=== PATIENT | female | born 1970 | race Caucasian/White ===

== ENCOUNTER 2020-05-31 12:46 | Emergency (ER) | payer MEDICAID, SELFPAY ==
--- NOTE | 2020-05-31 13:26 | ED.GENADULT ---
HPI - General Adult General Chief complaint: Back Pain/Injury Stated complaint: NOT FEELING WELL X'S DAYS Time Seen by Provider: 05/31/20 13:26 Source: patient and EMS Mode of arrival: EMS Limitations: no limitations History of Present Illness HPI narrative: 49 y/o female with history of opiate abuse on Suboxone presents today reports hot flashes for the last 6 months. She has taken her temperature several times and fever has not had a temperature. She was recently seen [facility] on 05/19. She reports she is getting nauseated with it, chronically having to take antiemetics. She is planning on changing to a monthly injection this week. She also reports lumbar back pain for the last 2 months as well. Denies injury. No urinary/fecal incontinence, saddle paresthesias, numbness, tingling. Denies IVDA. complaint: hot flashes x6 months Onset (ago): month(s) Severity: severe Pain Consistency: intermittent Relieving factors: immobilization Exacerbating factors: movement Associated symptoms: denies other symptoms Treatments prior to arrival: none Related Data Home Medications Medication Instructions Recorded Confirmed clonazepam 1 mg tablet 1 mg PO DAILY 05/14/20 dextroamphetamine-amphetamine 30 30 mg PO BID 05/14/20 mg tablet naloxone 4 mg/actuation nasal spray 4 mg INTRANASAL Q2M PRN 05/14/20 sumatriptan 10 mg-naproxen 60 mg 1 tab PO DAILY tab 05/14/20 tablet Previous Rx's Medication Instructions Recorded buprenorphine 8 mg-naloxone 2 mg 1 film SUBLINGUAL BID #14 ea 05/19/20 sublingual film cyclobenzaprine 10 mg PO TID PRN #14 tab 05/31/20 ibuprofen 600 mg PO Q8H PRN #30 tab 05/31/20 lidocaine [Lidoderm] 1 patch TOPICAL DAILY #15 ea 05/31/20 Allergies Allergy/AdvReac Type Severity Reaction Status Date / Time dexamethasone [From DECADRON] AdvReac Severe NAUSEA & Verified 05/31/20 13:37 VOMITING Review of Systems Review of Systems: Constitutional: No Fever, + Chills ENT/Mouth: No sore throat, No Rhinorrhea, No Swallowing Difficulty Eyes: No Eye Pain, No Swelling, No Redness Cardiovascular: No Chest Pain, No SOB, No Orthopnea, No Edema Respiratory: No Cough, No Sputum, No Wheezing, No dyspnea Gastrointestinal: + Nausea, + Vomiting, No Diarrhea, No abdominal Pain, No Hematochezia, No Melena Genitourinary: No Dysuria, No Urinary Frequency, No Hematuria Musculoskeletal: + joint pain, + Myalgias Skin: No Skin Lesions, No rash Neuro: No Weakness, No Numbness, No Dizziness, No Headache Psych: + Anxiety/Panic, No Depression Heme/Lymph: No Bruising, No Lymphadenopathy Endocrine: No Polyuria, No Polydipsia, + hot flashes, No night sweats PMFSH Past Medical History Attestation statement: The following information was validated with the patient. Medical History (Updated 05/31/20 @ 15:34 by TOM Barker) No known health problems No known health problems Substance abuse Social History Social History Alcohol intake: unknown Smoking Status: Unknown if ever smoked Use of substances other than those prescribed or required for medical reasons: No Substance Use Type: Former Substance User Any prior treatment program specific to substance use: Yes (PT TAKES SUBOXONE 8MG BID) Advance Directives: No Advance Directives Information Provided: No Physical Exam Vital Signs: Vital Signs: Vital Signs Temp Pulse Resp BP Pulse Ox 05/31/20 13:33 98.7 F 67 18 150/96 H 97 Body Mass Index 36.2 Appearance: Alert. Oriented X3. No acute distress. HEENT: normal inspection CVS: Normal heart rate and rhythm. Pulses normal. Respiratory: No respiratory distress. Skin: Skin warm and dry. Normal skin color. Normal skin turgor. No rashes. Back: tender soft tissue area of bilateral lumbar back, normal inspection, +muscle spasm, limited ROM Extremities: no LE edema, full ROM, DTR's intact Neuro: Oriented X 3. No motor deficit. No sensory deficit. Course Course Course Narrative: patient requesting routine blood work and monitoring for menopause and for diabetes. Explained to patient the role of basic medical screening in the ER and need for follow up with PCP. She admits she hasn't been to her PCP in a very long time, I don't even know her name. Explained that new lists can be provided and the importance of follow. Will get lumbar XR given pain. Low suspicion for infection given chronicity of hot flashes. Likely hormonally mediated. Reevaluation(s) Reevaluation #1: FS 120. Anum Asher here speaking with the patient. Reevaluation #2: Lumbar XR shows: Grade 1 anterolisthesis of L5, with yanp-nr-elvhafry disc degeneration and suspected bilateral L5 pars defect. No acute fractures seen. Mild bilateral SI joint arthritis. She has no deficits. She is stable for discharge with symptomatic management and plan to f/u with PCP. She may require additional imaging of her spine. Patient agrees with plan. 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 Use ice and/or heat several times a day to your low back. Your X-ray did not show any acute fracture. It showed mild arthritis of your SI joints and a grade 1 (most mild form) slipped disc of one of your lumbar spine. You should follow up with your Primary Care doctor for further management and possible need for additional imaging. You should follow up with your Primary Care doctor for routine blood work and futher workup of the hot flashes you have been having for the last 6 months. Your blood glucose today did not indicate diabetes. If you develop incontinence, numbness/tingling in your inguinal area, loss of function call 911 or come back to the ER for further evaluation. Prescriptions: New cyclobenzaprine 10 mg tablet 10 mg PO TID PRN (Reason: muscle spasm) Qty: 14 RF: 0 ibuprofen 600 mg tablet 600 mg PO Q8H PRN (Reason: pain) Qty: 30 RF: 0 lidocaine [Lidoderm] 5 % adhesive patch,medicated 1 patch topical DAILY Qty: 15 RF: 0 No Action buprenorphine-naloxone [Suboxone] 8-2 mg film 1 film sublingual BID Qty: 14 RF: 1
[2020-05-31 13:33] VITALS: BP 150/96; PULSE 67; RESP 18; TEMP 37.1; O2SAT 97; BMI 36.2
--- NOTE | 2020-05-31 13:59 | XR_ITS ---
EXAMINATION: XR LUMBOSACRAL SPINE CLINICAL INFORMATION: Pain, tenderness. COMPARISON: None TECHNIQUE: Three views of the lumbosacral spine. FINDINGS: Grade 1 anterolisthesis of L5 on S1, with oofp-tm-mvlakidh disc degeneration. Question bilateral L5 pars defect. Vertebral body heights are maintained without evidence of acute fracture. Disc spaces are relatively maintained otherwise. Mild bilateral SI joint arthritis. No suspicious soft tissue calcification. IMPRESSION: 1. Grade 1 anterolisthesis of L5, with [id number]-rc-[id number] disc degeneration and suspected bilateral L5 pars defect. 2. No acute fractures seen. 3. Mild bilateral SI joint arthritis.
[2020-05-31] MEDS: Lidocaine 4 % Patch ADH..PATCH 2 PATCH TRANSDERMA (14:12)
[2020-05-31] MEDS: Cyclobenzaprine HCl 10 MG TABLET PO (14:14)
[2020-05-31 14:38] LABS: Glucose, Whole Blood 120 mg/dL (60-115)
[2020-05-31 15:31] VITALS: BP 116/96; PULSE 64; RESP 16; TEMP 36.8; O2SAT 99
== END 2020-05-31 15:53 | disposition home or self-care (01) ==
PROVIDERS: Emergency Provider Emergency Medicine; PCP Internal Medicine
DX: N95.1 Menopausal and female climacteric states (principal); M46.1 Sacroiliitis, not elsewhere classified; M43.16 Spondylolisthesis, lumbar region; F11.20 Opioid dependence, uncomplicated; Z79.899 Other long term (current) drug therapy
CPT/HCPCS: 72100; 82947; 99283; 99284

== ENCOUNTER → 2020-06-02 13:37 | Outpatient (BNVA) | payer MEDICAID, SELFPAY | PROVIDERS: Visit Provider Nurse Practitioner Psychiatric/Mental Health | DX: F11.99 Opioid use, unspecified with unspecified opioid-induced disorder (principal) | CPT/HCPCS: 80305; 99213 ==

== ENCOUNTER 2020-06-16 14:11 | Outpatient (REF) | payer MEDICAID, SELFPAY ==
[2020-06-16 15:28] LABS: MANUAL DIFF FLAG NO
[2020-06-16 15:33] LABS: Basophils Percent Auto 0.3 % (0-2); Eosinophils Absolute Auto 0.2 X10*3/uL (0.0-0.4); Eosinophils Percent Auto 2.4 % (0-4); Hematocrit 49.3 % (37-47); Hemoglobin 16.2 g/dl (12.0-16.0); Imm Gran Abs Auto 0.02 X10*3/uL (0.00-0.03); Imm Gran Pct Auto 0.3 % (0.0-0.4); Lymphocytes Absolute Auto 3.3 X10*3/uL (1.2-4.9); Mean Corpuscular HGB Conc 32.9 g/dl (31.0-35.0); Mean Corpuscular Hemoglobin 29.1 pg (27.0-33.0); Mean Corpuscular Volume 88.7 fL (80-98); Mean Platelet Volume 9.7 fL (9.4-12.3); Monocytes Absolute Auto 0.5 X10*3/uL (0.1-1.2); Monocytes Percent Auto 5.9 % (2-11); Neutrophils Absolute Auto 3.7 X10*3/uL (2.0-8.3); Neutrophils Percent Auto 48.1 % (45-73); Platelet Count 264 X10*3/uL (160-400); Red Blood Count 5.56 X10*6/uL (4.20-5.50); Red Cell Distribution Width 12.6 % (11.0-16.0); White Blood Count 7.6 X10*3/uL (4.8-10.8)
[2020-06-16 16:17] LABS: Anion Gap 11 (12-20); Blood Urea Nitrogen 10 mg/dL (9-16); Calcium 8.7 mg/dL (8.4-10.2); Carbon Dioxide 32 mmol/L (22-29); Chloride 102 mmol/L (96-108); Estimated Glomerular Filt Rate > 60; Glucose Random 88 mg/dL (60-115); Potassium 4.3 mmol/l (3.3-5.1); Sodium 141 mmol/L (135-145)
== END 2020-06-16 14:12 | disposition home or self-care (01) ==
LOC: HO.LAB 14:11
PROVIDERS: PCP Internal Medicine; Visit Provider Nurse Practitioner Psychiatric/Mental Health
DX: D86.9 Sarcoidosis, unspecified (principal); Z51.81 Encounter for therapeutic drug level monitoring; Z79.899 Other long term (current) drug therapy
CPT/HCPCS: 36415; 80048; 80305; 85025; 99212

== ENCOUNTER → 2020-06-23 15:00 | Outpatient (BNVA) | payer MEDICAID, SELFPAY | PROVIDERS: Visit Provider Nurse Practitioner Psychiatric/Mental Health | DX: Z13.89 Encounter for screening for other disorder (principal) | CPT/HCPCS: 99211 ==

== ENCOUNTER → 2020-06-30 13:37 | Outpatient (BNVA) | payer MEDICAID, SELFPAY | PROVIDERS: Visit Provider Nurse Practitioner Psychiatric/Mental Health | DX: F11.20 Opioid dependence, uncomplicated (principal) | CPT/HCPCS: 99211; Q9992 ==

== ENCOUNTER 2020-06-30 16:27 | Emergency (ER) | payer MEDICAID, SELFPAY ==
[2020-06-30 17:08] VITALS: BP 128/87; PULSE 97; RESP 16; TEMP 36.2; O2SAT 99; BMI 36.2
--- NOTE | 2020-06-30 18:01 | ED.ALLEREA ---
HPI - Allergic Reaction General Chief complaint: Allergic Reaction Stated complaint: allergic reaction Time Seen by Provider: 06/30/20 18:01 History of Present Illness HPI narrative: Patient presents to the ER after getting a Suboxone injection which produced a red rash on her skin which was itchy but has been improving without any further treatment she never had shortness of breath or any swelling inside her mouth or difficulty swallowing or breathing Related Data Home Medications Medication Instructions Recorded Confirmed clonazepam 1 mg tablet 1 mg PO DAILY 05/14/20 dextroamphetamine-amphetamine 30 30 mg PO BID 05/14/20 mg tablet naloxone 4 mg/actuation nasal spray 4 mg INTRANASAL Q2M PRN 05/14/20 sumatriptan 10 mg-naproxen 60 mg 1 tab PO DAILY tab 05/14/20 tablet Previous Rx's Medication Instructions Recorded cyclobenzaprine 10 mg PO TID PRN #14 tab 05/31/20 ibuprofen 600 mg PO Q8H PRN #30 tab 05/31/20 lidocaine [Lidoderm] 1 patch TOPICAL DAILY #15 ea 05/31/20 buprenorphine 300 mg/1.5 mL 300 mg SUBCUT .COMPLEX #1.5 ml 06/20/20 solution,exten.rel.subcutaneous syringe buprenorphine 8 mg-naloxone 2 mg 1 film SUBLINGUAL BID #14 ea 06/23/20 sublingual film loratadine [Claritin] 10 mg PO DAILY PRN #7 tab 06/30/20 Allergies Allergy/AdvReac Type Severity Reaction Status Date / Time dexamethasone [From DECADRON] AdvReac Severe NAUSEA & Verified 05/31/20 13:37 VOMITING Review of Systems Review of Systems: Review of systems is positive for rash No chest pain no shortness of breath no difficulty breathing or swallowing no facial swelling no neck swelling no abdominal pain no nausea no vomiting Yes all other systems are reviewed and are negative PMFSH Past Medical History Source: nursing notes reviewed Medical History (Updated 06/30/20 @ 18:08 by TOM Rosenberg) No known health problems No known health problems Substance abuse Social History Social History Alcohol intake: never Smoking Status: Current every day smoker Use of substances other than those prescribed or required for medical reasons: No Substance Use Type: Marijuana Advance Directives: No Advance Directives Information Provided: No Physical Exam Vital Signs: Vital Signs: Last Vital Signs Temp 97.1 F 06/30/20 17:08 Pulse 97 06/30/20 17:08 Resp 16 06/30/20 17:08 BP 128/87 06/30/20 17:08 Pulse Ox 99 06/30/20 17:08 Body Mass Index 36.2 General appearance no distress comfortable relaxed cooperative The pharynx is clear with no swelling of lips tongue or pharynx, mucous membranes are moist Neck is supple Chest is clear to auscultation bilaterally with full symmetrical equal breath sounds, no wheezing Heart no murmurs Extremities full range of motion x4 Skin there is a red or the cardial rash diffusely Neuro no focal deficits Course Course Course Narrative: Patient states rash is much better than what it was before and is improving, she remains comfortable throughout visit and is treated with antihistamine and advised to not take the Suboxone shot again Discharge Plan Discharge Clinical Impression: Allergic reaction Qualifiers: Encounter type: initial encounter Qualified Code(s): T78.40XA - Allergy, unspecified, initial encounter Patient Disposition: Home, Self-Care Additional Instructions: Because you had this reaction you probably should not take that medication injection again No sign of any dangerous condition now Use Claritin as needed and return to ER any time for any worse condition or any concerns Four chronic problem with your feet follow with elementary reading tutor, you may need a referral from primary doctor Prescriptions: New loratadine [Claritin] 10 mg tablet 10 mg PO DAILY PRN (Reason: allergy symptoms) Qty: 7 RF: 0 No Action Sublocade 300 mg/1.5 mL solution, extended rel syringe 300 mg subcut .COMPLEX Qty: 1.5 RF: 1 cyclobenzaprine 10 mg tablet 10 mg PO TID PRN (Reason: muscle spasm) Qty: 14 RF: 0 ibuprofen 600 mg tablet 600 mg PO Q8H PRN (Reason: pain) Qty: 30 RF: 0 lidocaine [Lidoderm] 5 % adhesive patch,medicated 1 patch topical DAILY Qty: 15 RF: 0 buprenorphine-naloxone [Suboxone] 8-2 mg film 1 film sublingual BID Qty: 14 RF: 0 Referrals: Kevin Hernandez [Physician] - 2 days Cheo Baxter DPM [Physician] - 2 days Interventions: ED Discharge Assessment Last Done: 06/30/20 18:35 Discharge Date/Time: 06/30/20 18:41
[2020-06-30] MEDS: Loratadine 10 MG TABLET PO (18:10)
--- NOTE | 2020-06-30 18:36 | PC.NURSE ---
PT HAD NO RASH OR RED AREA AT [facility] AND ROUTE DRIVER AND ITCH STOPPED.
== END 2020-06-30 18:41 | disposition home or self-care (01) ==
PROVIDERS: Emergency Provider Emergency Medicine Emergency Medical Services
DX: L23.9 Allergic contact dermatitis, unspecified cause (principal); Z79.899 Other long term (current) drug therapy; F17.200 Nicotine dependence, unspecified, uncomplicated; Z71.6 Tobacco abuse counseling
CPT/HCPCS: 99284

== ENCOUNTER → 2020-07-07 13:29 | Outpatient (BNVA) | payer MEDICAID, SELFPAY | PROVIDERS: Visit Provider Nurse Practitioner Psychiatric/Mental Health | DX: Z76.89 Persons encountering health services in other specified circumstances (principal) ==

== ENCOUNTER → 2020-07-13 14:04 | Outpatient (BNVA) | payer MEDICAID, SELFPAY | PROVIDERS: Visit Provider Internal Medicine | DX: Z76.89 Persons encountering health services in other specified circumstances (principal) ==

== ENCOUNTER → 2020-07-28 13:36 | Outpatient (BNVA) | payer MEDICAID, SELFPAY | PROVIDERS: Visit Provider Nurse Practitioner Psychiatric/Mental Health | DX: F11.99 Opioid use, unspecified with unspecified opioid-induced disorder (principal); F17.200 Nicotine dependence, unspecified, uncomplicated; Z79.899 Other long term (current) drug therapy | CPT/HCPCS: 80305; 96372; 99212; Q9992 ==

== ENCOUNTER → 2020-08-25 13:32 | Outpatient (BNVA) | payer MEDICAID, SELFPAY | PROVIDERS: Visit Provider Nurse Practitioner Psychiatric/Mental Health | DX: F11.99 Opioid use, unspecified with unspecified opioid-induced disorder (principal) | CPT/HCPCS: 80305; 96372; 99212; Q9991 ==

== ENCOUNTER 2020-09-08 12:37 | Outpatient (REF) | payer MEDICAID, SELFPAY ==
[2020-09-08 18:33] LABS: Glucose Urine UA NEG (NEG); Leukocyte Esterase Urine NEG (NEG); Nitrite Urine NEG (NEG); Specific Gravity - Urine >= 1.030 (1.005-1.025); Urine Blood NEG (NEG); Urine Ketones NEG (NEG); Urine Protein NEG (NEG-TRACE)
[2020-09-08 18:36] LABS: Appearance Urine CLEAR; Color Urine YELLOW
== END 2020-09-08 12:38 | disposition home or self-care (01) ==
LOC: HO.LAB 12:37
PROVIDERS: PCP Nurse Practitioner Family; Visit Provider Advanced Practice Midwife
DX: Z01.419 Encounter for gynecological examination (general) (routine) without abnormal findings (principal); N39.3 Stress incontinence (female) (male); F17.200 Nicotine dependence, unspecified, uncomplicated; R23.2 Flushing; Z98.890 Other specified postprocedural states; Z79.899 Other long term (current) drug therapy
CPT/HCPCS: 36415; 81003; 87624; 88141; 88142

== ENCOUNTER → 2020-09-22 11:03 | Outpatient (BNVA) | payer MEDICAID, SELFPAY | PROVIDERS: Visit Provider Nurse Practitioner Psychiatric/Mental Health | DX: F11.99 Opioid use, unspecified with unspecified opioid-induced disorder (principal); Z51.81 Encounter for therapeutic drug level monitoring | CPT/HCPCS: 80305; 96372; 99211; Q9991 ==

== ENCOUNTER 2020-10-07 11:53 | Outpatient (REF) | payer MEDICAID, SELFPAY | END 2020-10-07 11:54 | disposition home or self-care (01) | LOC: HO.LAB 11:53 | PROVIDERS: Visit Provider Advanced Practice Midwife | DX: Z13.89 Encounter for screening for other disorder (principal) ==

== ENCOUNTER → 2020-10-24 13:45 | Outpatient (BNVA) | payer MEDICAID, SELFPAY | PROVIDERS: Visit Provider Nurse Practitioner Psychiatric/Mental Health | DX: F11.99 Opioid use, unspecified with unspecified opioid-induced disorder (principal) | CPT/HCPCS: 80305; 96372; 99211; Q9991 ==

== ENCOUNTER 2020-11-28 13:07 | Outpatient (REF) | payer MEDICAID, SELFPAY ==
[2020-12-02 11:37] LABS: Buprenorphine 310 ng/mL; Norbuprenorphine 450 ng/mL
== END 2020-11-28 13:08 | disposition home or self-care (01) ==
LOC: HO.LAB 13:07
PROVIDERS: Visit Provider Nurse Practitioner Psychiatric/Mental Health
DX: F11.99 Opioid use, unspecified with unspecified opioid-induced disorder (principal); Z51.81 Encounter for therapeutic drug level monitoring
CPT/HCPCS: 80305; 80348; 96372; 99211; Q9991

== ENCOUNTER → 2020-12-26 13:45 | Outpatient (BNVA) | payer MEDICAID, SELFPAY | PROVIDERS: Visit Provider Nurse Practitioner Psychiatric/Mental Health | DX: F11.99 Opioid use, unspecified with unspecified opioid-induced disorder (principal) | CPT/HCPCS: 80305; 96372; Q9991 ==

== ENCOUNTER 2021-01-23 13:58 | Outpatient (REF) | payer MEDICAID, SELFPAY ==
[2021-01-27 09:52] LABS: Buprenorphine 240 ng/mL; Norbuprenorphine 250 ng/mL
== END 2021-01-23 13:59 | disposition home or self-care (01) ==
LOC: HO.LAB 13:58
PROVIDERS: Visit Provider Internal Medicine
DX: F11.99 Opioid use, unspecified with unspecified opioid-induced disorder (principal)
CPT/HCPCS: 80305; 80348; 99211; Q9991

== ENCOUNTER → 2021-02-09 14:53 | Outpatient (BNVA) | payer MEDICAID, SELFPAY | PROVIDERS: Visit Provider Nurse Practitioner Psychiatric/Mental Health | DX: F11.99 Opioid use, unspecified with unspecified opioid-induced disorder (principal) ==

== ENCOUNTER → 2021-02-22 14:58 | Outpatient (BNVA) | payer MEDICAID, SELFPAY | PROVIDERS: Visit Provider Nurse Practitioner Psychiatric/Mental Health | DX: Z51.81 Encounter for therapeutic drug level monitoring (principal); F11.99 Opioid use, unspecified with unspecified opioid-induced disorder | CPT/HCPCS: 80305; 96372; 99211; Q9991 ==

== ENCOUNTER → 2021-03-09 14:04 | Outpatient (BNVA) | payer MEDICAID, SELFPAY | PROVIDERS: Visit Provider Nurse Practitioner Psychiatric/Mental Health | DX: F11.99 Opioid use, unspecified with unspecified opioid-induced disorder (principal) | CPT/HCPCS: 80305; 99212 ==

== ENCOUNTER → 2021-03-28 14:40 | Outpatient (BNVA) | payer MEDICAID, SELFPAY | PROVIDERS: Visit Provider Nurse Practitioner Psychiatric/Mental Health | DX: Z51.81 Encounter for therapeutic drug level monitoring (principal); F11.99 Opioid use, unspecified with unspecified opioid-induced disorder | CPT/HCPCS: 80305; 96372; 99211; Q9991 ==

== ENCOUNTER → 2021-05-05 12:54 | Outpatient (BNVA) | payer MEDICAID, SELFPAY | PROVIDERS: Visit Provider Nurse Practitioner Psychiatric/Mental Health | DX: F19.10 Other psychoactive substance abuse, uncomplicated (principal); Z79.899 Other long term (current) drug therapy; Z51.81 Encounter for therapeutic drug level monitoring | CPT/HCPCS: 80305; 96372; 99212; Q9991 ==

== ENCOUNTER → 2021-06-08 10:49 | Outpatient (BNVA) | payer MEDICAID, SELFPAY | PROVIDERS: Visit Provider Nurse Practitioner Psychiatric/Mental Health | DX: F11.21 Opioid dependence, in remission (principal) | CPT/HCPCS: 80305; 96372; 99212; Q9991 ==

== ENCOUNTER → 2021-07-27 14:27 | Outpatient (BNVA) | payer MEDICAID, SELFPAY | PROVIDERS: Visit Provider Nurse Practitioner Psychiatric/Mental Health | DX: F11.21 Opioid dependence, in remission (principal) | CPT/HCPCS: 96372; 99212; Q9991 ==

== ENCOUNTER → 2021-08-24 11:09 | Outpatient (BNVA) | payer MEDICAID, SELFPAY | PROVIDERS: Visit Provider Nurse Practitioner Psychiatric/Mental Health | DX: Z51.81 Encounter for therapeutic drug level monitoring (principal); F11.21 Opioid dependence, in remission | CPT/HCPCS: 80305; 99212 ==

== ENCOUNTER → 2021-09-21 13:18 | Outpatient (BNVA) | payer MEDICAID, SELFPAY | PROVIDERS: Visit Provider Nurse Practitioner Psychiatric/Mental Health | DX: F11.20 Opioid dependence, uncomplicated (principal) | CPT/HCPCS: 80305; 99212 ==

== ENCOUNTER 2021-11-29 11:40 | Emergency (ER) | payer MEDICAID, SELFPAY ==
[2021-11-29 11:51] VITALS: BP 136/86; PULSE 90; O2SAT 99
--- NOTE | 2021-11-29 13:59 | PC.NURSE ---
PT WAS SWEARING LOUDLY IN WR. ASKED BY SECURITY TO PLEASE STOP. STORMED OUT
== END 2021-11-29 13:42 | disposition left against medical advice (07) ==
PROVIDERS: Emergency Provider Emergency Medicine
DX: G43.909 Migraine, unspecified, not intractable, without status migrainosus (principal)

== ENCOUNTER → 2021-12-07 12:49 | Outpatient (BNVA) | payer MEDICAID, SELFPAY | PROVIDERS: Visit Provider Nurse Practitioner Psychiatric/Mental Health | DX: Z13.89 Encounter for screening for other disorder (principal) ==

== ENCOUNTER → 2021-12-28 12:00 | Outpatient (BNVA) | payer MEDICAID, SELFPAY | PROVIDERS: Visit Provider Nurse Practitioner Psychiatric/Mental Health | DX: Z51.81 Encounter for therapeutic drug level monitoring (principal); F11.21 Opioid dependence, in remission | CPT/HCPCS: 80305; 99212 ==

== ENCOUNTER 2022-03-22 09:30 | Emergency (ER) | payer MEDICAID, SELFPAY ==
--- NOTE | ~2022-03-22 | XR_ITS ---
EXAMINATION: XR CHEST CLINICAL INFORMATION: Cough COMPARISON: None TECHNIQUE: Frontal view of the chest was obtained. FINDINGS: Lungs are well expanded. Linear opacity projecting over the right lower lung could represent an old focus of scarring. No airspace disease, interstitial infiltrate or pleural effusion. Cardiac silhouette is normal in size. The hilar contours are normal. The visualized bones, and upper abdomen, are unremarkable. XR/XR chest 1V IMPRESSION: No evidence of pneumonia. No acute cardiopulmonary abnormality.
[2022-03-22 09:36] VITALS: BP 130/85; BP 137/89; PULSE 71; PULSE 90; RESP 20; TEMP 37.2; O2SAT 96; O2SAT 97; BMI 36.8
--- NOTE | 2022-03-22 09:50 | ED_ITS ---
HPI - URI/Sore Throat General Chief Complaint: General Medical Stated Complaint: DIFF BREATHING/HEADACHES +COVID Time Seen by Provider: 03/22/22 09:41 Source: patient Mode of arrival: EMS Limitations: no limitations History of Present Illness MD elicited complaint: fever, cough, sore throat, rhinorrhea and nasal congestion Onset (ago): day(s) (4) Consistency: constant Severity: mild Description of mucous: clear Able to tolerate fluids by mouth: Yes Exacerbating factors: swallowing Relieving factors: nothing Context: other (vaccinated x 2 no booster, COVID + test at home yesterday ) Associated symptoms: fever, chills, myalgias, headache, rhinorrhea, sore throat and cough Treatments prior to arrival: ibuprofen Related Data Home Medications Medication Instructions Recorded Confirmed dextroamphetamine-amphetamine 30 30 mg PO BID 05/14/20 09/21/21 mg tablet (Adderall) naloxone 4 mg/actuation nasal 4 mg intranasal Q2M PRN 05/14/20 09/21/21 spray (Narcan) sumatriptan 10 mg-naproxen 60 mg 1 tab PO DAILY 05/14/20 09/21/21 tablet Previous Rx's Medication Instructions Recorded ibuprofen 600 mg tablet 600 mg PO Q8H PRN pain #30 tabs 05/31/20 lidocaine 5 % topical patch 1 patch topical DAILY #15 ea 05/31/20 (Lidoderm) buprenorphine 8 mg-naloxone 2 mg 1 film sublingual BID #56 ea 12/11/21 sublingual film (Suboxone) ondansetron HCl 4 mg tablet 4 mg PO DAILY PRN nausea and 12/28/21 vomiting #28 tabs benzonatate 100 mg capsule 100 mg PO TID PRN cough #14 caps 03/22/22 aryuugsjik-kqqhsadyifbqt-opvunqxm 1 tab PO Q6H PRN pain #20 tabs 03/22/22 50 mg-325 mg-40 mg tablet Allergies Allergy/AdvReac Type Severity Reaction Status Date / Time dexamethasone [From DECADRON] AdvReac Severe NAUSEA & Verified 08/24/21 11:17 VOMITING Review of Systems Review of Systems: Constitutional : positive Fever, positive Chills, positive fatigue, positive Malaise ENT/Mouth : positive sore throat, positive runny nose Eyes: No Discharge Cardiovascular : No Chest Pain, No SOB Respiratory : pos Cough, No Sputum Gastrointestinal : No Nausea, No Vomiting, No Diarrhea Genitourinary : No Dysuria, No Urinary Frequency Musculoskeletal : positive Myalgia Skin : No rash Neuro : pos Headache PMFSH Past Medical History Attestation statement: The following information was validated with the patient. Medical History Fibroid of cervix No known health problems No known health problems Opioid use disorder Substance abuse Social History Social History (Updated 03/22/22 @ 09:50 by Jennifer De Dios DO) Alcohol intake: never Patient Tobacco Use Status: Current everyday Tobacco user Smoked in Last 30 Days: Yes Use of substances other than those prescribed or required for medical reasons: No Substance Use Type: Marijuana Advance Directives: No Advance Directives Information Provided: Yes Gender identity: Female Physical Exam Vital Signs: Vital Signs: Last Vital Signs Temp 99.0 F 03/22/22 09:36 Pulse 71 03/22/22 09:36 Resp 20 03/22/22 09:36 BP 137/89 03/22/22 09:36 Pulse Ox 97 03/22/22 09:36 O2 Del Method 03/22/22 09:36 BMI result Body Mass Index 36.8 Appearance: Alert. Oriented X3. No acute distress. Eyes: Pupils equal, round and reactive to light. ENT: Pharynx normal. Neck: Normal inspection. Neck supple. CVS: Normal heart rate and rhythm. Pulses normal. Respiratory: No respiratory distress. Breath sounds normal. Abdomen: Soft and non-tender. Skin: Skin warm and dry. Normal skin color. Extremities: No lower extremity edema. Neuro: Oriented X 3. No motor deficit. No sensory deficit. Course Course Course Narrative: stable for DC MDM - URI/Sore Throat MDM Narrative Medical decision making narrative: 51 yo female with hx of substance abuse, smoker, vaccinated x 2 here with c/o COVID positive test at home yesterday and symptoms of URI since Saturday at this time the patient is not toxic, 97% on RA. Will obtain COVID swab and CXR she suffers from migraines and c/o headaches will give tessalon and fioricet. Anticipate DC home. She does not want paxlovid after reviewing [facility] fact sheet and will not go to [facility] for treatment as she doesn't like to go to [facility] Lab Data Labs: Lab Results 03/22/22 Range/Units 09:43 COVID-19 (RAFFI) Positive A (Negative) COVID-19 Clin Com See Note Discharge Plan Discharge Clinical Impression: COVID-19 Patient Disposition: Home, Self-Care Instructions: COVID-19 (Coronavirus Disease 2019) (ED) Additional Instructions: return to ED for any worsening symptoms or concerns wear a mask, quarantine, protect others if you become so short of breath you cannot walk to your own bathroom please seek immediate care no pneumonia on chest xray Prescriptions: New pqxxszigps-qhsmmyhzhaomr-ihbf 50-325-40 mg tablet 1 tab PO Q6H PRN (Reason: pain) Qty: 20 0RF benzonatate 100 mg capsule 100 mg PO TID PRN (Reason: cough) Qty: 14 0RF No Action buprenorphine-naloxone [Suboxone] 8-2 mg film 1 film sublingual BID Qty: 56 0RF ibuprofen 600 mg tablet 600 mg PO Q8H PRN (Reason: pain) Qty: 30 0RF lidocaine [Lidoderm] 5 % adhesive patch,medicated 1 patch topical DAILY Qty: 15 0RF Rx Instructions: leave on most painful area for up to 12 hrs sumatriptan-naproxen 10-60 mg tablet 1 tab PO DAILY Narcan 4 mg/actuation spray,non-aerosol 4 mg intranasal Q2M PRN Rx Instructions: spray 1 dose into ONE nostril; alternate nostrils w each dose until help arrives dextroamphetamine-amphetamine [Adderall] 30 mg tablet 30 mg PO BID Rx Instructions: administer doses at least 4-6 hours apart ondansetron HCl 4 mg tablet 4 mg PO DAILY PRN (Reason: nausea and vomiting) Qty: 28 1RF
[2022-03-22 09:56] LABS: COVID-19 Test Positive (Negative); IDNOW Serial# 16C4AD1C
[2022-03-22] MEDS: Butalb/Acetamin/Caff 50/325/40 TABLET 1 TAB PO (10:02)
[2022-03-22] MEDS: Benzonatate 100 MG CAPSULE PO (10:02)
[2022-03-22 10:55] VITALS: BP 112/71; PULSE 63; RESP 20; TEMP 36.9; O2SAT 98
== END 2022-03-22 11:01 | disposition home or self-care (01) ==
PROVIDERS: Emergency Provider Emergency Medicine
DX: U07.1 COVID-19 (principal); J02.9 Acute pharyngitis, unspecified
CPT/HCPCS: 71045; 87635; 99283; 99284

== ENCOUNTER 2023-02-02 10:51 | Emergency (ER) | payer MEDICAID, SELFPAY ==
[2023-02-02 10:57] VITALS: BP 132/85; BP 150/90; PULSE 81; PULSE 86; RESP 18; TEMP 36.8; O2SAT 96; O2SAT 98; BMI 38.7
[2023-02-02 11:02] VITALS: BP 132/85; PULSE 81; RESP 18; TEMP 36.8; O2SAT 95
--- NOTE | 2023-02-02 11:03 | ED.GENADULT ---
HPI - General Adult General Chief complaint: General Medical Stated complaint: N/V/D Source: patient, EMS and RN notes reviewed Mode of arrival: EMS Limitations: no limitations History of Present Illness HPI narrative: Patient is a 52-year-old female with history of migraines and opioid use disorder in remission presenting to the emergency department with complaint of nausea, vomiting, and diarrhea for the past 17 hours after eating pork. She also complains of a headache, denies worst at onset. Denies any falls or other trauma. Denies any double vision, blurred vision or other visual changes. She reports epigastric pain, denies any other abdominal pain. Denies recent antibiotic use. Denies any bloody or coffee ground emesis. Denies any bloody or black, tarry stools. Denies dysuria, hematuria, or other urinary symptoms. Denies anyone else in the home with similar symptoms. Denies cough, chest pain, dyspnea. Denies fevers. MD complaint: nausea, vomiting, diarrhea Onset (ago): hour(s) Associated symptoms: headaches and nausea/vomiting Treatments prior to arrival: none Related Data Home Medications Medication Instructions Recorded Confirmed dextroamphetamine-amphetamine 30 30 mg PO BID 05/14/20 09/21/21 mg tablet (Adderall) naloxone 4 mg/actuation nasal 4 mg intranasal Q2M PRN 05/14/20 09/21/21 spray (Narcan) sumatriptan 10 mg-naproxen 60 mg 1 tab PO DAILY 05/14/20 09/21/21 tablet Previous Rx's Medication Instructions Recorded ibuprofen 600 mg tablet 600 mg PO Q8H PRN pain #30 tabs 05/31/20 lidocaine 5 % topical patch 1 patch topical DAILY #15 ea 05/31/20 (Lidoderm) buprenorphine 8 mg-naloxone 2 mg 1 film sublingual BID #56 ea 12/11/21 sublingual film (Suboxone) ondansetron HCl 4 mg tablet 4 mg PO DAILY PRN nausea and 12/28/21 vomiting #28 tabs benzonatate 100 mg capsule 100 mg PO TID PRN cough #14 caps 03/22/22 yilehkkpzn-smszskbmfjuve-wezdcayg 1 tab PO Q6H PRN pain #20 tabs 03/22/22 50 mg-325 mg-40 mg tablet ondansetron 4 mg disintegrating 4 mg PO Q8H PRN nausea and 02/02/23 tablet vomiting #12 tabs Allergies Allergy/AdvReac Type Severity Reaction Status Date / Time dexamethasone [From DECADRON] AdvReac Severe NAUSEA & Verified 08/24/21 11:17 VOMITING Review of Systems Review of Systems: As per HPI. Yes all other systems are reviewed and are negative Constitutional: Constitutional: Reports as per HPI [facility] Past Medical History Medical History Fibroid of cervix No known health problems No known health problems Opioid use disorder Substance abuse Social History Social History (Updated 03/22/22 @ 09:50 by Lara De Dios DO) Alcohol intake: never Patient Tobacco Use Status: Current everyday Tobacco user Substance Use Type: Marijuana Advance Directives: No Advance Directives Information Provided: Yes Patient : No Gender identity: Female Physical Exam ED Vital Signs: Vital Signs - 24 hr 02/02/23 10:57 02/02/23 11:02 Temperature 98.2 F 98.2 F Pulse Rate 81 81 Respiratory Rate 18 18 Blood Pressure 132/85 132/85 Pulse Oximetry 96 95 Oxygen Delivery Method Room Air BMI result Body Mass Index 38.7 Vital signs have been reviewed and appear to be correct. Blood pressure normal. Heart rate normal. Respiratory rate normal. Temperature normal. Oxygen saturation normal. Const General: cooperative, healthy appearing and no acute distress Orientation/consciousness: oriented to person, oriented to place, oriented to time and patient oriented x3 Limitations: no limitations HENPR Head: Yes normocephalic and Yes atraumatic Ears: external ears normal General nose exam: Normal external nose present Face and sinus: Yes face symmetric Mouth: oropharynx normal and moist mucous membranes Throat: Yes uvula midline Eyes Pupils: Equal, round and reactive pupils present Neck Neck: Yes normal visual inspection and Yes supple Resp Effort & Inspection: normal respiratory effort and able to speak in complete sentences Auscultation: clear to auscultation bilaterally Cardio Rate: regular rate Rhythm: regular rhythm Heart sounds: S1 normal heart sound present and S2 normal heart sound present GI Palpation (GI): Soft to palpation and nontender Auscultation: normoactive bowel sounds General: Yes no CVA tenderness Back/Spine/Pelvis Back: no CVA tenderness Skin General skin exam: elasticity normal and turgor normal Neuro General: oriented to person, oriented to place, oriented to time, patient oriented x3, moves all extremities, no focal motor deficits and CN's II-XI intact bilaterally Cranial nerves: Yes Equal, round and reactive pupils present Cognition (Neuro): normal cognition Extrem General: Yes full ROM, Yes no pedal edema and Yes no calf tenderness Psych Mental Status: mental status grossly normal Affect: normal affect Thought process: Normal thought process present Course Course Course Narrative: 12:05 Patient reports full resolution of headache and relief of nausea after medications given. Will PO trial. Labs unremarkable, troponin negative. 13:23 Patient unable to provide urine or stool specimen. Has tolerated bennie sun and crackers. Is requesting discharge home. Feel patient is stable for discharge at this time. All results discussed and all questions answered. Patient instructed to follow-up with PCP this week. Return precautions discussed at bedside. Will prescribe Zofran as needed for nausea. Patient verbalized understanding of and agreement with plan. Medications Administered Discontinued Medications Generic Name Dose Route Start Last Admin Trade Name Freq PRN Reason Stop Dose Admin Diphenhydramine HCl 25 mg 02/02/23 11:08 02/02/23 11:32 Diphenhydramine Hcl 50 Mg/Ml Vial IVPUSH 02/02/23 11:09 25 mg ONCE ONE Administration Sodium Chloride 1,000 mls @ 999 mls/hr 02/02/23 11:15 02/02/23 12:58 Ns IV 02/02/23 12:15 Infused .Q1H1M HAZEL Infusion Metoclopramide HCl 10 mg 02/02/23 11:08 02/02/23 11:37 Metoclopramide Hcl 10 Mg/2 Ml Vial IVPUSH 02/02/23 11:09 10 mg ONCE ONE Administration Medical Decision Making Medical Decision Making [facility] Narrative: Patient is a 52-year-old female with history of migraines and opioid use disorder in remission presenting to the emergency department with complaint of nausea, vomiting, and diarrhea for the past 17 hours after eating pork. On exam, patient is awake, A+Ox3, normal neurologial exam without focal deficits, LS CTA, abdomen soft and nontender, no CVA tenderness. Differential includes ACS, viral gastroenteritis, dehydration, GERD. Less likely pancreatitis, PUD. Unlikely cholecystitis, pneumonia, PE (low risk Wells), AAA rupture, peforated viscous. Plan: EKG, labs, UA, IV fluids, reglan, benadryl, reassess Differential Diagnosis Differential Diagnoses: The differential diagnosis associated with the presentation includes As above. Lab Data MDM Lab Attestation statement: I reviewed the patient's lab results. 02/02/23 11:27 02/02/23 11:27 Labs: Lab Results 02/02/23 02/02/23 02/02/23 Range/Units 11:27 11:27 11:27 WBC 8.5 (4.8-10.8) X10*3/uL RBC 6.25 H (4.20-5.50) X10*6/uL Hgb 17.6 H (12.0-16.0) g/dl Hct 52.9 H (37.0-47.0) % MCV 84.6 (80.0-98.0) fL MCH 28.2 (27.0-33.0) pg MCHC 33.3 (31.0-35.0) g/dl RDW 13.3 (11.0-16.0) % Plt Count 239 (160-400) X10*3/uL MPV 9.5 (9.4-12.3) fL Immature Gran % (Auto) 0.5 H (0.0-0.4) % Neut % (Auto) 88.0 H (45-73) % Lymph % (Auto) 7.4 L (20-40) % Dewey % (Auto) 3.8 (2-11) % Eos % (Auto) 0.2 (0-4) % Baso % (Auto) 0.1 (0-2) % Lymph # (Auto) 0.6 L (1.2-4.9) X10*3/uL Dewey # (Auto) 0.3 (0.1-1.2) X10*3/uL Eos # (Auto) 0.0 (0.0-0.4) X10*3/uL Baso # (Auto) 0.0 (0.0-0.2) X10*3/uL Abs Immat Gran (auto) 0.04 H (0.00-0.03) X10*3/uL Absolute Neuts (auto) 7.5 (2.0-8.3) x10*3/uL Absolute Nucleated RBC 0.000 (0.0-0.012) X10*3/uL Nucleated RBC % (auto) 0.0 (0.0-0.2) /100WBC PT (10.0-13.1) SEC INR (0.9-1.1) Sodium 134 L (135-145) mmol/L Potassium 3.9 (3.3-5.1) mmol/L Chloride 102 (96-108) mmol/L Carbon Dioxide 22 (22-29) mmol/L Anion Gap 14 (12-20) BUN 11 (9-16) mg/dL Creatinine 0.80 (0.5-1.4) mg/dL Estim Creat Clear Calc 86.8 Estimated GFR > 60 Random Glucose 107 (60-115) mg/dL Calcium 9.1 (8.4-10.2) mg/dL Magnesium 1.9 (1.6-2.6) mg/dL Total Bilirubin 1.2 H (0.0-1.0) mg/dL AST 24 (5-31) U/L ALT 29 (0-31) U/L Alkaline Phosphatase 84 (39-117) U/L Troponin I High Sens < 2.7 (<3.5-17.0) ng/L Total Protein 7.3 (6.5-8.0) g/dL Albumin 4.1 (3.5-5.0) g/dL Lipase 86 H (8-78) U/L Beta HCG, Quant mIU/mL 02/02/23 02/02/23 Range/Units 11:27 11:27 WBC (4.8-10.8) X10*3/uL RBC (4.20-5.50) X10*6/uL Hgb (12.0-16.0) g/dl Hct (37.0-47.0) % MCV (80.0-98.0) fL MCH (27.0-33.0) pg MCHC (31.0-35.0) g/dl RDW (11.0-16.0) % Plt Count (160-400) X10*3/uL MPV (9.4-12.3) fL Immature Gran % (Auto) (0.0-0.4) % Neut % (Auto) (45-73) % Lymph % (Auto) (20-40) % Dewey % (Auto) (2-11) % Eos % (Auto) (0-4) % Baso % (Auto) (0-2) % Lymph # (Auto) (1.2-4.9) X10*3/uL Dewey # (Auto) (0.1-1.2) X10*3/uL Eos # (Auto) (0.0-0.4) X10*3/uL Baso # (Auto) (0.0-0.2) X10*3/uL Abs Immat Gran (auto) (0.00-0.03) X10*3/uL Absolute Neuts (auto) (2.0-8.3) x10*3/uL Absolute Nucleated RBC (0.0-0.012) X10*3/uL Nucleated RBC % (auto) (0.0-0.2) /100WBC PT 10.8 (10.0-13.1) SEC INR 0.9 (0.9-1.1) Sodium (135-145) mmol/L Potassium (3.3-5.1) mmol/L Chloride (96-108) mmol/L Carbon Dioxide (22-29) mmol/L Anion Gap (12-20) BUN (9-16) mg/dL Creatinine (0.5-1.4) mg/dL Estim Creat Clear Calc Estimated GFR Random Glucose (60-115) mg/dL Calcium (8.4-10.2) mg/dL Magnesium (1.6-2.6) mg/dL Total Bilirubin (0.0-1.0) mg/dL AST (5-31) U/L ALT (0-31) U/L Alkaline Phosphatase (39-117) U/L Troponin I High Sens (<3.5-17.0) ng/L Total Protein (6.5-8.0) g/dL Albumin (3.5-5.0) g/dL Lipase (8-78) U/L Beta HCG, Quant 3 mIU/mL Independent Interpretation I performed an independent interpretation of an: EKG Interpretation: sinus rhythm with PACs, rate 71bpm, normal MO and QT intervals, no evidence of STEMI Discharge Plan Discharge Clinical Impression: Nausea, vomiting, and diarrhea Patient Disposition: Home, Self-Care Instructions: Acute Nausea and Vomiting (ED), Acute Diarrhea (ED) Additional Instructions: You have been evaluated in the emergency department today for nausea, vomiting, and diarrhea. Your evaluation suggests that your symptoms are most likely due to a viral illness which will improve on it's own with rest and fluids. Remember to drink plenty of fluids at home. You are being prescribed ondansetron which you can use as per the prescription instructions for nausea. Please follow up with your primary care provider within two days. Return to the emergency department if you experience worsening or uncontrolled pain, inability to tolerate fluids by mouth, difficulty breathing, fevers 100.4? F or greater, recurrent vomiting, or any other concerning symptoms. Prescriptions: New ondansetron 4 mg tablet,disintegrating 4 mg PO Q8H PRN (Reason: nausea and vomiting) Qty: 12 0RF No Action buprenorphine-naloxone [Suboxone] 8-2 mg film 1 film sublingual BID Qty: 56 0RF ibuprofen 600 mg tablet 600 mg PO Q8H PRN (Reason: pain) Qty: 30 0RF lidocaine [Lidoderm] 5 % adhesive patch,medicated 1 patch topical DAILY Qty: 15 0RF Rx Instructions: leave on most painful area for up to 12 hrs uucxypdqcg-mtckvmubempbh-jeif 50-325-40 mg tablet 1 tab PO Q6H PRN (Reason: pain) Qty: 20 0RF benzonatate 100 mg capsule 100 mg PO TID PRN (Reason: cough) Qty: 14 0RF sumatriptan-naproxen 10-60 mg tablet 1 tab PO DAILY Narcan 4 mg/actuation spray,non-aerosol 4 mg intranasal Q2M PRN Rx Instructions: spray 1 dose into ONE nostril; alternate nostrils w each dose until help arrives dextroamphetamine-amphetamine [Adderall] 30 mg tablet 30 mg PO BID Rx Instructions: administer doses at least 4-6 hours apart ondansetron HCl 4 mg tablet 4 mg PO DAILY PRN (Reason: nausea and vomiting) Qty: 28 1RF
--- NOTE | 2023-02-02 11:05 | PC.NURSE ---
Alert and oriented. States has had n/v/d for 17 hours after eating bad pork. States has been unable to keep anything down. Abdomen tender with palpation. Reports some sharp chest pain for about 2 weeks but has not had it checked. Reports 10/10 across top of head headache. Denies nasal congestion. denies blurry or double vision but states the room appears cloudy or smoky . PERRLA. States drank 16 glasses of water last night but it all came back out. vss.
--- NOTE | 2023-02-02 11:08 | ECG_ITS ---
Test Reason : Abd Pain Blood Pressure : / mmHG Vent. Rate : 071 BPM Atrial Rate : 071 BPM P-R Int : 142 ms QRS Dur : 106 ms QT Int : 390 ms P-R-T Axes : 058 036 053 degrees QTc Int : 423 ms Sinus rhythm with Premature atrial complexes Otherwise normal ECG When compared with ECG of 28-DEC-2018 18:24, Premature atrial complexes are now Present T wave amplitude has decreased in Anterolateral leads Referred By: Kyung Greene Electronically Signed By:MEERA KIRK MD
[2023-02-02] MEDS: diphenhydrAMINE HCL 50 MG/ML VIAL 25 MG IVPUSH (11:32)
[2023-02-02] MEDS: 0.9 % Sodium Chloride 1,000 ML 999 ML IV (11:37)
[2023-02-02] MEDS: Metoclopramide HCl 10 MG/2 ML VIAL IVPUSH (11:37)
[2023-02-02 11:40] LABS: MANUAL DIFF FLAG NO
[2023-02-02 11:42] LABS: Basophils Percent Auto 0.1 % (0-2); Eosinophils Percent Auto 0.2 % (0-4); Hematocrit 52.9 % (37.0-47.0); Hemoglobin 17.6 g/dl (12.0-16.0); Imm Gran Abs Auto 0.04 X10*3/uL (0.00-0.03); Imm Gran Pct Auto 0.5 % (0.0-0.4); Lymphocytes Absolute Auto 0.6 X10*3/uL (1.2-4.9); Lymphocytes Percent Auto 7.4 % (20-40); Mean Corpuscular HGB Conc 33.3 g/dl (31.0-35.0); Mean Corpuscular Hemoglobin 28.2 pg (27.0-33.0); Mean Corpuscular Volume 84.6 fL (80.0-98.0); Mean Platelet Volume 9.5 fL (9.4-12.3); Monocytes Absolute Auto 0.3 X10*3/uL (0.1-1.2); Monocytes Percent Auto 3.8 % (2-11); Neutrophils Absolute Auto 7.5 x10*3/uL (2.0-8.3); Platelet Count 239 X10*3/uL (160-400); Red Blood Count 6.25 X10*6/uL (4.20-5.50); Red Cell Distribution Width 13.3 % (11.0-16.0); White Blood Count 8.5 X10*3/uL (4.8-10.8)
[2023-02-02 11:51] LABS: INTERNATIONAL NORM RATIO 0.9 (0.9-1.1); Prothrombin Time 10.8 SEC (10.0-13.1)
[2023-02-02 11:56] LABS: Alanine Aminotransferase 29 U/L (0-31); Albumin Level 4.1 g/dL (3.5-5.0); Alkaline Phosphatase 84 U/L (39-117); Anion Gap 14 (12-20); Aspartate Amino Transferase 24 U/L (5-31); Bilirubin Total 1.2 mg/dL (0.0-1.0); Blood Urea Nitrogen 11 mg/dL (9-16); Calcium 9.1 mg/dL (8.4-10.2); Carbon Dioxide 22 mmol/L (22-29); Chloride 102 mmol/L (96-108); Creatinine Clr Calc Pharmacy 86.8; Estimated Glomerular Filt Rate > 60; Glucose Random 107 mg/dL (60-115); Lipase 86 U/L (8-78); Magnesium 1.9 mg/dL (1.6-2.6); Potassium 3.9 mmol/L (3.3-5.1); Sodium 134 mmol/L (135-145); Total Protein 7.3 g/dL (6.5-8.0)
[2023-02-02 12:02] LABS: Troponin-I High Sensitivity < 2.7 ng/L (<3.5-17.0)
[2023-02-02 12:03] LABS: HCG Quantitative 3 mIU/mL
--- NOTE | 2023-02-02 12:10 | PC.NURSE ---
Pt feeling better s/p medication interventions. Asking for food, given crackers and bennie sun, tolerating well.
--- NOTE | 2023-02-02 13:04 | PC.NURSE ---
Patient stating that she does not feel like she needs to urinate or have a BM at this time but will ring call lynch if able to. Reports feeling much better and no longer has a headache or nausea.
[2023-02-02 13:31] VITALS: BP 121/76; PULSE 73; RESP 10; TEMP 36.9; O2SAT 95
--- NOTE | 2023-02-02 13:54 | PC.NURSE ---
Alert and oriented. Reports feeling much better and would like to go home. Reviewed discharge instructions with patient who verbalized understanding.
== END 2023-02-02 13:54 | disposition home or self-care (01) ==
PROVIDERS: Registered Nurse Emergency; Emergency Provider Emergency Medicine
DX: R11.2 Nausea with vomiting, unspecified (principal); R19.7 Diarrhea, unspecified; F17.200 Nicotine dependence, unspecified, uncomplicated; F11.20 Opioid dependence, uncomplicated; Z79.899 Other long term (current) drug therapy
CPT/HCPCS: 36415; 80053; 83690; 83735; 84484; 84702; 85025; 85610; 93005; 96361; 96374; 96375; 99284; J1200; J2765

== ENCOUNTER 2023-09-26 11:15 | Emergency (ER) | payer MEDICAID, SELFPAY ==
[2023-09-26 11:27] VITALS: BP 184/98; PULSE 73; O2SAT 100
[2023-09-26 11:38] VITALS: BP 155/7; PULSE 66; RESP 16; TEMP 36.3; O2SAT 96; BMI 37.7
--- NOTE | 2023-09-26 11:48 | ED.BACK ---
HPI - Back Pain/Injury General Chief Complaint: Back Pain/Injury Stated Complaint: BACK PAIN,NO TRAUMA PER EMS Time Seen by Provider: 09/26/23 11:32 Source: patient and EMS Mode of arrival: EMS Limitations: other (poor historian) History of Present Illness HPI Narrative: 53 year old female hx of opiate use disorder, stress incontinence, presents to the ED via ambulance for complaints of atraumatic severe back pain she reports this has been going on for years but today's episode just seems to be worse. It is located to bilateral lower lumbar region and goes into her legs at times. Denies numbness, tingling, saddle paresthesias or weakness associated with this. No urinary or bowel incontinence/retention. Denies fevers, chills, nausea, vomiting, abdominal pain. Related Data Home Medications Medication Instructions Recorded Confirmed dextroamphetamine-amphetamine 30 30 mg PO BID 05/14/20 09/21/21 mg tablet (Adderall) naloxone 4 mg/actuation nasal 4 mg intranasal Q2M PRN 05/14/20 09/21/21 spray (Narcan) sumatriptan 10 mg-naproxen 60 mg 1 tab PO DAILY 05/14/20 09/21/21 tablet Previous Rx's Medication Instructions Recorded ibuprofen 600 mg tablet 600 mg PO Q8H PRN pain #30 tabs 05/31/20 lidocaine 5 % topical patch 1 patch topical DAILY #15 ea 05/31/20 (Lidoderm) buprenorphine 8 mg-naloxone 2 mg 1 film sublingual BID #56 ea 12/11/21 sublingual film (Suboxone) ondansetron HCl 4 mg tablet 4 mg PO DAILY PRN nausea and 12/28/21 vomiting #28 tabs benzonatate 100 mg capsule 100 mg PO TID PRN cough #14 caps 03/22/22 gslkdmnrpl-tsgtnpdjxqnxu-afmkzrgb 1 tab PO Q6H PRN pain #20 tabs 03/22/22 50 mg-325 mg-40 mg tablet ondansetron 4 mg disintegrating 4 mg PO Q8H PRN nausea and 02/02/23 tablet vomiting #12 tabs cyclobenzaprine 10 mg tablet 10 mg PO BEDTIME PRN muscle spasm 09/26/23 #7 tabs ketorolac 10 mg tablet 10 mg PO TID PRN pain 5 days #15 09/26/23 tabs lidocaine 5 % topical patch 1 patch topical DAILY PRN pain #15 09/26/23 ea Allergies Allergy/AdvReac Type Severity Reaction Status Date / Time dexamethasone [From DECADRON] AdvReac Severe NAUSEA & Verified 08/24/21 11:17 VOMITING Review of Systems Review of Systems: Constitutional : No Weight loss, No Fever, No Chills, ENT/Mouth : No Hearing loss, No Ear Pain, No Nasal Congestion, No Sinus Pain, No Hoarseness, No sore throat, No Rhinorrhea, No Swallowing Difficulty Cardiovascular : No Chest Pain, No SOB Respiratory : No Cough, No Dyspnea Gastrointestinal : No Nausea, No Vomiting, No Diarrhea, No abdominal Pain, No Hematochezia, No Melena Genitourinary : No Dysuria, No Urinary Frequency, No Hematuria, No Urinary Incontinence, Musculoskeletal : positive back pain Skin : No Skin Lesions, No rash Neuro : No Weakness, No Numbness, No Paresthesias, no loss of bowel or bladder incontinence, no saddle anesthesia Yes all other systems are reviewed and are negative [facility] Past Medical History Attestation statement: The following information was validated with the patient. Source: old records reviewed and nursing notes reviewed Medical History Fibroid of cervix Opioid use disorder Substance abuse No known health problems No known health problems Social History Social History Alcohol intake: never Patient Tobacco Use Status: Current everyday Tobacco user Substance Use Type: Marijuana Advance Directives: No Advance Directives Information Provided: No Gender identity: Female Physical Exam Vital Signs: Vital Signs: Last Vital Signs Temp 97.3 F 09/26/23 11:38 Pulse 66 09/26/23 11:38 Resp 16 09/26/23 11:38 BP 155/7 H 09/26/23 11:38 Pulse Ox 96 09/26/23 11:38 O2 Del Method Room Air 09/26/23 11:38 BMI result Body Mass Index 37.7 vss Appearance: Alert.? Oriented X3.? No acute distress.? Head: Normocephalic, atraumatic, no step-offs or deformities Eyes: Pupils equal, round and reactive to light.? ENT: Pharynx normal.? Neck: Normal inspection.? Neck supple.? CVS: Normal heart rate and rhythm.? Pulses normal.? Respiratory: No respiratory distress.? Breath sounds normal.? Skin: Skin warm and dry.? Normal skin color.? Normal skin turgor.? Extremities: No lower extremity edema.? No calf ttp. 5/5 strength to bilateral upper and lower extremities Back: No midline tenderness, no C-spine tenderness, full range of motion, no CVA tenderness bilaterally + tenderness to palpation to bilateral lumbar region. No midline tenderness. Neuro: Oriented X 3.? No motor deficit.? No sensory deficit. CN 2-12 intact . No saddle paresthesias. Ambulating with steady gait normal coordination Course Reevaluation(s) Reevaluation #1: Patient adamantly refusing labs. Multiple staff members have tried. Patient to be discharged home. I will not give patient a narcotic she is currently on Suboxone and has history of opiate use disorder. Will treat with Toradol, cyclobenzaprine, Lidoderm patch. Educated patient on diagnosis and treatment plan, answered all question, patient verbalizes understanding. At this time patient will be discharged home, advised to return with new or worsening symptoms. Educated on worrisome signs and symptoms and when to return. At this time I feel comfortable discharge home. Time: 12:13 Medical Decision Making Medical Decision Making MDM Narrative: 53-year-old female presents via ambulance for evaluation of atraumatic back pain. On exam tenderness to palpation to bilateral lumbar region. No midline tenderness. History and physical exam concerning for lumbar radiculopathy versus lumbago versus acute on chronic back pain. Unlikely cauda equina, epidural abscess, cord compression. No focal neuro deficits Will obtain, labs based off patient's history. Differential Diagnosis Differential Diagnoses: The differential diagnosis associated with the presentation includes History and physical exam concerning for lumbar radiculopathy versus lumbago versus acute on chronic back pain. Unlikely cauda equina, epidural abscess, cord compression. No focal neuro deficits Admission/Observation Consideration of admission/observation: Escalation of care including admission/observation considered Unlikely Lab Data Patient refused Labs: Patient refused Independent Interpretation Interpretation: Atraumatic no indication External Record Review External record reviewed: Inpatient record, Office record, Outpatient record, Prior outpatient labs, Prior outpatient radiology, Primary care record and Outside ED record Prescription Management I considered prescription management with: Pain Medication Chronic Conditions Patient?s care impacted by: Other (Substance use disorder, obesity,) Critical Care Time Critical Care Time Critical Care Time: No Discharge Plan Discharge Clinical Impression: Lumbar radiculopathy Patient Disposition: Home, Self-Care Instructions: Lumbar Radiculopathy (ED), Back Pain (ED) Additional Instructions: Take your medications as prescribed. If you were prescribed antibiotics today, it is important that you take your medication to their entirety, do not skip any doses, do not finish them early. Follow-up with your primary care provider this week. Return to the emergency department with new or worsening symptoms. Such as fevers, chills, chest pain, shortness of breath, nausea, vomiting, dizziness, headache, vision changes, lethargy In case of emergency call 911 Toradol has been sent to your pharmacy, you tolerated this well in the department. Please take this as prescribed do not take this with ibuprofen, or other NSAIDs, do not mix this with alcohol. Side effects of this medication including increased risk for bleeding and possible kidney injury. Cyclobenzaprine is a muscle relaxer it is strong and can make you drowsy. Do not take with sedatives or any other muscle relaxers or alcohol. Do not drive or operate machinery while taking this. Do not share this medication with anyone. Prescriptions: New cyclobenzaprine 10 mg tablet 10 mg PO BEDTIME PRN (Reason: muscle spasm) Qty: 7 0RF ketorolac 10 mg tablet 10 mg PO TID PRN (Reason: pain) 5 Days Qty: 15 0RF lidocaine 5 % adhesive patch,medicated 1 patch topical DAILY PRN (Reason: pain) Qty: 15 0RF Rx Instructions: leave on most painful area for up to 12 hrs No Action buprenorphine-naloxone [Suboxone] 8-2 mg film 1 film sublingual BID Qty: 56 0RF ibuprofen 600 mg tablet 600 mg PO Q8H PRN (Reason: pain) Qty: 30 0RF lidocaine [Lidoderm] 5 % adhesive patch,medicated 1 patch topical DAILY Qty: 15 0RF Rx Instructions: leave on most painful area for up to 12 hrs vyqozvqpgo-yldygzbkwxost-oslr 50-325-40 mg tablet 1 tab PO Q6H PRN (Reason: pain) Qty: 20 0RF benzonatate 100 mg capsule 100 mg PO TID PRN (Reason: cough) Qty: 14 0RF ondansetron 4 mg tablet,disintegrating 4 mg PO Q8H PRN (Reason: nausea and vomiting) Qty: 12 0RF sumatriptan-naproxen 10-60 mg tablet 1 tab PO DAILY Narcan 4 mg/actuation spray,non-aerosol 4 mg intranasal Q2M PRN Rx Instructions: spray 1 dose into ONE nostril; alternate nostrils w each dose until help arrives dextroamphetamine-amphetamine [Adderall] 30 mg tablet 30 mg PO BID Rx Instructions: administer doses at least 4-6 hours apart ondansetron HCl 4 mg tablet 4 mg PO DAILY PRN (Reason: nausea and vomiting) Qty: 28 1RF Referrals: Physician,None [Primary Care Provider] - 2 days
--- NOTE | 2023-09-26 12:10 | MHC.EDTECH ---
pt refused lab work at this time stating i don't like needles, you're not poking me . SHAYY Cassidy and Tamia SANTOS aware
[2023-09-26] MEDS: Cyclobenzaprine HCl 10 MG TABLET PO (12:17)
[2023-09-26] MEDS: Acetaminophen 325 MG TABLET 975 MG PO (12:17)
[2023-09-26] MEDS: Lidocaine 4 % Patch ADH..PATCH 1 PATCH TRANSDERMA (12:17)
[2023-09-26] MEDS: Lidocaine 4 % Patch ADH..PATCH 2 PATCH TRANSDERMA (12:18)
[2023-09-26] MEDS: Ketorolac Tromethamine 30 MG/ML VIAL IVPUSH (12:21)
--- NOTE | 2023-09-26 12:31 | PC.NURSE ---
per mery arriola not do bloodwork prior to d/c.
== END 2023-09-26 12:35 | disposition home or self-care (01) ==
PROVIDERS: Emergency Provider Emergency Medicine
DX: M54.16 Radiculopathy, lumbar region (principal)
CPT/HCPCS: 85025; 96374; 99284; J1885

== ENCOUNTER 2024-02-07 13:51 | Emergency (ER) | payer MEDICAID, SELFPAY ==
[2024-02-07 14:00] VITALS: BP 128/82; BP 151/88; PULSE 68; PULSE 74; RESP 16; TEMP 36.9; O2SAT 95; O2SAT 96; BMI 39.4
--- NOTE | 2024-02-07 14:19 | ED_ITS ---
HPI - General Adult General Chief complaint: Back Pain/Injury Stated complaint: lower back pain Time Seen by Provider: 02/07/24 14:11 Source: patient Limitations: no limitations History of Present Illness HPI narrative: This is a 53-year-old woman with a past medical history of opiate use disorder, stress incontinence who presents for evaluation lower back pain. She states she has had lower back pain for years . She states she has previously been told she has a slipped disc in her lower back. She states lower back pain started worsening over night. She states taking 400mg ibuprofen at 3:30am, 1000mg Tylenol at 11:00am and 800mg ibuprofen at around 12:00pm. She states no new trauma or falls. She states pain does not radiate from her lower back. She states no chest pain, upper back pain, neck pain, dyspnea, abdominal pain, naus ea/vomiting, dysuria, urinary frequency/urgency, hematuria, melena, hematochezia, urinary incontinence, urinary retention, incontinence or stool, constipation/obstipation, paresthesias, extremity weakness, fevers, chills, myalgias, prior back surgery. She states previously being on Suboxone for sniffing Heroin . She states she has not taken Suboxone for a few years. She states no previous history of IVDU. She states no history of coagulopathy/bleeding diathesis. Related Data Home Medications ?Medication ?Instructions ?Recorded ?Confirmed dextroamphetamine-amphetamine 30 30 mg PO BID 05/14/20 09/21/21 mg tablet (Adderall) naloxone 4 mg/actuation nasal 4 mg intranasal Q2M PRN 05/14/20 09/21/21 spray (Narcan) sumatriptan 10 mg-naproxen 60 mg 1 tab PO DAILY 05/14/20 09/21/21 tablet Previous Rx's ?Medication ?Instructions ?Recorded ibuprofen 600 mg tablet 600 mg PO Q8H PRN pain #30 tabs 05/31/20 lidocaine 5 % topical patch 1 patch topical DAILY #15 ea 05/31/20 (Lidoderm) buprenorphine 8 mg-naloxone 2 mg 1 film sublingual BID #56 ea 12/11/21 sublingual film (Suboxone) ondansetron HCl 4 mg tablet 4 mg PO DAILY PRN nausea and 12/28/21 vomiting #28 tabs benzonatate 100 mg capsule 100 mg PO TID PRN cough #14 caps 03/22/22 dvutfftexp-mpaadbplyepet-pqcnklvu 1 tab PO Q6H PRN pain #20 tabs 03/22/22 50 mg-325 mg-40 mg tablet ondansetron 4 mg disintegrating 4 mg PO Q8H PRN nausea and 02/02/23 tablet vomiting #12 tabs cyclobenzaprine 10 mg tablet 10 mg PO BEDTIME PRN muscle spasm 09/26/23 #7 tabs ketorolac 10 mg tablet 10 mg PO TID PRN pain 5 days #15 09/26/23 tabs lidocaine 5 % topical patch 1 patch topical DAILY PRN pain #15 09/26/23 ea cyclobenzaprine 5 mg tablet 5 mg PO BEDTIME PRN muscle spasm 02/07/24 #5 tabs lidocaine 5 % topical patch 1 patch topical DAILY #15 ea 02/07/24 Allergies Allergy/AdvReac Type Severity Reaction Status Date / Time dexamethasone [From DECADRON] AdvReac Severe NAUSEA & Verified 02/07/24 14:02 VOMITING Review of Systems Review of Systems: ROS as per [facility] Past Medical History Medical History Fibroid of cervix Opioid use disorder Substance abuse No known health problems No known health problems Social History Social History Alcohol intake: never Patient Tobacco Use Status: Current everyday Tobacco user Smoked in Last 30 Days: Yes Use of substances other than those prescribed or required for medical reasons: No Substance Use Type: Marijuana Advance Directives: No Advance Directives Information Provided: Yes Gender identity: Female Physical Exam ED Vital Signs: Vital Signs - 24 hr 02/07/24 14:00 Temperature 98.4 F Pulse Rate 68 Respiratory Rate 16 Blood Pressure 151/88 H Pulse Oximetry 95 Oxygen Delivery Method Room Air BMI result Body Mass Index 39.4 Gen: NAD, AOx3 HEENT: NCAT, EOMI, normal conjunctiva CV: RRR, 2+ bilateral DP/PT pulses Pulm: CTAB, no increased work of breathing GI: Soft, NTND, no rebound, guarding or rigidity, negative [place] Haider and [place] sign MSK: Bilateral lower extremity compartments are soft, no midline vertebral tenderness to palpation/crepitus/palpable step-offs/overlying skin changes, +bilateral lumbar paraspinal tenderness to palpation without overlying skin changes Neuro: Grossly non focal, ambulates independently, 5/5 strength with bilateral hip/knee/ankle/hallux flexion/extension, sensation intact light touch in the bilateral lower extremity dermatomes L2-S2 Medical Decision Making Medical Decision Making MDM Narrative: Differential diagnosis includes, but is not limited to lumbar strain, lumbar radiculopathy, acute on chronic back pain. I do not suspect any acute also such as cauda equina, epidural abscess, spinal cord compression. Further, I do not suspect any acute intra-abdominal process such as abdominal aortic aneurysm or aortic dissection. Patient is afebrile and hemodynamically stable on room air. Exam is benign and reassuring. Patient has no focal neurological deficits. Patient has no red flag symptoms such as neck pain, loss, fevers, chills, sweats, midline vertebral tenderness, urinary/bowel tension, saddle anesthesia, recent spinal instrumentation associated with her back pain to suggest any further need for emergent evaluation or emergent advanced diagnostic imaging albeit this was considered. On re-examination, patient is well-appearing and in no acute distress. ?Patient is well-appearing, i ndependently ambulatory?and transfers with ease from the hospital stretcher to standing and ambulating. There is no indication for further emergent evaluation in this otherwise well-appearing patient as above. ?Patient is provided written and verbal instructions, educational materials, short prescription for cyclobenzaprine and lidocaine patches, recommendations for outpatient follow-up to discuss ongoing outpatient evaluation and care for her acute on chronic back pain, strict return precautions and teach back is performed. ?Patient states understanding and agreement with plan of care. ?Patient is discharged home in stable and improved condition. Admission/Observation Consideration of admission/observation: Escalation of care including admission /observation considered Discharge Plan Discharge Clinical Impression: Lower back pain Qualifiers: Back pain laterality: bilateral Patient Disposition: Home, Self-Care Instructions: Back Pain (ED) Additional Instructions: You were evaluated in the emergency room. Your physical exam was reassuring and you were not found to have any emergent condition requiring further evaluation in the emergency room and are safe to got home to follow up with your primary care. Please continue taking 600mg ibuprofen every 6 hours with food AND water as needed for pain. You can additionally take 1000mg Tylenol every 8 hours as needed for additional pain relief. You are given prescriptions for lidocaine patch and a muscle relaxant. Please take as directed. Please call your primary care doctor today February 07, 2024 to schedule a follow up appointment in the next 1-2 weeks. Please return to the emergency room with any new or concernings symptoms including, but not limited to severe back pain, numbness/tingling in your legs, inability to urinate, incontinence of stool or urine, inability to have a bowel movement or inability to move your legs. Prescriptions: New cyclobenzaprine 5 mg tablet 5 mg PO BEDTIME PRN (Reason: muscle spasm) Qty: 5 0RF lidocaine 5 % adhesive patch,medicated 1 patch topical DAILY Qty: 15 0RF Rx Instructions: leave on most painful area for up to 12 hrs No Action buprenorphine-naloxone [Suboxone] 8-2 mg film 1 film sublingual BID Qty: 56 0RF ibuprofen 600 mg tablet 600 mg PO Q8H PRN (Reason: pain) Qty: 30 0RF lidocaine [Lidoderm] 5 % adhesive patch,medicated 1 patch topical DAILY Qty: 15 0RF Rx Instructions: leave on most painful area for up to 12 hrs dohygzchpx-fqravytfoxvhs-kgds 50-325-40 mg tablet 1 tab PO Q6H PRN (Reason: pain) Qty: 20 0RF benzonatate 100 mg capsule 100 mg PO TID PRN (Reason: cough) Qty: 14 0RF ondansetron 4 mg tablet,disintegrating 4 mg PO Q8H PRN (Reason: nausea and vomiting) Qty: 12 0RF cyclobenzaprine 10 mg tablet 10 mg PO BEDTIME PRN (Reason: muscle spasm) Qty: 7 0RF ketorolac 10 mg tablet 10 mg PO TID PRN (Reason: pain) 5 Days Qty: 15 0RF lidocaine 5 % adhesive patch,medicated 1 patch topical DAILY PRN (Reason: pain) Qty: 15 0RF Rx Instructions: leave on most painful area for up to 12 hrs sumatriptan-naproxen 10-60 mg tablet 1 tab PO DAILY Narcan 4 mg/actuation spray,non-aerosol 4 mg intranasal Q2M PRN Rx Instructions: spray 1 dose into ONE nostril; alternate nostrils w each dose until help arrives dextroamphetamine-amphetamine [Adderall] 30 mg tablet 30 mg PO BID Rx Instructions: administer doses at least 4-6 hours apart ondansetron HCl 4 mg tablet 4 mg PO DAILY PRN (Reason: nausea and vomiting) Qty: 28 1RF Referrals: [facility] [Primary Care Provider] - Print Language: [place]
[2024-02-07 15:11] VITALS: BP 151/88; PULSE 68; RESP 16; TEMP 36.9; O2SAT 95
== END 2024-02-07 15:11 | disposition home or self-care (01) ==
PROVIDERS: Emergency Provider Emergency Medicine
DX: M54.50 Low back pain, unspecified (principal); R32 Unspecified urinary incontinence
CPT/HCPCS: 99283; 99284

== ENCOUNTER 2024-10-13 10:12 | Outpatient (AMB) | payer MEDICAID, SELFPAY ==
--- NOTE | 2024-10-13 10:26 | A.OFFVISCC_ITS ---
Vital Signs 10/13/24 13:06 BP 150/90 H Blood Pressure Location Rt brachial Position Sitting Respiration 24 H Pulse 72 Pulse Source Pulse Oximeter Pulse Oximetry (%) 98 Oxygen Delivery Method Room Air Intake Visit Reasons: Intake Allergies dexamethasone [From DECADRON] Adverse Reaction (Severe, Verified 02/07/24 14:02) NAUSEA & VOMITING Medication List - Last Reconciled 10/13/24 by Anum Asher CNP buprenorphine-naloxone 8-2 mg (Suboxone) 1 film sublingual BID ibuprofen 600 mg PO Q8H PRN lidocaine 5% 1 patch topical DAILY HPI HPI Intake: Details: Patient presents as walk in for evaluation and treatment of OUD Previously a patient of [facility] with last appt December 2021 Reports she started using again about 2 months ago due to back pain Denies any recent overdoses Last use on Saturday No cocaine, no alcohol Reports a bundle lasts about a week Results AMB 14 Panel Urine Drug Screen Urine Marijuana (THC) Positive Last Edit by Alicia Kilpatrick RN on 10/13/24 13:09 Urine Cocaine Negative Last Edit by Alicia Kilpatrcik RN on 10/13/24 13:09 Urine Morphine Positive Last Edit by Alicia Kilpatrick RN on 10/13/24 13:09 Urine Methamphetamine Negative Last Edit by Alicia Kilpatrick RN on 10/13/24 13:09 Urine Amphetamine Negative Last Edit by Alicia Kilpatrick RN on 10/13/24 13:09 Urine Benzodiazepine Positive Last Edit by Aliica Kilpatrick RN on 10/13/24 13 :09 Urine Barbiturates Negative Last Edit by Alicia Kilpatrick RN on 10/13/24 13:0 9 Urine Methadone Negative Last Edit by Alicia Kilpatrick RN on 10/13/24 13:09 Urine Buprenorphine Negative Last Edit by Alicia Kilpatrick RN on 10/13/24 13: 09 Urine Tricyclic Antidepressant Negative Last Edit by Alicia Kilpatrick RN on 10/13/24 13:09 Urine MDMA Negative Last Edit by Alicia Kilpatrick RN on 10/13/24 13:09 Urine Oxycodone Negative Last Edit by Alicia Kilpatrick RN on 10/13/24 13:09 Urine Phencyclidine Negative Last Edit by Alicia Kilpatrick RN on 10/13/24 13: 09 Urine Propoxyphene Negative Last Edit by Alicia Kilpatrick RN on 10/13/24 13:0 9 [facility] Medical History Fibroid of cervix Opioid use disorder Substance abuse No known health problems No known health problems Social History Alcohol intake: never Patient Tobacco Use Status: Current everyday Tobacco user Substance Use Type: Marijuana Gender identity: Female Assessment & Plan Assessment & Plan Orders: Orders AMB 14 Panel Urine Drug Screen Today Z51.81 - Encounter for therapeutic drug level monitoring Medications: Refilled buprenorphine-naloxone 8-2 mg (Suboxone) 1 film sublingual BID 28 ea 0RF
--- OUTSIDE RECORDS SUMMARY | 2024-10-13 11:59 | XMS_ITS | Clinical Summary ---
Author Organization [facility] Address [address] [place] [address] Phone Care Team Providers Care Rn Integrity Name Role Phone Physician, No Pcp Primary Care Provider Unavaila ble Allergies No known active allergies Medications No known medications Encounters Date Type Department Care Team Description 10/12/2024 1:59 PM EST - 10/12/2024 6:22 PM EST Emergency [facility] Emergency [address] [place] [address] Discharge Disposition: Home or Self Care from Last 3 Months Medical History Medical History Date Comments Adhd Back pain Social History Tobacco Use Types Packs/Day Years Used Date Smoking Tobacco: Every Day Cigarettes Smokeless Tobacco: Former Tobacco Cessation:Ready to Q uit: Not Asked Alcohol Use Standard Drinks/Week Comments Never 0 (1 standard drink = 0.6 oz pur e alcohol) Comments Unknown Sex and Gender Information Value Date Recorded Sex Assigned at Not on file Legal Sex Female 7:22 AM EST Gender Identity Not on file Sexual Orientation Not on file Obstetrics History Last Filed Vital Signs Vital Sign Reading Time Taken Comments Blood Pressure 143/99 10/12/2024 2:25 PM EST Pulse 63 10/12/2024 2:25 PM EST Temperature 36.6 ??C (97.9 ??F) 10/12/2024 2:25 PM ES T Respiratory Rate 16 10/12/2024 2:25 PM EST Oxygen Saturation 98% 10/12/2024 2:25 PM EST Inhaled Oxygen Concentration - - Weight 94.8 kg (209 lb) 10/12/2024 2:25 PM EST Height 157.5 cm (5' 2 ) 10/12/2024 2:25 PM EST Body Mass Index 38.23 10/12/2024 2:25 PM EST Plan of Treatment Health Maintenance Due Date Last Done Comments Breast Cancer Screening 1968 Hepatitis B Vaccines (1 of 3 - 19+ 3-dose series) 1987 Pneumococcal Vaccine: 50+ Years (1 of 2 - PCV) 1987 Pneumococcal Vaccine: Pediatrics (0 to 5 Years) and At-Risk Patients (6 to 64 Years) (1 of 2 - PCV) 1987 Cervical Cancer Screening: P ap Smear 1989 Zoster Vaccines (1 of 2) 2018 DTaP,Tdap,and Td Vaccines (2 - Td or Tdap) 08/19/2019 08/19/2009 Cholesterol Screening (Lipid Panel) 07/22/2022 Colorectal Cancer Screening: Colonoscopy 07/22/2022 Depression Screening 07/22/2022 HIV Screening 07/22/2022 Hepatitis C Screening 07/22/2022 Social Influencers of Health Screening 07/22/2022 COVID-19 Vaccine ( - 2023-2 5 season) 2024 04/13/2021, 03/23/2021 Influenza Vaccine (#1) 2024 HIB Vaccines Aged Out No longer eligi ble based on patient's age to complete this topic HPV Vaccines Aged Out No longer eligi ble based on patient's age to complete this topic Hepatitis A Vaccines Aged Out No long er eligible based on patient's age to complete this topic IPV Vaccines Aged Out No longer eligi ble based on patient's age to complete this topic MMR Vaccines Aged Out No longer eligi ble based on patient's age to complete this topic Meningococcal ACWY Vaccine Aged Out N o longer eligible based on patient's age to complete this topic Meningococcal B Vacine Aged Out No lo nger eligible based on patient's age to complete this topic RSV Immunization Patients Under 20 months Aged Out No longer eligible b ased on patient's age to complete this topic Varicella Vaccines Aged Out No longer eligible based on patient's age to complete this topic Procedures Procedure Name Priority Date/Time Associated Diagnosis Comments CBC WITH AUTO DIFFERENTIAL STAT 10/12/2024 2:39 PM EST CBC AND DIFFERENTIAL STAT 10/12/2024 2:39 PM EST COMPREHENSIVE METABOLIC PANEL STAT 10/12/2024 2:39 PM EST LIPASE STAT 10/12/2024 2:39 PM EST MAGNESIUM STAT 10/12/2024 2:39 PM EST ETHANOL STAT 10/12/2024 2:39 PM EST METHADONE SCREEN, URINE STAT 10/12/2024 2:34 PM EST PHENCYCLIDINE, URINE STAT 10/12/2024 2:34 PM EST BUPRENORPHINE SCREEN, URINE STAT 10/12/2024 2:34 PM EST DRUG ABUSE SCREEN 8A PANEL, URINE STAT 10/12/2024 2:34 PM EST from Last 3 Months Results * (ABNORMAL) CBC auto differential (10/12/2024 2:39 PM EST) WBC 8.5 4.8 - 10.8 K/mcL LAB HEMETOLOGY METHOD 10/12/2024 2:47 PM [facility] RBC 5.80(H) 3.80 - 4.80 M/mcL LAB HEMETOLOGY METHOD 10/12/2024 2:47 PM [facility] Hemoglobin 16.6(H) 11.5 - 16.0 g/dL LAB HEMETOLOGY METHOD 10/12/2024 2:47 PM [facility] Hematocrit 50.7(H) 35.0 - 47.0 % LAB HEMETOLOGY METHOD 10/12/2024 2:47 PM [facility] MCV 86.8 79.0 - 98.0 FL LAB HEMETOLOGY METHOD 10/12/2024 2:47 PM [facility] MCH 28.4 27.0 - 32.0 pcg LAB HEMETOLOGY METHOD 10/12/2024 2:47 PM [facility] MCHC 32.7 32.0 - 37.0 g/dL LAB HEMETOLOGY METHOD 10/12/2024 2:47 PM [facility] RDW 13.2 11.0 - 15.0 % LAB HEMETOLOGY METHOD 10/12/2024 2:47 PM [facility] Platelets 311 130 - 400 K/mcL LAB HEMETOLOGY METHOD 10/12/2024 2:47 PM [facility] MPV 9.9 7.0 - 11.0 FL LAB HEMETOLOGY METHOD 10/12/2024 2:47 PM [facility] NRBC 0.0 <1.0 % LAB HEMETOLOGY METHOD 10/12/2024 2:47 PM [facility] NRBC Absolute 0.00 <0.10 K/mcL LAB HEMETOLOGY METHOD 10/12/2024 2:47 PM [facility] Neutrophils Relative 81.5 % LAB HEMETOLOGY METHOD 10/12/2024 2:47 PM [facility] Lymphocytes Relative 14.8 % LAB HEMETOLOGY METHOD 10/12/2024 2:47 PM [facility] Monocytes Relative 3.0 % LAB HEMETOLOGY METHOD 10/12/2024 2:47 PM [facility] Eosinophils Relative 0.1 % LAB HEMETOLOGY METHOD 10/12/2024 2:47 PM [facility] Basophils Relative 0.2 % LAB HEMETOLOGY METHOD 10/12/2024 2:47 PM [facility] Immature Granulocytes Relative 0.4 % LAB HEMETOLOGY METHOD 10/12/2024 2:47 PM [facility] Neutrophils Absolute 6.95 1.50 - 7.00 K/mcL LAB HEMETOLOGY METHOD 10/12/2024 2:47 PM [facility] Lymphocytes Absolute 1.26 1.00 - 5.00 K/mcL LAB HEMETOLOGY METHOD 10/12/2024 2:47 PM [facility] Monocytes Absolute 0.26 0.20 - 1.00 K/mcL LAB HEMETOLOGY METHOD 10/12/2024 2:47 PM EST [facility] Eosinophils Absolute 0.01 0.00 - 0.50 K/[facility] LAB HEMETOLOGY METHOD 10/12/2024 2:47 PM EST [facility] Basophils Absolute 0.02 0.00 - 0.20 K/[facility] LAB HEMETOLOGY METHOD 10/12/2024 2:47 PM EST [facility] Immature Granulocytes Absolute 0.03 0.00 - 0.03 K/[facility] LAB HEMETOLOGY METHOD 10/12/2024 2:47 PM EST [facility] Blood Venous blood specimen / Unknown Venipuncture / Unknown 10/12/2024 2:39 PM EST 10/12/2024 2:44 PM EST us James Mcmillan MD LAB BLOOD ORDERABLES Final Res ult [facility] [address] [place] [address], [place] [phone] * Magnesium (10/12/2024 2:39 PM EST) Pathologist [facility] Magnesium 1.9 1.9 - 2.6 mg/dL LAB CHEMISTRY METHOD 10/12/2024 3:09 PM EST [facility] Blood Venous blood specimen / Unknown Venipuncture / Unknown 10/12/2024 2:39 PM EST 10/12/2024 2:44 PM EST us James Mcmillan MD LAB BLOOD ORDERABLES Final Res ult [facility] [address] [place] [address], [place] [phone] * Lipase (10/12/2024 2:39 PM EST) Lipase 19 13 - 75 unit/L LAB CHEMISTRY METHOD 10/12/2024 3:09 PM EST [facility] Blood Venous blood specimen / Unknown Venipuncture / Unknown 10/12/2024 2:39 PM EST 10/12/2024 2:44 PM EST us James Mcmillan MD LAB BLOOD ORDERABLES Final Res ult Performing Organization Address City/[facility]/ZIP Co de Phone Number [facility] [address] [place] [address], [place] [phone] * Ethanol (10/12/2024 2:39 PM EST) Pathologist [facility] Ethanol Level <3 0 - 10 mg/dL LAB CHEMISTRY METHOD 10/12/2024 3:09 PM [facility] Blood Venous blood specimen / Unknown Venipuncture / Unknown 10/12/2024 2:39 PM EST 10/12/2024 2:44 PM EST us James Mcmillan MD LAB BLOOD ORDERABLES Final Res ult Performing Organization Address [facility]/ZIP Co de Phone Number [facility] [address] [place] [address], [place] [phone] * (ABNORMAL) Comprehensive metabolic panel (10/12/2024 2:39 PM EST) Pathologist [facility] Sodium 141 133 - 145 mmol/L LAB CHEMISTRY METHOD 10/12/2024 3:09 PM [facility] Potassium 4.1 3.5 - 5.5 mmol/L LAB CHEMISTRY METHOD 10/12/2024 3:09 PM [facility] Chloride 112(H) 96 - 110 mmol/L LAB CHEMISTRY METHOD 10/12/2024 3:09 PM [facility] CO2 22 21 - 32 mmol/L LAB CHEMISTRY METHOD 10/12/2024 3:09 PM [facility] Anion Gap 7 3 - 11 LAB CHEMISTRY METHOD 10/12/2024 3:09 PM [facility] Glucose 123(H) 70 - 100 mg/dL LAB CHEMISTRY METHOD 10/12/2024 3:09 PM [facility] BUN 11 5 - 25 mg/dL LAB CHEMISTRY METHOD 10/12/2024 3:09 PM [facility] Creatinine 0.74 0.50 - 1.10 mg/dL LAB CHEMISTRY METHOD 10/12/2024 3:09 PM [facility] eGFR 95 >=60 mL/min/1. 73m2 LAB CHEMISTRY METHOD 10/12/2024 3:09 PM [facility] Comment:Calculation based on the??Chronic Kidney Disease Epidemiology Collaboration (CKD-EPI) equation refit??without adjustment for race. BUN/Creatinine Ratio 14.9 LAB CHEMISTRY METHOD 10/12/2024 3:09 PM [facility] Calcium 9.0 8.5 - 10.5 mg/dL LAB CHEMISTRY METHOD 10/12/2024 3:09 PM [facility] AST (SGOT) 24 10 - 42 unit/L LAB CHEMISTRY METHOD 10/12/2024 3:09 PM [facility] ALT (SGPT) 27 10 - 60 unit/L LAB CHEMISTRY METHOD 10/12/2024 3:09 PM [facility] Alkaline Phosphatase 74 42 - 121 unit/L LAB CHEMISTRY METHOD 10/12/2024 3:09 PM [facility] Total Protein 7.0 6.0 - 8.0 g/dL LAB CHEMISTRY METHOD 10/12/2024 3:09 PM [facility] Albumin 3.5 3.2 - 5.0 g/dL LAB CHEMISTRY METHOD 10/12/2024 3:09 PM [facility] Total Bilirubin 0.7 0.0 - 1.4 mg/dL LAB CHEMISTRY METHOD 10/12/2024 3:09 PM [facility] Blood Venous blood specimen / Unknown Venipuncture / Unknown 10/12/2024 2:39 PM EST 10/12/2024 2:44 PM EST us James Mcmillan MD LAB BLOOD ORDERABLES Final Res ult [facility] [address] [place] [address], * (ABNORMAL) Drug abuse screen 8a panel, urine (10/12/2024 2:34 PM EST) Amphetamine Screen, Ur Negative Negative LAB CHEMISTRY METHOD 5 3:54 PM [facility] Comment:Certain OTC medicati ons containing ephedrine, phenylephrine, pseudoephedrine and phenylpropanolamine can cause false positive results. Barbiturate Screen, Ur Negative Negative LAB CHEMISTRY METHOD 5 3:54 PM [facility] Benzodiazepine Screen, Ur Negative Negative LAB CHEMISTRY METHOD 5 3:54 PM [facility] Cocaine Screen, Ur Negative Negative LAB CHEMISTRY METHOD 5 3:54 PM [facility] Opiate Screen, Ur Positive(A ) Negative LAB CHEMISTRY METHOD 5 3:54 PM [facility] Cannabinoid (THC) Screen, Ur Positive(A ) Negative LAB CHEMISTRY METHOD 5 3:54 PM [facility] Comment:Specimens from patie nts taking pantoprazole sodium (Protonix) have been shown to produce false positive results. Oxycodone Screen, Ur Negative Negative LAB CHEMISTRY METHOD 5 3:54 PM [facility] Fentanyl, Ur Positive(A ) Negative LAB CHEMISTRY METHOD 5 3:54 PM [facility] Urine Urine specimen obtained by clean catch procedure / Unknown Non-blood Collection / Unknown 10/12/2024 2:34 PM EST 10/12/2024 2:43 PM EST Narrative [facility] - 10/12/2024 3:54 PM EST Assay cutoffs: Amphetamines ? 1000 ng/mL Barbiturates ?200 ng/mL Benzodiazepines ?? 200 ng/mL Cocaine ? 300 ng/mL Fentanyl ?1 ng/mL Opiates ? 300 ng/mL Oxycodone ? 100 ng/mL THC ?50 ng/mL Semi-quantitative assay for screening purposes only. Unconfirmed screening result should not be used for non-medical purposes. *ALTERNATE METHOD CONFIRMATION DONE UPON REQUEST ONLY* James Mcmillan MD LAB URINE ORDERABLES Final Res ult Performing Organization Address [facility] de Phone Number [facility] [address] [place] [address], [place] [phone] * Buprenorphine screen, urine (10/12/2024 2:34 PM EST) [facility] Buprenorphine Screen Urine Negative Negative LAB CHEMISTRY METHOD 10/12/2024 3:34 PM EST [facility] Urine Urine specimen obtained by clean catch procedure / Unknown Non-blood Collection / Unknown 10/12/2024 2:34 PM EST 10/12/2024 2:43 PM EST Narrative [facility] - 10/12/2024 3:34 PM EST Assay cutoff 5 ng/mL Semi-quantitative assay for screening purposes only. Unconfirmed screening result should not be used for non-medical purposes. *ALTERNATE METHOD CONFIRMATION DONE UPON REQUEST ONLY* James Mcmillan MD LAB URINE ORDERABLES Final Res ult Performing Organization Address [facility] de Phone Number [facility] [address] [place] [address], * Methadone, urine (10/12/2024 2:34 PM EST) Methadone Screen, Urine Negative Negative LAB CHEMISTRY METHOD 10/12/2024 3:34 PM EST [facility] Comment: Assay cutoff 300 ng/mL Semi-quantitative assay for screening purposes only. Unconfirmed screening result should not be used for non-medical purposes. *ALTERNATE METHOD CONFIRMATION DONE UPON REQUEST ONLY* Urine Urine specimen obtained by clean catch procedure / Unknown Non-blood Collection / Unknown 10/12/2024 2:34 PM EST 10/12/2024 2:43 PM EST us James Mcmillan MD LAB URINE ORDERABLES Final Res ult Performing Organization Address [facility]/ZIP Co de Phone Number [facility] [address] [place] [address], [place] [phone] * Phencyclidine, urine (10/12/2024 2:34 PM EST) PCP Scrn, Ur Negative Negative LAB CHEMISTRY METHOD 10/12/2024 3:34 PM EST [facility] Comment: Assay cutoff 25 ng/mL Semi-quantitative assay for screening purposes only. Unconfirmed screening result should not be used for non-medical purposes. *ALTERNATE METHOD CONFIRMATION DONE UPON REQUEST ONLY* Urine Urine specimen obtained by clean catch procedure / Unknown Non-blood Collection / Unknown 10/12/2024 2:34 PM EST 10/12/2024 2:43 PM EST us James Mcmillan MD LAB URINE ORDERABLES Final Res ult Performing Organization Address City/[facility]/ZIP Co de Phone Number [facility] [address] [place] [address], [place] [phone] from Last 3 Months Insurance MEDICAID - [place] Care Teams Rn Integrity Relationship Specialty Start Date End Date Physician, No Pcp PCP - General 10/12/24
--- OUTSIDE RECORDS SUMMARY | 2024-10-13 11:59 | XMS_ITS | Encounter Summary ---
Author Organization [facility] Address [address] [place] [address] Care Team Providers Care Bullet Lubricant Mixer Name Role Phone Physician, No Pcp Primary Care Provider Unavaila ble Reason for Visit * Reason Comments Withdrawal Encounter Details Date Type Department Care Team (Late st Contact Info) Description 10/12/2024 1:59 PM EST - 10/12/2024 6:22 PM EST Emergency [facility] Emergency [address] [place] [address] Discharge Disposition: Home or Self Care Social History Tobacco Use Types Packs/Day Years [...] on file Sexual Orientation Not on file documented as of this encounter Last Filed Vital Signs Vital Sign Reading [...] Mass Index 38.23 10/12/2024 2:25 PM EST documented in this encounter Discharge Disposition Disposition Code Departure Means Destination Home or Self Care documented in this encounter Progress Notes * Agustina Coleman RN - 10/12/2024 2:21 PM EST Last night she was having back pain and decided to snort a bag of heroin. She woke up today with twitching and chills. She hasn't used heroin for the past 6 years. * Elaine Shukla RN - 10/12/2024 2:05 PM EST Pt brought in by EMS from home with c/o detox symptoms after relapsing for the last month 08/20. Lastuse at 2100 10/11, pt reports nausea with no vomiting. documented in this encounter Plan of Treatment Scheduled Orders Name Type Priority Associated Diagnoses Orde r Schedule ECG 12 lead ECG STAT Once for 1 Oc currences starting 10/12/2024 until 10/12/2024 documented as of this encounter Procedures Procedure Name Priority Date/Time Associated Diagnosis Comments CBC WITH AUTO DIFFERENTIAL STAT 10/12/2024 2:39 PM EST CBC AND DIFFERENTIAL STAT 10/12/2024 2:39 PM EST MAGNESIUM STAT 10/12/2024 2:39 PM EST LIPASE STAT 10/12/2024 2:39 PM EST ETHANOL STAT 10/12/2024 2:39 PM EST COMPREHENSIVE METABOLIC PANEL STAT 10/12/2024 2:39 PM EST DRUG ABUSE SCREEN 8A PANEL, URINE STAT 10/12/2024 2:34 PM EST BUPRENORPHINE SCREEN, URINE STAT 10/12/2024 2:34 PM EST METHADONE SCREEN, URINE STAT 10/12/2024 2:34 PM EST PHENCYCLIDINE, URINE STAT 10/12/2024 2:34 PM EST documented in this encounter Results * (ABNORMAL) CBC auto differential (10/12/2024 2:39 PM EST) [facility] WBC 8.5 4.8 - 10.8 K/mcL LAB HEMETOLOGY METHOD 10/12/2024 2:47 PM [facility] RBC 5.80(H) 3.80 - 4.80 M/mcL LAB HEMETOLOGY METHOD 10/12/2024 2:47 PM [facility] Hemoglobin 16.6(H) 11.5 - 16.0 g/dL LAB HEMETOLOGY METHOD 10/12/2024 2:47 PM [facility] Hematocrit 50.7(H) 35.0 - 47.0 % LAB HEMETOLOGY METHOD 10/12/2024 2:47 PM [facility] MCV 86.8 79.0 - 98.0 FL LAB HEMETOLOGY METHOD 10/12/2024 2:47 PM [facility] MCH 28.4 27.0 - 32.0 pcg LAB HEMETOLOGY METHOD 10/12/2024 2:47 PM [facility] MCHC 32.7 32.0 - 37.0 g/dL LAB HEMETOLOGY METHOD 10/12/2024 2:47 PM [facility] RDW 13.2 11.0 - 15.0 % LAB HEMETOLOGY METHOD 10/12/2024 2:47 PM [facility] Platelets 311 130 - 400 K/mcL LAB HEMETOLOGY METHOD 10/12/2024 2:47 PM [facility] MPV 9.9 7.0 - 11.0 FL LAB HEMETOLOGY METHOD 10/12/2024 2:47 PM [facility] NRBC 0.0 <1.0 % LAB HEMETOLOGY METHOD 10/12/2024 2:47 PM [facility] NRBC Absolute 0.00 <0.10 K/mcL LAB HEMETOLOGY METHOD 10/12/2024 2:47 PM [facility] Neutrophils Relative 81.5 % LAB HEMETOLOGY METHOD 10/12/2024 2:47 PM [facility] Lymphocytes Relative 14.8 % LAB HEMETOLOGY METHOD 10/12/2024 2:47 PM [facility] Monocytes Relative 3.0 % LAB HEMETOLOGY METHOD 10/12/2024 2:47 PM [facility] Eosinophils Relative 0.1 % LAB HEMETOLOGY METHOD 10/12/2024 2:47 PM [facility] Basophils Relative 0.2 % LAB HEMETOLOGY METHOD 10/12/2024 2:47 PM [facility] Immature Granulocytes Relative 0.4 % LAB HEMETOLOGY METHOD 10/12/2024 2:47 PM [facility] Neutrophils Absolute 6.95 1.50 - 7.00 K/mcL LAB HEMETOLOGY METHOD 10/12/2024 2:47 PM [facility] Lymphocytes Absolute 1.26 1.00 - 5.00 K/mcL LAB HEMETOLOGY METHOD 10/12/2024 2:47 PM [facility] Monocytes Absolute 0.26 0.20 - 1.00 K/mcL LAB HEMETOLOGY METHOD 10/12/2024 2:47 PM [facility] Eosinophils Absolute 0.01 0.00 - 0.50 K/mcL LAB HEMETOLOGY METHOD 10/12/2024 2:47 PM [facility] Basophils Absolute 0.02 0.00 - 0.20 K/mcL LAB HEMETOLOGY METHOD 10/12/2024 2:47 PM [facility] Immature Granulocytes Absolute 0.03 0.00 - 0.03 K/mcL LAB HEMETOLOGY METHOD 10/12/2024 2:47 PM [facility] Blood Venous blood specimen / Unknown Venipuncture / Unknown 10/12/2024 2:39 PM EST 10/12/2024 2:44 PM EST us James Mcmillan MD LAB BLOOD ORDERABLES Final Res ult [facility] [address] [place] [address], [place] [phone] * (ABNORMAL) Comprehensive metabolic panel (10/12/2024 2:39 PM EST) Pathologist [facility] Sodium 141 133 - 145 mmol/L LAB CHEMISTRY METHOD 10/12/2024 3:09 PM [facility] Potassium 4.1 3.5 - 5.5 mmol/L LAB CHEMISTRY METHOD 10/12/2024 3:09 PM [facility] Chloride 112(H) 96 - 110 mmol/L LAB CHEMISTRY METHOD 10/12/2024 3:09 PM [facility] CO2 22 21 - 32 mmol/L LAB CHEMISTRY METHOD 10/12/2024 3:09 PM [facility] Anion Gap 7 3 - 11 LAB CHEMISTRY METHOD 10/12/2024 3:09 PM [facility] Glucose 123(H) 70 - 100 mg/dL LAB CHEMISTRY METHOD 10/12/2024 3:09 PM [facility] BUN 11 5 - 25 mg/dL LAB CHEMISTRY METHOD 10/12/2024 3:09 PM [facility] Creatinine 0.74 0.50 - 1.10 mg/dL LAB CHEMISTRY METHOD 10/12/2024 3:09 PM [facility] eGFR 95 >=60 mL/min/1. 73m2 LAB CHEMISTRY METHOD 10/12/2024 3:09 PM [facility] Comment:Calculation based on the??Chronic Kidney Disease Epidemiology Collaboration (CKD-EPI) equation refit??without adjustment for race. BUN/Creatinine Ratio 14.9 LAB CHEMISTRY METHOD 10/12/2024 3:09 PM [facility] Calcium 9.0 8.5 - 10.5 mg/dL LAB CHEMISTRY METHOD 10/12/2024 3:09 PM [facility] AST (SGOT) 24 10 - 42 unit/L LAB CHEMISTRY METHOD 10/12/2024 3:09 PM [facility] ALT (SGPT) 27 10 - 60 unit/L LAB CHEMISTRY METHOD 10/12/2024 3:09 PM [facility] Alkaline Phosphatase 74 42 - 121 unit/L LAB CHEMISTRY METHOD 10/12/2024 3:09 PM [facility] Total Protein 7.0 6.0 - 8.0 g/dL LAB CHEMISTRY METHOD 10/12/2024 3:09 PM [facility] Albumin 3.5 3.2 - 5.0 g/dL LAB CHEMISTRY METHOD 10/12/2024 3:09 PM [facility] Total Bilirubin 0.7 0.0 - 1.4 mg/dL LAB CHEMISTRY METHOD 10/12/2024 3:09 PM [facility] Blood Venous blood specimen / Unknown Venipuncture / Unknown 10/12/2024 2:39 PM EST 10/12/2024 2:44 PM EST us James Mcmillan MD LAB BLOOD ORDERABLES Final Res ult [facility] [address] [place] [address], * Lipase (10/12/2024 2:39 PM EST) Lipase 19 13 - 75 unit/L LAB CHEMISTRY METHOD 10/12/2024 3:09 PM [facility] Blood Venous blood specimen / Unknown Venipuncture / Unknown 10/12/2024 2:39 PM EST 10/12/2024 2:44 PM EST us James Mcmillan MD LAB BLOOD ORDERABLES Final Res ult Performing Organization Address [facility]/ZIP Co de Phone Number [facility] [address] [place] [address], [place] [phone] * Magnesium (10/12/2024 2:39 PM EST) Magnesium 1.9 1.9 - 2.6 mg/dL LAB CHEMISTRY METHOD 10/12/2024 3:09 PM EST [facility] Blood Venous blood specimen / Unknown Venipuncture / Unknown 10/12/2024 2:39 PM EST 10/12/2024 2:44 PM EST us James Mcmillan MD LAB BLOOD ORDERABLES Final Res ult Performing Organization Address [facility] de Phone Number [facility] [address] [place] [address], [place] [phone] * Ethanol (10/12/2024 2:39 PM EST) [facility] Ethanol Level <3 0 - 10 mg/dL LAB CHEMISTRY METHOD 10/12/2024 3:09 PM EST [facility] Blood Venous blood specimen / Unknown Venipuncture / Unknown 10/12/2024 2:39 PM EST 10/12/2024 2:44 PM EST us James Mcmillan MD LAB BLOOD ORDERABLES Final Res ult Performing Organization Address [facility]/ZIP Co de Phone Number [facility] [address] [place] [address], [place] [phone] * Methadone, urine (10/12/2024 2:34 PM EST) Methadone Screen, Urine Negative Negative LAB CHEMISTRY METHOD 10/12/2024 3:34 PM EST [facility] Comment: Assay cutoff 300 ng/mL Semi-quantitative assay for screening purposes only. Unconfirmed screening result should not be used for non-medical purposes. *ALTERNATE METHOD CONFIRMATION DONE UPON REQUEST ONLY* Urine Urine specimen obtained by clean catch procedure / Unknown Non-blood Collection / Unknown 10/12/2024 2:34 PM EST 10/12/2024 2:43 PM EST James Mcmillan MD LAB URINE ORDERABLES Final Res ult Performing Organization Address [facility] de Phone Number [facility] [address] [place] [address], [place] [phone] * Phencyclidine, urine (10/12/2024 2:34 PM EST) PCP Scrn, Ur Negative Negative LAB CHEMISTRY METHOD 10/12/2024 3:34 PM EST [facility] Comment: Assay cutoff 25 ng/mL Semi-quantitative assay for screening purposes only. Unconfirmed screening result should not be used for non-medical purposes. *ALTERNATE METHOD CONFIRMATION DONE UPON REQUEST ONLY* Urine Urine specimen obtained by clean catch procedure / Unknown Non-blood Collection / Unknown 10/12/2024 2:34 PM EST 10/12/2024 2:43 PM EST James Mcmillan MD LAB URINE ORDERABLES Final Res ult Performing Organization Address [facility] de Phone Number [facility] [address] [place] [address], [place] [phone] * Buprenorphine screen, urine (10/12/2024 2:34 PM EST) Buprenorphine Screen Urine Negative Negative LAB CHEMISTRY METHOD 10/12/2024 3:34 PM EST [facility] Urine Urine specimen obtained by clean catch procedure / Unknown Non-blood Collection / Unknown 10/12/2024 2:34 PM EST 10/12/2024 2:43 PM EST Narrative [facility] - 10/12/2024 3:34 PM EST Assay cutoff 5 ng/mL Semi-quantitative assay for screening purposes only. Unconfirmed screening result should not be used for non-medical purposes. *ALTERNATE METHOD CONFIRMATION DONE UPON REQUEST ONLY* us James Mcmillan MD LAB URINE ORDERABLES Final Res ult [facility] [address] [place] [address], * (ABNORMAL) Drug abuse screen 8a panel, urine (10/12/2024 2:34 PM EST) [facility] Amphetamine Screen, Ur Negative Negative LAB CHEMISTRY METHOD 5 3:54 PM EST [facility] Comment:Certain OTC medicati ons containing ephedrine, phenylephrine, pseudoephedrine and phenylpropanolamine can cause false positive results. Barbiturate Screen, Ur Negative Negative LAB CHEMISTRY METHOD 5 3:54 PM EST [facility] Benzodiazepine Screen, Ur Negative Negative LAB CHEMISTRY METHOD 5 3:54 PM EST [facility] Cocaine Screen, Ur Negative Negative LAB CHEMISTRY METHOD 5 3:54 PM EST [facility] Opiate Screen, Ur Positive(A ) Negative LAB CHEMISTRY METHOD 5 3:54 PM [facility] Cannabinoid (THC) Screen, Ur Positive(A ) Negative LAB CHEMISTRY METHOD 5 3:54 PM EST [facility] Comment:Specimens from patie nts taking pantoprazole sodium (Protonix) have been shown to produce false positive results. Oxycodone Screen, Ur Negative Negative LAB CHEMISTRY METHOD 5 3:54 PM EST [facility] Fentanyl, Ur Positive(A ) Negative LAB CHEMISTRY METHOD 5 3:54 PM [facility] Urine Urine specimen obtained by clean catch procedure / Unknown Non-blood Collection / Unknown 10/12/2024 2:34 PM EST 10/12/2024 2:43 PM EST Narrative [facility] ([facility]) [facility] - 10/12/2024 3:54 PM EST Assay cutoffs: Amphetamines ? 1000 ng/mL Barbiturates ?200 ng/mL Benzodiazepines ?? 200 ng/mL Cocaine ? 300 ng/mL Fentanyl ?1 ng/mL Opiates ? 300 ng/mL Oxycodone ? 100 ng/mL THC ?50 ng/mL Semi-quantitative assay for screening purposes only. Unconfirmed screening result should not be used for non-medical purposes. *ALTERNATE METHOD CONFIRMATION DONE UPON REQUEST ONLY* us James Mcmillan MD LAB URINE ORDERABLES Final Res ult [facility] ([facility]) [facility] [address] [place] [address], [place] [phone] documented in this encounter Visit Diagnoses Not on filedocumented in this encounter Care Teams Bullet Lubricant Mixer Relationship Specialty Start Date End Date Physician, No Pcp PCP - General 10/12/24 documented as of this encounter
--- OUTSIDE RECORDS SUMMARY | 2024-10-13 11:59 | XMS_ITS | Clinical Summary ---
Author Organization [employer] Address [address] [place] [address] [address] [place] [address] Care Team Providers Care Market Survey Representative Name Role Phone Unavailable Primary Care Provider Unavailabl e Social History Tobacco Use Types Packs/Day Years Used Date Smoking Tobacco: Never Assessed Comments Unknown Sex and Gender Information Value Date Recorded Sex Assigned at Female 06/18/2022 10:35 AM EDT Legal Sex Female 10:35 AM EDT Gender Identity Female 06/18/2022 10:35 AM EDT Sexual Orientation Straight 06/18/2022 10 :35 AM EDT Plan of Treatment Health Maintenance Due Date Last Done Comments CT Colonography 1968 Colonoscopy 1968 Colorectal Cancer Screening 1968 Depression Screening 1968 FIT DNA/Cologuard 1968 FIT 1968 FOBT 1968 HIV Screening 1968 Sigmoidoscopy 1968 Alcohol/Substance Use Screening 1980 Tobacco Screening 1980 Hepatitis C Screening 1986 DTaP/Tdap/Td Vaccines (1 - Tdap) 1987 Hepatitis B Vaccines (1 of 3 - 19+ 3-dose series) 1987 Pap Smear 1989 Cervical Cancer Screening 1998 HPV/Cotest 1998 Mammogram 2008 Pneumococcal Vaccine: 50+ Ye ars (1 of 1 - PCV) 2018 Zoster Vaccines (1 of 2) 2018 COVID-19 Vaccine ( - 2023-2 5 season) 2024 Influenza Vaccine (#1) 2024 RSV Patients and Pa tients Aged 60 years or older (1 - 1-dose 75+ series) 2043 HIB Vaccines Aged Out No longer eligi [...] patient's age to complete this topic Meningococcal Vaccine Aged Out No judi brandi eligible based on patient's age to complete this topic Pneumococcal Vaccine: Pediat rics (0 to 5 Years) and At-Risk Patients (6 to 49) Years) Aged Out No longer eligible b ased on patient's age to complete this topic RSV under 20 months Aged Out No longe r eligible based on patient's age to complete this topic Rotavirus Vaccines Aged Out No longer eligible based on patient's age to complete this topic
--- OUTSIDE RECORDS SUMMARY | 2024-10-13 12:00 | XMS_ITS | Data Portability ---
Author Organization 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 Lab TSH, serum or plasma 2015 016 [facility], [address] [place] [address], [id number], 6 04:02:36 CBC 2015 016 [facility], [address] [place] [address], [id number], 6 04:02:36 CMP, serum or plasma 2015 016 [facility], [address] [place] [address], [id number], 6 04:02:23 Referral general surgeon referral - 44 y.o. with ? lipoma right lateral thigh - states has had an assymetry there for 15 yrs but it only became painful over the past year and seems to be getting larger. Previous PCP did w/u including ultrasound, MRI and xray of hip. Please evaluate and guide treatment. States can't sleep due to pain. Saw Dr. Sofiya Bettencourt in past for this and he did not feel surgery would be beneficial to her. 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 Surgeries None recorded. Imaging MAMMO, diagnostic, digital, bilateral - right breast pain at 9:00 position - pt has never had a mammo. Note: patient had seen pcp because she thought she felt a lump. Please palpate area with patient direction * 2015 016 [facility] (Imaging), [address], [place], [address], 6 09:58:50 ultrasound, breast - pain right breast at 9:00 position - ? cyst 2015 016 [facility] (Im[facility]), [address] [place], [address], 6 09:59:18 Medication Orders nortriptyli ne 25 mg capsule 2016 017 [facility] ([facility]), [address], [place], [id number], 7 16:14:54 Chantix Starting Month Box 0.5 mg (11)-1 mg (42) tablets in dose pack 2016 017 [facility] ([facility]), [address], [place], [id number], 7 16:14:54 ondansetron HCl 4 mg tablet 2015 016 [id number], [address], [place], [id number], 6 04:03:27 ondansetron HCl 4 mg tablet 2015 016 [facility] #41442, [address], [place], [id number], 6 17:40:37 hydrocodone 5 mg-acetamin ophen 325 mg tablet 2014 015 [facility] #36884, [address], [place], [id number], 6 16:49:28 ondansetron HCl 4 mg tablet 2014 015 [facility] #28990, [address], [place], [id number], 5 17:52:00 Patient TargetsNo targets recorded. Patient Instructions Encounter Date Encounter Id Patient Instructions Last Modified By Organization Details Last Modified Time 01/13/2015 [id number] Reviewed previou s x-ray findings.? ? ? Dispensed prescription for custom orthotics.? ? ? Patient to return if symptoms persist. [email or web address] Not available 01/13/2015 15:31:19 10/03/2015 [id number] After a discussi on of treatment options, which included consideration of best practices, patient preferences, and the patient? s individual lifestyle and treatment goals, as well as consideration and attempted mitigation of any barriers to meeting the patient? s goals, the? ? ?above treatment plan and objectives were adopted: [email or web address] Not available 10/03/2015 17:40:37 02/13/2016 [id number] After a discussi on of treatment options, which included consideration of best practices, patient preferences, and the patient? s individual lifestyle and treatment goals, as well as consideration and attempted mitigation of any barriers to meeting the patient? s goals, the? ? ?above treatment plan and objectives were adopted: [email or web address] Not available 02/13/2016 16:36:04 02/18/2017 [id number] deciding about using medicines to quit smoking [facility] Not available 02/18/2017 16:14:54 Quitting Tobacco : Care Instructions [email or web address] Not available 02/18/2017 16:14:54 Counseling done {{Patient not ready to quit Contemplating quitting Tapering Cigarettes* signed up for support prescripti on for stop smoking medication given}} {{Patient not ready to quit Contemplating quitting Tapering Cigarettes signed up for support prescripti on for stop smoking medication given*}} Goal for follow up visit {{adding exercise regular meals stress management improvi ng sleep therapist identifying sponsor}} {{adding exercise regular meals stress management improvi ng sleep therapist identifying sponsor}} {{adding exercise regular meals stress management improvi ng sleep therapist identifying sponsor}} After a discussion of treatment options, which included consideration of best practices, patient preferences, and the patient? s individual lifestyle and treatment goals, as well as consideration and attempted mitigation of any barriers to meeting the patient? 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 with ? lipoma right lateral thigh - states has had an assymetry there for 15 yrs but it only became painful over the past year and seems to be getting larger. Previous PCP did w/u including ultrasound, MRI and xray of hip. Please evaluate and guide treatment. can't sleep due to pain. Saw Dr. Sofiya Bettencourt in past for this and he did not feel surgery would be beneficial to her. Referring Physician: Bautista Martini, Family Medicine, Encounter Date: 11/22/2014 Results Created Date Observation Date Name Description Value Unit Range Abnormal Flag Note LastModifiedBy Organization Detail LastModifiedTime 05/29/2005/29/2015 CBC w/ auto diff WBC 9.8 K/uL 3.4-11 .2 Not Available [facility] (Outpatient) [address] [place] [address], [id number], 05/29/2015 12:24:11 05/29/20 15 05/29/2015 CBC w/ auto diff RBC 5.70 M/uL 3.80-4 .80 high Not Available [facility] (Outpatient) [address] [place] [address], [address], 05/29/2015 12:24:11 05/29/20 15 05/29/2015 CBC w/ auto diff hemoglobin 17.3 g/dL 12.0-1 5.0 high Not Available [facility] (Outpatient) [address] [place] [address], [id number], 05/29/2015 12:24:11 05/29/20 15 05/29/2015 CBC w/ auto diff hematocrit 48.8 % 36.0-4 6.0 high Not Available [facility] (Outpatient) [address] [place] [address], [address], 05/29/2015 12:24:11 05/29/20 15 05/29/2015 CBC w/ auto diff MCV 85.6 fL 79.0-9 8.0 Not Available [facility] (Outpatient) [address] [place] [address], [id number], 05/29/2015 12:24:11 05/29/20 15 05/29/2015 CBC w/ auto diff MCH 30.4 pg 27.0-3 4.8 Not Available [facility] (Outpatient) [address] [place] [address], [address], 05/29/2015 12:24:11 05/29/20 15 05/29/2015 CBC w/ auto diff MCHC 35.5 g/dL 31.5-3 6.0 Not Available [facility] (Outpatient) [address] [place], [address], 05/29/2015 12:24:11 05/29/20 15 05/29/2015 CBC w/ auto diff RDW 13.4 % 10.8-1 4.6 Not Available [facility] (Outpatient) [address] [place] [address], 92006, 05/29/2015 12:24:11 05/29/20 15 05/29/2015 CBC w/ auto diff MPV 10.8 fL 9.4-12 .4 Not Available [facility] (Outpatient) [address] [place] [address], [address], 05/29/2015 12:24:11 05/29/20 15 05/29/2015 CBC w/ auto diff platelet count 253 K/uL 130-40 0 Not Available [facility] (Outpatient) [address] [place] [address], [address], 05/29/2015 12:24:11 05/29/20 15 05/29/2015 CBC w/ auto diff neutrophils 72.4 % 45.3-7 7.7 Not Available [facility] ([facility]) [address] [place] [address], [id number], 05/29/2015 12:24:11 05/29/20 15 05/29/2015 CBC w/ auto diff lymphocytes 21.5 % 12.3-3 9.7 Not Available [facility] ([facility]) [address] [place] [address], [id number], 05/29/2015 12:24:11 05/29/20 15 05/29/2015 CBC w/ auto diff monocytes 5.2 % 4.1-12 .8 Not Available [facility] ([facility]) [address] [place], [address], 05/29/2015 12:24:11 05/29/20 15 05/29/2015 CBC w/ auto diff eosinophils 0.70 % 0.00-7 .20 Not Available [facility] ([facility]) [address] [place], [address], 05/29/2015 12:24:11 05/29/20 15 05/29/2015 CBC w/ auto diff basophils 0.10 % 0.00-2 .80 Not Available [facility] ([facility]) [address] [place], [address], 05/29/2015 12:24:11 05/29/20 15 05/29/2015 CBC w/ auto diff absolute neutrophil 7.1 K/uL 1.4-7. 7 Not Available [facility] ([facility]) [address] [place], [address], 05/29/2015 12:24:11 05/29/20 15 05/29/2015 CBC w/ auto diff absolute lymphocyte 2.1 K/uL 0.6-3. 2 Not Available [facility] (Outpatient) [address] [place] [address], [address], 05/29/2015 12:24:11 05/29/20 15 05/29/2015 CBC w/ auto diff absolute monocytes 0.5 K/uL 0.1-0. 6 Not Available [facility] ([facility]) [address] [place] [address], [id number], 05/29/2015 12:24:11 05/29/20 15 05/29/2015 CBC w/ auto diff absolute eosinophil 0.07 K/uL 0.01-0 .50 Not Available [facility] ([facility]patient) [address] [place], [address], 05/29/2015 12:24:11 05/29/20 15 05/29/2015 CBC w/ auto diff absolute basophils 0.01 K/uL Not Available [facility] ([facility]) [address] [place], [address], 05/29/2015 12:24:11 05/29/20 15 05/29/2015 CBC w/ auto diff immature granulocyte 0.10 % 0.00-0 .50 Not Available [facility] ([facility]) [address] [place] [address], [address], 05/29/2015 12:24:11 05/29/20 15 05/29/2015 CBC w/ auto diff absolute immature granulocyte 0.01 K/uL 0.00-0 .03 Not Available [facility] ([facility]) [address] [place] [address], [address], 05/29/2015 12:24:11 05/29/20 15 05/29/2015 tropo ruthann T, serum troponin T <0.010 NG/mL 0.000- 0.030 Not Available [facility] ([facility]) [address] [place] [address], 27[address], 05/29/2015 12:47:11 05/29/20 15 05/29/2015 CMP, serum or plasm a glucose 92 mg/dL 70-99 Not Available [facility] ([facility]) [address] [place] [address], [address], 05/29/2015 12:48:11 05/29/20 15 05/29/2015 CMP, serum or plasm a BUN 12 mg/dL 6-19 Not Available [facility] ([facility]) [address] [place] [address], [address], 05/29/2015 12:48:11 05/29/20 15 05/29/2015 CMP, serum or plasm a creatinine 0.6 mg/dL 0.5-1. 5 Not Available [facility] ([facility]) [address] [place], [address], 05/29/2015 12:48:11 05/29/20 15 05/29/2015 CMP, serum or plasm a GFR >60 mL/mi n >60 NKDEP (Gina onal Kidne y Disea se Educa tion Progr am) does not endor se the use of the MDRD (Meg ficat ion of Diet in Renal Disea se) equat ion for estim ating GFR in patie nts that are not betwe en the ages of 18 and 70. Not Available [facility] (Outpatient) [address] [place] [address], [address], 05/29/2015 12:48:11 05/29/20 15 05/29/2015 CMP, serum or plasm a sodium 138 mEq/L 133-14 5 Not Available [facility] ([facility]) [address] [place] [address], [address], 05/29/2015 12:48:11 05/29/20 15 05/29/2015 CMP, serum or plasm a potassium 4.0 mEq/L 3.3-5. 1 Not Available [facility] ([facility]) [address] [place] [address], [address], 05/29/2015 12:48:11 05/29/20 15 05/29/2015 CMP, serum or plasm a chloride 106 mEq/L 96-108 Not Available [facility] ([facility]) [address] [place] [address], 6[address], 05/29/2015 12:48:11 05/29/20 15 05/29/2015 CMP, serum or plasm a CO2 21 mEq/L 21-35 Not Available [facility] ([facility]) [address] [place] [address], [address], 05/29/2015 12:48:11 05/29/20 15 05/29/2015 CMP, serum or plasm a calcium 9.4 mg/dL 8.4-10 .3 Not Available [facility] ([facility]) [address] [place] [address], 18[address], 05/29/2015 12:48:11 05/29/20 15 05/29/2015 CMP, serum or plasm a total bilirubin 0.8 mg/dL 0.0-1. 2 Not Available [facility] ([facility]) [address] [place], [address], 05/29/2015 12:48:11 05/29/20 15 05/29/2015 CMP, serum or plasm a alkaline phosphatase 57 U/L 39-117 Not Available [facility] ([facility]) [address] [place] [address], 97006, 05/29/2015 12:48:11 05/29/20 15 05/29/2015 CMP, serum or plasm a AST (SGOT) 12 U/L 0-37 Not Available [facility] ([facility]) [address] [place] [address], 9[address]18, 05/29/2015 12:48:11 05/29/20 15 05/29/2015 CMP, serum or plasm a ALT (SGPT) 12 U/L 0-40 Not Available [facility] ([facility]) [address] [place] [address], 68[address], 05/29/2015 12:48:11 05/29/20 15 05/29/2015 CMP, serum or plasm a total protein 7.2 g/dL 6.5-8. 0 Not Available [facility] ([facility]) [address] [place] [address], 64358, 05/29/2015 12:48:11 05/29/20 15 05/29/2015 CMP, serum or plasm a albumin 3.8 g/dL 3.9-4. 8 low Not Available [facility] ([facility]) [address] [place] [address], 35017, 05/29/2015 12:48:11 05/29/20 15 05/29/2015 CMP, serum or plasm a globulin 3.4 gm/dL 1.0-4. 8 Not Available [facility] ([facility]) [address] [place] [address], 17873, 05/29/2015 12:48:11 05/29/20 15 05/29/2015 CMP, serum or plasm a A/G ratio 1.1 gm/dL 1.0-4. 8 Not Available [facility] ([facility]) [address] [place] [address], 77896, 05/29/2015 12:48:11 05/29/20 15 05/29/2015 CMP, serum or plasm a anion gap 15 mEq/L 10- Not Available [facility] ([facility]) [address] [place] [address], 745[address], 05/29/2015 12:48:11 06/25/20 15 06/25/2015 pregn stephen test, urine test, urine Negati ve negati ve Not Available [facility]) [address] [place] [address], 18822, 06/25/2015 23:30:14 06/26/20 15 06/26/2015 CBC w/ auto diff WBC 8.0 K/uL 3.4-11 .2 Not Available [facility] ([facility]) [address] [place] [address], 788[address], 06/26/2015 00:36:16 06/26/20 15 06/26/2015 CBC w/ auto diff RBC 5.06 M/uL 3.80-4 .80 high Not Available [facility] ([facility]) [address] [place] [address], 44293, 06/26/2015 00:36:16 06/26/20 15 06/26/2015 CBC w/ auto diff hemoglobin 15.3 g/dL 12.0-1 5.0 high Not Available [facility] ([facility]) [address] [place] [address], 78059, 06/26/2015 00:36:16 06/26/20 15 06/26/2015 CBC w/ auto diff hematocrit 43.8 % 36.0-4 6.0 Not Available [facility] ([facility]) [address] [place], [address], 06/26/2015 00:36:16 06/26/20 15 06/26/2015 CBC w/ auto diff MCV 86.6 fL 79.0-9 8.0 Not Available [facility] ([facility]) [address] [place], [address], 06/26/2015 00:36:16 06/26/20 15 06/26/2015 CBC w/ auto diff MCH 30.2 pg 27.0-3 4.8 Not Available [facility] ([facility]) [address] [place] [address], 96653, 06/26/2015 00:36:16 06/26/20 15 06/26/2015 CBC w/ auto diff MCHC 34.9 g/dL 31.5-3 6.0 Not Available [facility] ([facility]) [address] [place], [address], 06/26/2015 00:36:16 06/26/20 15 06/26/2015 CBC w/ auto diff RDW 13.6 % 10.8-1 4.6 Not Available [facility] ([facility]) [address] [place], [address], 06/26/2015 00:36:16 06/26/20 15 06/26/2015 CBC w/ auto diff MPV 10.2 fL 9.4-12 .4 Not Available [facility] ([facility]) [address] [place] [address], 07128, 06/26/2015 00:36:16 06/26/20 15 06/26/2015 CBC w/ auto diff platelet count 268 K/uL 130-40 0 Not Available [facility] ([facility]) [address] [place] [address], 58462, 06/26/2015 00:36:16 06/26/20 15 06/26/2015 CBC w/ auto diff neutrophils 54.0 % 45.3-7 7.7 Not Available [facility] ([facility]) [address] [place], [address], 06/26/2015 00:36:16 06/26/20 15 06/26/2015 CBC w/ auto diff lymphocytes 36.5 % 12.3-3 9.7 Not Available [facility] ([facility]) [address] [place], [address], 06/26/2015 00:36:16 06/26/20 15 06/26/2015 CBC w/ auto diff monocytes 5.6 % 4.1-12 .8 Not Available [facility] ([facility]) [address] [place] [address], 96753, 06/26/2015 00:36:16 06/26/20 15 06/26/2015 CBC w/ auto diff eosinophils 3.60 % 0.00-7 .20 Not Available [facility] ([facility]) [address] [place], [address], 06/26/2015 00:36:16 06/26/20 15 06/26/2015 CBC w/ auto diff basophils 0.20 % 0.00-2 .80 Not Available [facility] ([facility]) [address] [place] [address], 12300, 06/26/2015 00:36:16 06/26/20 15 06/26/2015 CBC w/ auto diff absolute neutrophil 4.3 K/uL 1.4-7. 7 Not Available [facility] ([facility]) [address] [place] [address], 12420, 06/26/2015 00:36:16 06/26/20 15 06/26/2015 CBC w/ auto diff absolute lymphocyte 2.9 K/uL 0.6-3. 2 Not Available [facility] ([facility]) [address] [place] [address], 94753, 06/26/2015 00:36:16 06/26/20 15 06/26/2015 CBC w/ auto diff absolute monocytes 0.4 K/uL 0.1-0. 6 Not Available [facility] ([facility]) [address] [place], [address], 06/26/2015 00:36:16 06/26/20 15 06/26/2015 CBC w/ auto diff absolute eosinophil 0.29 K/uL 0.01-0 .50 Not Available [facility] ([facility]) [address] [place], [address], 06/26/2015 00:36:16 06/26/20 15 06/26/2015 CBC w/ auto diff absolute basophils 0.02 K/uL Not Available [facility]) [address] [place] [address], 47550, 06/26/2015 00:36:16 06/26/20 15 06/26/2015 CBC w/ auto diff immature granulocyte 0.10 % 0.00-0 .50 Not Available [facility] ([facility]) [address] [place] [address], 6[address], 06/26/2015 00:36:16 06/26/20 15 06/26/2015 CBC w/ auto diff absolute immature granulocyte 0.01 K/uL 0.00-0 .03 Not Available [facility] ([facility]) [address] [place] [address], 76179, 06/26/2015 00:36:16 06/26/20 15 06/26/2015 CMP, serum or plasm a glucose 98 mg/dL 70-99 Not Available [facility]) [address] [place] [address], 46[address], 06/26/2015 04:06:16 06/26/20 15 06/26/2015 CMP, serum or plasm a BUN 8 mg/dL 6-19 Not Available [facility] ([facility]) [address] [place], [address], 06/26/2015 04:06:16 06/26/20 15 06/26/2015 CMP, serum or plasm a creatinine 0.6 mg/dL 0.5-1. 5 Not Available [facility] ([facility]) [address] [place], [address], 06/26/2015 04:06:16 06/26/20 15 06/26/2015 CMP, serum or plasm a GFR >60 mL/mi n >60 NKDEP (Gina onal Kidne y Disea se Educa tion Progr am) does not endor se the use of the MDRD (Meg ficat ion of Diet in Renal Disea se) equat ion for estim ating GFR in patie nts that are not betwe en the ages of 18 and 70. Not Available [facility] ([facility]patient) [address] [place] [address], 20234, 06/26/2015 04:06:16 06/26/20 15 06/26/2015 CMP, serum or plasm a sodium 143 mEq/L 133-14 5 Not Available [facility] ([facility]) [address] [place] [address], 68411, 06/26/2015 04:06:16 06/26/20 15 06/26/2015 CMP, serum or plasm a potassium 3.3 mEq/L 3.3-5. 1 Not Available [facility] ([facility]) [address] [place], [address], 06/26/2015 04:06:16 06/26/20 15 06/26/2015 CMP, serum or plasm a chloride 103 mEq/L 96-108 Not Available [facility] ([facility]) [address] [place], [address], 06/26/2015 04:06:16 06/26/20 15 06/26/2015 CMP, serum or plasm a CO2 24 mEq/L 21-35 Not Available [facility] ([facility]) [address] [place], [address], 06/26/2015 04:06:16 06/26/20 15 06/26/2015 CMP, serum or plasm a calcium 8.6 mg/dL 8.4-10 .3 Not Available [facility] ([facility]) [address] [place], [address], 06/26/2015 04:06:16 06/26/20 15 06/26/2015 CMP, serum or plasm a total bilirubin 0.3 mg/dL 0.0-1. 2 Not Available [facility] ([facility]) [address] [place], [address], 06/26/2015 04:06:16 06/26/20 15 06/26/2015 CMP, serum or plasm a alkaline phosphatase 52 U/L 39-117 Not Available [facility] ([facility]) [address] [place] [address], 35739, 06/26/2015 04:06:16 06/26/20 15 06/26/2015 CMP, serum or plasm a AST (SGOT) 27 U/L 0-37 Not Available [facility] ([facility]) [address] [place] [address], 16986, 06/26/2015 04:06:16 06/26/20 15 06/26/2015 CMP, serum or plasm a ALT (SGPT) 22 U/L 0-40 Not Available [facility] ([facility]) [address] [place] [address], 05824, 06/26/2015 04:06:16 06/26/20 15 06/26/2015 CMP, serum or plasm a total protein 6.7 g/dL 6.5-8. 0 Not Available [facility] ([facility]) [address] [place] [address], 58314, 06/26/2015 04:06:16 06/26/20 15 06/26/2015 CMP, serum or plasm a albumin 4.0 g/dL 3.9-4. 8 Not Available [facility] ([facility]) [address] [place] [address], 10897, 06/26/2015 04:06:16 06/26/20 15 06/26/2015 CMP, serum or plasm a globulin 2.7 gm/dL 1.0-4. 8 Not Available [facility] ([facility]) [address] [place] [address], 08412, 06/26/2015 04:06:16 06/26/20 15 06/26/2015 CMP, serum or plasm a A/G ratio 1.5 gm/dL 1.0-4. 8 Not Available [facility] ([facility]) [address] [place] [address], 37377, 06/26/2015 04:06:16 06/26/20 15 06/26/2015 CMP, serum or plasm a anion gap 19 mEq/L 10-20 Not Available [facility] ([facility]) [address] [place] [address], 94408, 06/26/2015 04:06:16 06/26/20 15 06/26/2015 jeannine ol, quant itati ve, serum or plasm a alcohol,ser/ plas. 111 mg/dL <10 Not Available [facility] ([facility]) [address] [place] [address], 08883, 06/26/2015 04:06:19 06/26/20 15 06/26/2015 salic ylate , quant itati ve, serum salicylate <0.3 mg/dL 2.8-20 .0 low Note: Resul ts less than 2.8 mg/dL are consi dered negat ish. Toxic : Great er than 30.0 mg/dL . Not Available [facility] ([facility]) [address] [place] [address], 20132, 06/26/2015 04:06:19 06/26/20 15 06/26/2015 aceta minop hen, serum acetaminophe n <15.0 ug/mL 15.0-3 0.0 Not Available [facility] ([facility]) [address] [place], [address], 06/26/2015 04:06:20 02/13/20 16 02/13/2016 POC UA glu UA NEGATI VE Not Available [address], [address], 02/13/2016 15:58:37 02/13/20 16 02/13/2016 POC UA clarity UA CLEAR Not Available [address], [address], 02/13/2016 15:58:37 02/13/20 16 02/13/2016 POC UA uro UA 0.2000 Not Available [address], [address], 02/13/2016 15:58:37 02/13/20 16 02/13/2016 POC UA ket UA NEGATI VE Not Available [address], [address], 02/13/2016 15:58:37 02/13/20 16 02/13/2016 POC UA pro UA NEGATI VE Not Available [address], [address], 02/13/2016 15:58:37 02/13/20 16 02/13/2016 POC UA nit UA NEGATI VE Not Available [address], [address], 02/13/2016 15:58:37 02/13/20 16 02/13/2016 POC UA gustavo UA NEGATI VE Not Available [address], [address], 02/13/2016 15:58:37 02/13/20 16 02/13/2016 POC UA pH UA 7.0000 Not Available [address], [address], 02/13/2016 15:58:37 02/13/20 16 02/13/2016 POC UA SG UA 1.0250 Not Available [address], [address], 02/13/2016 15:58:37 02/13/20 16 02/13/2016 POC UA color UA YELLOW Not Available [address], [address], 02/13/2016 15:58:37 02/13/20 16 02/13/2016 POC UA blo UA NEGATI VE Not Available [address], [address], 02/13/2016 15:58:37 02/13/20 16 02/13/2016 POC UA roseline UA NEGATI VE Not Available [address], [address], 02/13/2016 15:58:37 02/13/20 16 02/14/2016 CBC WBC 10.6 K/? ? ?L 4.0-10 .0 high Not Available [address], [address], 02/14/2016 11:09:23 02/13/20 16 02/14/2016 CBC RBC 5.60 M/? ? ?L 3.93-5 .22 high Not Available [address], [address], 02/14/2016 11:09:23 02/13/20 16 02/14/2016 CBC HGB 16.4 g/dL 11.2-1 5.7 high Not Available [address], [address], 02/14/2016 11:09:23 02/13/20 16 02/14/2016 CBC HCT 51.8 % 34.1-4 4.9 high Not Available [address], [address], 02/14/2016 11:09:23 02/13/20 16 02/14/2016 CBC MCV 92.5 ? ? ?L 79.4-9 4.8 Not Available [address], [address], 02/14/2016 11:09:23 02/13/20 16 02/14/2016 CBC MCH 29.3 pg 25.6-3 2.2 Not Available [address], [address], 02/14/2016 11:09:23 02/13/20 16 02/14/2016 CBC MCHC 31.7 g/dL 32.2-3 5.5 low Not Available [address], [address], 02/14/2016 11:09:23 02/13/20 16 02/14/2016 CBC plt 278.0 K/? ? ?L 182.0- 369.0 Not Available [address], [address], 02/14/2016 11:09:23 02/13/20 16 02/14/2016 CBC MPV 12.3 9.4-12 .3 Not Available [address], [address], 02/14/2016 11:09:23 02/13/20 16 02/14/2016 CBC neut% 68.1 % 34.0-7 1.1 Not Available [address], [address], 02/14/2016 11:09:23 02/13/20 16 02/14/2016 CBC neut# 7.2 1.6-6. 1 high Not Available [address], [address], 02/14/2016 11:09:23 02/13/20 16 02/14/2016 CBC lymph % 26.3 % 19.3-5 1.7 Not Available [address], [address], 02/14/2016 11:09:23 02/13/20 16 02/14/2016 CBC lymph # 2.8 K/? ? ?L 1.2-3. 7 Not Available [address], [address], 02/14/2016 11:09:23 02/13/20 16 02/14/2016 CBC mono% 3.9 % 4.7-12 .5 low Not Available [address], [address], 02/14/2016 11:09:23 02/13/20 16 02/14/2016 CBC mono# 0.4 0.2-0. 6 Not Available [address], [address], 02/14/2016 11:09:23 02/13/20 16 02/14/2016 CBC eo% 1.5 % 0.7-5. 8 Not Available [address], [address], 02/14/2016 11:09:23 02/13/20 16 02/14/2016 CBC eo# 0.2 0.0-0. 4 Not Available [address], [address], 02/14/2016 11:09:23 02/13/20 16 02/14/2016 CBC baso% 0.2 % 0.1-1. 2 Not Available [address], [address], 02/14/2016 11:09:23 02/13/20 16 02/14/2016 CBC baso# 0.0 0.0-0. 1 Not Available [address], [address], 02/14/2016 11:09:23 02/13/20 16 02/14/2016 CBC RDW-CV 14.2 % 11.7-1 4.4 Not Available [address], [address], 02/14/2016 11:09:23 02/13/20 16 02/14/2016 TSH, serum or plasm a TSH 0.90 uIU/m L 0.50-6 .00 The Ameri can [employer] ge [facility] Endoc rinol ogy and Ameri can Thyro id Assoc iatio n recom mend goal TSH value s betwe en 0.4-4 .0 mIU/m L. Not Available [address], [address], 02/14/2016 12:04:35 02/13/20 16 02/14/2016 CMP, serum or plasm a glucose 89 mg/dL 70-100 Not Available [address], [address], 02/14/2016 12:16:36 02/13/20 16 02/14/2016 CMP, serum or plasm a BUN 12 mg/dL 7-18 Not Available [address], [address], 02/14/2016 12:16:36 02/13/20 16 02/14/2016 CMP, serum or plasm a creatinine 0.7 mg/dL 0.8-1. 3 low Not Available [address], [address], 02/14/2016 12:16:36 02/13/20 16 02/14/2016 CMP, serum or plasm a B/C 17.1 ratio Not Available [address], [address], 02/14/2016 12:16:36 02/13/20 16 02/14/2016 CMP, serum or plasm a GFR -non 100.5 mL/mi n Recom eusebio d GFR by the Natio nal Kidne y Found ation >60 mL/mi n/1.7 3m2 - Milagros l <60 mL/mi n/1.7 3m2 - Chron ic Kidne y Disea se <15 mL/mi n/1.7 3m2 - Kidne y Failu re Not Available [address], [address], 02/14/2016 12:16:36 02/13/20 16 02/14/2016 CMP, serum or plasm a GFR - if 115.5 mL/mi n For Afric an Ameri can patie nts: Resul ts Multi plied by 1.21 Not Available [address], [address], 02/14/2016 12:16:36 02/13/20 16 02/14/2016 CMP, serum or plasm a sodium 142 mmol/ L 136-14 5 Not Available [address], [address], 02/14/2016 12:16:36 02/13/20 16 02/14/2016 CMP, serum or plasm a potassium 4.6 mmol/ L 3.5-5. 1 Not Available [address], [address], 02/14/2016 12:16:36 02/13/20 16 02/14/2016 CMP, serum or plasm a chloride 106 mmol/ L 96-107 Not Available [address], [address], 02/14/2016 12:16:36 02/13/20 16 02/14/2016 CMP, serum or plasm a anion gap 12.5 5.0-15 .0 Not Available [address], [address], 02/14/2016 12:16:36 02/13/20 16 02/14/2016 CMP, serum or plasm a CO2 24 mmol/ L 21-32 Not Available [address], [address], 02/14/2016 12:16:36 02/13/20 16 02/14/2016 CMP, serum or plasm a calcium 8.7 mg/dL 8.5-10 .3 Not Available [address], [address], 02/14/2016 12:16:36 02/13/20 16 02/14/2016 CMP, serum or plasm a total protein 6.6 g/dL 6.4-8. 2 Not Available [address], [address], 02/14/2016 12:16:36 02/13/20 16 02/14/2016 CMP, serum or plasm a albumin 3.6 g/dL 3.4-5. 0 Not Available [address], [address], 02/14/2016 12:16:36 02/13/20 16 02/14/2016 CMP, serum or plasm a globulin 3.0 g/dL Not Available [address], [address], 02/14/2016 12:16:36 02/13/20 16 02/14/2016 CMP, serum or plasm a A/G 1.2 ratio 0.8-2. 0 Not Available [address], [address], 02/14/2016 12:16:36 02/13/20 16 02/14/2016 CMP, serum or plasm a total bilirubin 0.40 mg/dL 0.00-1 .00 Not Available [address], [address], 02/14/2016 12:16:36 02/13/20 16 02/14/2016 CMP, serum or plasm a AST 22 U/L 15-37 Not Available [address], [address], 02/14/2016 12:16:36 02/13/20 16 02/14/2016 CMP, serum or plasm a ALT 34 U/L 30-65 Not Available [address], [address], 02/14/2016 12:16:36 02/13/20 16 02/14/2016 CMP, serum or plasm a alk. phos. 59 U/L 50-136 Not Available [address], [address], 02/14/2016 12:16:36 10/21/19 17 10/20/2016 CBC w/ auto diff WBC 8.8 K/uL 3.4-11 .2 Not Available [address], [address], 10/20/2016 14:25:51 10/21/19 17 10/20/2016 CBC w/ auto diff RBC 5.49 M/uL 3.80-4 .80 high Not Available [address], [address], 10/20/2016 14:25:51 10/21/19 17 10/20/2016 CBC w/ auto diff hemoglobin 16.6 g/dL 12.0-1 5.0 high Not Available [address], [address], 10/20/2016 14:25:51 10/21/19 17 10/20/2016 CBC w/ auto diff hematocrit 47.8 % 36.0-4 6.0 high Not Available [address], [address], 10/20/2016 14:25:51 10/21/19 17 10/20/2016 CBC w/ auto diff MCV 87.1 fL 79.0-9 8.0 Not Available [address], [address], 10/20/2016 14:25:51 10/21/19 17 10/20/2016 CBC w/ auto diff MCH 30.2 pg 27.0-3 4.8 Not Available [address], [address], 10/20/2016 14:25:51 10/21/19 17 10/20/2016 CBC w/ auto diff MCHC 34.7 g/dL 31.5-3 6.0 Not Available [address], [address], 10/20/2016 14:25:51 10/21/19 17 10/20/2016 CBC w/ auto diff RDW 13.0 % 10.8-1 4.6 Not Available [address], [address], 10/20/2016 14:25:51 10/21/19 17 10/20/2016 CBC w/ auto diff MPV 10.3 fL 9.4-12 .4 Not Available [address], [address], 10/20/2016 14:25:51 10/21/19 17 10/20/2016 CBC w/ auto diff platelet count 244 K/uL 130-40 0 Not Available [address], [address], 10/20/2016 14:25:51 10/21/19 17 10/20/2016 CBC w/ auto diff neutrophils 73.8 % 45.3-7 7.7 Not Available [address], [address], 10/20/2016 14:25:51 10/21/19 17 10/20/2016 CBC w/ auto diff lymphocytes 17.9 % 12.3-3 9.7 Not Available [address], [address], 10/20/2016 14:25:51 10/21/19 17 10/20/2016 CBC w/ auto diff monocytes 6.1 % 4.1-12 .8 Not Available [address], [address], 10/20/2016 14:25:51 10/21/19 17 10/20/2016 CBC w/ auto diff eosinophils 1.90 % 0.00-7 .20 Not Available [address], [address], 10/20/2016 14:25:51 10/21/19 17 10/20/2016 CBC w/ auto diff basophils 0.10 % 0.00-2 .80 Not Available [address], [address], 10/20/2016 14:25:51 10/21/19 17 10/20/2016 CBC w/ auto diff absolute neutrophil 6.5 K/uL 1.4-7. 7 Not Available [address], [address], 10/20/2016 14:25:51 10/21/19 17 10/20/2016 CBC w/ auto diff absolute lymphocyte 1.6 K/uL 0.6-3. 2 Not Available [address], [address], 10/20/2016 14:25:51 10/21/19 17 10/20/2016 CBC w/ auto diff absolute monocytes 0.5 K/uL 0.1-0. 6 Not Available [address], [address], 10/20/2016 14:25:51 10/21/19 17 10/20/2016 CBC w/ auto diff absolute eosinophil 0.17 K/uL 0.01-0 .50 Not Available [address], [address], 10/20/2016 14:25:51 10/21/19 17 10/20/2016 CBC w/ auto diff absolute basophils 0.01 K/uL Not Available [address], [address], 10/20/2016 14:25:51 10/21/19 17 10/20/2016 CBC w/ auto diff immature granulocyte 0.20 % 0.00-0 .50 Not Available [address], [address], 10/20/2016 14:25:51 10/21/19 17 10/20/2016 CBC w/ auto diff absolute immature granulocyte 0.02 K/uL 0.00-0 .03 Not Available [address], [address], 10/20/2016 14:25:51 10/21/19 17 10/20/2016 tropo ruthann T, serum troponin T <0.010 NG/mL 0.000- 0.030 Not Available [address], [address], 10/20/2016 15:00:11 10/21/19 17 10/20/2016 CMP, serum or plasm a glucose 105 mg/dL 70-99 high Not Available [address], [address], 10/20/2016 15:01:11 10/21/19 17 10/20/2016 CMP, serum or plasm a BUN 11 mg/dL 6-19 Not Available [address], [address], 10/20/2016 15:01:10/21/19 17 10/20/2016 CMP, serum or plasm a creatinine 0.7 mg/dL 0.5-1. 5 Not Available [address], [address], 10/20/2016 15:01:11 10/21/19 17 10/20/2016 CMP, serum or plasm a GFR >60 mL/mi n >60 NKDEP (Gina onal Kidne y Disea se Educa tion Progr am) does not endor se the use of the MDRD (Meg ficat ion of Diet in Renal Disea se) equat ion for estim ating GFR in patie nts that are not betwe en the ages of 18 and 70. Not Available [address], [address], 10/20/2016 15:01:11 10/21/19 17 10/20/2016 CMP, serum or plasm a sodium 138 mEq/L 133-14 6 Not Available [address], [address], 10/20/2016 15:01:10/21/19 17 10/20/2016 CMP, serum or plasm a potassium 4.1 mEq/L 3.3-5. 2 Not Available [address], [address], 10/20/2016 15:01:11 10/21/19 17 10/20/2016 CMP, serum or plasm a chloride 102 mEq/L 96-108 Not Available [address], [address], 10/20/2016 15:01:11 10/21/19 17 10/20/2016 CMP, serum or plasm a CO2 23 mEq/L 21-35 Not Available [address], [address], 10/20/2016 15:01:11 10/21/19 17 10/20/2016 CMP, serum or plasm a calcium 8.8 mg/dL 8.4-10 .3 Not Available [address], [address], 10/20/2016 15:01:11 10/21/19 17 10/20/2016 CMP, serum or plasm a total bilirubin 0.5 mg/dL 0.0-1. 2 Not Available [address], [address], 10/20/2016 15:01:11 10/21/19 17 10/20/2016 CMP, serum or plasm a alkaline phosphatase 56 U/L 39-117 Not Available [address], [address], 10/20/2016 15:01:11 10/21/19 17 10/20/2016 CMP, serum or plasm a AST (SGOT) 20 U/L 0-37 Not Available [address], [address], 10/20/2016 15:01:11 10/21/19 17 10/20/2016 CMP, serum or plasm a ALT (SGPT) 18 U/L 0-40 Not Available [address], [address], 10/20/2016 15:01:11 10/21/19 17 10/20/2016 CMP, serum or plasm a total protein 6.3 g/dL 6.5-8. 0 low Not Available [address], [address], 10/20/2016 15:01:11 10/21/19 17 10/20/2016 CMP, serum or plasm a albumin 3.6 g/dL 3.9-4. 8 low Not Available [address], [address], 10/20/2016 15:01:11 10/21/19 17 10/20/2016 CMP, serum or plasm a globulin 2.7 gm/dL 1.0-4. 8 Not Available [address], [address], 10/20/2016 15:01:11 10/21/19 17 10/20/2016 CMP, serum or plasm a A/G ratio 1.3 gm/dL 1.0-4. 8 Not Available [address], [address], 10/20/2016 15:01:11 10/21/19 17 10/20/2016 CMP, serum or plasm a anion gap 17 mEq/L 10-20 Not Available [address], [address], 10/20/2016 15:01:11 10/21/19 17 10/20/2016 C react ish prote in, QN, serum or plasm a C-reactive protein 1.25 mg/dL 0.00-0 .50 high Not Available [address], [address], 10/20/2016 15:01:12 10/21/19 17 10/20/2016 BNP (B-ty pe natri ureti c pepti de), serum or plasm a pro-BNP 80 pg/mL 0-125 Not Available [address], [address], 10/20/2016 15:01:13 10/21/19 17 10/20/2016 wet mount yeast cells None Seen none seen Not Available [address], [address], 10/20/2016 17:47:20 10/21/19 17 10/20/2016 wet mount trichomonas None Seen none seen Not Available [address], [address], 10/20/2016 17:47:20 10/21/19 17 10/20/2016 wet mount clue cells None Seen none seen Not Available [address], [address], 10/20/2016 17:47:20 10/21/19 17 10/20/2016 chlam ydia + gonor blaise DNA panel , unspe cifie d speci men chlamydial/g onorrhoeal detection by PCR Not Available [address], [address], 10/22/2016 14:33:43 10/21/19 17 10/20/2016 chlam ydia + gonor blaise DNA panel , unspe cifie d speci men chlamydia trachomatis detection by PCR Not Detect ed Not Available [address], [address], 10/22/2016 14:33:43 10/21/19 17 10/20/2016 chlam ydia + gonor blaise DNA panel , unspe cifie d speci men neisseria gonorrhoeae detection by PCR Not Detect ed Not Available [address], [address], 10/22/2016 14:33:43 11/21/19 17 11/20/2016 pregn stephen test, urine test, urine Negati ve negati ve Not Available [address], [address], 11/20/2016 19:43:38 11/21/19 17 11/20/2016 urina lysis , dipst ick, refle x micro color Yellow Not Available [address], [address], 11/20/2016 19:43:39 11/21/19 17 11/20/2016 urina lysis , dipst ick, refle x micro appearance Clear Not Available [address], [address], 11/20/2016 19:43:39 11/21/19 17 11/20/2016 urina lysis , dipst ick, refle x micro specific gravity >=1.03 0 1.005- 1.030 Not Available [address], [address], 11/20/2016 19:43:39 11/21/19 17 11/20/2016 urina lysis , dipst ick, refle x micro pH 5.0 5.0-7. 0 Not Available [address], [address], 11/20/2016 19:43:39 11/21/19 17 11/20/2016 urina lysis , dipst ick, refle x micro protein Negati ve negati ve Not Available [address], [address], 11/20/2016 19:43:39 11/21/19 17 11/20/2016 urina lysis , dipst ick, refle x micro glucose Negati ve negati ve Not Available [address], [address], 11/20/2016 19:43:39 11/21/19 17 11/20/2016 urina lysis , dipst ick, refle x micro ketones Negati ve negati ve Not Available [address], [address], 11/20/2016 19:43:39 11/21/19 17 11/20/2016 urina lysis , dipst ick, refle x micro bilirubin Negati ve negati ve Not Available [address], [address], 11/20/2016 19:43:39 11/21/19 17 11/20/2016 urina lysis , dipst ick, refle x micro blood Negati ve negati ve Not Available [address], [address], 11/20/2016 19:43:39 11/21/19 17 11/20/2016 urina lysis , dipst ick, refle x micro nitrite Negati ve negati ve Not Available [address], [address], 11/20/2016 19:43:39 11/21/19 17 11/20/2016 urina lysis , dipst ick, refle x micro leukocyte esterase Negati ve negati ve Not Available [address], [address], 11/20/2016 19:43:39 11/21/19 17 11/20/2016 drug scree n, urine canna., urine scr Positi ve abnormal Resul ts check ed by repea t jadon sis. Cutof f: 50 ng/mL Not Available [address], [address], 11/20/2016 20:16:56 11/21/19 17 11/20/2016 drug scree n, urine cocaine,urin escreen None Detect ed Cutof f: 300 ng/mL Not Available [address], [address], 11/20/2016 20:16:56 11/21/19 17 11/20/2016 drug scree n, urine grupo,urine Positi ve abnormal Resul ts check ed by repea t jadon sis. Cutof f: 200 ng/mL Not Available [address], [address], 11/20/2016 20:16:56 11/21/19 17 11/20/2016 drug scree n, urine M-amphetamin es, urine screen None Detect ed Cutof f: 1000 ng/mL Not Available [address], [address], 11/20/2016 20:16:56 11/21/19 17 11/20/2016 drug scree n, urine methadone, urine screen None Detect ed Cutof f: 300 ng/mL Not Available [address], [place], [address], 11/20/2016 20:16:56 11/21/19 17 11/20/2016 drug scree n, urine opiates, urine screen None Detect ed Cutof f: 300 ng/mL Not Available [address], [place], [address], 11/20/2016 20:16:56 11/21/19 17 11/20/2016 drug scree n, urine phencyclidin e, urine SC None Detect ed Cutof f: 25 ng/mL Not Available [address], [address], 11/20/2016 20:16:56 11/21/19 17 11/20/2016 drug scree n, urine barbiturates , urine None Detect ed Cutof f: 200 ng/mL INTER PRETA TION FOR TOXIC OLOGY PANEL : Thes e resul ts are uncon firme d and shoul d be used for Medic al Treat ment purpo ses only. Not Available [address], [place], [address], 11/20/2016 20:16:56 11/21/19 17 11/20/2016 drug scree n, urine oxycodone, urine qualitative None Detect ed Cutof f: 300 ng/ml Not Available [address], [address], 11/20/2016 20:16:56 10/23/19 15 10/21/2014 x-ray , foot No observ ation record ed. [facility] [address], [address], 10/22/2014 16:05:33 05/29/20 15 05/29/2015 x-ray , chest No observ ation record ed. [facility] [address] [place], [address], 05/30/2015 09:00:12 10/21/19 17 10/20/2016 XR, chest , 2 view PA and latera l views of the chest obtain ed. Multip le prior, most recent Octobe r 112014. Heart, lung, and medias tinal contou rs appear within normal limits . No infilt rates or effusi ons identi fied. No free air or pneumo thorax . Patien t rotate d mildly to the left. IMPRES YAHIR: No acute cardio pulmon enoch abnorm ality is detect ed. POS - CDHRAD BOARD0 5 Edited by: Rose Marie leon on 10/21/19 17 2:56 PM Techno logist : JAMES SOLER Transc ribed by: [employer] angie, PS360 Result s 2016 02:53 PM Interp reted By: MIGUEL RAMIREZ MD Electr onical ly Signed By: Electr onical ly Signed by: MIGUEL BANDA on 10/21/19 17 3:01 PM Techno logist : JAMES SOLER Transc ribed by: [employer] angie, PS360 Result s 2016 02:53 PM Electr onical ly Signed By: MIGUEL RAMIREZ MD 2016 03:01 PM [facility] [address] [place], [address], 10/21/2016 11:57:51 Result Notes None recorded. Problems Name Problem SNOMED Code Status Onset Date Resolution Date Notes Provider Name and Address Organization Details Recorded Time Tinkvng pedis 3007598 Active Not Available [facility] 3 03:15:01 Obesity 165460289 Active Not Available [facility] 3 03:15:01 Dental caries 29666380 Active Tamar Reese MD [address] [place] [address], [phone] , [facility] 4 16:31:21 Tobacco user 809242056 Active Tamar Reese MD [address] [place] [address], [phone] , [facility] 4 16:31:21 Adjustment disorder 69178494 Active Not Available [facility] 3 03:15:01 Disorder of teeth AND/OR supporting structures 709862105 Completed 12/23/2013 Tamar Reese MD [address] [place] [address], [phone] , [facility] 4 15:53:16 Glucose level outside reference range 443538787 Active Not Available [facility] 3 03:15:01 Migraine 02145761 Completed 12/23/2013 gone Tamar Reese MD [address] [place] [address], [phone] , [facility] 4 15:53:39 Lipoma 37965502 Active Bautista Martini NP [address] [place] [address], [address] , [facility] 5 17:52:00 Mass of body structure 824395616 Active Bautista Martini NP [address] [place] [address], [phone] , [facility] 4 17:47:20 Pain in lower limb 96724597 Active Kevin Hayes DPM [address] [place] [address], [phone] , [facility] 5 15:31:19 Opioid dependence in remission 432917420 Active 2016 Bautista Martini NP [address] [place] [address], [phone] , [facility] 7 17:43:47 Problem Notes None recorded. Procedures Surgical History Date Name Laterality Status Provider Name and Address Organization Details Recorded Time 7 Smoking cessation counseling completed Paulette Gillis MA [facility] 02/18/2017 15:52:36 7 Carbon Monoxide Testing completed Paulette Gillis MA [facility] 02/18/2017 15:52:37 6 POC Urinalysis Testing completed JAKI Marcano [facility] 02/13/2016 15:57:25 4 Smoking cessation counseling completed Izabel Weeks [facility] 12/23/2013 15:34:15 4 Smoking cessation counseling completed Izabel Weeks [facility] 10/21/2013 15:32:52 3 Smoking cessation counseling completed Andreina Issa MA [facility] 08/20/2012 15:37:12 1 Wound Care completed Yu Zarate RN [facility] 09/15/2010 16:31:01 Imaging Results Imaging Date Name Status LastModified by Organiz atgeorgina Details LastModified Time 10/21/2014 x-ray, foot completed [address], [address], 10/22/2014 16:05:33 05/29/2015 x-ray, chest completed [facility] [address] [place] [address], [address], 05/30/2015 09:00:12 10/20/2016 XR, chest, 2 view completed [facility] [address] [place] [address], [address], 10/21/2016 11:57:51 Procedure Notes None recorded. Medical Equipment None Reported. Allergies No known drug allergies Medications Name Sig Start Date Stop Date Status Note LastModified by Organization Details LastModified Time Prescript ion - Prior Authoriza tion Request active Not Available Not Available Not Available amoxicill in 500 mg capsule TK ONE C PO TID active Not Available Not Available No t Available nystatin 100,000 unit/mL oral suspensio n active Not Available Not Available Not Available clonidine HCl 0.1 mg tablet active PRN Not Available Not Available No t Available Detrol 2 mg tablet Take 1 tablet twice a day by oral route for 30 days. 2012 active Not Available Not Available Not Avai lable ibuprofen 800 mg tablet Take 1 tablet 3 times a day by oral route with meals. 02/18 completed Not Available Not Available Not Available Lidocaine Viscous 2 % mucosal solution 1-2 tsp po qid prn for mouth pain active Not Available Not Available No t Available citalopra m 10 mg tablet 02/18 completed 02/18/17 pt states she is not taking/j d Not Available Not Available Not Available sumatript an 100 mg tablet TAKE 1 TABLET BY MOUTH EVERY DAY NEEDED active Not Available Not Available No t Available hydrocodo ne 5 mg-acetam inophen 325 mg tablet TK 1 T PO BID PRN active Not Available Not Available No t Available phenazopy ridine 200 mg tablet active Not Available Not Available Not Available ondansetr on HCl 4 mg tablet TAKE 1 TAB DAILY NEEDED FOR NAUSEA/V OMITING active Not Available Not Available No t Available clonazepa m 0.5 mg tablet TAKE 1-2 TS PO QHS PRF SLEEP active Not Available Not Available No t Available clonazepa m 1 mg tablet TAKE 1 TABLET BY MOUTH DAILY AT NIGHT NEEDED FOR SLEEP AND MAY TAKE ANOTHER TAB DAILY NEEDED active Not Available Not Available No t Available penicilli n V potassium 500 mg tablet active Not Available Not Available Not Available ciproflox acin 500 mg tablet active Not Available Not Available No t Available dextroamp hetamine sulfate 10 mg tablet TK 3 TS PO BID active Not Available Not Available No t Available butalbita l-acetami nophen-ca ffeine 50 mg-325 mg-40 mg tablet active Not Available Not Available Not Available amoxicill in 500 mg tablet Take 1 tablet 3 times a day by oral route for 7 days. 2014 active 10/04/15- ac Not Available Not Available Not Available nortripty line 25 mg capsule TK 1 C PO HS FOR MIGRAINE PREVENTI ON active Not Available Not Available No t Available oxycodone -acetamin ophen 5 mg-325 mg tablet 1-2 po q hs prn active 10/04/15- ac Not Available Not Available Not Available amoxicill in 875 mg tablet Take 1 tablet every 12 hours by oral route for 10 days. 09/04 completed Not Available Not Available Not Available methocarb augusta 750 mg tablet 02/18 completed 02/18/17 pt states she is not taking/j d Not Available Not Available Not Available benzonata te 100 mg capsule 02/18 completed Not Available Not Available Not Available cephalexi n 500 mg capsule active Not Available Not Available Not Available lidocaine 5 % topical patch active Not Available Not Available Not Available clonazepa m 2 mg tablet active Not Available Not Available Not Available Dexedrine Spansule 10 mg capsule,e xtended release Take 4 capsules twice a day by oral route. active states takes 4 in am and pm; rx'd by haim Guido risyoung Not Available Not Available Not Available pramipexo le 0.125 mg tablet active Not Available Not Available No t Available diclofena c potassium 50 mg tablet active Not Available Not Available Not Available hydroxyzi ne HCl 25 mg tablet active Not Available Not Available No t Available hydrocodo ne 5 mg-acetam inophen 500 mg tablet Take 1 tablet every 4 hours by oral route as needed. active Not Available Not Available No t Available mirtazapi ne 15 mg tablet 02/12 completed Not Available Not Available Not Available ibuprofen 600 mg tablet TAKE 1 TABLET BY MOUTH 3 TIMES A DAY NEEDED WITH FOOD active Not Available Not Available No t Available zolpidem 10 mg tablet TAKE 1 TABLET BY MOUTH EVERY DAY AT BEDTIME active Not Available Not Available No t Available ondansetr on 4 mg disintegr ating tablet 02/18 completed Not Available Not Available Not Available Imitrex 25 mg tablet take 1 tablet by oral route at onset of migraine , may repeat dose in 30 minutes if headache persists 2013 active Not Available Not Available Not Avai lable clotrimaz ole 1 % topical cream Apply to the affected and surround ing areas of skin by topical route 2 times per day in the morning and evening 2010 active Not Available Not Available Not Avai lable sertralin e 50 mg tablet active Not Available Not Available Not Available dicyclomi ne 10 mg capsule active Not Available Not Available Not Available naproxen 500 mg tablet Take 1 tablet twice a day by oral route for 30 days. active Not Available Not Available No t Available diazepam 5 mg tablet active Not Available Not Available Not Available amoxicill in 875 mg-potass ium clavulana te 125 mg tablet active Not Available Not Available Not Available oxycodone 5 mg tablet Take 1 TABLET twice per day as needed for pain; do not combine with alcohol, do not drive after taking; may make you drowsy active Not Available Not Available No t Available azithromy ez 500 mg tablet active 10/04/15- ac Not Available Not Available Not Available clonazepa m 0.5 mg disintegr ating tablet active Not Available Not Available Not Available Chantix 0.5 mg tablet TAKE ONE TABLET BY MOUTH EVERY DAY FOR 3 DAYS, THEN ONE TWICE DAILY FOR 4 DAYS, THEN TWO TWICE DAILY active Not Available Not Available No t Available ProAir HFA 90 mcg/actua tion aerosol inhaler USE US INHALE 1-2 PUFFS EVERY 4-6 HOURS NEEDED active Not Available Not Available No t Available oxycodone 10 mg tablet Take 0.5 tablets every 6 hours by oral route as needed for 3 days. active last pha 08/20/12 Not Available Not Available Not Available venlafaxi ne ER 75 mg tablet,ex tended release 24 hr 02/18 completed 02/18/17 pt states she is not taking/j d Not Available Not Available Not Available Suboxone 8 mg-2 mg sublingua l film active Not Available Not Available Not Available Suboxone 2 mg-0.5 mg sublingua l film DIS TWO AND ONE-HALF FILMS UNT QD active Not Available Not Available No t Available Chantix Continuin g Month Box 1 mg tablet TAKE DIRECTED active Not Available Not Available No t Available Chantix Starting Month Box 0.5 mg (11)-1 mg (42) tablets in dose pack USE DIRECTED 2016 active Not Available Not Available Not Avai lable Suboxone 4 mg-1 mg sublingua l film TAKE 3 EA SUBLINGU ALLY ONCE A DAY active Not Available Not Available No t Available Narcan 4 mg/actuat ion nasal spray active Not Available Not Available Not Available Trintelli x 10 mg tablet 02/18 completed 02/18/17 pt states she is not taking/j d Not Available Not Available Not Available Vitals Date Recorded Body weight Body mass index (BMI) Body height Body temperature Systolic blood pressure Diastolic blood pressure Provider Name and Address Organization Details Last Updated DateTime 7 84210.0 7 g 36.5 kg/m2 158.12 cm 98.4 [degF] 112 mm[Hg] 68 mm[Hg] Paulette Gillis MA [facility] 7 15:54:04 Date Recorded Body height Body mass index (BMI) Body weight Systolic blood pressure Diastolic blood pressure Provider Name and Address Organization Details Last Updated DateTime 11/22/2014 159.385 cm 35.8 kg/m2 16557.27 0185 g 120 mm[Hg] 70 mm[Hg] Ernestina aldrich MA [facility] 5 16:49:57 Date Recorded Body height Body weight Body mass index (BMI) Heart rate Systolic blood pressure Diastolic blood pressure Provider Name and Address Organization Details Last Updated DateTime 5 158.115 cm 84688.4 74 g 36.3 kg/m2 80 /min 120 mm[Hg] 80 mm[Hg] Elisabeth Jerez [facility] 5 14:22:22 Date Recorded Body height Heart rate Systolic blood pressure Diastolic blood pressure Provider Name and Address Organization Details Last Updated DateTime 10/03/2015 158.115 cm 60 /min 120 mm[Hg] 84 mm[Hg] Ernestina mitchell [facility] 10/03/2015 16:45:49 Date Recorded Body height Heart rate Body temperature Systolic blood pressure Diastolic blood pressure Provider Name and Address Organization Details Last Updated DateTime 02/13/2016 158.115 cm 60 /min 98.2 [degF] 110 mm[Hg] 82 mm[Hg] Corinnaabhishek House [facility] 6 15:30:44 Social History Question Answer Notes LastModified by Organizat ion Details LastModified Time Tobacco Smoking Status Current Every Day Smoker 1/2pack per day KO Boucher, [facility] 11/29/2011 14:40:04 Do You Have An Advance Directive? No Declines Form [email or web address] Information not available 08/25/2010 What Is Your Level Of Alcohol Consumption? Occasional BF Is Alcoholic, She Avoids Drinking [email or web address] Information not available 12/23/2013 Do You Wear A Helmet When Biking? No Information not available 12/23/2013 What Is Your Level Of Caffeine Consumption? Occasional Information not available 12/23/2013 How Much Tobacco Do You Chew? None Information not available 12/23/2013 What Type Of Diet Are You Following? REGULAR Information not available 12/23/2013 Which Illicit Or Recreational Drugs Have You Used? 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 0 Information not available 12/23/2013 Are There Any Guns Present In Your Home? No Information not available 08/20/2012 Live Alone Or With Others? With Others Information not available 12/23/2013 Patient Has Health Care Proxy Signed And In Chart No Declines Information not available 08/20/2012 Marital Status Has BF Living With Her [email or web address] Information not available 08/25/2010 Mosquito Repellent Used Routinely No Information not available 08/20/2012 How Many Children Do You Have? 2 [email or web address]_[email or web address] Information not available 07/05/2011 What Is Your Current Pack Years? 30ormorepacky ears [email or web address] Information not available 02/13/2016 Seat Belts Used Routinely Yes Information not available 08/20/2012 Are You Sexually Active? Yes Information not available 12/23/2013 Smoke Alarm In Home Yes Information not available 08/20/2012 At What Age Did You Start Smoking Tobacco? 14 [email or web address] Information not available 01/08/2014 General Stress Level High [email or web address]_[email or web address] Information not available 07/05/2011 Do You Use Sunscreen Routinely? No Information not available 08/20/2012 Sex: Unknown Functional Status None recorded. Mental Status None recorded. Family History Relationship Description Onset Age of this Age Resolved Age Notes LastModified by Organization Details LastModified Time Mother Malignant neoplasm of female breast unknow n age, did not of BRCA [email or web address] Not available 01/13/2015 15:26:03 Father Essential hypertension [email or web address] Not available 15:26:03 Father Hyperlipidem ia jerskine Not available 2014 15:26:03 Notes:no FH breast, colon or ovarian CA; no early CAD or SCD Medical History No medical history recorded. Gynecological History Statement/Question Response History of Abnormal Pap N Obstetrics History GPAL:G 0 P 0 0 0 0 Immunizations Vaccine Type Date Status Note Provider Nam e and Address Organization Details Recorded Time Td(adult) unspecified formulation 0 completed Not Available [facility] 07/04/2011 05:22:52 Past Encounters Encounter ID Performer Location Encounter Start Date Encounter Closed Date Diagnosis/Indication Diagnosis SNOMED-CT Code Diagnosis ICD10 Code Diagnosis Note [id number] , [facility], [address] [place] [address] 08/25/2010 11:09:53 08/29/2010 11:09:[id number] [facility], [address] [place] [id number] 09/15/2010 15:30:06 09/18/2010 14:25:[id number] [facility], [address] [place] [address] 11/29/2011 14:30:15 12/03/2011 10:36:02 [id number] Radiology , [facility] [address] [id number] 11/29/2011 15:08:55 11/29/2011 15:51:18 [id number] Radiology , [facility] [address] [id number] 11/29/2011 15:09:25 11/29/2011 15:51:[id number] [facility], [address] [place] [address] 12/17/2011 13:32:40 12/19/2011 08:29:[id number] [facility], [address] [place] [address] 08/20/2012 15:27:44 08/20/2012 16:20:[id number] [facility], [address] [place] [address] 12/31/2012 14:28:53 12/31/2012 15:24:[id number] [facility], [address] [place] [address] 01/30/2013 14:40:09 02/02/2013 13:31:[id number] [facility], [address] [place] [address] 02/18/2013 16:35:29 02/20/2013 14:55:[id number] [facility], [address] [place] [address] 03/26/2013 14:54:46 03/26/2013 16:23:36 Dental caries 40264925 Severe dental pain for about 20 years, steadily worsening over the last several months, has had 18 teeth removed in the past, states the dentist told her this was from calcium loss during her . No sign of infection on exam. Unable to get ride to last appt; has new appointmen t for these to be pulled on 04/06. Oxycodone has been helpful for the tooth pain; continue until surgery Asked her not to fill controlled substance medication s from other prescriber s without letting us know. Muscular headache 418827168 Sig tension noted in neck and paraspinal muscles; gentle massage in clinic helped relieve pain slightly. Recommend massage - low cost options provided. [id number] Tamar Reese MD , [facility], [address] [place] [address] 10/21/2013 14:54:11 10/22/2013 15:08:23 Tobacco user [id number] Interested in quitting, but inadequate time to devise a plan at this encounter - return for this. Migraine 45344919 discus sed trial of imitrex, full PARQ held and patient wishes to try this. Return to see me in 3 weeks to follow up on this. Patient requested opiates for this but discussed that there are better medication s for migraines and I would prefer a trial of triptans. Lipoma 14912632 Discusse d likely lipoma on R lateral thigh; no sign of infection or abscess. Start with u/s for eval (she will call [facility] to set up) and referred to consult with general surgery re: risks and benefits of biopsy and/or full removal. Dental caries 84657972 S tates only friend who could take her to have teeth extracted lost his license, so she did not go through with extraction . States tooth pain has resolved. [id number] Elisabeth STRICKLAND, [facility], [address] [place] [address] 12/23/2013 15:01:25 12/24/2013 09:28:17 Adult health examination [id number] see Risk Assessment and Lifestyle Change Counseling section above UTD TDAP, Pap Mammogram, fbs ordred Add vitamin D, consider the med diet Counseling 315859253 Screening mammography 53987544 Mass of [place] dy structure 354388764 present x 14 years but getting larger over the last few weeks, painful. Did not go to see general surgery . Discussed MRI next step in workup to ensure no sarcoma. F/u with me next week. Dental caries 83282947 p lans to have extraction at [facility] Muscular headache 913938165 resolved Tobacco user [id number] n ot interested in quitting at the present [id number] KO Deleon, [facility], [address] [place] [address] 01/08/2014 11:44:23 01/08/2014 12:27:08 Pain in lower limb 49869809 Reviewed previous notes and results from u/s. Pt is concerned that this is cancer. Reassurran ce given. She has had this for over 15 yrs. She feels it is enlarging. Could be a lipoma although u/s did not show that. Has appt later today for MRI ordered by Dr. Reese. I will give her a few more oxycodone but I stressed that this is not a medication to be used jail. If MRI is unrevealin g, could consider surgical consult (looks like was referred in past but no appt every made) but would stop the narcotics if not real cause can be found for her sx. Lipoma 80281109 Periapical abscess without sinus tract 196313156 very poor dentition with broken stubs of teeth noted - states found dentist who will pull these for her and enc. to f/u with that in the near future Fatigue 10863432 Pt c/o fatigue, wt gain. Will return for some labs prior to f/u visit in 1 week. [id number] KO Deleon, [facility], [address] [place] [address] 01/26/2014 15:49:01 01/26/2014 16:11:47 Hip pain 20197068 Will get hip X-ray - ? if this pain could be referred from trochanter ic bursitis. If hip X-ray completely wnl, consider surgical referral to see if surgeon feels lipoma could be causing her sx. I told her I'd refill the roxicet 1 more time but her sx seem chronic (over 2-3 years) and fairly mild and I emphasized that this is not a medicine to be taken chronicall y and I do not want to refill this again. [id number] MARCO A, [facility], [address] [place] [address] 07/28/2014 16:43:12 07/28/2014 17:17:11 Pain in thumb 341454630 pain at base of left thumb. pt requesting pain medication for this. distributi on of pain consistent with radial nerve. will image as focal tenderness is noted. advised brace at night, and follow up to consider physical therapy or gabapentin or amitryptil ine for pain. Migraine 04527071 pt not es severe migraines every three - 4 months. pt has tried percocet. but last time percocet did not help. percocet did not help. pt states she has pounding pain. pt does note aura. will trial sumatripta n. [id number] , [facility], [address] [place] [address] 11/22/2014 16:39:11 11/22/2014 17:10:30 Migraine 56202468 states sumatripta n works very well - uses the Zofran prn for nausea as well - refilled as below Foot pain 30687009 Pt wi th pain top of foot - ? cause. Xray in ER was neg. Referred to podiatry. Pt to schedule. Small amt vicodin given as below to use sparingly. Continue the naproxen, comf. footwear. F/U if not gradually improving or sx worsen. Lipoma 87506007 Pt concerned about fat deposition right lat. hip - had seen surgeon for this in the past but feels this has gotten larger, more painful. Dr. Bettencourt felt surgery would not be beneficial for her sx. Wants another opinion. Referred to Dr. Zavaleta . Pt to schedule. [id number] Latrice Flynn Podiatry, [facility] [address] [place] [address] 01/13/2015 14:10:28 01/26/2015 14:19:09 Acquired hallux valgus 19594338 Disorder of nail 61205900 Pain in lower limb 86970770 [id number] Bautista Martini NP , [facility], [address] [place] [address] 10/03/2015 16:28:44 10/03/2015 17:06:09 Migraine 22991181 G43.909 states sumatripta n works very well - uses the Zofran prn for nausea as well - refilled as below Foot pain 54657476 M79.6 71 referred back to podiatry - enc. wide comf. footwear - reassured - no need for narcotics which should be used only for more severe pain sx (i.e. fractures, surgery). Continue the ibuprofen - can take it with tylenol prn if not effective. Breast lump 39815874 N63 I don't feel any discrete mass but she is tender on the right at 9:00 position - will get mammo with u/s as below and f/u with results when available. Enc. to schedule PHA on her way out today [id number] KEARA De Anda, [facility], [address] [place] [address] 02/13/2016 15:21:20 02/13/2016 16:19:11 Migraine 73788733 G43.909 Uses zofran sparingly for her migraines - refilled as below Fatigue 65680927 R53.83 Will check some labs today and f/u with results when available Increased frequency of urination 429216786 R35.0 Feels having increased frequency, no burning/ur gency but some change in stream. Urine dip obtained and wnl. Discussed no s/s infection. F/U prn worsening sx. Substance abuse 16907311 F19.10 was buying oxycodone on the streets and had been seen here numerous times with drug seeking behaviors. + cocaine as well noted during ER visit in past. 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 Enc. cont. f/u with suboxone clinic. F/u for pHA in the near future Major depr ession, melancholic type 658641163 F32.9 cont. f/u with therapist and med prescriber as planned - denies any suicidal ideation. States feeling much better now that is on suboxone Tobacco de pendence syndrome 57498651 F17.290 Doesn't want nicotine replacemen t products - scare her. Interested in chantix. Discussed potential adverse effects including vivid dreams/sle ep disturbanc e. She will discuss this with her psych. prescriber and f/u if desires a rx. [id number] KEARA De Anda, [facility], [address] [place] [address] 02/18/2017 15:41:42 02/18/2017 16:23:40 Cigarette smoker 01693541 F17.210 Discussed and enc smoking cessation. Willing to try chantix again but might just stick with lower dose (1 mg/day, not BID). F/u when needing refills or if needing additional help with smoking cessation. Tobacco user [id number] Z 72.0 Migraine 68284520 G43.90 9 Has imitrex to use but having alot more h/a's recently - daily. Will try nortriptyl ine for migraine prevention . Give this a few weeks. If not helping, f/u here. Enc to schedule PHA for the near future Common cold 06304195 J00 Reassured. QS neg. Sx c/w viral URI. Enc. adequate fluids/res t and otc analgesics prn. F/u for worsening sx (i.e. fever, chest pain, dyspnea). Opioid dep endence in remission 309987478 F11.21 Enc cont. f/u with suboxone clinic. Health Concerns Section Related Observation LastModified by Organization Detai ls LastModified Time None Recorded Concern Status LastModified by Organization Details LastModified Time None Recorded Advance Directives Directive N: declines form Payers Encounter Date Sequence Insurance Name Policy Number Policy Blevins Covered Member ID Blevins Member ID Guarantor Name 11/22/2014 1 [facility] [employer] FORMER[facility] PL[facility] (MEDICAID HMO) [id number] Marielos Peralta [id number] Marielos Baezaowanselmo 01/13/2015 1 [facility] [employer] [facility] PLAN (MEDICAID HMO) [id number] Marielos A Osmanifanowich [id number] Marielos Baezaowich 10/03/2015 1 [facility] [employer] [facility] PLAN (MEDICAID HMO) [id number] Marielos A Stefanowich [id number] Marielos Rodriguez Stefanowich 02/13/2016 1 [facility] [employer] [facility] PLAN (MEDICAID HMO) [id number] Marileos A Stefanowich [id number] Marielos Keenfanowich 02/18/2017 1 [facility] PLAN (MEDICAID O) [id number] Marielos A Osmanifanowich [id number] Marielos Peralta Notes Date Note Type Note Provider Name and Address Organization Details Recorded Time 11/22/2014 text/html Seen in ER 1 mon th ago for left foot pain/swelling. Xray was neg. Given naproxen which she is still taking, vicodin which is gone now. Asking for more vicodin. Has tried ice/heat. Nothing helps. Only able to wear slippers. Bautista Martini NP [address] [place], [address], [facility] 11/22/2014 17:52:12 01/13/2015 text/html HPI Patient presents to the office with multiple complaints. Patient complains of pain associated with bunions on both of her feet. Patient states she has been experiencing pain when walking for several weeks and has had previous x-ray evaluation. Patient has been taking Vicodin, but states symptoms persist. Patient also complains of thick and discolored toenails that cause her pain especially when walking in closed shoes which she cannot care for herself. Patient with no complaints of swelling or drainage.? Kevin Hayes DPM [address] [place], [address], [facility] 01/13/2015 15:31:30 10/03/2015 text/html Has bruise right breast - has been there for a year - feels a lump - has never had a mammogram - is sore - can't wear a bra - wants breast reduction - not sure what size bra she wears - sports bras - also with bump on left foot - is getting larger - saw podiatry - given insoles for her shoes - didn't help - has to wear open shoes - has called here in past looking for more pain meds for this and told needed apt - last seen by myself almost 1 yr ago - states takes ibuprofen 800 mg for the pain without effect Bautista Martini NP [address] [place], [address], [facility] 10/03/2015 17:40:38 02/13/2016 text/html Here for f/u. No w on suboxone - gets at [facility]. Was buying drugs on the street - oxycodone. Feels so much better. Has transportation now to get to appts. Seeing therapist for talk therapy. Right ankle still gives out. Every once and awhile. Comes and goes. Needs refill on zofran for her migraines. Smoking - 1/2 ppd. Wants to try chantix. Sees Arely Richter for her meds. He prescribes clonzepam, ambien, stimulants. Has noted increased urination. No burning but lots of urinating. Also lethargic - doesn't want to do anything. Even after waking up in a.m. - goes right back to her bedroom. Admits to depression. ? menopause. Sweating profusely. Menses stopped years ago. Bautista Martini NP [address] [place], [address], [facility] 02/13/2016 16:37:27 02/18/2017 text/html a/vmg-smoking [id number] bypatient.Notes:smok ing more since dad got sick - chain smoking. Trying to cut down. States now about 1/2 ppd for the last month - prior to that 2 ppd. Chantix made her sick (nauseous) but helped with the cravings. Would consider trying again. cough x 3 days - ST also. Migraines have skyrocketed . Using all her imitrex in a week and then has none for the rest of the month. It does help but has to take 2 lately. ? something else to try. Sometimes gets nausea with the headaches. Avoids caffeine - sometimes iced coffee (2/week). Lots stress. Dad in [place] with multiple strokes - not eating/drinking. H/a's so severe had to take an ambulance to the ER recently. ST started this a.m. Sees Dr. Richter for her psych meds. Drinking well. Throat hurts when coughing. [place] feverish 2 nights ago - 99..9 Bautista Martini NP [address] [place], [address], [facility] 02/18/2017 17:44:33 OBGyn Episode No OBEpisode recorded.
[2024-10-13 13:06] VITALS: BP 150/90; PULSE 72; RESP 24; O2SAT 98
== END 2024-10-13 10:41 | disposition home or self-care (01) ==
PROVIDERS: Visit Provider Nurse Practitioner Psychiatric/Mental Health
DX: Z51.81 Encounter for therapeutic drug level monitoring (principal)

== ENCOUNTER → 2024-10-13 10:12 | Outpatient (BNVA) | payer MEDICAID, SELFPAY | PROVIDERS: Visit Provider Nurse Practitioner Psychiatric/Mental Health | DX: F11.20 Opioid dependence, uncomplicated (principal); Z51.81 Encounter for therapeutic drug level monitoring | CPT/HCPCS: 80307 ==

== ENCOUNTER 2024-10-19 16:26 | Outpatient (AMB) | payer MEDICAID, SELFPAY ==
--- NOTE | 2024-10-19 16:38 | A.OFFVISCC_ITS ---
Intake Visit Reasons: Follow up Allergies dexamethasone [From [facility]] Adverse Reaction (Severe, Verified 02/07/24 14:02) NAUSEA & VOMITING HPI HPI Follow up: Details: Patient presents for follow up Started suboxone without any issue after intake last week Has been taking 8mg BID since then Still feeling cold and hot throughout the day --however increases at night would like to add 4mg dose to address ongoing withdrawal sx Reporting poor sleep --requesting medication to help with this Review of Systems Const Reports as per HPI and Reports no additional complaints Physical Exam Const General: cooperative, healthy appearing, alert, awake and well groomed Orientation/consciousness: patient oriented x3 Limitations: no limitations Neuro General: patient oriented x3 Psych Appearance: well kempt Speech and movement: Normal speech and movement present Affect: normal affect Attitude: cooperative Thought content: Normal thought content present Insight: Good insight present (Psych) Judgement: Good judgement present (Psych) [facility] Medical History Fibroid of cervix Opioid use disorder Substance abuse No known health problems No known health problems Social History Alcohol intake: never Patient Tobacco Use Status: Current everyday Tobacco user Substance Use Type: Marijuana Gender identity: Female Assessment & Plan Assessment & Plan (1) Opioid use disorder, severe, dependence: Code(s): F11.20 - Opioid dependence, uncomplicated Category: Medical Plan: * add 4mg rx * trazodone 50mg QHS trial for sleep * follow up one week--labs to be ordered at next visit Medications: New trazodone 50 mg PO BEDTIME PRN 14 tabs 0RF sleep buprenorphine-naloxone 4-1 mg (Suboxone) in addition to 8mg BID Total daily dose 20mg 1 film buccal Q24H 7 ea 0RF
--- OUTSIDE RECORDS SUMMARY | 2024-10-19 18:55 | XMS_ITS | Data Portability ---
Author Organization [facility], , [facility] Address [address] [place] [address] Care Team Providers Care [employer] Name Role Phone ROXANA SPENCER Primary Care Provider BAUTISTA Sanchez Primary Care Provider [phone] HUMZA ZAVALETA OTHER [phone] BENJAMIN BETTENCOURT OTHER [phone] Assessment Encounter Date Assessment Date Assessment [...] Lab TSH, serum or plasma 2015 016 [facility], [address] [place] [address], [address], 6 04:02:36 CBC 2015 016 [facility], [address] [place] [address], [address], 6 04:02:36 CMP, serum or plasma 2015 016 [facility], [address] [place] [address], [address], 6 04:02:23 Referral general surgeon referral - [...] 2014 015 carrii Humza Zavaleta MD, [address] , [place], [address], 6 15:24:45 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 Surgeries None recorded. Imaging MAMMO, diagnostic, digital, bilateral - right breast pain at 9:00 position - pt has never had a mammo. Note: patient had seen pcp because she thought she felt a lump. Please palpate area with patient direction * [address] [facility] (Imaging), [address], [place], [address], 6 09:58:50 ultrasound, breast - pain right breast at 9:00 position - ? cyst [address] [facility] (Imaging), [address] [place], [address], 6 09:59:18 Medication Orders nortriptyli ne 25 mg capsule 2016 017 [facility] (Freebeep[facility] 827), [address], [place], [id number], 7 16:14:54 Chantix Starting Month Box 0.5 mg (11)-1 mg (42) tablets in dose pack 2016 017 [facility] (Freebeepay 827), [address], [place], [id number], 7 16:14:54 ondansetron HCl 4 mg tablet 2015 016 [facility]99, [address], [place], [id number], 6 04:03:27 ondansetron HCl 4 mg tablet 2015 016 [facility] #54820, [address] [place], [place], [id number], 6 17:40:37 hydrocodone 5 mg-acetamin ophen 325 mg tablet 2014 015 [facility] #25568, [address] [place], [place], [id number], 6 16:49:28 ondansetron HCl 4 mg tablet 2014 015 [facility]23743, [address] [place], [place], [id number], 5 17:52:00 Patient TargetsNo targets recorded. Patient Instructions Encounter Date Encounter Id Patient Instructions Last Modified By Organization Details Last Modified Time 01/13/2015 [id number] Reviewed previou s x-ray findings.? ? ? Dispensed prescription for custom orthotics.? ? ? Patient to return if symptoms persist. [email or web address] Not available 01/13/2015 15:31:19 10/03/2015 [id number] After a discussi on of treatment options, which included consideration of best practices, patient preferences, and the patient? s individual lifestyle and treatment goals, as well as consideration and attempted mitigation of any barriers to meeting the patient? s goals, the? ? ?above treatment plan and objectives were adopted: [email or web address] Not available 10/03/2015 17:40:37 02/13/2016 [id number] After a discussi on of treatment options, which included consideration of best practices, patient preferences, and the patient? s individual lifestyle and treatment goals, as well as consideration and attempted mitigation of any barriers to meeting the patient? s goals, the? ? 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8 % 36.0-4 6.0 high Not Available [facility] (Outpatient) [address] [place] [address], [address], 05/29/2015 12:24:11 05/29/20 15 05/29/2015 CBC w/ auto diff MCV 85.6 fL 79.0-9 8.0 Not Available [facility] (Outpatient) [address] [place] [address], 13925, 05/29/2015 12:24:11 05/29/20 15 05/29/2015 CBC w/ auto diff MCH 30.4 pg 27.0-3 4.8 Not Available [facility] (Outpatient) [address] [place] [address], 40319, 05/29/2015 12:24:11 05/29/20 15 05/29/2015 CBC w/ auto diff MCHC 35.5 g/dL 31.5-3 6.0 Not Available [facility] (Outpatient) [address] [place], [address], 05/29/2015 12:24:11 05/29/20 15 05/29/2015 CBC w/ auto diff RDW 13.4 % 10.8-1 4.6 Not Available [facility] (Outpatient) [address] [place] [address], 16[address], 05/29/2015 12:24:11 05/29/20 15 05/29/2015 CBC w/ auto diff MPV 10.8 fL 9.4-12 .4 Not Available [facility] (Outpatient) [address] [place] [address], 314[address], 05/29/2015 12:24:11 05/29/20 15 05/29/2015 CBC w/ auto diff platelet count 253 K/uL 130-40 0 Not Available [facility] (Outpatient) [address] [place] [address], 024[address], 05/29/2015 12:24:11 05/29/20 15 05/29/2015 CBC w/ auto diff neutrophils 72.4 % 45.3-7 7.7 Not Available [facility] (Outpatient) [address] [place] [address], 61007, 05/29/2015 12:24:11 05/29/20 15 05/29/2015 CBC w/ auto diff lymphocytes 21.5 % 12.3-3 9.7 Not Available [facility] (Outpatient) [address] [place] [address], [id number], 05/29/2015 12:24:11 05/29/20 15 05/29/2015 CBC w/ auto diff monocytes 5.2 % 4.1-12 .8 Not Available [facility] (Outpatient) [address] [place], [address], 05/29/2015 12:24:11 05/29/20 15 05/29/2015 CBC w/ auto diff eosinophils 0.70 % 0.00-7 .20 Not Available [facility] (Outpatient) [address] [place], [address], 05/29/2015 12:24:11 05/29/20 15 05/29/2015 CBC w/ auto diff basophils 0.10 % 0.00-2 .80 Not Available [facility] (Outpatient) [address] [place], [address], 05/29/2015 12:24:11 05/29/20 15 05/29/2015 CBC w/ auto diff absolute neutrophil 7.1 K/uL 1.4-7. 7 Not Available [facility] (Outpatient) [address] [place], [address], 05/29/2015 12:24:11 05/29/20 15 05/29/2015 CBC w/ auto diff absolute lymphocyte 2.1 K/uL 0.6-3. 2 Not Available [facility] (Outpatient) [address] [place] [address], 24[address], 05/29/2015 12:24:11 05/29/20 15 05/29/2015 CBC w/ auto diff absolute monocytes 0.5 K/uL 0.1-0. 6 Not Available [facility] (Outpatient) [address] [place] [address], 47[address], 05/29/2015 12:24:11 05/29/20 15 05/29/2015 CBC w/ auto diff absolute eosinophil 0.07 K/uL 0.01-0 .50 Not Available [facility] (Outpatient) [address] [place], [address], 05/29/2015 12:24:11 05/29/20 15 05/29/2015 CBC w/ auto diff absolute basophils 0.01 K/uL Not Available [facility] (Outpatient) [address] [place], [address], 05/29/2015 12:24:11 05/29/20 15 05/29/2015 CBC w/ auto diff immature granulocyte 0.10 % 0.00-0 .50 Not Available [facility] (Outpatient) [address] [place] [address], 95[address], 05/29/2015 12:24:11 05/29/20 15 05/29/2015 CBC w/ auto diff absolute immature granulocyte 0.01 K/uL 0.00-0 .03 Not Available [facility] (Outpatient) [address] [place] [address], [id number], 05/29/2015 12:24:11 05/29/20 15 05/29/2015 tropo ruthann T, serum troponin T <0.010 NG/mL 0.000- 0.030 Not Available [facility] (Outpatient) [address] [place] [address], 17454, 05/29/2015 12:47:11 05/29/20 15 05/29/2015 CMP, serum or plasm a glucose 92 mg/dL 70-99 Not Available [facility] (Outpatient) [address] [place] [address], 48943, 05/29/2015 12:48:11 05/29/20 15 05/29/2015 CMP, serum or plasm a BUN 12 mg/dL 6-19 Not Available [facility] (Outpatient) [address] [place] [address], 743[address], 05/29/2015 12:48:11 05/29/20 15 05/29/2015 CMP, serum or plasm a creatinine 0.6 mg/dL 0.5-1. 5 Not Available [facility] (Outpatient) [address] [place], [address], 05/29/2015 12:48:11 05/29/20 15 05/29/2015 CMP, serum [...] ages of 16 and 68. Not Available [facility] (Outpatient) [address] [place] [address], 264[address], 05/29/2015 12:48:11 05/29/20 15 05/29/2015 CMP, serum or plasm a sodium 138 mEq/L 133-14 5 Not Available [facility] (Outpatient) [address] [place] [address], 32582, 05/29/2015 12:48:11 05/29/20 15 05/29/2015 CMP, serum or plasm a potassium 4.0 mEq/L 3.3-5. 1 Not Available [facility] (Outpatient) [address] [place] [address], 34351, 05/29/2015 12:48:11 05/29/20 15 05/29/2015 CMP, serum or plasm a chloride 106 mEq/L 96-108 Not Available [facility] (Outpatient) [address] [place] [address], 76251, 05/29/2015 12:48:11 05/29/20 15 05/29/2015 CMP, serum or plasm a CO2 21 mEq/L 21-35 Not Available [facility] (Outpatient) [address] [place] [address], 46402, 05/29/2015 12:48:11 05/29/20 15 05/29/2015 CMP, serum or plasm a calcium 9.4 mg/dL 8.4-10 .3 Not Available [facility] (Outpatient) [address] [place] [address], 19961, 05/29/2015 12:48:11 05/29/20 15 05/29/2015 CMP, serum or plasm a total bilirubin 0.8 mg/dL 0.0-1. 2 Not Available [facility] (Outpatient) [address] [place], [address], 05/29/2015 12:48:11 05/29/20 15 05/29/2015 CMP, serum or plasm a alkaline phosphatase 57 U/L 39-117 Not Available [facility] (Out[facility]) [address] [place] [address], 20699, 05/29/2015 12:48:11 05/29/20 15 05/29/2015 CMP, serum or plasm a AST (SGOT) 12 U/L 0-37 Not Available [facility] (Outpatient) [address] [place] [address], 41336, 05/29/2015 12:48:11 05/29/20 15 05/29/2015 CMP, serum or plasm a ALT (SGPT) 12 U/L 0-40 Not Available [facility] (Outpatient) [address] [place] [address], 12510, 05/29/2015 12:48:11 05/29/20 15 05/29/2015 CMP, serum or plasm a total protein 7.2 g/dL 6.5-8. 0 Not Available [facility] (Outpatient) [address] [place] [address], 92773, 05/29/2015 12:48:11 05/29/20 15 05/29/2015 CMP, serum or plasm a albumin 3.8 g/dL 3.9-4. 8 low Not Available [facility] (Outpatient) [address] [place] [address], 83676, 05/29/2015 12:48:11 05/29/20 15 05/29/2015 CMP, serum or plasm a globulin 3.4 gm/dL 1.0-4. 8 Not Available [facility] (Outpatient) [address] [place] [address], 75288, 05/29/2015 12:48:11 05/29/20 15 05/29/2015 CMP, serum or plasm a A/G ratio 1.1 gm/dL 1.0-4. 8 Not Available [facility] (Outpatient) [address] [place] [address], 52670, 05/29/2015 12:48:11 05/29/20 15 05/29/2015 CMP, serum or plasm a anion gap 15 mEq/L 10- Not Available [facility] (Outpatient) [address] [place] [address], [id number], 05/29/2015 12:48:11 06/25/20 15 06/25/2015 pregn stephen test, urine test, urine Negati ve negati ve Not Available [facility] (Outpatient) [address] [place] [address], 21020, 06/25/2015 23:30:14 06/26/20 15 06/26/2015 CBC w/ auto diff WBC 8.0 K/uL 3.4-11 .2 Not Available [facility] (Outpatient) [address] [place] [address], 77509, 06/26/2015 00:36:16 06/26/20 15 06/26/2015 CBC w/ auto diff RBC 5.06 M/uL 3.80-4 .80 high Not Available [facility] (Outpatient) [address] [place] [address], 88922, 06/26/2015 00:36:16 06/26/20 15 06/26/2015 CBC w/ auto diff hemoglobin 15.3 g/dL 12.0-1 5.0 high Not Available [facility] (Outpatient) [address] [place] [address], 13330, 06/26/2015 00:36:16 06/26/20 15 06/26/2015 CBC w/ auto diff hematocrit 43.8 % 36.0-4 6.0 Not Available [facility] (Outpatient) [address] [place], [address], 06/26/2015 00:36:16 06/26/20 15 06/26/2015 CBC w/ auto diff MCV 86.6 fL 79.0-9 8.0 Not Available [facility] (Outpatient) [address] [place], [address], 06/26/2015 00:36:16 06/26/20 15 06/26/2015 CBC w/ auto diff MCH 30.2 pg 27.0-3 4.8 Not Available [facility] (Outpatient) [address] [place] [address], 39001, 06/26/2015 00:36:16 06/26/20 15 06/26/2015 CBC w/ auto diff MCHC 34.9 g/dL 31.5-3 6.0 Not Available [facility] (Outpatient) [address] [place], [address], 06/26/2015 00:36:16 06/26/20 15 06/26/2015 CBC w/ auto diff RDW 13.6 % 10.8-1 4.6 Not Available [facility] (Outpatient) [address] [place], [address], 06/26/2015 00:36:16 06/26/20 15 06/26/2015 CBC w/ auto diff MPV 10.2 fL 9.4-12 .4 Not Available [facility] (Outpatient) [address] [place] [address], 57754, 06/26/2015 00:36:16 06/26/20 15 06/26/2015 CBC w/ auto diff platelet count 268 K/uL 130-40 0 Not Available [facility] (Outpatient) [address] [place] [address], 96033, 06/26/2015 00:36:16 06/26/20 15 06/26/2015 CBC w/ auto diff neutrophils 54.0 % 45.3-7 7.7 Not Available [facility] (Outpatient) [address] [place], [address], 06/26/2015 00:36:16 06/26/20 15 06/26/2015 CBC w/ auto diff lymphocytes 36.5 % 12.3-3 9.7 Not Available [facility] (Outpatient) [address] [place], [address], 06/26/2015 00:36:16 06/26/20 15 06/26/2015 CBC w/ auto diff monocytes 5.6 % 4.1-12 .8 Not Available [facility] (Outpatient) [address] [place] [address], 57441, 06/26/2015 00:36:16 06/26/20 15 06/26/2015 CBC w/ auto diff eosinophils 3.60 % 0.00-7 .20 Not Available [facility] (Outpatient) [address] [place], [address], 06/26/2015 00:36:16 06/26/20 15 06/26/2015 CBC w/ auto diff basophils 0.20 % 0.00-2 .80 Not Available [facility] (Outpatient) [address] [place] [address], 39197, 06/26/2015 00:36:16 06/26/20 15 06/26/2015 CBC w/ auto diff absolute neutrophil 4.3 K/uL 1.4-7. 7 Not Available [facility] (Outpatient) [address] [place] [address], 47642, 06/26/2015 00:36:16 06/26/20 15 06/26/2015 CBC w/ auto diff absolute lymphocyte 2.9 K/uL 0.6-3. 2 Not Available [facility] (Outpatient) [address] [place] [address], 61627, 06/26/2015 00:36:16 06/26/20 15 06/26/2015 CBC w/ auto diff absolute monocytes 0.4 K/uL 0.1-0. 6 Not Available [facility] (Outpatient) [address] [place], [address], 06/26/2015 00:36:16 06/26/20 15 06/26/2015 CBC w/ auto diff absolute eosinophil 0.29 K/uL 0.01-0 .50 Not Available [facility] (Outpatient) [address] [place], [address], 06/26/2015 00:36:16 06/26/20 15 06/26/2015 CBC w/ auto diff absolute basophils 0.02 K/uL Not Available [facility] (Outpatient) [address] [place] [address], 99042, 06/26/2015 00:36:16 06/26/20 15 06/26/2015 CBC w/ auto diff immature granulocyte 0.10 % 0.00-0 .50 Not Available [facility] (Outpatient) [address] [place] [address], 24262, 06/26/2015 00:36:16 06/26/20 15 06/26/2015 CBC w/ auto diff absolute immature granulocyte 0.01 K/uL 0.00-0 .03 Not Available [facility] (Outpatient) [address] [place] [address], 99579, 06/26/2015 00:36:16 06/26/20 15 06/26/2015 CMP, serum or plasm a glucose 98 mg/dL 70-99 Not Available [facility] (Outpatient) [address] [place] [address], 09656, 06/26/2015 04:06:16 06/26/20 15 06/26/2015 CMP, serum or plasm a BUN 8 mg/dL 6-19 Not Available [facility] (Outpatient) [address] [place], [address], 06/26/2015 04:06:16 06/26/20 15 06/26/2015 CMP, serum or plasm a creatinine 0.6 mg/dL 0.5-1. 5 Not Available [facility] (Outpatient) [address] [place], [address], 06/26/2015 04:06:16 06/26/20 15 06/26/2015 CMP, serum [...] ages of 16 and 68. Not Available [facility] (Outpatient) [address] [place] [address], 46926, 06/26/2015 04:06:16 06/26/20 15 06/26/2015 CMP, serum or plasm a sodium 143 mEq/L 133-14 5 Not Available [facility] (Outpatient) [address] [place] [address], 44512, 06/26/2015 04:06:16 06/26/20 15 06/26/2015 CMP, serum or plasm a potassium 3.3 mEq/L 3.3-5. 1 Not Available [facility] (Outpatient) [address] [place], [address], 06/26/2015 04:06:16 06/26/20 15 06/26/2015 CMP, serum or plasm a chloride 103 mEq/L 96-108 Not Available [facility] (Outpatient) [address] [place], [address], 06/26/2015 04:06:16 06/26/20 15 06/26/2015 CMP, serum or plasm a CO2 24 mEq/L 21-35 Not Available [facility] (Outpatient) [address] [place], [address], 06/26/2015 04:06:16 06/26/20 15 06/26/2015 CMP, serum or plasm a calcium 8.6 mg/dL 8.4-10 .3 Not Available [facility] (Outpatient) [address] [place], [address], 06/26/2015 04:06:16 06/26/20 15 06/26/2015 CMP, serum or plasm a total bilirubin 0.3 mg/dL 0.0-1. 2 Not Available [facility] (Outpatient) [address] [place], [address], 06/26/2015 04:06:16 06/26/20 15 06/26/2015 CMP, serum or plasm a alkaline phosphatase 52 U/L 39-117 Not Available [facility] (Out[facility]) [address] [place] [address], 61554, 06/26/2015 04:06:16 06/26/20 15 06/26/2015 CMP, serum or plasm a AST (SGOT) 27 U/L 0-37 Not Available [facility] (Outpatient) [address] [place] [address], 64680, 06/26/2015 04:06:16 06/26/20 15 06/26/2015 CMP, serum or plasm a ALT (SGPT) 22 U/L 0-40 Not Available [facility] (Outpatient) [address] [place] [address], 98972, 06/26/2015 04:06:16 06/26/20 15 06/26/2015 CMP, serum or plasm a total protein 6.7 g/dL 6.5-8. 0 Not Available [facility] (Outpatient) [address] [place] [address], 02460, 06/26/2015 04:06:16 06/26/20 15 06/26/2015 CMP, serum or plasm a albumin 4.0 g/dL 3.9-4. 8 Not Available [facility] (Outpatient) [address] [place] [address], 90511, 06/26/2015 04:06:16 06/26/20 15 06/26/2015 CMP, serum or plasm a globulin 2.7 gm/dL 1.0-4. 8 Not Available [facility] (Outpatient) [address] [place] [address], 35607, 06/26/2015 04:06:16 06/26/20 15 06/26/2015 CMP, serum or plasm a A/G ratio 1.5 gm/dL 1.0-4. 8 Not Available [facility] (Outpatient) [address] [place] [address], 06474, 06/26/2015 04:06:16 06/26/20 15 06/26/2015 CMP, serum or plasm a anion gap 19 mEq/L 10-20 Not Available [facility] (Outpatient) [address] [place] [address], 56187, 06/26/2015 04:06:16 06/26/20 15 06/26/2015 jeannine ol, quant itati ve, serum or plasm a alcohol,ser/ plas. 111 mg/dL <10 Not Available [facility] (Outpatient) [address] [place] [address], 27927, 06/26/2015 04:06:19 06/26/20 15 06/26/2015 salic ylate , quant itati ve, serum salicylate <0.3 mg/dL 2.8-20 .0 low Note: Resul ts less than 2.8 mg/dL are consi dered negat ish. Toxic : Great er than 30.0 mg/dL . Not Available [facility] (Outpatient) [address] [place] [address], 93802, 06/26/2015 04:06:19 06/26/20 15 06/26/2015 aceta minop hen, serum acetaminophe n <15.0 ug/mL 15.0-3 0.0 Not Available [facility] (Outpatient) [address] [place], [address], 06/26/2015 04:06:20 02/13/20 16 02/13/2016 POC UA glu UA NEGATI VE Not Available [address], [address], 02/13/2016 15:58:37 02/13/20 16 02/13/2016 POC UA clarity UA CLEAR Not Available [address], [address], 02/13/2016 15:58:37 02/13/20 16 02/13/2016 POC UA uro UA 0.2000 Not Available [address], 56642, 02/13/2016 15:58:37 02/13/20 16 02/13/2016 POC UA ket UA NEGATI VE Not Available [address], 37775, 02/13/2016 15:58:37 02/13/20 16 02/13/2016 POC UA pro UA NEGATI VE Not Available [address], 637[address], 02/13/2016 15:58:37 02/13/20 16 02/13/2016 POC UA nit UA NEGATI VE Not Available [address], 75375, 02/13/2016 15:58:37 02/13/20 16 02/13/2016 POC UA gustavo UA NEGATI VE Not Available [address], 23027, 02/13/2016 15:58:37 02/13/20 16 02/13/2016 POC UA pH UA 7.0000 Not Available [address], 48256, 02/13/2016 15:58:37 02/13/20 16 02/13/2016 POC UA SG UA 1.0250 Not Available [address], 74255, 02/13/2016 15:58:37 02/13/20 16 02/13/2016 POC UA color UA YELLOW Not Available [address], 30224, 02/13/2016 15:58:37 02/13/20 16 02/13/2016 POC UA blo UA NEGATI VE Not Available [address], 12283, 02/13/2016 15:58:37 02/13/20 16 02/13/2016 POC UA roseline UA NEGATI VE Not Available [address], 63883, 02/13/2016 15:58:37 02/13/20 16 02/14/2016 CBC WBC 10.6 K/? ? ?L 4.0-10 .0 high Not Available [address], 77457, 02/14/2016 11:09:23 02/13/20 16 02/14/2016 CBC RBC 5.60 M/? ? ?L 3.93-5 .22 high Not Available [address], 55097, 02/14/2016 11:09:23 02/13/20 16 02/14/2016 CBC HGB 16.4 g/dL 11.2-1 5.7 high Not Available [address], 61776, 02/14/2016 11:09:23 02/13/20 16 02/14/2016 CBC HCT 51.8 % 34.1-4 4.9 high Not Available [address], 75686, 02/14/2016 11:09:23 02/13/20 16 02/14/2016 CBC MCV 92.5 ? ? ?L 79.4-9 4.8 Not Available [address], 69618, 02/14/2016 11:09:23 02/13/20 16 02/14/2016 CBC MCH 29.3 pg 25.6-3 2.2 Not Available [address], 92500, 02/14/2016 11:09:23 02/13/20 16 02/14/2016 CBC MCHC 31.7 g/dL 32.2-3 5.5 low Not Available [address], 75890, 02/14/2016 11:09:23 02/13/20 16 02/14/2016 CBC plt 278.0 K/? ? ?L 182.0- 369.0 Not Available [address], 86886, 02/14/2016 11:09:23 02/13/20 16 02/14/2016 CBC MPV 12.3 9.4-12 .3 Not Available [address], 13876, 02/14/2016 11:09:23 02/13/20 16 02/14/2016 CBC neut% 68.1 % 34.0-7 1.1 Not Available [address], 16851, 02/14/2016 11:09:23 02/13/20 16 02/14/2016 CBC neut# 7.2 1.6-6. 1 high Not Available [address], 78867, 02/14/2016 11:09:23 02/13/20 16 02/14/2016 CBC lymph % 26.3 % 19.3-5 1.7 Not Available [address], 11505, 02/14/2016 11:09:23 02/13/20 16 02/14/2016 CBC lymph # 2.8 K/? ? ?L 1.2-3. 7 Not Available [address], 71024, 02/14/2016 11:09:23 02/13/20 16 02/14/2016 CBC mono% 3.9 % 4.7-12 .5 low Not Available [address], 28288, 02/14/2016 11:09:23 02/13/20 16 02/14/2016 CBC mono# 0.4 0.2-0. 6 Not Available [address], 22745, 02/14/2016 11:09:23 02/13/20 16 02/14/2016 CBC eo% 1.5 % 0.7-5. 8 Not Available [address], 84528, 02/14/2016 11:09:23 02/13/20 16 02/14/2016 CBC eo# 0.2 0.0-0. 4 Not Available [address], 87452, 02/14/2016 11:09:23 02/13/20 16 02/14/2016 CBC baso% 0.2 % 0.1-1. 2 Not Available [address], 75363, 02/14/2016 11:09:23 02/13/20 16 02/14/2016 CBC baso# 0.0 0.0-0. 1 Not Available [address], 24401, 02/14/2016 11:09:23 02/13/20 16 02/14/2016 CBC RDW-CV 14.2 % 11.7-1 4.4 Not Available [address], 60815, 02/14/2016 11:09:23 02/13/20 16 02/14/2016 TSH, serum or plasm a TSH 0.90 uIU/m L 0.50-6 .00 [facility] [employer] and [employer] can Thyro id Assoc iatio n recom mend goal TSH value s betwe en 0.4-4 .0 mIU/m L. Not Available [address], [address], 02/14/2016 12:04:35 02/13/20 16 02/14/2016 CMP, serum or plasm a glucose 89 mg/dL 70-100 Not Available [address], [address], 02/14/2016 12:16:36 02/13/20 16 02/14/2016 CMP, serum or plasm a BUN 12 mg/dL 7-18 Not Available [address], [address], 02/14/2016 12:16:36 02/13/20 16 02/14/2016 CMP, serum or plasm a creatinine 0.7 mg/dL 0.8-1. 3 low Not Available [address], [address], 02/14/2016 12:16:36 02/13/20 16 02/14/2016 CMP, serum or plasm a B/C 17.1 ratio Not Available [address], [address], 02/14/2016 12:16:36 02/13/20 16 02/14/2016 CMP, serum or plasm a GFR -non 100.5 mL/mi n Recom eusebio d GFR by the Natio nal Kidne y Found ation >60 mL/mi n/1.7 3m2 - Milagros l <60 mL/mi n/1.7 3m2 - Chron ic Kidne y Disea se <15 mL/mi n/1.7 3m2 - Kidne y Failu re Not Available [address], [address], 02/14/2016 12:16:36 02/13/20 16 02/14/2016 CMP, serum or plasm a GFR - if 115.5 mL/mi n For Afric an Ameri can patie nts: Resul ts Multi plied by 1.21 Not Available [address], [address], 02/14/2016 12:16:36 02/13/20 16 02/14/2016 CMP, serum or plasm a sodium 142 mmol/ L 136-14 5 Not Available [address], [address], 02/14/2016 12:16:36 02/13/20 16 02/14/2016 CMP, serum or plasm a potassium 4.6 mmol/ L 3.5-5. 1 Not Available [address], [address], 02/14/2016 12:16:36 02/13/20 16 02/14/2016 CMP, serum or plasm a chloride 106 mmol/ L 96-107 Not Available [address], [address], 02/14/2016 12:16:36 02/13/20 16 02/14/2016 CMP, serum or plasm a anion gap 12.5 5.0-15 .0 Not Available [address], [address], 02/14/2016 12:16:36 02/13/20 16 02/14/2016 CMP, serum or plasm a CO2 24 mmol/ L 21-32 Not Available [address], [address], 02/14/2016 12:16:36 02/13/20 16 02/14/2016 CMP, serum or plasm a calcium 8.7 mg/dL 8.5-10 .3 Not Available [address], [address], 02/14/2016 12:16:36 02/13/20 16 02/14/2016 CMP, serum or plasm a total protein 6.6 g/dL 6.4-8. 2 Not Available [address], [address], 02/14/2016 12:16:36 02/13/20 16 02/14/2016 CMP, serum or plasm a albumin 3.6 g/dL 3.4-5. 0 Not Available [address], [address], 02/14/2016 12:16:36 02/13/20 16 02/14/2016 CMP, serum or plasm a globulin 3.0 g/dL Not Available [address], [address], 02/14/2016 12:16:36 02/13/20 16 02/14/2016 CMP, serum or plasm a A/G 1.2 ratio 0.8-2. 0 Not Available [address], [address], 02/14/2016 12:16:36 02/13/20 16 02/14/2016 CMP, serum or plasm a total bilirubin 0.40 mg/dL 0.00-1 .00 Not Available [address], [address], 02/14/2016 12:16:36 02/13/20 16 02/14/2016 CMP, serum or plasm a AST 22 U/L 15-37 Not Available [address], [address], 02/14/2016 12:16:36 02/13/20 16 02/14/2016 CMP, serum or plasm a ALT 34 U/L 30-65 Not Available [address], [address], 02/14/2016 12:16:36 02/13/20 16 02/14/2016 CMP, serum or plasm a alk. phos. 59 U/L 50-136 Not Available [address], [address], 02/14/2016 12:16:36 10/21/19 17 10/20/2016 CBC w/ auto diff WBC 8.8 K/uL 3.4-11 .2 Not Available [address], [address], 10/20/2016 14:25:51 10/21/19 17 10/20/2016 CBC w/ auto diff RBC 5.49 M/uL 3.80-4 .80 high Not Available [address], [address], 10/20/2016 14:25:51 10/21/19 17 10/20/2016 CBC w/ auto diff hemoglobin 16.6 g/dL 12.0-1 5.0 high Not Available [address], [address], 10/20/2016 14:25:51 10/21/19 17 10/20/2016 CBC w/ auto diff hematocrit 47.8 % 36.0-4 6.0 high Not Available [address], [address], 10/20/2016 14:25:51 10/21/19 17 10/20/2016 CBC w/ auto diff MCV 87.1 fL 79.0-9 8.0 Not Available [address], [address], 10/20/2016 14:25:51 10/21/19 17 10/20/2016 CBC w/ auto diff MCH 30.2 pg 27.0-3 4.8 Not Available [address], [address], 10/20/2016 14:25:51 10/21/19 17 10/20/2016 CBC w/ auto diff MCHC 34.7 g/dL 31.5-3 6.0 Not Available [address], [address], 10/20/2016 14:25:51 10/21/19 17 10/20/2016 CBC w/ auto diff RDW 13.0 % 10.8-1 4.6 Not Available [address], [address], 10/20/2016 14:25:51 10/21/19 17 10/20/2016 CBC w/ auto diff MPV 10.3 fL 9.4-12 .4 Not Available [address], [address], 10/20/2016 14:25:51 10/21/19 17 10/20/2016 CBC w/ auto diff platelet count 244 K/uL 130-40 0 Not Available [address], [address], 10/20/2016 14:25:51 10/21/19 17 10/20/2016 CBC w/ auto diff neutrophils 73.8 % 45.3-7 7.7 Not Available [address], [address], 10/20/2016 14:25:51 10/21/19 17 10/20/2016 CBC w/ auto diff lymphocytes 17.9 % 12.3-3 9.7 Not Available [address], [address], 10/20/2016 14:25:51 10/21/19 17 10/20/2016 CBC w/ auto diff monocytes 6.1 % 4.1-12 .8 Not Available [address], [address], 10/20/2016 14:25:51 10/21/19 17 10/20/2016 CBC w/ auto diff eosinophils 1.90 % 0.00-7 .20 Not Available [address], [address], 10/20/2016 14:25:51 10/21/19 17 10/20/2016 CBC w/ auto diff basophils 0.10 % 0.00-2 .80 Not Available [address], [address], 10/20/2016 14:25:51 10/21/19 17 10/20/2016 CBC w/ auto diff absolute neutrophil 6.5 K/uL 1.4-7. 7 Not Available [address], [address], 10/20/2016 14:25:51 10/21/19 17 10/20/2016 CBC w/ auto diff absolute lymphocyte 1.6 K/uL 0.6-3. 2 Not Available [address], [address], 10/20/2016 14:25:51 10/21/19 17 10/20/2016 CBC w/ auto diff absolute monocytes 0.5 K/uL 0.1-0. 6 Not Available [address], [address], 10/20/2016 14:25:51 10/21/19 17 10/20/2016 CBC w/ auto diff absolute eosinophil 0.17 K/uL 0.01-0 .50 Not Available [address], [address], 10/20/2016 14:25:51 10/21/19 17 10/20/2016 CBC w/ auto diff absolute basophils 0.01 K/uL Not Available [address], [address], 10/20/2016 14:25:51 10/21/19 17 10/20/2016 CBC w/ auto diff immature granulocyte 0.20 % 0.00-0 .50 Not Available [address], [address], 10/20/2016 14:25:51 10/21/19 17 10/20/2016 CBC w/ auto diff absolute immature granulocyte 0.02 K/uL 0.00-0 .03 Not Available [address], [address], 10/20/2016 14:25:51 10/21/19 17 10/20/2016 tropo ruthann T, serum troponin T <0.010 NG/mL 0.000- 0.030 Not Available [address], [address], 10/20/2016 15:00:11 10/21/19 17 10/20/2016 CMP, serum or plasm a glucose 105 mg/dL 70-99 high Not Available [address], [address], 10/20/2016 15:01:11 10/21/19 17 10/20/2016 CMP, serum or plasm a BUN 11 mg/dL 6-19 Not Available [address], [address], 10/20/2016 15:01:10/21/19 17 10/20/2016 CMP, serum or plasm a creatinine 0.7 mg/dL 0.5-1. 5 Not Available [address], [address], 10/20/2016 15:01:11 10/21/19 17 10/20/2016 CMP, serum [...] ages of 16 and 68. Not Available [address], [address], 10/20/2016 15:01:11 10/21/19 17 10/20/2016 CMP, serum or plasm a sodium 138 mEq/L 133-14 6 Not Available [address], [address], 10/20/2016 15:01:10/21/19 17 10/20/2016 CMP, serum or plasm a potassium 4.1 mEq/L 3.3-5. 2 Not Available [address], [address], 10/20/2016 15:01:11 10/21/19 17 10/20/2016 CMP, serum or plasm a chloride 102 mEq/L 96-108 Not Available [address], [address], 10/20/2016 15:01:11 10/21/19 17 10/20/2016 CMP, serum or plasm a CO2 23 mEq/L 21-35 Not Available [address], [address], 10/20/2016 15:01:11 10/21/19 17 10/20/2016 CMP, serum or plasm a calcium 8.8 mg/dL 8.4-10 .3 Not Available [address], [address], 10/20/2016 15:01:11 10/21/19 17 10/20/2016 CMP, serum or plasm a total bilirubin 0.5 mg/dL 0.0-1. 2 Not Available [address], [address], 10/20/2016 15:01:11 10/21/19 17 10/20/2016 CMP, serum or plasm a alkaline phosphatase 56 U/L 39-117 Not Available [address], [address], 10/20/2016 15:01:11 10/21/19 17 10/20/2016 CMP, serum or plasm a AST (SGOT) 20 U/L 0-37 Not Available [address], [address], 10/20/2016 15:01:11 10/21/19 17 10/20/2016 CMP, serum or plasm a ALT (SGPT) 18 U/L 0-40 Not Available [address], [address], 10/20/2016 15:01:11 10/21/19 17 10/20/2016 CMP, serum or plasm a total protein 6.3 g/dL 6.5-8. 0 low Not Available [address], [address], 10/20/2016 15:01:11 10/21/19 17 10/20/2016 CMP, serum or plasm a albumin 3.6 g/dL 3.9-4. 8 low Not Available [address], [address], 10/20/2016 15:01:11 10/21/19 17 10/20/2016 CMP, serum or plasm a globulin 2.7 gm/dL 1.0-4. 8 Not Available [address], [address], 10/20/2016 15:01:11 10/21/19 17 10/20/2016 CMP, serum or plasm a A/G ratio 1.3 gm/dL 1.0-4. 8 Not Available [address], [address], 10/20/2016 15:01:11 10/21/19 17 10/20/2016 CMP, serum or plasm a anion gap 17 mEq/L 10-20 Not Available [address], [address], 10/20/2016 15:01:11 10/21/19 17 10/20/2016 C react ish prote in, QN, serum or plasm a C-reactive protein 1.25 mg/dL 0.00-0 .50 high Not Available [address], [address], 10/20/2016 15:01:12 10/21/19 17 10/20/2016 BNP (B-ty pe natri ureti c pepti de), serum or plasm a pro-BNP 80 pg/mL 0-125 Not Available [address], [address], 10/20/2016 15:01:13 10/21/19 17 10/20/2016 wet mount yeast cells None Seen none seen Not Available [address], [address], 10/20/2016 17:47:20 10/21/19 17 10/20/2016 wet mount trichomonas None Seen none seen Not Available [address], [address], 10/20/2016 17:47:20 10/21/19 17 10/20/2016 wet mount clue cells None Seen none seen Not Available [address], [address], 10/20/2016 17:47:20 10/21/19 17 10/20/2016 chlam ydia + gonor blaise DNA panel , unspe cifie d speci men chlamydial/g onorrhoeal detection by PCR Not Available [address], [address], 10/22/2016 14:33:43 10/21/19 17 10/20/2016 chlam ydia + gonor blaise DNA panel , unspe cifie d speci men chlamydia trachomatis detection by PCR Not Detect ed Not Available [address], [address], 10/22/2016 14:33:43 10/21/19 17 10/20/2016 chlam ydia + gonor blaise DNA panel , unspe cifie d speci men neisseria gonorrhoeae detection by PCR Not Detect ed Not Available [address], [address], 10/22/2016 14:33:43 11/21/19 17 11/20/2016 pregn stephen test, urine test, urine Negati ve negati ve Not Available [address], [address], 11/20/2016 19:43:38 11/21/19 17 11/20/2016 urina lysis , dipst ick, refle x micro color Yellow Not Available [address], [address], 11/20/2016 19:43:39 11/21/19 17 11/20/2016 urina lysis , dipst ick, refle x micro appearance Clear Not Available [address], [address], 11/20/2016 19:43:39 11/21/19 17 11/20/2016 urina lysis , dipst ick, refle x micro specific gravity >=1.03 0 1.005- 1.030 Not Available [address], [address], 11/20/2016 19:43:39 11/21/19 17 11/20/2016 urina lysis , dipst ick, refle x micro pH 5.0 5.0-7. 0 Not Available [address], [address], 11/20/2016 19:43:39 11/21/19 17 11/20/2016 urina lysis , dipst ick, refle x micro protein Negati ve negati ve Not Available [address], [address], 11/20/2016 19:43:39 11/21/19 17 11/20/2016 urina lysis , dipst ick, refle x micro glucose Negati ve negati ve Not Available [address], [address], 11/20/2016 19:43:39 11/21/19 17 11/20/2016 urina lysis , dipst ick, refle x micro ketones Negati ve negati ve Not Available [address], [address], 11/20/2016 19:43:39 11/21/19 17 11/20/2016 urina lysis , dipst ick, refle x micro bilirubin Negati ve negati ve Not Available [address], [address], 11/20/2016 19:43:39 11/21/19 17 11/20/2016 urina lysis , dipst ick, refle x micro blood Negati ve negati ve Not Available [address], [address], 11/20/2016 19:43:39 11/21/19 17 11/20/2016 urina lysis , dipst ick, refle x micro nitrite Negati ve negati ve Not Available [address], [address], 11/20/2016 19:43:39 11/21/19 17 11/20/2016 urina lysis , dipst ick, refle x micro leukocyte esterase Negati ve negati ve Not Available [address], [address], 11/20/2016 19:43:39 11/21/19 17 11/20/2016 drug scree n, urine canna., urine scr Positi ve abnormal Resul ts check ed by repea t jadon sis. Cutof f: 50 ng/mL Not Available [address], [address], 11/20/2016 20:16:56 11/21/19 17 11/20/2016 drug scree n, urine cocaine,urin escreen None Detect ed Cutof f: 300 ng/mL Not Available [address], [address], 11/20/2016 20:16:56 11/21/19 17 11/20/2016 drug scree n, urine grupo,urine Positi ve abnormal Resul ts check ed by repea t jadon sis. Cutof f: 200 ng/mL Not Available [address], [address], 11/20/2016 20:16:56 11/21/19 17 11/20/2016 drug scree n, urine M-amphetamin es, urine screen None Detect ed Cutof f: 1000 ng/mL Not Available [address], [address], 11/20/2016 20:16:56 11/21/19 17 11/20/2016 drug scree n, urine methadone, urine screen None Detect ed Cutof f: 300 ng/mL Not Available [address], [place], [address], 11/20/2016 20:16:56 11/21/19 17 11/20/2016 drug scree n, urine opiates, urine screen None Detect ed Cutof f: 300 ng/mL Not Available [address], [place], [address], 11/20/2016 20:16:56 11/21/19 17 11/20/2016 drug scree n, urine phencyclidin e, urine SC None Detect ed Cutof f: 25 ng/mL Not Available [address], [address], 11/20/2016 20:16:56 11/21/19 17 11/20/2016 drug scree n, urine barbiturates , urine None Detect ed Cutof f: 200 ng/mL INTER PRETA TION FOR TOXIC OLOGY PANEL : Thes e resul ts are uncon firme d and shoul d be used for Medic al Treat ment purpo ses only. Not Available [address], [place], [address], 11/20/2016 20:16:56 11/21/19 17 11/20/2016 drug scree n, urine oxycodone, urine qualitative None Detect ed Cutof f: 300 ng/ml Not Available [address], [address], 11/20/2016 20:16:56 10/23/19 15 10/21/2014 x-ray , foot No observ ation record ed. [facility] [address], [address], 10/22/2014 16:05:33 05/29/20 15 05/29/2015 x-ray , chest No observ ation record ed. [facility] [address] [place], [address], 05/30/2015 09:00:12 10/21/19 17 10/20/2016 XR, chest [...] logist : JAMES SOLER Transc ribed by: Ingo Money angie, PS360 Result s 2016 02:53 PM Interp reted By: MIGUEL RAMIREZ MD Electr onical ly Signed By: Electr onical ly Signed by: MIGUEL BANDA on 10/21/19 17 3:01 PM Techno logist : JAMES SOLER Transc ribed by: Ingo Money angie, PS360 Result s 2016 02:53 PM Electr onical ly Signed By: MIGUEL RAMIREZ MD 2016 03:01 PM [facility] [address] [place], [address], 10/21/2016 11:57:51 Result Notes None recorded. Problems Name Problem SNOMED Code Status Onset Date Resolution Date Notes Provider Name and Address Organization Details Recorded Time Tinkvng pedis 8397310 Active Not Available [facility] 3 03:15:01 Obesity 180188640 Active Not Available [facility] 3 03:15:01 Dental caries 81548509 Active Tamar Reese MD [address] [place] [address], [phone] , [facility] 4 16:31:21 Tobacco user 227080875 Active Tamar Reese MD [address] [place] [address], [phone] , [facility] 4 16:31:21 Adjustment disorder 91596543 Active Not Available [facility] 3 03:15:01 Disorder of teeth AND/OR supporting structures 051464868 Completed 12/23/2013 Tamar Reese MD [address] [place] [address], [phone] , [facility] 4 15:53:16 Glucose level outside reference range 775092271 Active Not Available [facility] 3 03:15:01 Migraine 43243611 Completed 12/23/2013 gone Tamar Reese MD [address] [place] [address], [phone] , [facility] 4 15:53:39 Lipoma 74659788 Active Bautista Martini NP [address] [place] [address], [phone] , [facility] 5 17:52:00 Mass of body structure 127122578 Active Bautista Martini NP [address] [place] [address], [phone] , [facility] 4 17:47:20 Pain in lower limb 37382280 Active Kevin Hayes DPM [address] [place] [address], [address] , [facility] 5 15:31:19 Opioid dependence in remission 318499038 Active 2016 Bautista Martini NP [address] [place] [address], [phone] , [facility] 7 17:43:47 Problem Notes None recorded. Procedures Surgical History Date Name Laterality Status Provider Name and Address Organization Details Recorded Time 7 Smoking cessation counseling completed Paulette Gillis MA [facility] 02/18/2017 15:52:36 7 Carbon Monoxide Testing completed Paulette Gillis MA [facility] 02/18/2017 15:52:37 6 POC Urinalysis Testing completed JAKI Marcano [facility] 02/13/2016 15:57:25 4 Smoking cessation counseling completed Izabel Weeks [facility] 12/23/2013 15:34:15 4 Smoking cessation counseling completed Izabel Weeks [facility] 10/21/2013 15:32:52 3 Smoking cessation counseling completed Andreina Issa MA [facility] 08/20/2012 15:37:12 1 Wound Care completed Yu Zarate RN [facility] 09/15/2010 16:31:01 Imaging Results Imaging Date Name Status LastModified by Organiz [email or web address] Details LastModified Time 10/21/2014 x-ray, foot completed [address], [address], 10/22/2014 16:05:33 05/29/2015 x-ray, chest completed [facility] [address] [place] [address], [address], 05/30/2015 09:00:12 10/20/2016 XR, chest, 2 view completed [facility] [address] [place] [address], [address], 10/21/2016 11:57:51 Procedure Notes None recorded. Medical [...] Address Organization Details Last Updated DateTime 7 36439.0 7 g 36.5 kg/m2 158.12 cm 98.4 [degF] 112 mm[Hg] 68 mm[Hg] Paulette Gillis MA [facility] 7 15:54:04 Date Recorded Body height Body mass index (BMI) Body weight Systolic blood pressure Diastolic blood pressure Provider Name and Address Organization Details Last Updated DateTime 11/22/2014 159.385 cm 35.8 kg/m2 27449.27 0185 g 120 mm[Hg] 70 mm[Hg] Ernestina aldrich MA [facility] 5 16:49:57 Date Recorded Body height Body weight Body mass index (BMI) Heart rate Systolic blood pressure Diastolic blood pressure Provider Name and Address Organization Details Last Updated DateTime 5 158.115 cm 39774.4 74 g 36.3 kg/m2 80 /min 120 mm[Hg] 80 mm[Hg] Elisabeth Jerez [facility] 5 14:22:22 Date Recorded Body height Heart rate Systolic blood pressure Diastolic blood pressure Provider Name and Address Organization Details Last Updated DateTime 10/03/2015 158.115 cm 60 /min 120 mm[Hg] 84 mm[Hg] Ernestina mitchell [facility] 10/03/2015 16:45:49 Date Recorded Body height Heart rate Body temperature Systolic blood pressure Diastolic blood pressure Provider Name and Address Organization Details Last Updated DateTime 02/13/2016 158.115 cm 60 /min 98.2 [degF] 110 mm[Hg] 82 mm[Hg] [facility] [place] 6 15:30:44 Social History Question Answer Notes LastModified by Organizat ion Details LastModified Time Tobacco Smoking Status Current Every Day Smoker 1/2pack per day KO Boucher, [facility] 11/29/2011 14:40:04 Do You Have An Advance Directive? No Declines Form [email or web address] Information not available 08/25/2010 What Is Your Level Of Alcohol Consumption? Occasional BF Is Alcoholic, She Avoids Drinking [email or web address] Information not available 12/23/2013 Do You Wear [...] Td(adult) unspecified formulation 0 completed Not Available [facility] 07/04/2011 05:22:52 Past Encounters Encounter ID Performer Location Encounter Start Date Encounter Closed Date Diagnosis/Indication Diagnosis SNOMED-CT Code Diagnosis ICD10 Code Diagnosis Note [id number] , [facility], [address]ICE [address] [place] [address] 08/25/2010 11:09:53 08/29/2010 11:09:48 [id number] [facility], OFF[address] [place] [id number] 09/15/2010 15:30:06 09/18/2010 14:25:45 [id number] [facility], [address]ICE [address] [place] [address] 11/29/2011 14:30:15 12/03/2011 10:36:02 [id number] Radiology , [facility] [address] [id number] 11/29/2011 15:08:55 11/29/2011 15:51:18 [id number] Radiology , [facility] [address] [id number] 11/29/2011 15:09:25 11/29/2011 15:51:24 [id number] [facility], [address]ICE [address] [place] [address] 12/17/2011 13:32:40 12/19/2011 08:29:09 [id number] Marisabel Carson [facility], [address] [place] [address] 08/20/2012 15:27:44 08/20/2012 16:20:17 [id number] Tamar Reese MD [facility], [address] [place] [address] 12/31/2012 14:28:53 12/31/2012 15:24:05 [id number] [facility], [address]ICE [address] [place] [address] 01/30/2013 14:40:09 02/02/2013 13:31:13 [id number] Izabel Weeks [facility], [address]ICE [address] [place] [address] 02/18/2013 16:35:29 02/20/2013 14:55:07 [id number] Izabel Weeks [facility], [address] [place] [address] 03/26/2013 14:54:46 03/26/2013 16:23:36 Dental caries 46263523 Severe dental pain for about 20 years, [...] s without letting us know. Muscular headache 805326496 Sig tension noted in neck and paraspinal muscles; gentle massage in clinic helped relieve pain slightly. Recommend massage - low cost options provided. [id number] Tamar Reese MD , [facility], OFF[address] [place] [address] 10/21/2013 14:54:11 10/22/2013 15:08:23 Tobacco user 598319040 Interested in quitting, but inadequate time to devise a plan at this encounter - return for this. Migraine 92805916 discus sed trial of imitrex, full PARQ held and patient wishes to try this. Return to see me in 3 weeks to follow up on this. Patient requested opiates for this but discussed that there are better medication s for migraines and I would prefer a trial of triptans. Lipoma 57323797 Discusse d likely lipoma on R lateral thigh; no sign of infection or abscess. Start with u/s for eval (she will call [facility] to set up) and referred to consult with general surgery re: risks and benefits of biopsy and/or full removal. Dental caries 83016382 S tates only friend who could take her to have teeth extracted lost his license, so she did not go through with extraction . States tooth pain has resolved. [id number] Elisabeth STRICKLAND, [facility], [address] [place] [address] 12/23/2013 15:01:25 12/24/2013 09:28:17 Adult health examination 489981980 see Risk Assessment and Lifestyle Change Counseling section above UTD TDAP, Pap Mammogram, fbs ordred Add vitamin D, consider the med diet Counseling 517419854 Screening mammography 95745156 Mass of keaton dy structure 272812025 present x 14 years but getting larger over the last few weeks, painful. Did not go to see general surgery . Discussed MRI next step in workup to ensure no sarcoma. F/u with me next week. Dental caries 20671833 p lans to have extraction at [facility] Muscular headache 375107157 resolved Tobacco user [id number] n ot interested in quitting at the present [id number] KO Deleon, [facility], [address] [place] [address] 01/08/2014 11:44:23 01/08/2014 12:27:08 Pain in lower limb 05659852 Reviewed previous notes and results from u/s. [...] is not a medication to be used shelter. If MRI is unrevealin g, could consider surgical consult (looks like was referred in past but no appt every made) but would stop the narcotics if not real cause can be found for her sx. Lipoma 22761870 Periapical abscess without sinus tract 816508232 very poor dentition with broken stubs of teeth noted - states found dentist who will pull these for her and enc. to f/u with that in the near future Fatigue 16540251 Pt c/o fatigue, wt gain. Will return for some labs prior to f/u visit in 1 week. [id number] KO Deleon, [facility], [address] [place] [address] 01/26/2014 15:49:01 01/26/2014 16:11:47 Hip pain 80183577 Will get hip X-ray - ? if [...] do not want to refill this again. [id number] MARCO A, [facility], [address] [place] [address] 07/28/2014 16:43:12 07/28/2014 17:17:11 Pain in thumb 106810508 pain at base of left thumb. pt requesting pain medication for this. distributi on of pain consistent with radial nerve. will image as focal tenderness is noted. advised brace at night, and follow up to consider physical therapy or gabapentin or amitryptil ine for pain. Migraine 49677742 pt not es severe migraines every three - 4 months. pt has tried percocet. but last time percocet did not help. percocet did not help. pt states she has pounding pain. pt does note aura. will trial sumatripta n. [id number] , [facility], [address] [place] [address] 11/22/2014 16:39:11 11/22/2014 17:10:30 Migraine 47271018 states sumatripta n works very well - uses the Zofran prn for nausea as well - refilled as below Foot pain [id number] Pt wi th pain top of foot - ? cause. Xray in ER was neg. Referred to podiatry. Pt to schedule. Small amt vicodin given as below to use sparingly. Continue the naproxen, comf. footwear. F/U if not gradually improving or sx worsen. Lipoma [id number] Pt concerned about fat deposition right lat. hip - had seen surgeon for this in the past but feels this has gotten larger, more painful. Dr. Bettencourt felt surgery would not be beneficial for her sx. Wants another opinion. Referred to Dr. Zavaleta . Pt to schedule. [id number] Latrice Flynn [facility]iat[facility], [facility] [address] [place] [address] 01/13/2015 14:10:28 01/26/2015 14:19:09 Acquired hallux valgus [id number] Disorder of nail [id number] Pain in lower limb [id number] Bautista Martini NP , [facility], [address] [place] [address] 10/03/2015 16:28:44 10/03/2015 17:06:09 Migraine 34118471 G43.909 states sumatripta n works very well - uses the Zofran prn for nausea as well - refilled as below Foot pain 05597477 M79.6 71 referred back to podiatry - enc. wide comf. footwear - reassured - no need for narcotics which should be used only for more severe pain sx (i.e. fractures, surgery). Continue the ibuprofen - can take it with tylenol prn if not effective. Breast lump [id number] N63 I don't feel any discrete mass but she is tender on the right at 9:00 position - will get mammo with u/s as below and f/u with results when available. Enc. to schedule PHA on her way out today [id number] KEARA De Anda, [facility], [address] [place] [address] 02/13/2016 15:21:20 02/13/2016 16:19:11 Migraine 02363911 G43.909 Uses zofran sparingly for her migraines - refilled as below Fatigue 82177544 R53.83 Will check some labs today and f/u with results when available Increased frequency of urination 105855229 R35.0 Feels having increased frequency, no burning/ur gency but some change in stream. Urine dip obtained and wnl. Discussed no s/s infection. F/U prn worsening sx. Substance abuse 86286128 F19.10 was buying oxycodone on the streets and had been seen here numerous times with drug seeking behaviors. + cocaine as well noted during ER visit in past. 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 Enc. cont. f/u with suboxone clinic. 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 f/u with therapist and med prescriber as planned - denies any suicidal ideation. States feeling much better now that is on suboxone Tobacco de pendence syndrome 88784967 F17.290 Doesn't want nicotine replacemen t products - scare her. Interested in chantix. Discussed potential adverse effects including vivid dreams/sle ep disturbanc e. She will discuss this with her psych. prescriber and f/u if desires a rx. [id number] KEARA De Anda, [facility], [address] [place] [address] 02/18/2017 15:41:42 02/18/2017 16:23:40 Cigarette smoker 87111834 F17.210 Discussed and enc smoking cessation. Willing to try chantix again but might just stick with lower dose (1 mg/day, not BID). F/u when needing refills or if needing additional help with smoking cessation. Tobacco user 403547989 Z 72.0 Migraine 79120462 G43.90 9 Has imitrex to use but having alot more h/a's recently - daily. Will try nortriptyl ine for migraine prevention . Give this a few weeks. If not helping, f/u here. Enc to schedule PHA for the near future Common cold 59614419 J00 Reassured. QS neg. Sx c/w viral URI. Enc. adequate fluids/res t and otc analgesics prn. F/u for worsening sx (i.e. fever, chest pain, dyspnea). Opioid dep endence in remission [id number] F11.21 Enc cont. f/u with suboxone clinic. Health Concerns Section Related Observation LastModified by Organization Detai ls LastModified Time None Recorded Concern Status LastModified by Organization Details LastModified Time None Recorded Advance Directives Directive N: declines form Payers Encounter Date Sequence Insurance Name Policy Number Policy Blevins Covered Member ID Blevins Member ID Guarantor Name 11/22/2014 1 [facility] [employer] [facility] PLAN (MEDICAID HMO) [id number] Marielos Peralta [id number] Marielos Baezaowanselmo 01/13/2015 1 [facility] [employer] [facility] PLAN (MEDICAID HMO) [id number] Marielos A Osmanifanowich [id number] Marielos Baezaowich 10/03/2015 1 [facility] [employer] [facility] PLAN (MEDICAID HMO) [id number] Marielos A Stefanowich [id number] Marielos Rodriguez Stefanowich 02/13/2016 1 [facility] [employer] [facility] PLAN (MEDICAID HMO) [id number] Marielos A Stefanowich [id number] Marielos Keenfanowich 02/18/2017 1 [facility] PLAN (MEDICAID O) [id number] Marielos A Osmanifanowich [id number] Marielos Peralta Notes Date Note Type Note Provider Name and Address Organization Details Recorded Time 11/22/2014 text/html Seen in ER 1 mon th ago for left foot pain/swelling. Xray was neg. Given naproxen which she is still taking, vicodin which is gone now. Asking for more vicodin. Has tried ice/heat. Nothing helps. Only able to wear slippers. Bautista Martini NP [address] [place], [address], [facility] 11/22/2014 17:52:12 01/13/2015 text/html HPI Patient presents [...] swelling or drainage.? Kevin Hayes DPM [address] [place], [address], [facility] 01/13/2015 15:31:30 10/03/2015 text/html Has bruise right [...] pain without effect Bautista Martini NP [address] [place], [address], [facility] 10/03/2015 17:40:38 02/13/2016 text/html Here for f/u. No w on suboxone - gets at [facility]. Was buying drugs on the street - [...] stopped years ago. Bautista Martini NP [address] [place], [address], [facility] 02/13/2016 16:37:27 02/18/2017 text/html a/vmg-smoking [id number] bypatient.Notes:smok ing more since dad got sick [...] iced coffee (2/week). Lots stress. Dad in OR with multiple strokes - not eating/drinking. H/a's so severe had to take an ambulance to the ER recently. ST started this a.m. Sees Dr. Richter for her psych meds. Drinking well. Throat hurts when coughing. [place] feverish 2 nights ago - 99..9 Bautista Martini NP [address] [place], [address], [facility] 02/18/2017 17:44:33 OBGyn Episode No OBEpisode recorded.
--- OUTSIDE RECORDS SUMMARY | 2024-10-19 18:55 | XMS_ITS | Clinical Summary ---
Author Organization [employer] Address [address] [place] [address] [address] [place] [address] Care Team Providers Care Range Mounter Name Role Phone Unavailable Primary Care Provider [...]
--- OUTSIDE RECORDS SUMMARY | 2024-10-19 18:55 | XMS_ITS | Encounter Summary ---
Author Organization [facility] Address [address] [place] [address] Care Team Providers Care Client Advocate Name Role Phone Physician, No Pcp Primary Care Provider Unavaila ble Reason for Visit * Reason Comments Withdrawal Encounter Details Date Type Department Care Team (Late st Contact Info) Description 10/12/2024 1:59 PM EST - 10/12/2024 6:22 PM EST Emergency [facility] Emergency [address] [place] [address] Discharge Disposition: Left Against Medical Advice Social History Tobacco Use Types Packs/Day Years [...] Discharge Disposition Disposition Code Departure Means Destination Left Against Medical Advice documented in this encounter Progress Notes * [...] CBC auto differential (10/12/2024 2:39 PM EST) [facility] WBC 8.5 4.8 - 10.8 K/mcL LAB HEMETOLOGY METHOD 10/12/2024 2:47 PM [facility] RBC 5.80(H) 3.80 - 4.80 M/mcL LAB HEMETOLOGY METHOD 10/12/2024 2:47 PM [facility] Hemoglobin 16.6(H) 11.5 - 16.0 g/dL LAB HEMETOLOGY METHOD 10/12/2024 2:47 PM [facility] Hematocrit 50.7(H) 35.0 - 47.0 % LAB HEMETOLOGY METHOD 10/12/2024 2:47 PM [facility] MCV 86.8 79.0 - 98.0 FL LAB HEMETOLOGY METHOD 10/12/2024 2:47 PM [facility] MCH 28.4 27.0 - 32.0 pcg LAB HEMETOLOGY METHOD 10/12/2024 2:47 PM [facility] MCHC 32.7 32.0 - 37.0 g/dL LAB HEMETOLOGY METHOD 10/12/2024 2:47 PM [facility] RDW 13.2 11.0 - 15.0 % LAB HEMETOLOGY METHOD 10/12/2024 2:47 PM [facility] Platelets 311 130 - 400 K/mcL LAB HEMETOLOGY METHOD 10/12/2024 2:47 PM [facility] MPV 9.9 7.0 - 11.0 FL LAB HEMETOLOGY METHOD 10/12/2024 2:47 PM [facility] NRBC 0.0 <1.0 % LAB HEMETOLOGY METHOD 10/12/2024 2:47 PM [facility] NRBC Absolute 0.00 <0.10 K/mcL LAB HEMETOLOGY METHOD 10/12/2024 2:47 PM [facility] Neutrophils Relative 81.5 % LAB HEMETOLOGY METHOD 10/12/2024 2:47 PM [facility] Lymphocytes Relative 14.8 % LAB HEMETOLOGY METHOD 10/12/2024 2:47 PM [facility] Monocytes Relative 3.0 % LAB HEMETOLOGY METHOD 10/12/2024 2:47 PM [facility] Eosinophils Relative 0.1 % LAB HEMETOLOGY METHOD 10/12/2024 2:47 PM [facility] Basophils Relative 0.2 % LAB HEMETOLOGY METHOD 10/12/2024 2:47 PM [facility] Immature Granulocytes Relative 0.4 % LAB HEMETOLOGY METHOD 10/12/2024 2:47 PM [facility] Neutrophils Absolute 6.95 1.50 - 7.00 K/mcL LAB HEMETOLOGY METHOD 10/12/2024 2:47 PM [facility] Lymphocytes Absolute 1.26 1.00 - 5.00 K/mcL LAB HEMETOLOGY METHOD 10/12/2024 2:47 PM [facility] Monocytes Absolute 0.26 0.20 - 1.00 K/mcL LAB HEMETOLOGY METHOD 10/12/2024 2:47 PM [facility] Eosinophils Absolute 0.01 0.00 - 0.50 K/mcL LAB HEMETOLOGY METHOD 10/12/2024 2:47 PM [facility] Basophils Absolute 0.02 0.00 - 0.20 K/mcL LAB HEMETOLOGY METHOD 10/12/2024 2:47 PM [facility] Immature Granulocytes Absolute 0.03 0.00 - 0.03 K/mcL LAB HEMETOLOGY METHOD 10/12/2024 2:47 PM [facility] Blood Venous blood specimen / Unknown Venipuncture / Unknown 10/12/2024 2:39 PM EST 10/12/2024 2:44 PM EST us James Mcmillan MD LAB BLOOD ORDERABLES Final Res ult [facility] [address] [place] [address], [place] [phone] * (ABNORMAL) Comprehensive metabolic panel (10/12/2024 2:39 PM EST) Pathologist [facility] Sodium 141 133 - 145 mmol/L LAB CHEMISTRY METHOD 10/12/2024 3:09 PM [facility] Potassium 4.1 3.5 - 5.5 mmol/L LAB CHEMISTRY METHOD 10/12/2024 3:09 PM [facility] Chloride 112(H) 96 - 110 mmol/L LAB CHEMISTRY METHOD 10/12/2024 3:09 PM [facility] CO2 22 21 - 32 mmol/L LAB CHEMISTRY METHOD 10/12/2024 3:09 PM [facility] Anion Gap 7 3 - 11 LAB CHEMISTRY METHOD 10/12/2024 3:09 PM [facility] Glucose 123(H) 70 - 100 mg/dL LAB CHEMISTRY METHOD 10/12/2024 3:09 PM [facility] BUN 11 5 - 25 mg/dL LAB CHEMISTRY METHOD 10/12/2024 3:09 PM [facility] Creatinine 0.74 0.50 - 1.10 mg/dL LAB CHEMISTRY METHOD 10/12/2024 3:09 PM [facility] eGFR 95 >=60 mL/min/1. 73m2 LAB CHEMISTRY METHOD 10/12/2024 3:09 PM [facility] Comment:Calculation based on the??Chronic Kidney Disease Epidemiology Collaboration (CKD-EPI) equation refit??without adjustment for race. BUN/Creatinine Ratio 14.9 LAB CHEMISTRY METHOD 10/12/2024 3:09 PM [facility] Calcium 9.0 8.5 - 10.5 mg/dL LAB CHEMISTRY METHOD 10/12/2024 3:09 PM [facility] AST (SGOT) 24 10 - 42 unit/L LAB CHEMISTRY METHOD 10/12/2024 3:09 PM [facility] ALT (SGPT) 27 10 - 60 unit/L LAB CHEMISTRY METHOD 10/12/2024 3:09 PM [facility] Alkaline Phosphatase 74 42 - 121 unit/L LAB CHEMISTRY METHOD 10/12/2024 3:09 PM [facility] Total Protein 7.0 6.0 - 8.0 g/dL LAB CHEMISTRY METHOD 10/12/2024 3:09 PM [facility] Albumin 3.5 3.2 - 5.0 g/dL LAB CHEMISTRY METHOD 10/12/2024 3:09 PM [facility] Total Bilirubin 0.7 0.0 - 1.4 mg/dL LAB CHEMISTRY METHOD 10/12/2024 3:09 PM [facility] Blood Venous blood specimen / Unknown Venipuncture / Unknown 10/12/2024 2:39 PM EST 10/12/2024 2:44 PM EST us James Mcmillan MD LAB BLOOD ORDERABLES Final Res ult [facility] [address] [place] [address], * Lipase (10/12/2024 2:39 PM EST) Lipase 19 13 - 75 unit/L LAB CHEMISTRY METHOD 10/12/2024 3:09 PM [facility] Blood Venous blood specimen / Unknown Venipuncture / Unknown 10/12/2024 2:39 PM EST 10/12/2024 2:44 PM EST us James Mcmillan MD LAB BLOOD ORDERABLES Final Res ult Performing Organization Address [facility]/ZIP Co de Phone Number [facility] [address] [place] [address], [place] [phone] * Magnesium (10/12/2024 2:39 PM EST) Magnesium 1.9 1.9 - 2.6 mg/dL LAB CHEMISTRY METHOD 10/12/2024 3:09 PM EST [facility] Blood Venous blood specimen / Unknown Venipuncture / Unknown 10/12/2024 2:39 PM EST 10/12/2024 2:44 PM EST us James Mcmillan MD LAB BLOOD ORDERABLES Final Res ult Performing Organization Address [facility] de Phone Number [facility] [address] [place] [address], [place] [phone] * Ethanol (10/12/2024 2:39 PM EST) [facility] Ethanol Level <3 0 - 10 mg/dL LAB CHEMISTRY METHOD 10/12/2024 3:09 PM EST [facility] Blood Venous blood specimen / Unknown Venipuncture / Unknown 10/12/2024 2:39 PM EST 10/12/2024 2:44 PM EST us James Mcmillan MD LAB BLOOD ORDERABLES Final Res ult Performing Organization Address [facility]/ZIP Co de Phone Number [facility] [address] [place] [address], [place] [phone] * Methadone, urine (10/12/2024 2:34 PM EST) Methadone Screen, Urine Negative Negative LAB CHEMISTRY METHOD 10/12/2024 3:34 PM EST [facility] Comment: Assay cutoff 300 [...] ORDERABLES Final Res ult Performing Organization Address [facility] de Phone Number [facility] [address] [place] [address], [place] [phone] * Phencyclidine, urine (10/12/2024 2:34 PM EST) PCP Scrn, Ur Negative Negative LAB CHEMISTRY METHOD 10/12/2024 3:34 PM EST [facility] Comment: Assay cutoff 25 [...] ORDERABLES Final Res ult Performing Organization Address [facility] de Phone Number [facility] [address] [place] [address], [place] [phone] * Buprenorphine screen, urine (10/12/2024 2:34 PM EST) Buprenorphine Screen Urine Negative Negative LAB CHEMISTRY METHOD 10/12/2024 3:34 PM EST [facility] Urine Urine specimen obtained by clean catch procedure / Unknown Non-blood Collection / Unknown 10/12/2024 2:34 PM EST 10/12/2024 2:43 PM EST Narrative [facility] - 10/12/2024 3:34 PM EST Assay cutoff 5 ng/mL Semi-quantitative assay for screening purposes only. Unconfirmed screening result should not be used for non-medical purposes. *ALTERNATE METHOD CONFIRMATION DONE UPON REQUEST ONLY* us James Mcmillan MD LAB URINE ORDERABLES Final Res ult [facility] [address] [place] [address], * (ABNORMAL) Drug abuse screen 8a panel, urine (10/12/2024 2:34 PM EST) [facility] Amphetamine Screen, Ur Negative Negative LAB CHEMISTRY METHOD 5 3:54 PM EST [facility] Comment:Certain OTC medicati ons containing ephedrine, phenylephrine, pseudoephedrine and phenylpropanolamine can cause false positive results. Barbiturate Screen, Ur Negative Negative LAB CHEMISTRY METHOD 5 3:54 PM EST [facility] Benzodiazepine Screen, Ur Negative Negative LAB CHEMISTRY METHOD 5 3:54 PM EST [facility] Cocaine Screen, Ur Negative Negative LAB CHEMISTRY METHOD 5 3:54 PM EST [facility] Opiate Screen, Ur Positive(A ) Negative LAB CHEMISTRY METHOD 5 3:54 PM [facility] Cannabinoid (THC) Screen, Ur Positive(A ) Negative LAB CHEMISTRY METHOD 5 3:54 PM EST [facility] Comment:Specimens from patie nts taking pantoprazole sodium (Protonix) have been shown to produce false positive results. Oxycodone Screen, Ur Negative Negative LAB CHEMISTRY METHOD 5 3:54 PM EST [facility] Fentanyl, Ur Positive(A ) Negative LAB CHEMISTRY METHOD 5 3:54 PM [facility] Urine Urine specimen obtained by clean catch procedure / Unknown Non-blood Collection / Unknown 10/12/2024 2:34 PM EST 10/12/2024 2:43 PM EST Narrative [facility] [place] ([facility]) [facility] - 10/12/2024 3:54 PM EST [...] URINE ORDERABLES Final Res ult [facility] [place] ([facility]) [facility] [address] [place] [address], [place] [phone] documented in this encounter Visit Diagnoses Not on filedocumented in this encounter Care Teams Client Advocate Relationship Specialty Start Date End Date Physician, No Pcp PCP - General 10/12/24 documented as of this encounter
--- OUTSIDE RECORDS SUMMARY | 2024-10-19 18:55 | XMS_ITS | Clinical Summary ---
Author Organization [facility] Address [address] [place] [address] Phone Care Team Providers Care Logging Supervisor Name Role Phone Physician, No Pcp Primary Care Provider Unavaila ble Allergies No known active allergies Medications No known medications Encounters Date Type Department Care Team Description 10/12/2024 1:59 PM EST - 10/12/2024 6:22 PM EST Emergency [facility] [address] [place] [address] Discharge Disposition: Left Against Medical Advice from Last 3 Months Medical History Medical [...] K/mcL LAB HEMETOLOGY METHOD 10/12/2024 2:[address] [facility] RBC 5.80(H) 3.80 - 4.80 M/mcL LAB HEMETOLOGY METHOD 10/12/2024 2:[address] [facility] Hemoglobin 16.6(H) 11.5 - 16.0 g/dL LAB HEMETOLOGY METHOD 10/12/2024 2:[address] [facility] Hematocrit 50.7(H) 35.0 - 47.0 % LAB HEMETOLOGY METHOD 10/12/2024 2:[address] [facility] MCV 86.8 79.0 - 98.0 FL LAB HEMETOLOGY METHOD 10/12/2024 2:[address] [facility] MCH 28.4 27.0 - 32.0 pcg LAB HEMETOLOGY METHOD 10/12/2024 2:[address] [facility] MCHC 32.7 32.0 - 37.0 g/dL LAB HEMETOLOGY METHOD 10/12/2024 2:[address] [facility] RDW 13.2 11.0 - 15.0 % LAB HEMETOLOGY METHOD 10/12/2024 2:[address] [facility] Platelets 311 130 - 400 K/mcL LAB HEMETOLOGY METHOD 10/12/2024 2:[address] [facility] MPV 9.9 7.0 - 11.0 FL LAB HEMETOLOGY METHOD 10/12/2024 2:[address] [facility] NRBC 0.0 <1.0 % LAB HEMETOLOGY METHOD 10/12/2024 2:[address] [facility] NRBC Absolute 0.00 <0.10 K/mcL LAB HEMETOLOGY METHOD 10/12/2024 2:[address] [facility] Neutrophils Relative 81.5 % LAB HEMETOLOGY METHOD 10/12/2024 2:[address] [facility] Lymphocytes Relative 14.8 % LAB HEMETOLOGY METHOD 10/12/2024 2:[address] [facility] Monocytes Relative 3.0 % LAB HEMETOLOGY METHOD 10/12/2024 2:[address] [facility] Eosinophils Relative 0.1 % LAB HEMETOLOGY METHOD 10/12/2024 2:[address] [facility] Basophils Relative 0.2 % LAB HEMETOLOGY METHOD 10/12/2024 2:[address] [facility] Immature Granulocytes Relative 0.4 % LAB HEMETOLOGY METHOD 10/12/2024 2:[address] [facility] Neutrophils Absolute 6.95 1.50 - 7.00 K/mcL LAB HEMETOLOGY METHOD 10/12/2024 2:[address] [facility] Lymphocytes Absolute 1.26 1.00 - 5.00 K/mcL LAB HEMETOLOGY METHOD 10/12/2024 2:[address] [facility] Monocytes Absolute 0.26 0.20 - 1.00 K/mcL LAB HEMETOLOGY METHOD 10/12/2024 2:47 PM EST [facility] Eosinophils Absolute 0.01 0.00 - 0.50 K/[facility] LAB HEMETOLOGY METHOD 10/12/2024 2:47 PM EST [facility] Basophils Absolute 0.02 0.00 - 0.20 K/[facility] LAB HEMETOLOGY METHOD 10/12/2024 2:47 PM EST [facility] Immature Granulocytes Absolute 0.03 0.00 - 0.03 K/[facility] LAB HEMETOLOGY METHOD 10/12/2024 2:47 PM EST [facility] Blood Venous blood specimen / Unknown Venipuncture / Unknown 10/12/2024 2:39 PM EST 10/12/2024 2:44 PM EST us James Mcmillan MD LAB BLOOD ORDERABLES Final Res ult [facility] [address] [place] [address], [place] [phone] * Magnesium (10/12/2024 2:39 PM EST) Pathologist [facility] Magnesium 1.9 1.9 - 2.6 mg/dL LAB CHEMISTRY METHOD 10/12/2024 3:09 PM EST [facility] Blood Venous blood specimen / Unknown Venipuncture / Unknown 10/12/2024 2:39 PM EST 10/12/2024 2:44 PM EST us James Mcmillan MD LAB BLOOD ORDERABLES Final Res ult [facility] [address] [place] [address], [place] [phone] * Lipase (10/12/2024 2:39 PM EST) Lipase 19 13 - 75 unit/L LAB CHEMISTRY METHOD 10/12/2024 3:09 PM EST [facility] Blood Venous blood specimen / Unknown Venipuncture / Unknown 10/12/2024 2:39 PM EST 10/12/2024 2:44 PM EST us James Mcmillan MD LAB BLOOD ORDERABLES Final Res ult Performing Organization Address City/[facility]/ZIP Co de Phone Number [facility] [address] [place] [address], [place] [phone] * Ethanol (10/12/2024 2:39 PM EST) Pathologist [facility] Ethanol Level <3 0 - 10 mg/dL LAB CHEMISTRY METHOD 10/12/2024 3:[address] [facility] Blood Venous blood specimen / Unknown Venipuncture / Unknown 10/12/2024 2:39 PM EST 10/12/2024 2:44 PM EST us James Mcmillan MD LAB BLOOD ORDERABLES Final Res ult Performing Organization Address [facility]/ZIP Co de Phone Number [facility] [address] [place] [address], [place] [phone] * (ABNORMAL) Comprehensive metabolic panel (10/12/2024 2:39 PM EST) Pathologist [facility] Sodium 141 133 - 145 mmol/L LAB CHEMISTRY METHOD 10/12/2024 3:[address] [facility] Potassium 4.1 3.5 - 5.5 mmol/L LAB CHEMISTRY METHOD 10/12/2024 3:[address] [facility] Chloride 112(H) 96 - 110 mmol/L LAB CHEMISTRY METHOD 10/12/2024 3:[address] [facility] CO2 22 21 - 32 mmol/L LAB CHEMISTRY METHOD 10/12/2024 3:[address] [facility] Anion Gap 7 3 - 11 LAB CHEMISTRY METHOD 10/12/2024 3:[address] [facility] Glucose 123(H) 70 - 100 mg/dL LAB CHEMISTRY METHOD 10/12/2024 3:[address] [facility] BUN 11 5 - 25 mg/dL LAB CHEMISTRY METHOD 10/12/2024 3:[address] [facility] Creatinine 0.74 0.50 - 1.10 mg/dL LAB CHEMISTRY METHOD 10/12/2024 3:[address] [facility] eGFR 95 >=60 mL/min/1. 73m2 LAB CHEMISTRY METHOD 10/12/2024 3:[address] [facility] Comment:Calculation based on the??Chronic Kidney Disease Epidemiology Collaboration (CKD-EPI) equation refit??without adjustment for race. BUN/Creatinine Ratio 14.9 LAB CHEMISTRY METHOD 10/12/2024 3:[address] [facility] Calcium 9.0 8.5 - 10.5 mg/dL LAB CHEMISTRY METHOD 10/12/2024 3:[address] [facility] AST (SGOT) 24 10 - 42 unit/L LAB CHEMISTRY METHOD 10/12/2024 3:[address] [facility] ALT (SGPT) 27 10 - 60 unit/L LAB CHEMISTRY METHOD 10/12/2024 3:[address] [facility] Alkaline Phosphatase 74 42 - 121 unit/L LAB CHEMISTRY METHOD 10/12/2024 3:[address] [facility] Total Protein 7.0 6.0 - 8.0 g/dL LAB CHEMISTRY METHOD 10/12/2024 3:[address] [facility] Albumin 3.5 3.2 - 5.0 g/dL LAB CHEMISTRY METHOD 10/12/2024 3:[address] [facility] Total Bilirubin 0.7 0.0 - 1.4 mg/dL LAB CHEMISTRY METHOD 10/12/2024 3:[address] [facility] Blood Venous blood specimen / Unknown Venipuncture / Unknown 10/12/2024 2:39 PM EST 10/12/2024 2:44 PM EST us James Mcmillna MD LAB BLOOD ORDERABLES Final Res ult [facility] [address] [place] [address], * (ABNORMAL) Drug abuse screen 8a panel, urine (10/12/2024 2:34 PM EST) Amphetamine Screen, Ur Negative Negative LAB CHEMISTRY METHOD 5 3:[address] [facility] Comment:Certain OTC medicati ons containing ephedrine, phenylephrine, pseudoephedrine and phenylpropanolamine can cause false positive results. Barbiturate Screen, Ur Negative Negative LAB CHEMISTRY METHOD 5 3:[address] [facility] Benzodiazepine Screen, Ur Negative Negative LAB CHEMISTRY METHOD 5 3:[address] [facility] Cocaine Screen, Ur Negative Negative LAB CHEMISTRY METHOD 5 3:[address] [facility] Opiate Screen, Ur Positive(A ) Negative LAB CHEMISTRY METHOD 5 3:[address] [facility] Cannabinoid (THC) Screen, Ur Positive(A ) Negative LAB CHEMISTRY METHOD 5 3:[address] [facility] Comment:Specimens from patie nts taking pantoprazole sodium (Protonix) have been shown to produce false positive results. Oxycodone Screen, Ur Negative Negative LAB CHEMISTRY METHOD 5 3:[address] [facility] Fentanyl, Ur Positive(A ) Negative LAB CHEMISTRY METHOD 5 3:[address] [facility] Urine Urine specimen obtained by clean catch procedure / Unknown Non-blood Collection / Unknown 10/12/2024 2:34 PM EST 10/12/2024 2:43 PM EST Narrative [facility] - 10/12/2024 3:54 PM EST [...] ORDERABLES Final Res ult Performing Organization Address [facility] de Phone Number [facility] [address] [place] [address], [place] [phone] * Buprenorphine screen, urine (10/12/2024 2:34 PM EST) [facility] Buprenorphine Screen Urine Negative Negative LAB CHEMISTRY METHOD 10/12/2024 3:34 PM EST [facility] Urine Urine specimen obtained by clean catch procedure / Unknown Non-blood Collection / Unknown 10/12/2024 2:34 PM EST 10/12/2024 2:43 PM EST Narrative [facility] - 10/12/2024 3:34 PM EST Assay cutoff 5 ng/mL Semi-quantitative assay for screening purposes only. Unconfirmed screening result should not be used for non-medical purposes. *ALTERNATE METHOD CONFIRMATION DONE UPON REQUEST ONLY* James Mcmillan MD LAB URINE ORDERABLES Final Res ult Performing Organization Address [facility] de Phone Number [facility] [address] [place] [address], * Methadone, urine (10/12/2024 2:34 PM EST) Methadone Screen, Urine Negative Negative LAB CHEMISTRY METHOD 10/12/2024 3:34 PM EST [facility] Comment: Assay cutoff 300 ng/mL [...] ORDERABLES Final Res ult Performing Organization Address [facility]/ZIP Co de Phone Number [facility] [address] [place] [address], [place] [phone] * Phencyclidine, urine (10/12/2024 2:34 PM EST) PCP Scrn, Ur Negative Negative LAB CHEMISTRY METHOD 10/12/2024 3:34 PM EST [facility] Comment: Assay cutoff 25 ng/mL [...] ORDERABLES Final Res ult Performing Organization Address City/[facility]/ZIP Co de Phone Number [facility] [address] [place] [address], [place] [phone] from Last 3 Months Insurance MEDICAID - [place] Care Teams Logging Supervisor Relationship Specialty Start Date End Date Physician, No Pcp PCP - General 10/12/24
== END 2024-10-19 16:54 | disposition home or self-care (01) ==
PROVIDERS: Visit Provider Nurse Practitioner Psychiatric/Mental Health
DX: F11.20 Opioid dependence, uncomplicated (principal)
CPT/HCPCS: 99214

== ENCOUNTER → 2024-10-19 16:26 | Outpatient (BNVA) | payer MEDICAID, SELFPAY | PROVIDERS: Visit Provider Nurse Practitioner Psychiatric/Mental Health | DX: F11.20 Opioid dependence, uncomplicated (principal); Z79.899 Other long term (current) drug therapy | CPT/HCPCS: 99212 ==

== ENCOUNTER 2024-10-28 14:07 | Outpatient (AMB) | payer MEDICAID, SELFPAY ==
--- NOTE | 2024-10-28 14:14 | MHC.AM.SUB ---
Intake Visit Reasons: Follow up Allergies dexamethasone [From [facility]] Adverse Reaction (Severe, Verified 02/07/24 14:02) NAUSEA & VOMITING HPI HPI Follow up: Details: Patient presents for OUD treatment follow up Currently prescribed Suboxone 8mg BID and one 4mg film (total of 20mg) Feels sx have improved, but still feels she needs a bit more Discussed that higher doses of buprenorphine following fentanyl use is not uncommon Sleep is not optimal yet --did not like trazodone made me feel high Melatonin not helpful (has tried this in the past) Will be seeing new Psych provider on November 05 --telehealth Appetite improving Mood much improved Review of Systems Const Reports as per HPI Physical Exam Const General: cooperative, healthy appearing, alert, awake and well groomed Orientation/consciousness: patient oriented x3 Limitations: no limitations Neuro General: patient oriented x3 Psych Appearance: well kempt Speech and movement: Normal speech and movement present Affect: normal affect Attitude: cooperative Thought content: Normal thought content present Insight: Good insight present (Psych) Judgement: Good judgement present (Psych) [facility] Medical History Fibroid of cervix Opioid use disorder Substance abuse No known health problems No known health problems Social History Alcohol intake: never Patient Tobacco Use Status: Current everyday Tobacco user Substance Use Type: Marijuana Gender identity: Female Assessment & Plan Assessment & Plan (1) Opioid use disorder, severe, dependence: Code(s): F11.20 - Opioid dependence, uncomplicated Category: Medical Plan: increased dose to 12mg BID --insurance does not cover 12mg films, so 8 and 4mg films ordered follow up one month labs to be completed before next visit Orders: Orders Comprehensive Met. 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
--- OUTSIDE RECORDS SUMMARY | 2024-10-28 16:42 | XMS_ITS | Encounter Summary ---
Author Organization [facility] Address [address] [place] [address] Care Team Providers Care Medical Assistant Float Name Role Phone Physician, No Pcp Primary Care Provider Unavaila ble Reason for Visit * Reason Comments Withdrawal Encounter Details Date Type Department Care Team (Late st Contact Info) Description 10/12/2024 1:59 PM EST - 10/12/2024 6:22 PM EST Emergency [facility] Emergency [address] [place] [address] Discharge Disposition: Left Against Medical [...] CBC auto differential (10/12/2024 2:39 PM EST) [facility] WBC 8.5 4.8 - 10.8 K/mcL LAB HEMETOLOGY METHOD 10/12/2024 2:47 PM [facility] RBC 5.80(H) 3.80 - 4.80 M/mcL LAB HEMETOLOGY METHOD 10/12/2024 2:47 PM [facility] Hemoglobin 16.6(H) 11.5 - 16.0 g/dL LAB HEMETOLOGY METHOD 10/12/2024 2:47 PM [facility] Hematocrit 50.7(H) 35.0 - 47.0 % LAB HEMETOLOGY METHOD 10/12/2024 2:47 PM [facility] MCV 86.8 79.0 - 98.0 FL LAB HEMETOLOGY METHOD 10/12/2024 2:47 PM [facility] MCH 28.4 27.0 - 32.0 pcg LAB HEMETOLOGY METHOD 10/12/2024 2:47 PM [facility] MCHC 32.7 32.0 - 37.0 g/dL LAB HEMETOLOGY METHOD 10/12/2024 2:47 PM [facility] RDW 13.2 11.0 - 15.0 % LAB HEMETOLOGY METHOD 10/12/2024 2:47 PM [facility] Platelets 311 130 - 400 K/mcL LAB HEMETOLOGY METHOD 10/12/2024 2:47 PM [facility] MPV 9.9 7.0 - 11.0 FL LAB HEMETOLOGY METHOD 10/12/2024 2:47 PM [facility] NRBC 0.0 <1.0 % LAB HEMETOLOGY METHOD 10/12/2024 2:47 PM [facility] NRBC Absolute 0.00 <0.10 K/mcL LAB HEMETOLOGY METHOD 10/12/2024 2:47 PM [facility] Neutrophils Relative 81.5 % LAB HEMETOLOGY METHOD 10/12/2024 2:47 PM [facility] Lymphocytes Relative 14.8 % LAB HEMETOLOGY METHOD 10/12/2024 2:47 PM [facility] Monocytes Relative 3.0 % LAB HEMETOLOGY METHOD 10/12/2024 2:47 PM [facility] Eosinophils Relative 0.1 % LAB HEMETOLOGY METHOD 10/12/2024 2:47 PM [facility] Basophils Relative 0.2 % LAB HEMETOLOGY METHOD 10/12/2024 2:47 PM [facility] Immature Granulocytes Relative 0.4 % LAB HEMETOLOGY METHOD 10/12/2024 2:47 PM [facility] Neutrophils Absolute 6.95 1.50 - 7.00 K/mcL LAB HEMETOLOGY METHOD 10/12/2024 2:47 PM [facility] Lymphocytes Absolute 1.26 1.00 - 5.00 K/mcL LAB HEMETOLOGY METHOD 10/12/2024 2:47 PM [facility] Monocytes Absolute 0.26 0.20 - 1.00 K/mcL LAB HEMETOLOGY METHOD 10/12/2024 2:47 PM [facility] Eosinophils Absolute 0.01 0.00 - 0.50 K/mcL LAB HEMETOLOGY METHOD 10/12/2024 2:47 PM [facility] Basophils Absolute 0.02 0.00 - 0.20 K/mcL LAB HEMETOLOGY METHOD 10/12/2024 2:47 PM [facility] Immature Granulocytes Absolute 0.03 0.00 - 0.03 K/mcL LAB HEMETOLOGY METHOD 10/12/2024 2:47 PM [facility] Blood Venous blood specimen / Unknown Venipuncture / Unknown 10/12/2024 2:39 PM EST 10/12/2024 2:44 PM EST us James Mcmillan MD LAB BLOOD ORDERABLES Final Res ult [facility] [address] [place] [address], [place] [phone] * (ABNORMAL) Comprehensive metabolic panel (10/12/2024 2:39 PM EST) Pathologist [facility] [place] Sodium 141 133 - 145 mmol/L LAB CHEMISTRY METHOD 10/12/2024 3:09 PM [facility] Potassium 4.1 3.5 - 5.5 mmol/L LAB CHEMISTRY METHOD 10/12/2024 3:09 PM [facility] Chloride 112(H) 96 - 110 mmol/L LAB CHEMISTRY METHOD 10/12/2024 3:09 PM [facility] CO2 22 21 - 32 mmol/L LAB CHEMISTRY METHOD 10/12/2024 3:09 PM [facility] Anion Gap 7 3 - 11 LAB CHEMISTRY METHOD 10/12/2024 3:09 PM [facility] Glucose 123(H) 70 - 100 mg/dL LAB CHEMISTRY METHOD 10/12/2024 3:09 PM [facility] BUN 11 5 - 25 mg/dL LAB CHEMISTRY METHOD 10/12/2024 3:09 PM [facility] Creatinine 0.74 0.50 - 1.10 mg/dL LAB CHEMISTRY METHOD 10/12/2024 3:09 PM [facility] eGFR 95 >=60 mL/min/1. 73m2 LAB CHEMISTRY METHOD 10/12/2024 3:09 PM [facility] Comment:Calculation based on the??Chronic Kidney Disease Epidemiology Collaboration (CKD-EPI) equation refit??without adjustment for race. BUN/Creatinine Ratio 14.9 LAB CHEMISTRY METHOD 10/12/2024 3:09 PM [facility] Calcium 9.0 8.5 - 10.5 mg/dL LAB CHEMISTRY METHOD 10/12/2024 3:09 PM [facility] AST (SGOT) 24 10 - 42 unit/L LAB CHEMISTRY METHOD 10/12/2024 3:09 PM [facility] ALT (SGPT) 27 10 - 60 unit/L LAB CHEMISTRY METHOD 10/12/2024 3:09 PM [facility] Alkaline Phosphatase 74 42 - 121 unit/L LAB CHEMISTRY METHOD 10/12/2024 3:09 PM [facility] Total Protein 7.0 6.0 - 8.0 g/dL LAB CHEMISTRY METHOD 10/12/2024 3:09 PM [facility] Albumin 3.5 3.2 - 5.0 g/dL LAB CHEMISTRY METHOD 10/12/2024 3:09 PM [facility] Total Bilirubin 0.7 0.0 - 1.4 mg/dL LAB CHEMISTRY METHOD 10/12/2024 3:09 PM [facility] Blood Venous blood specimen / Unknown Venipuncture / Unknown 10/12/2024 2:39 PM EST 10/12/2024 2:44 PM EST us James Mmcillan MD LAB BLOOD ORDERABLES Final Res ult [facility] [address] [place] [address], * Lipase (10/12/2024 2:39 PM EST) Lipase 19 13 - 75 unit/L LAB CHEMISTRY METHOD 10/12/2024 3:09 PM [facility] Blood Venous blood specimen / Unknown Venipuncture / Unknown 10/12/2024 2:39 PM EST 10/12/2024 2:44 PM EST us James Mcmillan MD LAB BLOOD ORDERABLES Final Res ult Performing Organization Address [facility]/ZIP Co de Phone Number [facility] [address] [place] [address], [place] [phone] * Magnesium (10/12/2024 2:39 PM EST) Magnesium 1.9 1.9 - 2.6 mg/dL LAB CHEMISTRY METHOD 10/12/2024 3:09 PM EST [facility] Blood Venous blood specimen / Unknown Venipuncture / Unknown 10/12/2024 2:39 PM EST 10/12/2024 2:44 PM EST us James Mcmillan MD LAB BLOOD ORDERABLES Final Res ult Performing Organization Address [facility] de Phone Number [facility] [address] [place] [address], [place] [phone] * Ethanol (10/12/2024 2:39 PM EST) [facility] Ethanol Level <3 0 - 10 mg/dL LAB CHEMISTRY METHOD 10/12/2024 3:09 PM EST [facility] Blood Venous blood specimen / Unknown Venipuncture / Unknown 10/12/2024 2:39 PM EST 10/12/2024 2:44 PM EST us James Mcmillan MD LAB BLOOD ORDERABLES Final Res ult Performing Organization Address [facility]/ZIP Co de Phone Number [facility] [address] [place] [address], [place] [phone] * Methadone, urine (10/12/2024 2:34 PM EST) Methadone Screen, Urine Negative Negative LAB CHEMISTRY METHOD 10/12/2024 3:34 PM EST [facility] Comment: Assay cutoff 300 ng/mL [...] Res ult Performing Organization Address [facility] de Phone Number [facility] [address] [place] [address], [place] [phone] * Phencyclidine, urine (10/12/2024 2:34 PM EST) PCP Scrn, Ur Negative Negative LAB CHEMISTRY METHOD 10/12/2024 3:34 PM EST [facility] Comment: Assay cutoff 25 ng/mL Semi-quantitative assay for screening purposes only. Unconfirmed screening result should not be used for non-medical purposes. *ALTERNATE METHOD CONFIRMATION DONE UPON REQUEST ONLY* Urine Urine specimen obtained by clean catch procedure / Unknown Non-blood Collection / Unknown 10/12/2024 2:34 PM EST 10/12/2024 2:43 PM EST Jamse Mcmillan MD LAB URINE ORDERABLES Final Res ult Performing Organization Address [facility] de Phone Number [facility] [address] [place] [address], [place] [phone] * Buprenorphine screen, urine (10/12/2024 2:34 PM EST) Buprenorphine Screen Urine Negative Negative LAB CHEMISTRY METHOD 10/12/2024 3:34 PM EST [facility] Urine Urine specimen obtained by clean catch procedure / Unknown Non-blood Collection / Unknown 10/12/2024 2:34 PM EST 10/12/2024 2:43 PM EST Narrative [facility] - 10/12/2024 3:34 PM EST Assay cutoff 5 ng/mL Semi-quantitative assay for screening purposes only. Unconfirmed screening result should not be used for non-medical purposes. *ALTERNATE METHOD CONFIRMATION DONE UPON REQUEST ONLY* us James Mcmillan MD LAB URINE ORDERABLES Final Res ult [facility] [address] [place] [address], * (ABNORMAL) Drug abuse screen 8a panel, urine (10/12/2024 2:34 PM EST) [facility] Amphetamine Screen, Ur Negative Negative LAB CHEMISTRY METHOD 5 3:54 PM EST [facility] Comment:Certain OTC medicati ons containing ephedrine, phenylephrine, pseudoephedrine and phenylpropanolamine can cause false positive results. Barbiturate Screen, Ur Negative Negative LAB CHEMISTRY METHOD 5 3:54 PM EST [facility] Benzodiazepine Screen, Ur Negative Negative LAB CHEMISTRY METHOD 5 3:54 PM EST [facility] Cocaine Screen, Ur Negative Negative LAB CHEMISTRY METHOD 5 3:54 PM EST [facility] Opiate Screen, Ur Positive(A ) Negative LAB CHEMISTRY METHOD 5 3:54 PM [facility] Cannabinoid (THC) Screen, Ur Positive(A ) Negative LAB CHEMISTRY METHOD 5 3:54 PM EST [facility] Comment:Specimens from patie nts taking pantoprazole sodium (Protonix) have been shown to produce false positive results. Oxycodone Screen, Ur Negative Negative LAB CHEMISTRY METHOD 5 3:54 PM EST [facility] Fentanyl, Ur Positive(A ) Negative LAB CHEMISTRY METHOD 5 3:54 PM [facility] Urine Urine specimen obtained by clean catch procedure / Unknown Non-blood Collection / Unknown 10/12/2024 2:34 PM EST 10/12/2024 2:43 PM EST Narrative [facility] [place] ([facility]) [facility] - 10/12/2024 3:54 PM EST [...] URINE ORDERABLES Final Res ult [facility] [place] ([facility]) [facility] [address] [place] [address], [place] [phone] documented in this encounter Visit Diagnoses Not on filedocumented in this encounter Care Teams Medical Assistant Float Relationship Specialty Start Date End Date Physician, No Pcp PCP - General 10/12/24 documented as of this encounter
--- OUTSIDE RECORDS SUMMARY | 2024-10-28 16:42 | XMS_ITS | Clinical Summary ---
Author Organization [employer] Address [address] [place] [address] [address] [place] [address] Care Team Providers Care Pencil Inspector Name Role Phone Unavailable Primary Care Provider [...]
--- OUTSIDE RECORDS SUMMARY | 2024-10-28 16:42 | XMS_ITS | Data Portability ---
Author Organization [facility], , [facility] Address [address] [place] [address] Care Team Providers Care Physical Therapy Coordinator Name Role Phone ROXANA SPENCER Primary Care Provider BAUTISTA Sanchez Primary Care Provider [phone] HUMZA ZAVALETA OTHER BENJAMIN BETTENCOURT OTHER [phone] Assessment Encounter Date Assessment Date Assessment LastModified by Organization Details LastModified Time 01/13/2015 01/13/2015 bilateral hallux abductovalgus deformity, onychauxis 1-5 toes left foot and 1-5 toes right foot causing pain [email or web address] Not available 01/13/2015 15:31:19 Plan of Treatment Reminders Order Date Submit Date Provider Last Modified By Organization Details Last Modified Time Details Appointments None recorded. 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 Surgeries None recorded. Imaging MAMMO, diagnostic, digital, bilateral - right breast pain at 9:00 position - pt has never had a mammo. Note: patient had seen pcp because she thought she felt a lump. Please palpate area with patient direction * 2015 016 [facility] (Imaging), [address], [place], [address], 6 09:58:50 ultrasound, breast - pain right breast at 9:00 position - ? cyst 2015 016 [facility] (Imaging), [address] [place], [address], 6 09:59:18 Medication Orders nortriptyli ne 25 mg capsule 2016 017 [facility]23 (YR Free 827), [address], [place], [id number], 7 16:14:54 Chantix Starting Month Box 0.5 mg (11)-1 mg (42) tablets in dose pack 2016 017 [facility] 95884 (YR Free 827), [address], [place], [id number], 7 16:14:54 ondansetron HCl 4 mg tablet 2015 016 [facility] #[id number], [address], [place], [id number], 6 04:03:27 ondansetron HCl 4 mg tablet 2015 016 [facility] #91587, [address], [place], [id number], 6 17:40:37 hydrocodone 5 mg-acetamin ophen 325 mg tablet 2014 015 [facility] #50351, [address], [place], [id number], 6 16:49:28 ondansetron HCl 4 mg tablet 2014 015 [facility] #61197, [address], [place], [id number], 5 17:52:00 Patient TargetsNo targets recorded. Patient Instructions Encounter Date Encounter Id Patient Instructions Last Modified By Organization Details Last Modified Time 01/13/2015 [id number] Reviewed previou s x-ray findings.? ? ? Dispensed prescription for custom orthotics.? ? ? Patient to return if symptoms persist. [email or web address] Not available 01/13/2015 15:31:19 10/03/2015 [id number] After a discussi on of treatment options, which included consideration of best practices, patient preferences, and the patient? s individual lifestyle and treatment goals, as well as consideration and attempted mitigation of any barriers to meeting the patient? s goals, the? ? ?above treatment plan and objectives were adopted: [email or web address] Not available 10/03/2015 17:40:37 02/13/2016 [id number] After a discussi on of treatment options, which included consideration of best practices, patient preferences, and the patient? s individual lifestyle and treatment goals, as well as consideration and attempted mitigation of any barriers to meeting the patient? s goals, the? ? 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 [...] WBC 9.8 K/uL 3.4-11 .2 Not Available [facility] (Outpatient) [address] [place] [address], [address], 05/29/2015 12:24:11 05/29/20 15 05/29/2015 CBC w/ auto diff RBC 5.70 M/uL 3.80-4 .80 high Not Available [facility] (Outpatient) [address] [place] [address], 18[address], 05/29/2015 12:24:11 05/29/20 15 05/29/2015 CBC w/ auto diff hemoglobin 17.3 g/dL 12.0-1 5.0 high Not Available [facility] (Outpatient) [address] [place] [address], [address], 05/29/2015 12:24:11 05/29/20 15 05/29/2015 CBC w/ auto diff hematocrit 48.8 % 36.0-4 6.0 high Not Available [facility] (Outpatient) [address] [place] [address], [address], 05/29/2015 12:24:11 05/29/20 15 05/29/2015 CBC w/ auto diff MCV 85.6 fL 79.0-9 8.0 Not Available [facility] (Outpatient) [address] [place] [address], [address], 05/29/2015 12:24:11 05/29/20 15 05/29/2015 CBC w/ auto diff MCH 30.4 pg 27.0-3 4.8 Not Available [facility] (Outpatient) [address] [place] [address], 47[address], 05/29/2015 12:24:11 05/29/20 15 05/29/2015 CBC w/ auto diff MCHC 35.5 g/dL 31.5-3 6.0 Not Available [facility] (Outpatient) [address] [place], [address], 05/29/2015 12:24:11 05/29/20 15 05/29/2015 CBC w/ auto diff RDW 13.4 % 10.8-1 4.6 Not Available [facility] (Outpatient) [address] [place] [address], [address]37[address], 05/29/2015 12:24:11 05/29/20 15 05/29/2015 CBC w/ auto diff MPV 10.8 fL 9.4-12 .4 Not Available [facility] (Outpatient) [address] [place] [address], 0[address], 05/29/2015 12:24:11 05/29/20 15 05/29/2015 CBC w/ auto diff platelet count 253 K/uL 130-40 0 Not Available [facility] ([facility]patient) [address] [place] [address], 798[address], 05/29/2015 12:24:11 05/29/20 15 05/29/2015 CBC w/ auto diff neutrophils 72.4 % 45.3-7 7.7 Not Available [facility] (Outpatient) [address] [place] [address], 48[address], 05/29/2015 12:24:11 05/29/20 15 05/29/2015 CBC w/ auto diff lymphocytes 21.5 % 12.3-3 9.7 Not Available [facility] ([facility]) [address] [place] [address], 775[address], 05/29/2015 12:24:11 05/29/20 15 05/29/2015 CBC w/ auto diff monocytes 5.2 % 4.1-12 .8 Not Available [facility] (Out[facility]) [address] [place], [address], 05/29/2015 12:24:11 05/29/20 15 05/29/2015 CBC w/ auto diff eosinophils 0.70 % 0.00-7 .20 Not Available [facility] (Outpatient) [address] [place], [address], 05/29/2015 12:24:11 05/29/20 15 05/29/2015 CBC w/ auto diff basophils 0.10 % 0.00-2 .80 Not Available [facility] (Outpatient) [address] [place], [address], 05/29/2015 12:24:11 05/29/20 15 05/29/2015 CBC w/ auto diff absolute neutrophil 7.1 K/uL 1.4-7. 7 Not Available [facility] (Outpatient) [address] [place], [address], 05/29/2015 12:24:11 05/29/20 15 05/29/2015 CBC w/ auto diff absolute lymphocyte 2.1 K/uL 0.6-3. 2 Not Available [facility] (Outpatient) [address] [place] [address], [address], 05/29/2015 12:24:11 05/29/20 15 05/29/2015 CBC w/ auto diff absolute monocytes 0.5 K/uL 0.1-0. 6 Not Available [facility] (Outpatient) [address] [place] [address], 16055, 05/29/2015 12:24:11 05/29/20 15 05/29/2015 CBC w/ auto diff absolute eosinophil 0.07 K/uL 0.01-0 .50 Not Available [facility] (Outpatient) [address] [place], [address], 05/29/2015 12:24:11 05/29/20 15 05/29/2015 CBC w/ auto diff absolute basophils 0.01 K/uL Not Available [facility] ([facility]patient) [address] [place], [address], 05/29/2015 12:24:11 05/29/20 15 05/29/2015 CBC w/ auto diff immature granulocyte 0.10 % 0.00-0 .50 Not Available [facility] ([facility]) [address] [place] [address], 89[address], 05/29/2015 12:24:11 05/29/20 15 05/29/2015 CBC w/ auto diff absolute immature granulocyte 0.01 K/uL 0.00-0 .03 Not Available [facility] ([facility]) [address] [place] [address], 967[address], 05/29/2015 12:24:11 05/29/20 15 05/29/2015 tropo ruthann T, serum troponin T <0.010 NG/mL 0.000- 0.030 Not Available [facility] ([facility]) [address] [place] [address], 45[address], 05/29/2015 12:47:11 05/29/20 15 05/29/2015 CMP, serum or plasm a glucose 92 mg/dL 70-99 Not Available [facility] ([facility]) [address] [place] [address], 25[address], 05/29/2015 12:48:11 05/29/20 15 05/29/2015 CMP, serum or plasm a BUN 12 mg/dL 6-19 Not Available [facility] ([facility]) [address] [place] [address], 6[address], 05/29/2015 12:48:11 05/29/20 15 05/29/2015 CMP, serum or plasm a creatinine 0.6 mg/dL 0.5-1. 5 Not Available [facility] ([facility]patient) [address] [place], [address], 05/29/2015 12:48:11 05/29/20 15 05/29/2015 CMP, serum [...] ages of 16 and 68. Not Available [facility] ([facility]) [address] [place] [address], [address], 05/29/2015 12:48:11 05/29/20 15 05/29/2015 CMP, serum or plasm a sodium 138 mEq/L 133-14 5 Not Available [facility] ([facility]) [address] [place] [address], 40[address], 05/29/2015 12:48:11 05/29/20 15 05/29/2015 CMP, serum or plasm a potassium 4.0 mEq/L 3.3-5. 1 Not Available [facility] ([facility]) [address] [place] [address], 36671, 05/29/2015 12:48:11 05/29/20 15 05/29/2015 CMP, serum or plasm a chloride 106 mEq/L 96-108 Not Available [facility] ([facility]) [address] [place] [address], 06179, 05/29/2015 12:48:11 05/29/20 15 05/29/2015 CMP, serum or plasm a CO2 21 mEq/L 21-35 Not Available [facility] ([facility]) [address] [place] [address], 33360, 05/29/2015 12:48:11 05/29/20 15 05/29/2015 CMP, serum or plasm a calcium 9.4 mg/dL 8.4-10 .3 Not Available [facility] ([facility]) [address] [place] [address], 18010, 05/29/2015 12:48:11 05/29/20 15 05/29/2015 CMP, serum or plasm a total bilirubin 0.8 mg/dL 0.0-1. 2 Not Available [facility] ([facility]patient) [address] [place], [address], 05/29/2015 12:48:11 05/29/20 15 05/29/2015 CMP, serum or plasm a alkaline phosphatase 57 U/L 39-117 Not Available [facility] ([facility]) [address] [place] [address], 788[address], 05/29/2015 12:48:11 05/29/20 15 05/29/2015 CMP, serum or plasm a AST (SGOT) 12 U/L 0-37 Not Available [facility] ([facility]) [address] [place] [address], 785[address], 05/29/2015 12:48:11 05/29/20 15 05/29/2015 CMP, serum or plasm a ALT (SGPT) 12 U/L 0-40 Not Available [facility] ([facility]) [address] [place] [address], 12967, 05/29/2015 12:48:11 05/29/20 15 05/29/2015 CMP, serum or plasm a total protein 7.2 g/dL 6.5-8. 0 Not Available [facility] ([facility]) [address] [place] [address], 56527, 05/29/2015 12:48:11 05/29/20 15 05/29/2015 CMP, serum or plasm a albumin 3.8 g/dL 3.9-4. 8 low Not Available [facility] ([facility]) [address] [place] [address], 11861, 05/29/2015 12:48:11 05/29/20 15 05/29/2015 CMP, serum or plasm a globulin 3.4 gm/dL 1.0-4. 8 Not Available [facility] ([facility]) [address] [place] [address], 75590, 05/29/2015 12:48:11 05/29/20 15 05/29/2015 CMP, serum or plasm a A/G ratio 1.1 gm/dL 1.0-4. 8 Not Available [facility] ([facility]) [address] [place] [address], 26186, 05/29/2015 12:48:11 05/29/20 15 05/29/2015 CMP, serum or plasm a anion gap 15 mEq/L 10- Not Available [facility] ([facility]) [address] [place] [address], 85157, 05/29/2015 12:48:11 06/25/20 15 06/25/2015 pregn stephen test, urine test, urine Negati ve negati ve Not Available [facility] ([facility]patient) [address] [place] [address], 88294, 06/25/2015 23:30:14 06/26/20 15 06/26/2015 CBC w/ auto diff WBC 8.0 K/uL 3.4-11 .2 Not Available [facility] ([facility]) [address] [place] [address], 59178, 06/26/2015 00:36:16 06/26/20 15 06/26/2015 CBC w/ auto diff RBC 5.06 M/uL 3.80-4 .80 high Not Available [facility] ([facility]) [address] [place] [address], 25962, 06/26/2015 00:36:16 06/26/20 15 06/26/2015 CBC w/ auto diff hemoglobin 15.3 g/dL 12.0-1 5.0 high Not Available [facility] ([facility]) [address] [place] [address], 91167, 06/26/2015 00:36:16 06/26/20 15 06/26/2015 CBC w/ auto diff hematocrit 43.8 % 36.0-4 6.0 Not Available [facility] ([facility]) [address] [place], [address], 06/26/2015 00:36:16 06/26/20 15 06/26/2015 CBC w/ auto diff MCV 86.6 fL 79.0-9 8.0 Not Available [facility] ([facility]patient) [address] [place], [address], 06/26/2015 00:36:16 06/26/20 15 06/26/2015 CBC w/ auto diff MCH 30.2 pg 27.0-3 4.8 Not Available [facility] ([facility]) [address] [place] [address], 44378, 06/26/2015 00:36:16 06/26/20 15 06/26/2015 CBC w/ auto diff MCHC 34.9 g/dL 31.5-3 6.0 Not Available [facility] ([facility]patient) [address] [place], [address], 06/26/2015 00:36:16 06/26/20 15 06/26/2015 CBC w/ auto diff RDW 13.6 % 10.8-1 4.6 Not Available [facility] ([facility]patient) [address] [place], [address], 06/26/2015 00:36:16 06/26/20 15 06/26/2015 CBC w/ auto diff MPV 10.2 fL 9.4-12 .4 Not Available [facility] ([facility]) [address] [place] [address], 41001, 06/26/2015 00:36:16 06/26/20 15 06/26/2015 CBC w/ auto diff platelet count 268 K/uL 130-40 0 Not Available [facility] ([facility]) [address] [place] [address], 67852, 06/26/2015 00:36:16 06/26/20 15 06/26/2015 CBC w/ auto diff neutrophils 54.0 % 45.3-7 7.7 Not Available [facility] ([facility]patient) [address] [place], [address], 06/26/2015 00:36:16 06/26/20 15 06/26/2015 CBC w/ auto diff lymphocytes 36.5 % 12.3-3 9.7 Not Available [facility] ([facility]patient) [address] [place], [address], 06/26/2015 00:36:16 06/26/20 15 06/26/2015 CBC w/ auto diff monocytes 5.6 % 4.1-12 .8 Not Available [facility] ([facility]) [address] [place] [address], 48363, 06/26/2015 00:36:16 06/26/20 15 06/26/2015 CBC w/ auto diff eosinophils 3.60 % 0.00-7 .20 Not Available [facility] ([facility]patient) [address] [place], [address], 06/26/2015 00:36:16 06/26/20 15 06/26/2015 CBC w/ auto diff basophils 0.20 % 0.00-2 .80 Not Available [facility] ([facility]) [address] [place] [address], 15874, 06/26/2015 00:36:16 06/26/20 15 06/26/2015 CBC w/ auto diff absolute neutrophil 4.3 K/uL 1.4-7. 7 Not Available [facility] ([facility]patient) [address] [place] [address], 72258, 06/26/2015 00:36:16 06/26/20 15 06/26/2015 CBC w/ auto diff absolute lymphocyte 2.9 K/uL 0.6-3. 2 Not Available [facility] ([facility]) [address] [place] [address], 83739, 06/26/2015 00:36:16 06/26/20 15 06/26/2015 CBC w/ auto diff absolute monocytes 0.4 K/uL 0.1-0. 6 Not Available [facility] ([facility]patient) [address] [place], [address], 06/26/2015 00:36:16 06/26/20 15 06/26/2015 CBC w/ auto diff absolute eosinophil 0.29 K/uL 0.01-0 .50 Not Available [facility] ([facility]patient) [address] [place], [address], 06/26/2015 00:36:16 06/26/20 15 06/26/2015 CBC w/ auto diff absolute basophils 0.02 K/uL Not Available [facility] ([facility]) [address] [place] [address], 45975, 06/26/2015 00:36:16 06/26/20 15 06/26/2015 CBC w/ auto diff immature granulocyte 0.10 % 0.00-0 .50 Not Available [facility] ([facility]) [address] [place] [address], 02898, 06/26/2015 00:36:16 06/26/20 15 06/26/2015 CBC w/ auto diff absolute immature granulocyte 0.01 K/uL 0.00-0 .03 Not Available [facility] ([facility]) [address] [place] [address], 98520, 06/26/2015 00:36:16 06/26/20 15 06/26/2015 CMP, serum or plasm a glucose 98 mg/dL 70-99 Not Available [facility] ([facility]) [address] [place] [address], 75692, 06/26/2015 04:06:16 06/26/20 15 06/26/2015 CMP, serum or plasm a BUN 8 mg/dL 6-19 Not Available [facility] ([facility]) [address] [place], [address], 06/26/2015 04:06:16 06/26/20 15 06/26/2015 CMP, serum or plasm a creatinine 0.6 mg/dL 0.5-1. 5 Not Available [facility] ([facility]) [address] [place], [address], 06/26/2015 04:06:16 06/26/20 15 06/26/2015 CMP, serum [...] ages of 16 and 68. Not Available [facility] ([facility]patient) [address] [place] [address], 93870, 06/26/2015 04:06:16 06/26/20 15 06/26/2015 CMP, serum or plasm a sodium 143 mEq/L 133-14 5 Not Available [facility] ([facility]) [address] [place] [address], 54592, 06/26/2015 04:06:16 06/26/20 15 06/26/2015 CMP, serum or plasm a potassium 3.3 mEq/L 3.3-5. 1 Not Available [facility] ([facility]patient) [address] [place], [address], 06/26/2015 04:06:16 06/26/20 15 06/26/2015 CMP, serum or plasm a chloride 103 mEq/L 96-108 Not Available [facility] ([facility]patient) [address] [place], [address], 06/26/2015 04:06:16 06/26/20 15 06/26/2015 CMP, serum or plasm a CO2 24 mEq/L 21-35 Not Available [facility] ([facility]patient) [address] [place], [address], 06/26/2015 04:06:16 06/26/20 15 06/26/2015 CMP, serum or plasm a calcium 8.6 mg/dL 8.4-10 .3 Not Available [facility] ([facility]) [address] [place], [address], 06/26/2015 04:06:16 06/26/20 15 06/26/2015 CMP, serum or plasm a total bilirubin 0.3 mg/dL 0.0-1. 2 Not Available [facility] ([facility]patient) [address] [place], [address], 06/26/2015 04:06:16 06/26/20 15 06/26/2015 CMP, serum or plasm a alkaline phosphatase 52 U/L 39-117 Not Available [facility] ([facility]) [address] [place] [address], 40879, 06/26/2015 04:06:16 06/26/20 15 06/26/2015 CMP, serum or plasm a AST (SGOT) 27 U/L 0-37 Not Available [facility] ([facility]) [address] [place] [address], 95292, 06/26/2015 04:06:16 06/26/20 15 06/26/2015 CMP, serum or plasm a ALT (SGPT) 22 U/L 0-40 Not Available [facility] ([facility]patient) [address] [place] [address], 24079, 06/26/2015 04:06:16 06/26/20 15 06/26/2015 CMP, serum or plasm a total protein 6.7 g/dL 6.5-8. 0 Not Available [facility] ([facility]patient) [address] [place] [address], 50297, 06/26/2015 04:06:16 06/26/20 15 06/26/2015 CMP, serum or plasm a albumin 4.0 g/dL 3.9-4. 8 Not Available [facility] ([facility]) [address] [place] [address], 33944, 06/26/2015 04:06:16 06/26/20 15 06/26/2015 CMP, serum or plasm a globulin 2.7 gm/dL 1.0-4. 8 Not Available [facility] (Outpatient) [address] [place] [address], 81106, 06/26/2015 04:06:16 06/26/20 15 06/26/2015 CMP, serum or plasm a A/G ratio 1.5 gm/dL 1.0-4. 8 Not Available [facility] ([facility]patient) [address] [place] [address], 85278, 06/26/2015 04:06:16 06/26/20 15 06/26/2015 CMP, serum or plasm a anion gap 19 mEq/L 10-20 Not Available [facility] ([facility]) [address] [place] [address], 92722, 06/26/2015 04:06:16 06/26/20 15 06/26/2015 jeannine ol, quant itati ve, serum or plasm a alcohol,ser/ plas. 111 mg/dL <10 Not Available [facility] ([facility]) [address] [place] [address], 32689, 06/26/2015 04:06:19 06/26/20 15 06/26/2015 salic ylate , quant itati ve, serum salicylate <0.3 mg/dL 2.8-20 .0 low Note: Resul ts less than 2.8 mg/dL are consi dered negat ish. Toxic : Great er than 30.0 mg/dL . Not Available [facility] ([facility]) [address] [place] [address], 92726, 06/26/2015 04:06:19 06/26/20 15 06/26/2015 aceta minop hen, serum acetaminophe n <15.0 ug/mL 15.0-3 0.0 Not Available [facility] ([facility]patient) [address] [place], [address], 06/26/2015 04:06:20 02/13/20 16 02/13/2016 POC UA glu UA NEGATI VE Not Available [address], [address], 02/13/2016 15:58:37 02/13/20 16 02/13/2016 POC UA clarity UA CLEAR Not Available [address], 78027, 02/13/2016 15:58:37 02/13/20 16 02/13/2016 POC UA uro UA 0.2000 Not Available [address], 00948, 02/13/2016 15:58:37 02/13/20 16 02/13/2016 POC UA ket UA NEGATI VE Not Available [address], 80648, 02/13/2016 15:58:37 02/13/20 16 02/13/2016 POC UA pro UA NEGATI VE Not Available [address], 82121, 02/13/2016 15:58:37 02/13/20 16 02/13/2016 POC UA nit UA NEGATI VE Not Available [address], 36108, 02/13/2016 15:58:37 02/13/20 16 02/13/2016 POC UA gustavo UA NEGATI VE Not Available [address], 98834, 02/13/2016 15:58:37 02/13/20 16 02/13/2016 POC UA pH UA 7.0000 Not Available [address], 40688, 02/13/2016 15:58:37 02/13/20 16 02/13/2016 POC UA SG UA 1.0250 Not Available [address], 75860, 02/13/2016 15:58:37 02/13/20 16 02/13/2016 POC UA color UA YELLOW Not Available [address], 58650, 02/13/2016 15:58:37 02/13/20 16 02/13/2016 POC UA blo UA NEGATI VE Not Available [address], 18699, 02/13/2016 15:58:37 02/13/20 16 02/13/2016 POC UA roseline UA NEGATI VE Not Available [address], 80035, 02/13/2016 15:58:37 02/13/20 16 02/14/2016 CBC WBC 10.6 K/? ? ?L 4.0-10 .0 high Not Available [address], 30025, 02/14/2016 11:09:23 02/13/20 16 02/14/2016 CBC RBC 5.60 M/? ? ?L 3.93-5 .22 high Not Available [address], 16170, 02/14/2016 11:09:23 02/13/20 16 02/14/2016 CBC HGB 16.4 g/dL 11.2-1 5.7 high Not Available [address], 39979, 02/14/2016 11:09:23 02/13/20 16 02/14/2016 CBC HCT 51.8 % 34.1-4 4.9 high Not Available [address], 02904, 02/14/2016 11:09:23 02/13/20 16 02/14/2016 CBC MCV 92.5 ? ? ?L 79.4-9 4.8 Not Available [address], 32554, 02/14/2016 11:09:23 02/13/20 16 02/14/2016 CBC MCH 29.3 pg 25.6-3 2.2 Not Available [address], 05559, 02/14/2016 11:09:23 02/13/20 16 02/14/2016 CBC MCHC 31.7 g/dL 32.2-3 5.5 low Not Available [address], 68701, 02/14/2016 11:09:23 02/13/20 16 02/14/2016 CBC plt 278.0 K/? ? ?L 182.0- 369.0 Not Available [address], 71401, 02/14/2016 11:09:23 02/13/20 16 02/14/2016 CBC MPV 12.3 9.4-12 .3 Not Available [address], 90088, 02/14/2016 11:09:23 02/13/20 16 02/14/2016 CBC neut% 68.1 % 34.0-7 1.1 Not Available [address], 71028, 02/14/2016 11:09:23 02/13/20 16 02/14/2016 CBC neut# 7.2 1.6-6. 1 high Not Available [address], 09510, 02/14/2016 11:09:23 02/13/20 16 02/14/2016 CBC lymph % 26.3 % 19.3-5 1.7 Not Available [address], 14255, 02/14/2016 11:09:23 02/13/20 16 02/14/2016 CBC lymph # 2.8 K/? ? ?L 1.2-3. 7 Not Available [address], 23366, 02/14/2016 11:09:23 02/13/20 16 02/14/2016 CBC mono% 3.9 % 4.7-12 .5 low Not Available [address], 96697, 02/14/2016 11:09:23 02/13/20 16 02/14/2016 CBC mono# 0.4 0.2-0. 6 Not Available [address], 56957, 02/14/2016 11:09:23 02/13/20 16 02/14/2016 CBC eo% 1.5 % 0.7-5. 8 Not Available [address], 28552, 02/14/2016 11:09:23 02/13/20 16 02/14/2016 CBC eo# 0.2 0.0-0. 4 Not Available [address], 17799, 02/14/2016 11:09:23 02/13/20 16 02/14/2016 CBC baso% 0.2 % 0.1-1. 2 Not Available [address], 69905, 02/14/2016 11:09:23 02/13/20 16 02/14/2016 CBC baso# 0.0 0.0-0. 1 Not Available [address], 35990, 02/14/2016 11:09:23 02/13/20 16 02/14/2016 CBC RDW-CV 14.2 % 11.7-1 4.4 Not Available [address], 10852, 02/14/2016 11:09:23 02/13/20 16 02/14/2016 TSH, serum or plasm a TSH 0.90 uIU/m L 0.50-6 .00 The [employer] Endoc rinol ogy and Ameri can Thyro id Assoc iatio n recom mend goal TSH value s betwe en 0.4-4 .0 mIU/m L. Not Available [address], [address], 02/14/2016 12:04:35 02/13/20 16 02/14/2016 CMP, serum or plasm a glucose 89 mg/dL 70-100 Not Available [address], [address], 02/14/2016 12:16:36 02/13/20 16 02/14/2016 CMP, serum or plasm a BUN 12 mg/dL 7-18 Not Available [address], [address], 02/14/2016 12:16:36 02/13/20 16 02/14/2016 CMP, serum or plasm a creatinine 0.7 mg/dL 0.8-1. 3 low Not Available [address], [address], 02/14/2016 12:16:36 02/13/20 16 02/14/2016 CMP, serum or plasm a B/C 17.1 ratio Not Available [address], [address], 02/14/2016 12:16:36 02/13/20 16 02/14/2016 CMP, serum or plasm a GFR -non 100.5 mL/mi n Recom eusebio d GFR by the Natio nal Kidne y Found ation >60 mL/mi n/1.7 3m2 - Milagros l <60 mL/mi n/1.7 3m2 - Chron ic Kidne y Disea se <15 mL/mi n/1.7 3m2 - Kidne y Failu re Not Available [address], [address], 02/14/2016 12:16:36 02/13/20 16 02/14/2016 CMP, serum or plasm a GFR - if 115.5 mL/mi n For Afric an Ameri can patie nts: Resul ts Multi plied by 1.21 Not Available [address], [address], 02/14/2016 12:16:36 02/13/20 16 02/14/2016 CMP, serum or plasm a sodium 142 mmol/ L 136-14 5 Not Available [address], [address], 02/14/2016 12:16:36 02/13/20 16 02/14/2016 CMP, serum or plasm a potassium 4.6 mmol/ L 3.5-5. 1 Not Available [address], [address], 02/14/2016 12:16:36 02/13/20 16 02/14/2016 CMP, serum or plasm a chloride 106 mmol/ L 96-107 Not Available [address], [address], 02/14/2016 12:16:36 02/13/20 16 02/14/2016 CMP, serum or plasm a anion gap 12.5 5.0-15 .0 Not Available [address], [address], 02/14/2016 12:16:36 02/13/20 16 02/14/2016 CMP, serum or plasm a CO2 24 mmol/ L 21-32 Not Available [address], [address], 02/14/2016 12:16:36 02/13/20 16 02/14/2016 CMP, serum or plasm a calcium 8.7 mg/dL 8.5-10 .3 Not Available [address], [address], 02/14/2016 12:16:36 02/13/20 16 02/14/2016 CMP, serum or plasm a total protein 6.6 g/dL 6.4-8. 2 Not Available [address], [address], 02/14/2016 12:16:36 02/13/20 16 02/14/2016 CMP, serum or plasm a albumin 3.6 g/dL 3.4-5. 0 Not Available [address], [address], 02/14/2016 12:16:36 02/13/20 16 02/14/2016 CMP, serum or plasm a globulin 3.0 g/dL Not Available [address], [address], 02/14/2016 12:16:36 02/13/20 16 02/14/2016 CMP, serum or plasm a A/G 1.2 ratio 0.8-2. 0 Not Available [address], [address], 02/14/2016 12:16:36 02/13/20 16 02/14/2016 CMP, serum or plasm a total bilirubin 0.40 mg/dL 0.00-1 .00 Not Available [address], [address], 02/14/2016 12:16:36 02/13/20 16 02/14/2016 CMP, serum or plasm a AST 22 U/L 15-37 Not Available [address], [address], 02/14/2016 12:16:36 02/13/20 16 02/14/2016 CMP, serum or plasm a ALT 34 U/L 30-65 Not Available [address], [address], 02/14/2016 12:16:36 02/13/20 16 02/14/2016 CMP, serum or plasm a alk. phos. 59 U/L 50-136 Not Available [address], [address], 02/14/2016 12:16:36 10/21/19 17 10/20/2016 CBC w/ auto diff WBC 8.8 K/uL 3.4-11 .2 Not Available [address], [address], 10/20/2016 14:25:51 10/21/19 17 10/20/2016 CBC w/ auto diff RBC 5.49 M/uL 3.80-4 .80 high Not Available [address], [address], 10/20/2016 14:25:51 10/21/19 17 10/20/2016 CBC w/ auto diff hemoglobin 16.6 g/dL 12.0-1 5.0 high Not Available [address], [address], 10/20/2016 14:25:51 10/21/19 17 10/20/2016 CBC w/ auto diff hematocrit 47.8 % 36.0-4 6.0 high Not Available [address], [address], 10/20/2016 14:25:51 10/21/19 17 10/20/2016 CBC w/ auto diff MCV 87.1 fL 79.0-9 8.0 Not Available [address], [address], 10/20/2016 14:25:51 10/21/19 17 10/20/2016 CBC w/ auto diff MCH 30.2 pg 27.0-3 4.8 Not Available [address], [address], 10/20/2016 14:25:51 10/21/19 17 10/20/2016 CBC w/ auto diff MCHC 34.7 g/dL 31.5-3 6.0 Not Available [address], [address], 10/20/2016 14:25:51 10/21/19 17 10/20/2016 CBC w/ auto diff RDW 13.0 % 10.8-1 4.6 Not Available [address], [address], 10/20/2016 14:25:51 10/21/19 17 10/20/2016 CBC w/ auto diff MPV 10.3 fL 9.4-12 .4 Not Available [address], [address], 10/20/2016 14:25:51 10/21/19 17 10/20/2016 CBC w/ auto diff platelet count 244 K/uL 130-40 0 Not Available [address], [address], 10/20/2016 14:25:51 10/21/19 17 10/20/2016 CBC w/ auto diff neutrophils 73.8 % 45.3-7 7.7 Not Available [address], [address], 10/20/2016 14:25:51 10/21/19 17 10/20/2016 CBC w/ auto diff lymphocytes 17.9 % 12.3-3 9.7 Not Available [address], [address], 10/20/2016 14:25:51 10/21/19 17 10/20/2016 CBC w/ auto diff monocytes 6.1 % 4.1-12 .8 Not Available [address], [address], 10/20/2016 14:25:51 10/21/19 17 10/20/2016 CBC w/ auto diff eosinophils 1.90 % 0.00-7 .20 Not Available [address], [address], 10/20/2016 14:25:51 10/21/19 17 10/20/2016 CBC w/ auto diff basophils 0.10 % 0.00-2 .80 Not Available [address], [address], 10/20/2016 14:25:51 10/21/19 17 10/20/2016 CBC w/ auto diff absolute neutrophil 6.5 K/uL 1.4-7. 7 Not Available [address], [address], 10/20/2016 14:25:51 10/21/19 17 10/20/2016 CBC w/ auto diff absolute lymphocyte 1.6 K/uL 0.6-3. 2 Not Available [address], [address], 10/20/2016 14:25:51 10/21/19 17 10/20/2016 CBC w/ auto diff absolute monocytes 0.5 K/uL 0.1-0. 6 Not Available [address], [address], 10/20/2016 14:25:51 10/21/19 17 10/20/2016 CBC w/ auto diff absolute eosinophil 0.17 K/uL 0.01-0 .50 Not Available [address], [address], 10/20/2016 14:25:51 10/21/19 17 10/20/2016 CBC w/ auto diff absolute basophils 0.01 K/uL Not Available [address], [address], 10/20/2016 14:25:51 10/21/19 17 10/20/2016 CBC w/ auto diff immature granulocyte 0.20 % 0.00-0 .50 Not Available [address], [address], 10/20/2016 14:25:51 10/21/19 17 10/20/2016 CBC w/ auto diff absolute immature granulocyte 0.02 K/uL 0.00-0 .03 Not Available [address], [address], 10/20/2016 14:25:51 10/21/19 17 10/20/2016 tropo ruthann T, serum troponin T <0.010 NG/mL 0.000- 0.030 Not Available [address], [address], 10/20/2016 15:00:11 10/21/19 17 10/20/2016 CMP, serum or plasm a glucose 105 mg/dL 70-99 high Not Available [address], [address], 10/20/2016 15:01:11 10/21/19 17 10/20/2016 CMP, serum or plasm a BUN 11 mg/dL 6-19 Not Available [address], [address], 10/20/2016 15:01:10/21/19 17 10/20/2016 CMP, serum or plasm a creatinine 0.7 mg/dL 0.5-1. 5 Not Available [address], [address], 10/20/2016 15:01:11 10/21/19 17 10/20/2016 CMP, serum [...] ages of 16 and 68. Not Available [address], [address], 10/20/2016 15:01:11 10/21/19 17 10/20/2016 CMP, serum or plasm a sodium 138 mEq/L 133-14 6 Not Available [address], [address], 10/20/2016 15:01:10/21/19 17 10/20/2016 CMP, serum or plasm a potassium 4.1 mEq/L 3.3-5. 2 Not Available [address], [address], 10/20/2016 15:01:11 10/21/19 17 10/20/2016 CMP, serum or plasm a chloride 102 mEq/L 96-108 Not Available [address], [address], 10/20/2016 15:01:11 10/21/19 17 10/20/2016 CMP, serum or plasm a CO2 23 mEq/L 21-35 Not Available [address], [address], 10/20/2016 15:01:11 10/21/19 17 10/20/2016 CMP, serum or plasm a calcium 8.8 mg/dL 8.4-10 .3 Not Available [address], [address], 10/20/2016 15:01:11 10/21/19 17 10/20/2016 CMP, serum or plasm a total bilirubin 0.5 mg/dL 0.0-1. 2 Not Available [address], [address], 10/20/2016 15:01:11 10/21/19 17 10/20/2016 CMP, serum or plasm a alkaline phosphatase 56 U/L 39-117 Not Available [address], [address], 10/20/2016 15:01:11 10/21/19 17 10/20/2016 CMP, serum or plasm a AST (SGOT) 20 U/L 0-37 Not Available [address], [address], 10/20/2016 15:01:11 10/21/19 17 10/20/2016 CMP, serum or plasm a ALT (SGPT) 18 U/L 0-40 Not Available [address], [address], 10/20/2016 15:01:11 10/21/19 17 10/20/2016 CMP, serum or plasm a total protein 6.3 g/dL 6.5-8. 0 low Not Available [address], [address], 10/20/2016 15:01:11 10/21/19 17 10/20/2016 CMP, serum or plasm a albumin 3.6 g/dL 3.9-4. 8 low Not Available [address], [address], 10/20/2016 15:01:11 10/21/19 17 10/20/2016 CMP, serum or plasm a globulin 2.7 gm/dL 1.0-4. 8 Not Available [address], [address], 10/20/2016 15:01:11 10/21/19 17 10/20/2016 CMP, serum or plasm a A/G ratio 1.3 gm/dL 1.0-4. 8 Not Available [address], [address], 10/20/2016 15:01:11 10/21/19 17 10/20/2016 CMP, serum or plasm a anion gap 17 mEq/L 10-20 Not Available [address], [address], 10/20/2016 15:01:11 10/21/19 17 10/20/2016 C react ish prote in, QN, serum or plasm a C-reactive protein 1.25 mg/dL 0.00-0 .50 high Not Available [address], [address], 10/20/2016 15:01:12 10/21/19 17 10/20/2016 BNP (B-ty pe natri ureti c pepti de), serum or plasm a pro-BNP 80 pg/mL 0-125 Not Available [address], [address], 10/20/2016 15:01:13 10/21/19 17 10/20/2016 wet mount yeast cells None Seen none seen Not Available [address], [address], 10/20/2016 17:47:20 10/21/19 17 10/20/2016 wet mount trichomonas None Seen none seen Not Available [address], [address], 10/20/2016 17:47:20 10/21/19 17 10/20/2016 wet mount clue cells None Seen none seen Not Available [address], [address], 10/20/2016 17:47:20 10/21/19 17 10/20/2016 chlam ydia + gonor blaise DNA panel , unspe cifie d speci men chlamydial/g onorrhoeal detection by PCR Not Available [address], [address], 10/22/2016 14:33:43 10/21/19 17 10/20/2016 chlam ydia + gonor blaise DNA panel , unspe cifie d speci men chlamydia trachomatis detection by PCR Not Detect ed Not Available [address], [address], 10/22/2016 14:33:43 10/21/19 17 10/20/2016 chlam ydia + gonor blaise DNA panel , unspe cifie d speci men neisseria gonorrhoeae detection by PCR Not Detect ed Not Available [address], [address], 10/22/2016 14:33:43 11/21/19 17 11/20/2016 pregn stephen test, urine test, urine Negati ve negati ve Not Available [address], [address], 11/20/2016 19:43:38 11/21/19 17 11/20/2016 urina lysis , dipst ick, refle x micro color Yellow Not Available [address], [address], 11/20/2016 19:43:39 11/21/19 17 11/20/2016 urina lysis , dipst ick, refle x micro appearance Clear Not Available [address], [address], 11/20/2016 19:43:39 11/21/19 17 11/20/2016 urina lysis , dipst ick, refle x micro specific gravity >=1.03 0 1.005- 1.030 Not Available [address], [address], 11/20/2016 19:43:39 11/21/19 17 11/20/2016 urina lysis , dipst ick, refle x micro pH 5.0 5.0-7. 0 Not Available [address], [address], 11/20/2016 19:43:39 11/21/19 17 11/20/2016 urina lysis , dipst ick, refle x micro protein Negati ve negati ve Not Available [address], [address], 11/20/2016 19:43:39 11/21/19 17 11/20/2016 urina lysis , dipst ick, refle x micro glucose Negati ve negati ve Not Available [address], [address], 11/20/2016 19:43:39 11/21/19 17 11/20/2016 urina lysis , dipst ick, refle x micro ketones Negati ve negati ve Not Available [address], [address], 11/20/2016 19:43:39 11/21/19 17 11/20/2016 urina lysis , dipst ick, refle x micro bilirubin Negati ve negati ve Not Available [address], [address], 11/20/2016 19:43:39 11/21/19 17 11/20/2016 urina lysis , dipst ick, refle x micro blood Negati ve negati ve Not Available [address], [address], 11/20/2016 19:43:39 11/21/19 17 11/20/2016 urina lysis , dipst ick, refle x micro nitrite Negati ve negati ve Not Available [address], [address], 11/20/2016 19:43:39 11/21/19 17 11/20/2016 urina lysis , dipst ick, refle x micro leukocyte esterase Negati ve negati ve Not Available [address], [address], 11/20/2016 19:43:39 11/21/19 17 11/20/2016 drug scree n, urine canna., urine scr Positi ve abnormal Resul ts check ed by repea t jadon sis. Cutof f: 50 ng/mL Not Available [address], [address], 11/20/2016 20:16:56 11/21/19 17 11/20/2016 drug scree n, urine cocaine,urin escreen None Detect ed Cutof f: 300 ng/mL Not Available [address], [address], 11/20/2016 20:16:56 11/21/19 17 11/20/2016 drug scree n, urine grupo,urine Positi ve abnormal Resul ts check ed by repea t jadon sis. Cutof f: 200 ng/mL Not Available [address], [address], 11/20/2016 20:16:56 11/21/19 17 11/20/2016 drug scree n, urine M-amphetamin es, urine screen None Detect ed Cutof f: 1000 ng/mL Not Available [address], [address], 11/20/2016 20:16:56 11/21/19 17 11/20/2016 drug scree n, urine methadone, urine screen None Detect ed Cutof f: 300 ng/mL Not Available [address], [place], [address], 11/20/2016 20:16:56 11/21/19 17 11/20/2016 drug scree n, urine opiates, urine screen None Detect ed Cutof f: 300 ng/mL Not Available [address], [place], [address], 11/20/2016 20:16:56 11/21/19 17 11/20/2016 drug scree n, urine phencyclidin e, urine SC None Detect ed Cutof f: 25 ng/mL Not Available [address], [address], 11/20/2016 20:16:56 11/21/19 17 11/20/2016 drug scree n, urine barbiturates , urine None Detect ed Cutof f: 200 ng/mL INTER PRETA TION FOR TOXIC OLOGY PANEL : Thes e resul ts are uncon firme d and shoul d be used for Medic al Treat ment purpo ses only. Not Available [address], [place], [address], 11/20/2016 20:16:56 11/21/19 17 11/20/2016 drug scree n, urine oxycodone, urine qualitative None Detect ed Cutof f: 300 ng/ml Not Available [address], [address], 11/20/2016 20:16:56 10/23/19 15 10/21/2014 x-ray , foot No observ ation record ed. [facility] [address], [address], 10/22/2014 16:05:33 05/29/20 15 05/29/2015 x-ray , chest No observ ation [facility] ed. [facility] [address] [place], [address], 05/30/2015 09:00:12 10/21/19 17 10/20/2016 XR, chest [...] logist : JAMES SOLER Transc ribed by: GigaCrete angie, PS360 Result s 2016 02:53 PM Interp reted By: MIGUEL RAMIREZ MD Electr onical ly Signed By: Electr onical ly Signed by: MIGUEL BANDA on 10/21/19 17 3:01 PM Techno logist : JAMES SOLER Transc ribed by: [employer] angie, PS360 Result s 2016 02:53 PM Electr onical ly Signed By: MIGUEL RAMIREZ MD 2016 03:01 PM [facility] [address] [place], [address], 10/21/2016 11:57:51 Result Notes None recorded. Problems Name Problem SNOMED Code Status Onset Date Resolution Date Notes Provider Name and Address Organization Details Recorded Time Tinkvng pedis 6047214 Active Not Available [facility] 3 03:15:01 Obesity 135410719 Active Not Available [facility] 3 03:15:01 Dental caries 35000247 Active Tamar Reese MD [address] [place] [address], [address] , [facility] 4 16:31:21 Tobacco user 910399077 Active Tamar Reees MD [address] [place] [address], [address] , [facility] 4 16:31:21 Adjustment disorder 33362252 Active Not Available [facility] 3 03:15:01 Disorder of teeth AND/OR supporting structures 615665848 Completed 12/23/2013 Tamar Reese MD [address] [place] [address], [address] , [facility] 4 15:53:16 Glucose level outside reference range 487499879 Active Not Available [facility] 3 03:15:01 Migraine 42907152 Completed 12/23/2013 gone Tamar Reese MD [address] [place] [address], [address] , [facility] 4 15:53:39 Lipoma 17209002 Active Bautista Martini NP [address] [place] [address], [address] , [facility] 5 17:52:00 Mass of body structure 805853858 Active Bautista Martini NP [address] [place] [address], [address] , [facility] 4 17:47:20 Pain in lower limb 27591560 Active Kevin Hayes DPM [address] [place] [address], [address] , [facility] 5 15:31:19 Opioid dependence in remission 240977655 Active 2016 Bautista Martini NP [address] [place] [address], [address] , [facility] 7 17:43:47 Problem Notes None recorded. Procedures Surgical History Date Name Laterality Status Provider Name and Address Organization Details Recorded Time 7 Smoking cessation counseling completed Paulette Gillis MA [facility] 02/18/2017 15:52:36 7 Carbon Monoxide Testing completed Paulette Gillis MA [facility] 02/18/2017 15:52:37 6 POC Urinalysis Testing completed JAKI Marcano [facility] 02/13/2016 15:57:25 4 Smoking cessation counseling completed Izabel Weeks [facility] 12/23/2013 15:34:15 4 Smoking cessation counseling completed Izabel Weeks [facility] 10/21/2013 15:32:52 3 Smoking cessation counseling completed Andreina Issa MA [facility] 08/20/2012 15:37:12 1 Wound Care completed Yu Zarate RN [facility] 09/15/2010 16:31:01 Imaging Results Imaging Date Name Status LastModified by Organiz [email or web address] Details LastModified Time 10/21/2014 x-ray, foot completed [address], [address], 10/22/2014 16:05:33 05/29/2015 x-ray, chest completed [facility] [address] [place] [address], [address], 05/30/2015 09:00:12 10/20/2016 XR, chest, 2 view completed [facility] [address] [place] [address], [address], 10/21/2016 11:57:51 Procedure Notes None recorded. Medical [...] Address Organization Details Last Updated DateTime 7 55219.0 7 g 36.5 kg/m2 158.12 cm 98.4 [degF] 112 mm[Hg] 68 mm[Hg] Paulette Gillis MA [facility] 7 15:54:04 Date Recorded Body height Body mass index (BMI) Body weight Systolic blood pressure Diastolic blood pressure Provider Name and Address Organization Details Last Updated DateTime 11/22/2014 159.385 cm 35.8 kg/m2 55795.27 0185 g 120 mm[Hg] 70 mm[Hg] Ernestina aldrich MA [facility] 5 16:49:57 Date Recorded Body height Body weight Body mass index (BMI) Heart rate Systolic blood pressure Diastolic blood pressure Provider Name and Address Organization Details Last Updated DateTime 5 158.115 cm 77828.4 74 g 36.3 kg/m2 80 /min 120 mm[Hg] 80 mm[Hg] Elisabeth Jerez [facility] 5 14:22:22 Date Recorded Body height Heart rate Systolic blood pressure Diastolic blood pressure Provider Name and Address Organization Details Last Updated DateTime 10/03/2015 158.115 cm 60 /min 120 mm[Hg] 84 mm[Hg] Ernestina mitchell [facility] 10/03/2015 16:45:49 Date Recorded Body height Heart rate Body temperature Systolic blood pressure Diastolic blood pressure Provider Name and Address Organization Details Last Updated DateTime 02/13/2016 158.115 cm 60 /min 98.2 [degF] 110 mm[Hg] 82 mm[Hg] Corinnaabhishek House [facility] 6 15:30:44 Social History Question Answer Notes LastModified by Organizat ion Details LastModified Time Tobacco Smoking Status Current Every Day Smoker 1/2pack per day KO Boucher, [facility] 11/29/2011 14:40:04 Do You Have An Advance Directive? No Declines Form [email or web address] Information not available 08/25/2010 What Is Your Level Of Alcohol Consumption? Occasional BF Is Alcoholic, She Avoids Drinking [email or web address] Information not available 12/23/2013 Do You Wear [...] Td(adult) unspecified formulation 0 completed Not Available [facility] 07/04/2011 05:22:52 Past Encounters Encounter ID Performer Location Encounter Start Date Encounter Closed Date Diagnosis/Indication Diagnosis SNOMED-CT Code Diagnosis ICD10 Code Diagnosis Note [id number] , [facility], [address] [place] [address] 08/25/2010 11:09:53 08/29/2010 11:09:48 [id number] [facility], [address] [place] [id number] 09/15/2010 15:30:06 09/18/2010 14:25:45 [id number] [facility], [address] [place] [address] 11/29/2011 14:30:15 12/03/2011 10:36:02 [id number] Radiology , [facility] [address] [place] [phone] 11/29/2011 15:08:55 11/29/2011 15:51:18 [id number] Radiology , [facility] [address] [place] [id number] 11/29/2011 15:09:25 11/29/2011 15:51:24 [id number] [facility], [address] [place] [address] 12/17/2011 13:32:40 12/19/2011 08:29:09 [id number] Marisabel Carson [facility], [address] [place] [address] 08/20/2012 15:27:44 08/20/2012 16:20:17 [id number] Tamar Reese MD [facility], [address] [place] [address] 12/31/2012 14:28:53 12/31/2012 15:24:05 [id number] [facility], [address] [place] [address] 01/30/2013 14:40:09 02/02/2013 13:31:13 [id number] Izabel Weeks [facility], [address] [place] [address] 02/18/2013 16:35:29 02/20/2013 14:55:07 [id number] Izabel Weeks [facility], [address] [place] [address] 03/26/2013 14:54:46 03/26/2013 16:23:36 Dental caries 79111724 Severe dental pain for about 20 years, [...] s without letting us know. Muscular headache 199750479 Sig tension noted in neck and paraspinal muscles; gentle massage in clinic helped relieve pain slightly. Recommend massage - low cost options provided. [id number] Tamar Reese MD , [facility], [address] [place] [address] 10/21/2013 14:54:11 10/22/2013 15:08:23 Tobacco user 977695519 Interested in quitting, but inadequate time to devise a plan at this encounter - return for this. Migraine 69951720 discus sed trial of imitrex, full PARQ held and patient wishes to try this. Return to see me in 3 weeks to follow up on this. Patient requested opiates for this but discussed that there are better medication s for migraines and I would prefer a trial of triptans. Lipoma 81369163 Discusse d likely lipoma on R lateral thigh; no sign of infection or abscess. Start with u/s for eval (she will call [facility] to set up) and referred to consult with general surgery re: risks and benefits of biopsy and/or full removal. Dental caries 72968066 S tates only friend who could take her to have teeth extracted lost his license, so she did not go through with extraction . States tooth pain has resolved. [id number] Elisabeth STRICKLAND, [facility], [address] [place] [address] 12/23/2013 15:01:25 12/24/2013 09:28:17 Adult health examination 270955341 see Risk Assessment and Lifestyle Change Counseling section above UTD TDAP, Pap Mammogram, fbs ordred Add vitamin D, consider the med diet Counseling 779810382 Screening mammography 62228083 Mass of keaton dy structure 262157579 present x 14 years but getting larger over the last few weeks, painful. Did not go to see general surgery . Discussed MRI next step in workup to ensure no sarcoma. F/u with me next week. Dental caries 39625614 p lans to have extraction at [facility] Muscular headache 493666303 resolved Tobacco user [id number] n ot interested in quitting at the present [id number] KO Deleon, [facility], [address] [place] [address] 01/08/2014 11:44:23 01/08/2014 12:27:08 Pain in lower limb 40689215 Reviewed previous notes and results from u/s. 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 If MRI is unrevealin g, could consider surgical consult (looks like was referred in past but no appt every made) but would stop the narcotics if not real cause can be found for her sx. Lipoma 05105202 Periapical abscess without sinus tract 253993680 very poor dentition with broken stubs of teeth noted - states found dentist who will pull these for her and enc. to f/u with that in the near future Fatigue 65860868 Pt c/o fatigue, wt gain. Will return for some labs prior to f/u visit in 1 week. [id number] KO Deleon, [facility], [address] [place] [address] 01/26/2014 15:49:01 01/26/2014 16:11:47 Hip pain 42940590 Will get hip X-ray - ? if [...] do not want to refill this again. [id number] MARCO A, [facility], [address] [place] [address] 07/28/2014 16:43:12 07/28/2014 17:17:11 Pain in thumb 014646171 pain at base of left thumb. pt requesting pain medication for this. distributi on of pain consistent with radial nerve. will image as focal tenderness is noted. advised brace at night, and follow up to consider physical therapy or gabapentin or amitryptil ine for pain. Migraine 85165025 pt not es severe migraines every three - 4 months. pt has tried percocet. but last time percocet did not help. percocet did not help. pt states she has pounding pain. pt does note aura. will trial sumatripta n. [id number] , [facility], [address] [place] [address] 11/22/2014 16:39:11 11/22/2014 17:10:30 Migraine 86127552 states sumatripta n works very well - uses the Zofran prn for nausea as well - refilled as below Foot pain [id number] Pt wi th pain top of foot - ? cause. Xray in ER was neg. Referred to podiatry. Pt to schedule. Small amt vicodin given as below to use sparingly. Continue the naproxen, comf. footwear. F/U if not gradually improving or sx worsen. Lipoma [id number] Pt concerned about fat deposition right lat. hip - had seen surgeon for this in the past but feels this has gotten larger, more painful. Dr. Bettencourt felt surgery would not be beneficial for her sx. Wants another opinion. Referred to Dr. Zavaleta . Pt to schedule. [id number] Latrice Flynn [facility]iat[facility], [facility] [address] [place] [address] 01/13/2015 14:10:28 01/26/2015 14:19:09 Acquired hallux valgus [id number] Disorder of nail 07242108 Pain in lower limb [id number] Bautista Martini NP , [facility], [address] [place] [address] 10/03/2015 16:28:44 10/03/2015 17:06:09 Migraine 04440675 G43.909 states sumatripta n works very well - uses the Zofran prn for nausea as well - refilled as below Foot pain 79894594 M79.6 73 referred back to podiatry - enc. wide comf. footwear - reassured - no need for narcotics which should be used only for more severe pain sx (i.e. fractures, surgery). Continue the ibuprofen - can take it with tylenol prn if not effective. Breast lump [id number] N63 I don't feel any discrete mass but she is tender on the right at 9:00 position - will get mammo with u/s as below and f/u with results when available. Enc. to schedule PHA on her way out today [id number] KEARA De Anda, [facility], [address] [place] [address] 02/13/2016 15:21:20 02/13/2016 16:19:11 Migraine 40154449 G43.909 Uses zofran sparingly for her migraines - refilled as below Fatigue 52844522 R53.83 Will check some labs today and f/u with results when available Increased frequency of urination [id number] R35.0 Feels having increased frequency, no burning/ur gency but some change in stream. Urine dip obtained and wnl. Discussed no s/s infection. F/U prn worsening sx. Substance abuse [id number] F19.10 was buying oxycodone on the streets and had been seen here numerous times with drug seeking behaviors. + cocaine as well noted during ER visit in past. 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 Enc. cont. f/u with suboxone clinic. 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 f/u with therapist and med prescriber as planned - denies any suicidal ideation. States feeling much better now that is on suboxone Tobacco de pendence syndrome 02066860 F17.290 Doesn't want nicotine replacemen t products - scare her. Interested in chantix. Discussed potential adverse effects including vivid dreams/sle ep disturbanc e. She will discuss this with her psych. prescriber and f/u if desires a rx. [id number] KEARA De Anda, [facility], [address] [place] [address] 02/18/2017 15:41:42 02/18/2017 16:23:40 Cigarette smoker 40965389 F17.210 Discussed and enc smoking cessation. Willing to try chantix again but might just stick with lower dose (1 mg/day, not BID). F/u when needing refills or if needing additional help with smoking cessation. Tobacco user [id number] Z 72.0 Migraine 58428374 G43.90 9 Has imitrex to use but having alot more h/a's recently - daily. Will try nortriptyl ine for migraine prevention . Give this a few weeks. If not helping, f/u here. Enc to schedule PHA for the near future Common cold 15610373 J00 Reassured. QS neg. Sx c/w viral URI. Enc. adequate fluids/res t and otc analgesics prn. F/u for worsening sx (i.e. fever, chest pain, dyspnea). Opioid dep endence in remission [id number] F11.21 Enc cont. f/u with suboxone clinic. Health Concerns Section Related Observation LastModified by Organization Detai ls LastModified Time None Recorded Concern Status LastModified by Organization Details LastModified Time None Recorded Advance Directives Directive N: declines form Payers Encounter Date Sequence Insurance Name Policy Number Policy Blevins Covered Member ID Blevins Member ID Guarantor Name 11/22/2014 1 [facility] [employer] [facility] PL[facility] (MEDICAID HMO) [id number] Marielos Peralta [id number] Marielos Baezaowanselmo 01/13/2015 1 [facility] [employer] [facility] PLAN (MEDICAID HMO) [id number] Marielos A Osmanifanowich [id number] Marielos Baezaowich 10/03/2015 1 [facility] [employer] [facility] PLAN (MEDICAID HMO) [id number] Marielos A Stefanowich [id number] Marielos Rodriguez Stefanowich 02/13/2016 1 [facility] [employer] [facility] PLAN (MEDICAID HMO) [id number] Marielos A Stefanowich [id number] Marielos Keenfanowich 02/18/2017 1 [facility] PLAN (MEDICAID O) [id number] Marielos A Osmanifanowich [id number] Marielos Peralta Notes Date Note Type Note Provider Name and Address Organization Details Recorded Time 11/22/2014 text/html Seen in ER 1 mon th ago for left foot pain/swelling. Xray was neg. Given naproxen which she is still taking, vicodin which is gone now. Asking for more vicodin. Has tried ice/heat. Nothing helps. Only able to wear slippers. Bautista Martini NP [address] [place], [address], [facility] 11/22/2014 17:52:12 01/13/2015 text/html HPI Patient presents [...] swelling or drainage.? Kevin Hayes DPM [address] [place], [address], [facility] 01/13/2015 15:31:30 10/03/2015 text/html Has bruise right [...] pain without effect Bautista Martini NP [address] [place], [address], [facility] 10/03/2015 17:40:38 02/13/2016 text/html Here for f/u. No w on suboxone - gets at [facility]. Was buying drugs on the street - [...] stopped years ago. Bautista Martini NP [address] [place], [address], [facility] 02/13/2016 16:37:27 02/18/2017 text/html a/vmg-smoking [id number] bypatient.Notes:smok ing more since dad got sick [...] iced coffee (2/week). Lots stress. Dad in [place] with multiple strokes - not eating/drinking. H/a's so severe had to take an ambulance to the ER recently. ST started this a.m. Sees Dr. Richter for her psych meds. Drinking well. Throat hurts when coughing. Ayden feverish 2 nights ago - 99..9 Bautista Martini NP [address] [place], [address], [facility] 02/18/2017 17:44:33 OBGyn Episode No OBEpisode recorded.
--- OUTSIDE RECORDS SUMMARY | 2024-10-28 16:42 | XMS_ITS | Clinical Summary ---
Author Organization [facility] Address [address] [place] [address] Phone Care Team Providers Care Business English Instructor Name Role Phone Physician, No Pcp Primary Care Provider Unavaila ble Allergies No known active allergies Medications No known medications Encounters Date Type Department Care Team Description 10/12/2024 1:59 PM EST - 10/12/2024 6:22 PM EST Emergency [facility] Emergency [address] [place] [address] Discharge Disposition: Left Against Medical [...] K/mcL LAB HEMETOLOGY METHOD 10/12/2024 2:47 PM [facility] RBC 5.80(H) 3.80 - 4.80 M/mcL LAB HEMETOLOGY METHOD 10/12/2024 2:47 PM [facility] Hemoglobin 16.6(H) 11.5 - 16.0 g/dL LAB HEMETOLOGY METHOD 10/12/2024 2:47 PM [facility] Hematocrit 50.7(H) 35.0 - 47.0 % LAB HEMETOLOGY METHOD 10/12/2024 2:47 PM [facility] MCV 86.8 79.0 - 98.0 FL LAB HEMETOLOGY METHOD 10/12/2024 2:47 PM [facility] MCH 28.4 27.0 - 32.0 pcg LAB HEMETOLOGY METHOD 10/12/2024 2:47 PM [facility] MCHC 32.7 32.0 - 37.0 g/dL LAB HEMETOLOGY METHOD 10/12/2024 2:47 PM [facility] RDW 13.2 11.0 - 15.0 % LAB HEMETOLOGY METHOD 10/12/2024 2:47 PM [facility] Platelets 311 130 - 400 K/mcL LAB HEMETOLOGY METHOD 10/12/2024 2:47 PM [facility] MPV 9.9 7.0 - 11.0 FL LAB HEMETOLOGY METHOD 10/12/2024 2:47 PM [facility] NRBC 0.0 <1.0 % LAB HEMETOLOGY METHOD 10/12/2024 2:47 PM [facility] NRBC Absolute 0.00 <0.10 K/mcL LAB HEMETOLOGY METHOD 10/12/2024 2:47 PM [facility] Neutrophils Relative 81.5 % LAB HEMETOLOGY METHOD 10/12/2024 2:47 PM [facility] Lymphocytes Relative 14.8 % LAB HEMETOLOGY METHOD 10/12/2024 2:47 PM [facility] Monocytes Relative 3.0 % LAB HEMETOLOGY METHOD 10/12/2024 2:47 PM [facility] Eosinophils Relative 0.1 % LAB HEMETOLOGY METHOD 10/12/2024 2:47 PM [facility] Basophils Relative 0.2 % LAB HEMETOLOGY METHOD 10/12/2024 2:47 PM [facility] Immature Granulocytes Relative 0.4 % LAB HEMETOLOGY METHOD 10/12/2024 2:47 PM [facility] Neutrophils Absolute 6.95 1.50 - 7.00 K/mcL LAB HEMETOLOGY METHOD 10/12/2024 2:47 PM [facility] Lymphocytes Absolute 1.26 1.00 - 5.00 K/mcL LAB HEMETOLOGY METHOD 10/12/2024 2:47 PM [facility] Monocytes Absolute 0.26 0.20 - 1.00 K/mcL LAB HEMETOLOGY METHOD 10/12/2024 2:47 PM EST [facility] Eosinophils Absolute 0.01 0.00 - 0.50 K/[facility] LAB HEMETOLOGY METHOD 10/12/2024 2:47 PM EST [facility] Basophils Absolute 0.02 0.00 - 0.20 K/[facility] LAB HEMETOLOGY METHOD 10/12/2024 2:47 PM EST [facility] Immature Granulocytes Absolute 0.03 0.00 - 0.03 K/[facility] LAB HEMETOLOGY METHOD 10/12/2024 2:47 PM EST [facility] Blood Venous blood specimen / Unknown Venipuncture / Unknown 10/12/2024 2:39 PM EST 10/12/2024 2:44 PM EST us James Mcmillan MD LAB BLOOD ORDERABLES Final Res ult [facility] [address] [place] [address], [place] [phone] * Magnesium (10/12/2024 2:39 PM EST) Pathologist [facility] Magnesium 1.9 1.9 - 2.6 mg/dL LAB CHEMISTRY METHOD 10/12/2024 3:09 PM EST [facility] Blood Venous blood specimen / Unknown Venipuncture / Unknown 10/12/2024 2:39 PM EST 10/12/2024 2:44 PM EST us James Mcmillan MD LAB BLOOD ORDERABLES Final Res ult [facility] [address] [place] [address], [place] [phone] * Lipase (10/12/2024 2:39 PM EST) Lipase 19 13 - 75 unit/L LAB CHEMISTRY METHOD 10/12/2024 3:09 PM EST [facility] Blood Venous blood specimen / Unknown Venipuncture / Unknown 10/12/2024 2:39 PM EST 10/12/2024 2:44 PM EST us James Mcmillan MD LAB BLOOD ORDERABLES Final Res ult Performing Organization Address City/[facility]/ZIP Co de Phone Number [facility] [address] [place] [address], [place] [phone] * Ethanol (10/12/2024 2:39 PM EST) Pathologist [facility] Ethanol Level <3 0 - 10 mg/dL LAB CHEMISTRY METHOD 10/12/2024 3:09 PM [facility] Blood Venous blood specimen / Unknown Venipuncture / Unknown 10/12/2024 2:39 PM EST 10/12/2024 2:44 PM EST us James Mcmillan MD LAB BLOOD ORDERABLES Final Res ult Performing Organization Address [facility]/ZIP Co de Phone Number [facility] [address] [place] [address], [place] [phone] * (ABNORMAL) Comprehensive metabolic panel (10/12/2024 2:39 PM EST) Pathologist [facility] Sodium 141 133 - 145 mmol/L LAB CHEMISTRY METHOD 10/12/2024 3:09 PM [facility] Potassium 4.1 3.5 - 5.5 mmol/L LAB CHEMISTRY METHOD 10/12/2024 3:09 PM [facility] Chloride 112(H) 96 - 110 mmol/L LAB CHEMISTRY METHOD 10/12/2024 3:09 PM [facility] CO2 22 21 - 32 mmol/L LAB CHEMISTRY METHOD 10/12/2024 3:09 PM [facility] Anion Gap 7 3 - 11 LAB CHEMISTRY METHOD 10/12/2024 3:09 PM [facility] Glucose 123(H) 70 - 100 mg/dL LAB CHEMISTRY METHOD 10/12/2024 3:09 PM [facility] BUN 11 5 - 25 mg/dL LAB CHEMISTRY METHOD 10/12/2024 3:09 PM [facility] Creatinine 0.74 0.50 - 1.10 mg/dL LAB CHEMISTRY METHOD 10/12/2024 3:09 PM [facility] eGFR 95 >=60 mL/min/1. 73m2 LAB CHEMISTRY METHOD 10/12/2024 3:09 PM [facility] Comment:Calculation based on the??Chronic Kidney Disease Epidemiology Collaboration (CKD-EPI) equation refit??without adjustment for race. BUN/Creatinine Ratio 14.9 LAB CHEMISTRY METHOD 10/12/2024 3:09 PM [facility] Calcium 9.0 8.5 - 10.5 mg/dL LAB CHEMISTRY METHOD 10/12/2024 3:09 PM [facility] AST (SGOT) 24 10 - 42 unit/L LAB CHEMISTRY METHOD 10/12/2024 3:09 PM [facility] ALT (SGPT) 27 10 - 60 unit/L LAB CHEMISTRY METHOD 10/12/2024 3:09 PM [facility] Alkaline Phosphatase 74 42 - 121 unit/L LAB CHEMISTRY METHOD 10/12/2024 3:09 PM [facility] Total Protein 7.0 6.0 - 8.0 g/dL LAB CHEMISTRY METHOD 10/12/2024 3:09 PM [facility] Albumin 3.5 3.2 - 5.0 g/dL LAB CHEMISTRY METHOD 10/12/2024 3:09 PM [facility] Total Bilirubin 0.7 0.0 - 1.4 mg/dL LAB CHEMISTRY METHOD 10/12/2024 3:09 PM [facility] Blood Venous blood specimen / Unknown Venipuncture / Unknown 10/12/2024 2:39 PM EST 10/12/2024 2:44 PM EST us James Mcmillan MD LAB BLOOD ORDERABLES Final Res ult [facility] [address] [place] [address], * (ABNORMAL) Drug abuse screen 8a panel, urine (10/12/2024 2:34 PM EST) Amphetamine Screen, Ur Negative Negative LAB CHEMISTRY METHOD 5 3:54 PM [facility] Comment:Certain OTC medicati ons containing ephedrine, phenylephrine, pseudoephedrine and phenylpropanolamine can cause false positive results. Barbiturate Screen, Ur Negative Negative LAB CHEMISTRY METHOD 5 3:54 PM [facility] Benzodiazepine Screen, Ur Negative Negative LAB CHEMISTRY METHOD 5 3:54 PM [facility] Cocaine Screen, Ur Negative Negative LAB CHEMISTRY METHOD 5 3:54 PM [facility] Opiate Screen, Ur Positive(A ) Negative LAB CHEMISTRY METHOD 5 3:54 PM [facility] Cannabinoid (THC) Screen, Ur Positive(A ) Negative LAB CHEMISTRY METHOD 5 3:54 PM [facility] Comment:Specimens from patie nts taking pantoprazole sodium (Protonix) have been shown to produce false positive results. Oxycodone Screen, Ur Negative Negative LAB CHEMISTRY METHOD 5 3:54 PM [facility] Fentanyl, Ur Positive(A ) Negative LAB CHEMISTRY METHOD 5 3:54 PM [facility] Urine Urine specimen obtained by clean catch procedure / Unknown Non-blood Collection / Unknown 10/12/2024 2:34 PM EST 10/12/2024 2:43 PM EST Narrative [facility] - 10/12/2024 3:54 PM [...] ORDERABLES Final Res ult Performing Organization Address [facility] de Phone Number [facility] [address] [place] [address], [place] [phone] * Buprenorphine screen, urine (10/12/2024 2:34 PM EST) [facility] Buprenorphine Screen Urine Negative Negative LAB CHEMISTRY METHOD 10/12/2024 3:34 PM EST [facility] Urine Urine specimen obtained by clean catch procedure / Unknown Non-blood Collection / Unknown 10/12/2024 2:34 PM EST 10/12/2024 2:43 PM EST Narrative [facility] - 10/12/2024 3:34 PM EST Assay cutoff 5 ng/mL Semi-quantitative assay for screening purposes only. Unconfirmed screening result should not be used for non-medical purposes. *ALTERNATE METHOD CONFIRMATION DONE UPON REQUEST ONLY* James Mcmillan MD LAB URINE ORDERABLES Final Res ult Performing Organization Address [facility] de Phone Number [facility] [address] [place] [address], * Methadone, urine (10/12/2024 2:34 PM EST) Methadone Screen, Urine Negative Negative LAB CHEMISTRY METHOD 10/12/2024 3:34 PM EST [facility] Comment: Assay cutoff 300 [...] ORDERABLES Final Res ult Performing Organization Address [facility]/ZIP Co de Phone Number [facility] [address] [place] [address], [place] [phone] * Phencyclidine, urine (10/12/2024 2:34 PM EST) PCP Scrn, Ur Negative Negative LAB CHEMISTRY METHOD 10/12/2024 3:34 PM EST [facility] Comment: Assay cutoff 25 [...] ORDERABLES Final Res ult Performing Organization Address City/[facility]/ZIP Co de Phone Number [facility] [address] [place] [address], [place] [phone] from Last 3 Months Insurance MEDICAID - [place] Care Teams Business English Instructor Relationship Specialty Start Date End Date Physician, No Pcp PCP - General 10/12/24
== END 2024-10-28 14:33 | disposition home or self-care (01) ==
LOC: HO.HCC 14:07
PROVIDERS: Visit Provider Nurse Practitioner Psychiatric/Mental Health
DX: F11.20 Opioid dependence, uncomplicated (principal); Z51.81 Encounter for therapeutic drug level monitoring
CPT/HCPCS: 99214

== ENCOUNTER → 2024-10-28 14:07 | Outpatient (BNVA) | payer MEDICAID, SELFPAY | PROVIDERS: Visit Provider Nurse Practitioner Psychiatric/Mental Health | DX: F11.20 Opioid dependence, uncomplicated (principal) | CPT/HCPCS: 80307; 99212 ==

== ENCOUNTER 2024-11-25 14:37 | Outpatient (AMB) | payer MEDICAID, SELFPAY ==
--- NOTE | 2024-11-25 14:38 | MHC.OFFVIS ---
Vital Signs 11/25/24 14:55 Height 5 ft 2 in Weight 205 lb BMI 37.5 Pulse 56 Pulse Source Pulse Oximeter Pulse Oximetry (%) 97 Oxygen Delivery Method Room Air Intake Visit Reasons: Follow up Allergies dexamethasone [From [facility]] Adverse Reaction (Severe, Verified 11/25/24 14:55) NAUSEA & VOMITING HPI HPI Follow up: Details: She feels 20 mg Suboxone has worked for her. She has still some craving however. She had relapsed after six years but is now doing better. [facility] Medical History Fibroid of cervix Opioid use disorder Substance abuse No known health problems No known health problems Social History Alcohol intake: never Patient Tobacco Use Status: Current everyday Tobacco user Substance Use Type: Marijuana Gender identity: Female Female Reproductive History Menstrual Age of Menarche: 11 Review of Systems Const All systems reviewed & are unremarkable except as noted in HPI and below Physical Exam Vital Signs: Last Vital Signs Pulse 56 11/25/24 14:55 Pulse Ox 97 11/25/24 14:55 Oxygen Delivery Method Room Air 11/25/24 14:55 BMI result Body Mass Index 37.5 Const General: cooperative Results AMB 14 Panel Urine Drug Screen Urine Marijuana (THC) Positive Last Edit by Eloisa Newton CMA on 11/25/24 15:00 Urine Cocaine Negative Last Edit by Eloisa Newton CMA on 11/25/24 15:00 Urine Morphine Negative Last Edit by Eloisa Newton CMA on 11/25/24 15:00 Urine Methamphetamine Negative Last Edit by Eloisa Newton CMA on 11/25/24 15:00 Urine Amphetamine Negative Last Edit by Eloisa Newton CMA on 11/25/24 15:00 Urine Benzodiazepine Negative Last Edit by Eloisa Newton CMA on 11/25/24 15:00 Urine Barbiturates Negative Last Edit by Eloisa Newton CMA on 11/25/24 15:00 Urine Methadone Negative Last Edit by Eloisa Newton CMA on 11/25/24 15:00 Urine Buprenorphine Negative Last Edit by Eloisa Newton CMA on 11/25/24 15:00 Urine Tricyclic Antidepressant Negative Last Edit by Eloisa Newton CMA on 11/25/24 15:00 Urine MDMA Negative Last Edit by Eloisa Newton CMA on 11/25/24 15:00 Urine Oxycodone Negative Last Edit by Eloisa Newton CMA on 11/25/24 15:00 Urine Phencyclidine Negative Last Edit by Eloisa Newton CMA on 11/25/24 15:00 Urine Propoxyphene Negative Last Edit by Eloisa Newton CMA on 11/25/24 15:00 Results Reviewed Results Reviewed: Laboratory Last Values POC Urine Buprenorphine Negative 11/25/24 14:59 POC Urine Morphine Negative 11/25/24 14:59 POC Urine Oxycodone Negative 11/25/24 14:59 POC Urine Methadone Negative 11/25/24 14:59 POC Urine Propoxyphene Negative 11/25/24 14:59 POC Urine Barbiturates Negative 11/25/24 14:59 POC U Tricyclic Antidpr Negative 11/25/24 14:59 POC Urine PCP Negative 11/25/24 14:59 POC Ur Amphetamines Negative 11/25/24 14:59 POC Ur Methamphetamine Negative 11/25/24 14:59 POC Urine MDMA Negative 11/25/24 14:59 POC Ur Benzodiazepine Negative 11/25/24 14:59 POC Urine Cocaine Negative 11/25/24 14:59 POC Ur Marijuana (THC) Positive 11/25/24 14:59 Assessment & Plan Assessment & Plan (1) Opioid use disorder, severe, dependence: Comment: She is doing better on Suboxone Code(s): F11.20 - Opioid dependence, uncomplicated Category: Medical Plan: Simplify scripts to three a day, 03/20. Check labs. See in one month. Orders: Orders AMB 14 Panel Urine Drug Screen Today Z51.81 - Encounter for therapeutic drug level monitoring Complete Blood Count Auto Diff Today F11.20 - Opioid dependence, uncomplicated Basic Metabolic Panel Today F11.20 - Opioid dependence, uncomplicated Liver Panel Today F11.20 - Opioid dependence, uncomplicated Hepatitis A IgG Today F11.20 - Opioid dependence, uncomplicated Hepatitis B Surface Ab Qnt Today F11.20 - Opioid dependence, uncomplicated Hepatitis B Surface Antigen Today F11.20 - Opioid dependence, uncomplicated Hepatitis C Antibody Reflex Today F11.20 - Opioid dependence, uncomplicated HIV Ab/Ag Today F11.20 - Opioid dependence, uncomplicated Medications: New buprenorphine-naloxone 8-2 mg (Suboxone) place 1 film on inside of (each) cheek 3 film sublingual DAILY 30 days 90 ea 0RF Coding Level of Care Code Est Pt Level 3 (16378) Diagnoses Opioid use disorder, severe, dependence F11.20
[2024-11-25 14:55] VITALS: PULSE 56; O2SAT 97; BMI 37.5
--- OUTSIDE RECORDS SUMMARY | 2024-11-25 16:50 | XMS_ITS | Clinical Summary ---
Author Organization [facility] Address [address] [place] [address] Phone Care Team Providers Care Youth Services Specialist Name Role Phone Physician, No Pcp Primary Care Provider Unavaila ble Allergies No known active allergies Medications No known medications Encounters Date Type Department Care Team Description 10/12/2024 1:59 PM EST - 10/12/2024 6:22 PM EST Emergency [facility] Emergency [address] [place] [address] Discharge Disposition: Left Against Medical [...] age to complete this topic Meningococcal B Vaccine Aged Out No l onger eligible based on patient's age to complete [...] K/mcL LAB HEMETOLOGY METHOD 10/12/2024 2:47 PM [facility] RBC 5.80(H) 3.80 - 4.80 M/mcL LAB HEMETOLOGY METHOD 10/12/2024 2:47 PM [facility] Hemoglobin 16.6(H) 11.5 - 16.0 g/dL LAB HEMETOLOGY METHOD 10/12/2024 2:47 PM [facility] Hematocrit 50.7(H) 35.0 - 47.0 % LAB HEMETOLOGY METHOD 10/12/2024 2:47 PM [facility] MCV 86.8 79.0 - 98.0 FL LAB HEMETOLOGY METHOD 10/12/2024 2:47 PM [facility] MCH 28.4 27.0 - 32.0 pcg LAB HEMETOLOGY METHOD 10/12/2024 2:47 PM [facility] MCHC 32.7 32.0 - 37.0 g/dL LAB HEMETOLOGY METHOD 10/12/2024 2:47 PM [facility] RDW 13.2 11.0 - 15.0 % LAB HEMETOLOGY METHOD 10/12/2024 2:47 PM [facility] Platelets 311 130 - 400 K/mcL LAB HEMETOLOGY METHOD 10/12/2024 2:47 PM [facility] MPV 9.9 7.0 - 11.0 FL LAB HEMETOLOGY METHOD 10/12/2024 2:47 PM [facility] NRBC 0.0 <1.0 % LAB HEMETOLOGY METHOD 10/12/2024 2:47 PM [facility] NRBC Absolute 0.00 <0.10 K/mcL LAB HEMETOLOGY METHOD 10/12/2024 2:47 PM [facility] Neutrophils Relative 81.5 % LAB HEMETOLOGY METHOD 10/12/2024 2:47 PM [facility] Lymphocytes Relative 14.8 % LAB HEMETOLOGY METHOD 10/12/2024 2:47 PM [facility] Monocytes Relative 3.0 % LAB HEMETOLOGY METHOD 10/12/2024 2:47 PM [facility] Eosinophils Relative 0.1 % LAB HEMETOLOGY METHOD 10/12/2024 2:47 PM [facility] Basophils Relative 0.2 % LAB HEMETOLOGY METHOD 10/12/2024 2:47 PM [facility] Immature Granulocytes Relative 0.4 % LAB HEMETOLOGY METHOD 10/12/2024 2:47 PM [facility] Neutrophils Absolute 6.95 1.50 - 7.00 K/mcL LAB HEMETOLOGY METHOD 10/12/2024 2:47 PM [facility] Lymphocytes Absolute 1.26 1.00 - 5.00 K/mcL LAB HEMETOLOGY METHOD 10/12/2024 2:47 PM [facility] Monocytes Absolute 0.26 0.20 - 1.00 K/[facility] LAB HEMETOLOGY METHOD 10/12/2024 2:[address] [facility] Eosinophils Absolute 0.01 0.00 - 0.50 K/[facility] LAB HEMETOLOGY METHOD 10/12/2024 2:[address] [facility] Basophils Absolute 0.02 0.00 - 0.20 K/[facility] LAB HEMETOLOGY METHOD 10/12/2024 2:[address] [facility] Immature Granulocytes Absolute 0.03 0.00 - 0.03 K/[facility] LAB HEMETOLOGY METHOD 10/12/2024 2:[address] [facility] Blood Venous blood specimen / Unknown Venipuncture / Unknown 10/12/2024 2:39 PM EST 10/12/2024 2:44 PM EST us James Mcmillan MD LAB BLOOD ORDERABLES Final Res ult Performing Organization Address City/[facility]/ZIP Co de Phone Number [facility] [address] [place] [address], [place] [phone] * Magnesium (10/12/2024 2:39 PM EST) [facility] Magnesium 1.9 1.9 - 2.6 mg/dL LAB CHEMISTRY METHOD 10/12/2024 3:[address] [facility] Blood Venous blood specimen / Unknown Venipuncture / Unknown 10/12/2024 2:39 PM EST 10/12/2024 2:44 PM EST us James Mcmillan MD LAB BLOOD ORDERABLES Final Res ult [facility] [address] [place] [address], [place] [phone] * Lipase (10/12/2024 2:39 PM EST) Lipase 19 13 - 75 unit/L LAB CHEMISTRY METHOD 10/12/2024 3:[address] [facility] Blood Venous blood specimen / Unknown Venipuncture / Unknown 10/12/2024 2:39 PM EST 10/12/2024 2:44 PM EST us James Mcmillan MD LAB BLOOD ORDERABLES Final Res ult Performing Organization Address City/[facility]/ZIP Co de Phone Number [facility] [address] [place] [address], [place] [phone] * Ethanol (10/12/2024 2:39 PM EST) Pathologist [facility] Ethanol Level <3 0 - 10 mg/dL LAB CHEMISTRY METHOD 10/12/2024 3:[address] [facility] Blood Venous blood specimen / Unknown Venipuncture / Unknown 10/12/2024 2:39 PM EST 10/12/2024 2:44 PM EST us James Mcmillan MD LAB BLOOD ORDERABLES Final Res ult Performing Organization Address [facility]/ZIP Co de Phone Number [facility] [address] [place] [address], [place] [phone] * (ABNORMAL) Comprehensive metabolic panel (10/12/2024 2:39 PM EST) Pathologist [facility] Sodium 141 133 - 145 mmol/L LAB CHEMISTRY METHOD 10/12/2024 3:09 PM [facility] Potassium 4.1 3.5 - 5.5 mmol/L LAB CHEMISTRY METHOD 10/12/2024 3:09 PM [facility] Chloride 112(H) 96 - 110 mmol/L LAB CHEMISTRY METHOD 10/12/2024 3:09 PM [facility] CO2 22 21 - 32 mmol/L LAB CHEMISTRY METHOD 10/12/2024 3:09 PM [facility] Anion Gap 7 3 - 11 LAB CHEMISTRY METHOD 10/12/2024 3:09 PM [facility] Glucose 123(H) 70 - 100 mg/dL LAB CHEMISTRY METHOD 10/12/2024 3:09 PM [facility] BUN 11 5 - 25 mg/dL LAB CHEMISTRY METHOD 10/12/2024 3:09 PM [facility] Creatinine 0.74 0.50 - 1.10 mg/dL LAB CHEMISTRY METHOD 10/12/2024 3:09 PM [facility] eGFR 95 >=60 mL/min/1. 73m2 LAB CHEMISTRY METHOD 10/12/2024 3:09 PM [facility] Comment:Calculation based on the??Chronic Kidney Disease Epidemiology Collaboration (CKD-EPI) equation refit??without adjustment for race. BUN/Creatinine Ratio 14.9 LAB CHEMISTRY METHOD 10/12/2024 3:09 PM [facility] Calcium 9.0 8.5 - 10.5 mg/dL LAB CHEMISTRY METHOD 10/12/2024 3:09 PM [facility] AST (SGOT) 24 10 - 42 unit/L LAB CHEMISTRY METHOD 10/12/2024 3:09 PM [facility] ALT (SGPT) 27 10 - 60 unit/L LAB CHEMISTRY METHOD 10/12/2024 3:09 PM [facility] Alkaline Phosphatase 74 42 - 121 unit/L LAB CHEMISTRY METHOD 10/12/2024 3:09 PM [facility] Total Protein 7.0 6.0 - 8.0 g/dL LAB CHEMISTRY METHOD 10/12/2024 3:09 PM [facility] Albumin 3.5 3.2 - 5.0 g/dL LAB CHEMISTRY METHOD 10/12/2024 3:09 PM [facility] Total Bilirubin 0.7 0.0 - 1.4 mg/dL LAB CHEMISTRY METHOD 10/12/2024 3:09 PM [facility] Blood Venous blood specimen / Unknown Venipuncture / Unknown 10/12/2024 2:39 PM EST 10/12/2024 2:44 PM EST us James Mcmillan MD LAB BLOOD ORDERABLES Final Res ult [facility] [address] [place] [address], * (ABNORMAL) Drug abuse screen 8a panel, urine (10/12/2024 2:34 PM EST) [facility] Amphetamine Screen, Ur Negative Negative LAB CHEMISTRY METHOD 5 3:54 PM [facility] Comment:Certain OTC medicati ons containing ephedrine, phenylephrine, pseudoephedrine and phenylpropanolamine can cause false positive results. Barbiturate Screen, Ur Negative Negative LAB CHEMISTRY METHOD 5 3:54 PM [facility] Benzodiazepine Screen, Ur Negative Negative LAB CHEMISTRY METHOD 5 3:54 PM [facility] Cocaine Screen, Ur Negative Negative LAB CHEMISTRY METHOD 5 3:54 PM [facility] Opiate Screen, Ur Positive(A ) Negative LAB CHEMISTRY METHOD 5 3:54 PM [facility] Cannabinoid (THC) Screen, Ur Positive(A ) Negative LAB CHEMISTRY METHOD 5 3:54 PM [facility] Comment:Specimens from patie nts taking pantoprazole sodium (Protonix) have been shown to produce false positive results. Oxycodone Screen, Ur Negative Negative LAB CHEMISTRY METHOD 5 3:54 PM [facility] Fentanyl, Ur Positive(A ) Negative LAB CHEMISTRY METHOD 5 3:54 PM [facility] Urine Urine specimen obtained by clean catch procedure / Unknown Non-blood Collection / Unknown 10/12/2024 2:34 PM EST 10/12/2024 2:[address] [facility] - 10/12/2024 3:54 PM EST [...] ORDERABLES Final Res ult Performing Organization Address [facility] de Phone Number [facility] [address] [place] [address], [place] [phone] * Buprenorphine screen, urine (10/12/2024 2:34 PM EST) [facility] Buprenorphine Screen Urine Negative Negative LAB CHEMISTRY METHOD 10/12/2024 3:[address] [facility] Urine Urine specimen obtained by clean catch procedure / Unknown Non-blood Collection / Unknown 10/12/2024 2:34 PM EST 10/12/2024 2:[address] [facility] - 10/12/2024 3:34 PM EST Assay cutoff 5 ng/mL Semi-quantitative assay for screening purposes only. Unconfirmed screening result should not be used for non-medical purposes. *ALTERNATE METHOD CONFIRMATION DONE UPON REQUEST ONLY* James Mcmillan MD LAB URINE ORDERABLES Final Res ult Performing Organization Address [facility] de Phone Number [facility] [address] [place] [address], * Methadone, urine (10/12/2024 2:34 PM EST) Methadone Screen, Urine Negative Negative LAB CHEMISTRY METHOD 10/12/2024 3:[address] [facility] Comment: Assay cutoff 300 ng/mL [...] ORDERABLES Final Res ult Performing Organization Address [facility]/ZIP Co de Phone Number [facility] [address] [place] [address], [place] [phone] * Phencyclidine, urine (10/12/2024 2:34 PM EST) PCP Scrn, Ur Negative Negative LAB CHEMISTRY METHOD 10/12/2024 3:[address] [facility] Comment: Assay cutoff 25 ng/mL Semi-quantitative assay for screening purposes only. Unconfirmed screening result should not be used for non-medical purposes. *ALTERNATE METHOD CONFIRMATION DONE UPON REQUEST ONLY* Urine Urine specimen obtained by clean catch procedure / Unknown Non-blood Collection / Unknown 10/12/2024 2:34 PM EST 10/12/2024 2:43 PM EST us James Mcmillan MD LAB URINE ORDERABLES Final Res ult [facility] [address] [place] [address], [place] [phone] from Last 3 Months Insurance MEDICAID - [place] Care Teams Youth Services Specialist Relationship Specialty Start Date End Date Physician, No Pcp PCP - General 10/12/24
--- OUTSIDE RECORDS SUMMARY | 2024-11-25 16:51 | XMS_ITS | Data Portability ---
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 Lab TSH, serum or plasma [address] [facility], [address] [place] [address], [id number], 6 04:02:[address] [facility], [address] [place] [address], [id number], 6 04:02:36 CMP, serum or plasma [address] [facility], [address] [place] [address], [address], 6 04:02:23 Referral general surgeon referral - [...] would be beneficial to her. 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 Surgeries None recorded. Imaging MAMMO, diagnostic, digital, bilateral - right breast pain at 9:00 position - pt has never had a mammo. Note: patient had seen pcp because she thought she felt a lump. Please palpate area with patient direction * [address] [facility] (Imaging), [address], [place], [address], 6 09:58:50 ultrasound, breast - pain right breast at 9:00 position - ? cyst [address] [facility] (Imaging), [address], [place], [address], 6 09:59:18 Medication Orders nortriptyli ne 25 mg capsule 2016 017 [employer] 92584 ([employer] [facility]), [address], [place], [id number], 7 16:14:54 Chantix Starting Month Box 0.5 mg (11)-1 mg (42) tablets in dose pack 2016 017 [facility] [address] ([employer] [facility]), [address], [place], [id number], 7 16:14:54 ondansetron HCl 4 mg tablet 2015 016 [facility] #[id number], [address] [place], [place], [id number], 6 04:03:27 ondansetron HCl 4 mg tablet 2015 016 [facility] #33385, [address] [place], [id number], 6 17:40:37 hydrocodone 5 mg-acetamin ophen 325 mg tablet 2014 015 [facility] #32377, [address] [place], [id number], 6 16:49:28 ondansetron HCl 4 mg tablet 2014 015 [facility] #[id number], [address] [place], [place], [id number], 5 17:52:00 Patient TargetsNo targets recorded. Patient Instructions Encounter Date Encounter Id Patient Instructions Last Modified By Organization Details Last Modified Time 01/13/2015 [id number] Reviewed previou s x-ray findings.? ? ? Dispensed prescription for custom orthotics.? ? ? Patient to return if symptoms persist. [email or web address] Not available 01/13/2015 15:31:19 10/03/2015 [id number] After a discussi on of treatment options, which included consideration of best practices, patient preferences, and the patient? s individual lifestyle and treatment goals, as well as consideration and attempted mitigation of any barriers to meeting the patient? s goals, the? ? ?above treatment plan and objectives were adopted: [email or web address] Not available 10/03/2015 17:40:37 02/13/2016 [id number] After a discussi on of treatment options, which included consideration of best practices, patient preferences, and the patient? s individual lifestyle and treatment goals, as well as consideration and attempted mitigation of any barriers to meeting the patient? s goals, the? ? 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 Referring Physician: Olivia Martini, Family Medicine, Encounter Date: 11/22/2014 Results Created Date Observation Date Name Description Value Unit Range Abnormal Flag Note LastModifiedBy Organization Detail LastModifiedTime 05/29/20 15 05/29/2015 CBC w/ auto diff WBC 9.8 K/uL 3.4-11 .2 Not Available [facility] (Out[facility]) [address] [place] [address], [address], 05/29/2015 12:24:11 05/29/20 15 05/29/2015 CBC w/ auto diff RBC 5.70 M/uL 3.80-4 .80 high Not Available [facility] (Outpatient) [address] [place] [address], [address], 05/29/2015 12:24:11 05/29/20 15 05/29/2015 CBC w/ auto diff hemoglobin 17.3 g/dL 12.0-1 5.0 high Not Available [facility] (Outpatient) [address] [place] [address], [id number], 05/29/2015 12:24:11 05/29/20 15 05/29/2015 CBC w/ auto diff hematocrit 48.8 % 36.0-4 6.0 high Not Available [facility] (Outpatient) [address] [place] [address], [address], 05/29/2015 12:24:11 05/29/20 15 05/29/2015 CBC w/ auto diff MCV 85.6 fL 79.0-9 8.0 Not Available [facility] (Outpatient) [address] [place] [address], [address], 05/29/2015 12:24:11 05/29/20 15 05/29/2015 CBC w/ auto diff MCH 30.4 pg 27.0-3 4.8 Not Available [facility] (Outpatient) [address] [place] [address], [address], 05/29/2015 12:24:11 05/29/20 15 05/29/2015 CBC w/ auto diff MCHC 35.5 g/dL 31.5-3 6.0 Not Available [facility] ([facility]patient) [address] [place] [address], [address], 05/29/2015 12:24:11 05/29/20 15 05/29/2015 CBC w/ auto diff RDW 13.4 % 10.8-1 4.6 Not Available [facility] ([facility]patient) [address] [place] [address], [address], 05/29/2015 12:24:11 05/29/20 15 05/29/2015 CBC w/ auto diff MPV 10.8 fL 9.4-12 .4 Not Available [facility] ([facility]) [address] [place] [address], [address], 05/29/2015 12:24:11 05/29/20 15 05/29/2015 CBC w/ auto diff platelet count 253 K/uL 130-40 0 Not Available [facility] (Outpatient) [address] [place] [address], [address], 05/29/2015 12:24:11 05/29/20 15 05/29/2015 CBC w/ auto diff neutrophils 72.4 % 45.3-7 7.7 Not Available [facility] ([facility]) [address] [place] [address], 247[address], 05/29/2015 12:24:11 05/29/20 15 05/29/2015 CBC w/ auto diff lymphocytes 21.5 % 12.3-3 9.7 Not Available [facility] (Out[facility]) [address] [place] [address], 118[address], 05/29/2015 12:24:11 05/29/20 15 05/29/2015 CBC w/ auto diff monocytes 5.2 % 4.1-12 .8 Not Available [facility] (Outpatient) [address] [place], [address], 05/29/2015 12:24:11 05/29/20 15 05/29/2015 CBC w/ auto diff eosinophils 0.70 % 0.00-7 .20 Not Available [facility] (Outpatient) [address] [place], [address], 05/29/2015 12:24:11 05/29/20 15 05/29/2015 CBC w/ auto diff basophils 0.10 % 0.00-2 .80 Not Available [facility] (Outpatient) [address] [place], [address], 05/29/2015 12:24:11 05/29/20 15 05/29/2015 CBC w/ auto diff absolute neutrophil 7.1 K/uL 1.4-7. 7 Not Available [facility] (Outpatient) [address] [place], [address], 05/29/2015 12:24:11 05/29/20 15 05/29/2015 CBC w/ auto diff absolute lymphocyte 2.1 K/uL 0.6-3. 2 Not Available [facility] (Outpatient) [address] [place], [address], 05/29/2015 12:24:11 05/29/20 15 05/29/2015 CBC w/ auto diff absolute monocytes 0.5 K/uL 0.1-0. 6 Not Available [facility] ([facility]) [address] [place] [address], [address], 05/29/2015 12:24:11 05/29/20 15 05/29/2015 CBC w/ auto diff absolute eosinophil 0.07 K/uL 0.01-0 .50 Not Available [facility] ([facility]) [address] [place] [address], [address], 05/29/2015 12:24:11 05/29/20 15 05/29/2015 CBC w/ auto diff absolute basophils 0.01 K/uL Not Available [facility] ([facility]patient) [address] [place], [address], 05/29/2015 12:24:11 05/29/20 15 05/29/2015 CBC w/ auto diff immature granulocyte 0.10 % 0.00-0 .50 Not Available [facility] (Outpatient) [address] [place], [address], 05/29/2015 12:24:11 05/29/20 15 05/29/2015 CBC w/ auto diff absolute immature granulocyte 0.01 K/uL 0.00-0 .03 Not Available [facility] ([facility]) [address] [place] [address], [address], 05/29/2015 12:24:11 05/29/20 15 05/29/2015 tropo ruthann T, serum troponin T <0.010 NG/mL 0.000- 0.030 Not Available [facility] ([facility]patient) [address] [place], [address], 05/29/2015 12:47:11 05/29/20 15 05/29/2015 CMP, serum or plasm a glucose 92 mg/dL 70-99 Not Available [facility] ([facility]) [address] [place] [address], [address], 05/29/2015 12:48:11 05/29/20 15 05/29/2015 CMP, serum or plasm a BUN 12 mg/dL 6-19 Not Available [facility] ([facility]) [address] [place] [address], [address], 05/29/2015 12:48:11 05/29/20 15 05/29/2015 CMP, serum or plasm a creatinine 0.6 mg/dL 0.5-1. 5 Not Available [facility] ([facility]) [address] [place] [address], [address], 05/29/2015 12:48:11 05/29/20 15 05/29/2015 CMP, serum [...] ages of 16 and 68. Not Available [facility] (Outpatient) [address] [place], [address], 05/29/2015 12:48:11 05/29/20 15 05/29/2015 CMP, serum or plasm a sodium 138 mEq/L 133-14 5 Not Available [facility] ([facility]) [address] [place] [address], [address], 05/29/2015 12:48:11 05/29/20 15 05/29/2015 CMP, serum or plasm a potassium 4.0 mEq/L 3.3-5. 1 Not Available [facility] ([facility]patient) [address] [place], [address], 05/29/2015 12:48:11 05/29/20 15 05/29/2015 CMP, serum or plasm a chloride 106 mEq/L 96-108 Not Available [facility] ([facility]patient) [address] [place], [address], 05/29/2015 12:48:11 05/29/20 15 05/29/2015 CMP, serum or plasm a CO2 21 mEq/L 21-35 Not Available [facility] (Outpatient) [address] [place], [address], 05/29/2015 12:48:11 05/29/20 15 05/29/2015 CMP, serum or plasm a calcium 9.4 mg/dL 8.4-10 .3 Not Available [facility] ([facility]patient) [address] [place], [address], 05/29/2015 12:48:11 05/29/20 15 05/29/2015 CMP, serum or plasm a total bilirubin 0.8 mg/dL 0.0-1. 2 Not Available [facility] ([facility]patient) [address] [place], [address], 05/29/2015 12:48:11 05/29/20 15 05/29/2015 CMP, serum or plasm a alkaline phosphatase 57 U/L 39-117 Not Available [facility] (Outpatient) [address] [place], [address], 05/29/2015 12:48:11 05/29/20 15 05/29/2015 CMP, serum or plasm a AST (SGOT) 12 U/L 0-37 Not Available [facility] ([facility]) [address] [place] [address], [address], 05/29/2015 12:48:11 05/29/20 15 05/29/2015 CMP, serum or plasm a ALT (SGPT) 12 U/L 0-40 Not Available [facility] ([facility]) [address] [place], [address], 05/29/2015 12:48:11 05/29/20 15 05/29/2015 CMP, serum or plasm a total protein 7.2 g/dL 6.5-8. 0 Not Available [facility] ([facility]patient) [address] [place], [address], 05/29/2015 12:48:11 05/29/20 15 05/29/2015 CMP, serum or plasm a albumin 3.8 g/dL 3.9-4. 8 low Not Available [facility] ([facility]) [address] [place] [address], [address], 05/29/2015 12:48:11 05/29/20 15 05/29/2015 CMP, serum or plasm a globulin 3.4 gm/dL 1.0-4. 8 Not Available [facility] (Outpatient) [address] [place], [address], 05/29/2015 12:48:11 05/29/20 15 05/29/2015 CMP, serum or plasm a A/G ratio 1.1 gm/dL 1.0-4. 8 Not Available [facility] ([facility]) [address] [place] [address], [address], 05/29/2015 12:48:11 05/29/20 15 05/29/2015 CMP, serum or plasm a anion gap 15 mEq/L 06-07 Not Available [facility] ([facility]) [address] [place] [address], [address], 05/29/2015 12:48:11 06/25/20 15 06/25/2015 pregn stephen test, urine test, urine Negati ve negati ve Not Available [facility] ([facility]patient) [address] [place] [address], 98[address], 06/25/2015 23:30:14 06/26/20 15 06/26/2015 CBC w/ auto diff WBC 8.0 K/uL 3.4-11 .2 Not Available [facility] ([facility]) [address] [place] [address], 249[address], 06/26/2015 00:36:16 06/26/20 15 06/26/2015 CBC w/ auto diff RBC 5.06 M/uL 3.80-4 .80 high Not Available [facility] ([facility]) [address] [place] [address], 30[address], 06/26/2015 00:36:16 06/26/20 15 06/26/2015 CBC w/ auto diff hemoglobin 15.3 g/dL 12.0-1 5.0 high Not Available [facility] ([facility]) [address] [place] [address], 0[address], 06/26/2015 00:36:16 06/26/20 15 06/26/2015 CBC w/ auto diff hematocrit 43.8 % 36.0-4 6.0 Not Available [facility] ([facility]) [address] [place], [address], 06/26/2015 00:36:16 06/26/20 15 06/26/2015 CBC w/ auto diff MCV 86.6 fL 79.0-9 8.0 Not Available [facility] (Outpatient) [address] [place], [address], 06/26/2015 00:36:16 06/26/20 15 06/26/2015 CBC w/ auto diff MCH 30.2 pg 27.0-3 4.8 Not Available [facility] ([facility]) [address] [place] [address], [address], 06/26/2015 00:36:16 06/26/20 15 06/26/2015 CBC w/ auto diff MCHC 34.9 g/dL 31.5-3 6.0 Not Available [facility] ([facility]) [address] [place] [address], 054[address], 06/26/2015 00:36:16 06/26/20 15 06/26/2015 CBC w/ auto diff RDW 13.6 % 10.8-1 4.6 Not Available [facility] ([facility]) [address] [place] [address], 927[address], 06/26/2015 00:36:16 06/26/20 15 06/26/2015 CBC w/ auto diff MPV 10.2 fL 9.4-12 .4 Not Available [facility] ([facility]) [address] [place] [address], 323[address], 06/26/2015 00:36:16 06/26/20 15 06/26/2015 CBC w/ auto diff platelet count 268 K/uL 130-40 0 Not Available [facility] ([facility]) [address] [place] [address], 519[address], 06/26/2015 00:36:16 06/26/20 15 06/26/2015 CBC w/ auto diff neutrophils 54.0 % 45.3-7 7.7 Not Available [facility] ([facility]) [address] [place], [address], 06/26/2015 00:36:16 06/26/20 15 06/26/2015 CBC w/ auto diff lymphocytes 36.5 % 12.3-3 9.7 Not Available [facility] ([facility]) [address] [place], [address], 06/26/2015 00:36:16 06/26/20 15 06/26/2015 CBC w/ auto diff monocytes 5.6 % 4.1-12 .8 Not Available [facility] ([facility]) [address] [place] [address], 117[address], 06/26/2015 00:36:16 06/26/20 15 06/26/2015 CBC w/ auto diff eosinophils 3.60 % 0.00-7 .20 Not Available [facility] ([facility]patient) [address] [place], [address], 06/26/2015 00:36:16 06/26/20 15 06/26/2015 CBC w/ auto diff basophils 0.20 % 0.00-2 .80 Not Available [facility] ([facility]patient) [address] [place], [address], 06/26/2015 00:36:16 06/26/20 15 06/26/2015 CBC w/ auto diff absolute neutrophil 4.3 K/uL 1.4-7. 7 Not Available [facility] ([facility]patient) [address] [place], [address], 06/26/2015 00:36:16 06/26/20 15 06/26/2015 CBC w/ auto diff absolute lymphocyte 2.9 K/uL 0.6-3. 2 Not Available [facility] ([facility]) [address] [place] [address], 16842, 06/26/2015 00:36:16 11/08/20 15 06/26/2015 CBC w/ auto diff absolute monocytes 0.4 K/uL 0.1-0. 6 Not Available [facility] ([facility]) [address] [place] [address], 61635, 06/26/2015 00:36:16 06/26/20 15 06/26/2015 CBC w/ auto diff absolute eosinophil 0.29 K/uL 0.01-0 .50 Not Available [facility] ([facility]patient) [address] [place], [address], 06/26/2015 00:36:16 06/26/20 15 06/26/2015 CBC w/ auto diff absolute basophils 0.02 K/uL Not Available [facility] ([facility]) [address] [place] [address], 82700, 06/26/2015 00:36:16 06/26/20 15 06/26/2015 CBC w/ auto diff immature granulocyte 0.10 % 0.00-0 .50 Not Available [facility] ([facility]patient) [address] [place], [address], 06/26/2015 00:36:16 06/26/20 15 06/26/2015 CBC w/ auto diff absolute immature granulocyte 0.01 K/uL 0.00-0 .03 Not Available [facility] ([facility]) [address] [place] [address], 77[address], 06/26/2015 00:36:16 06/26/20 15 06/26/2015 CMP, serum or plasm a glucose 98 mg/dL 70-99 Not Available [facility] ([facility]) [address] [place] [address], 75[address], 06/26/2015 04:06:16 06/26/20 15 06/26/2015 CMP, serum or plasm a BUN 8 mg/dL 6-19 Not Available [facility] ([facility]) [address] [place] [address], 27938, 06/26/2015 04:06:16 06/26/20 15 06/26/2015 CMP, serum or plasm a creatinine 0.6 mg/dL 0.5-1. 5 Not Available [facility] ([facility]) [address] [place], [address], 06/26/2015 04:06:16 06/26/20 15 06/26/2015 CMP, serum [...] ages of 16 and 68. Not Available [facility] (Outpatient) [address] [place], [address], 06/26/2015 04:06:16 06/26/20 15 06/26/2015 CMP, serum or plasm a sodium 143 mEq/L 133-14 5 Not Available [facility] ([facility]patient) [address] [place], [address], 06/26/2015 04:06:16 06/26/20 15 06/26/2015 CMP, serum or plasm a potassium 3.3 mEq/L 3.3-5. 1 Not Available [facility] ([facility]) [address] [place], [address], 06/26/2015 04:06:16 06/26/20 15 06/26/2015 CMP, serum or plasm a chloride 103 mEq/L 96-108 Not Available [facility] ([facility]) [address] [place], [address], 06/26/2015 04:06:16 06/26/20 15 06/26/2015 CMP, serum or plasm a CO2 24 mEq/L 21-35 Not Available [facility] ([facility]) [address] [place], [address], 06/26/2015 04:06:16 06/26/20 15 06/26/2015 CMP, serum or plasm a calcium 8.6 mg/dL 8.4-10 .3 Not Available [facility] ([facility]) [address] [place], [address], 06/26/2015 04:06:16 06/26/20 15 06/26/2015 CMP, serum or plasm a total bilirubin 0.3 mg/dL 0.0-1. 2 Not Available [facility] ([facility]patient) [address] [place], [address], 06/26/2015 04:06:16 06/26/20 15 06/26/2015 CMP, serum or plasm a alkaline phosphatase 52 U/L 39-117 Not Available [facility] (Outpatient) [address] [place] [address], [address], 06/26/2015 04:06:16 06/26/20 15 06/26/2015 CMP, serum or plasm a AST (SGOT) 27 U/L 0-37 Not Available [facility] ([facility]patient) [address] [place] [address], 04276, 06/26/2015 04:06:16 06/26/20 15 06/26/2015 CMP, serum or plasm a ALT (SGPT) 22 U/L 0-40 Not Available [facility] ([facility]) [address] [place] [address], 09932, 06/26/2015 04:06:16 06/26/20 15 06/26/2015 CMP, serum or plasm a total protein 6.7 g/dL 6.5-8. 0 Not Available [facility] ([facility]) [address] [place] [address], 27726, 06/26/2015 04:06:16 06/26/20 15 06/26/2015 CMP, serum or plasm a albumin 4.0 g/dL 3.9-4. 8 Not Available [facility] ([facility]patient) [address] [place], [address], 06/26/2015 04:06:16 06/26/20 15 06/26/2015 CMP, serum or plasm a globulin 2.7 gm/dL 1.0-4. 8 Not Available [facility] ([facility]) [address] [place] [address], 07213, 06/26/2015 04:06:16 06/26/20 15 06/26/2015 CMP, serum or plasm a A/G ratio 1.5 gm/dL 1.0-4. 8 Not Available [facility] ([facility]) [address] [place] [address], 75217, 06/26/2015 04:06:16 06/26/20 15 06/26/2015 CMP, serum or plasm a anion gap 19 mEq/L 10-20 Not Available [facility] ([facility]) [address] [place] [address], 34660, 06/26/2015 04:06:16 06/26/20 15 06/26/2015 jeannine ol, quant itati ve, serum or plasm a alcohol,ser/ plas. 111 mg/dL <10 Not Available [facility] ([facility]) [address] [place] [address], 60386, 06/26/2015 04:06:19 06/26/20 15 06/26/2015 salic ylate , quant itati ve, serum salicylate <0.3 mg/dL 2.8-20 .0 low Note: Resul ts less than 2.8 mg/dL are consi dered negat ish. Toxic : Great er than 30.0 mg/dL . Not Available [facility] ([facility]) [address] [place] [address], 39867, 06/26/2015 04:06:19 06/26/20 15 06/26/2015 aceta minop hen, serum acetaminophe n <15.0 ug/mL 15.0-3 0.0 Not Available [facility] ([facility]) [address] [place] [address], 48294, 06/26/2015 04:06:20 02/13/20 16 02/13/2016 POC UA glu UA NEGATI VE Not Available [address], [address], 02/13/2016 15:58:37 02/13/20 16 02/13/2016 POC UA clarity UA CLEAR Not Available [address], [address], 02/13/2016 15:58:37 02/13/20 16 02/13/2016 POC UA uro UA 0.2000 Not Available [address], [address], 02/13/2016 15:58:37 02/13/20 16 02/13/2016 POC UA ket UA NEGATI VE Not Available [address], [address]26[address], 02/13/2016 15:58:37 02/13/20 16 02/13/2016 POC UA pro UA NEGATI VE Not Available [address], [address], 02/13/2016 15:58:37 02/13/20 16 02/13/2016 POC UA nit UA NEGATI VE Not Available [address], [address]24, 02/13/2016 15:58:37 02/13/20 16 02/13/2016 POC UA gustavo UA NEGATI VE Not Available [address], [address], 02/13/2016 15:58:37 02/13/20 16 02/13/2016 POC UA pH UA 7.0000 Not Available [address], [address]3023, 02/13/2016 15:58:37 02/13/20 16 02/13/2016 POC UA SG UA 1.0250 Not Available [address], [address], 02/13/2016 15:58:37 02/13/20 16 02/13/2016 POC UA color UA YELLOW Not Available [address], 28851, 02/13/2016 15:58:37 02/13/20 16 02/13/2016 POC UA blo UA NEGATI VE Not Available [address], [address], 02/13/2016 15:58:37 02/13/20 16 02/13/2016 POC UA roseline UA NEGATI VE Not Available [address], [address], 02/13/2016 15:58:37 02/13/20 16 02/14/2016 CBC WBC 10.6 K/? ? ?L 4.0-10 .0 high Not Available [address], [address], 02/14/2016 11:09:23 02/13/20 16 02/14/2016 CBC RBC 5.60 M/? ? ?L 3.93-5 .22 high Not Available [address], [address], 02/14/2016 11:09:23 02/13/20 16 02/14/2016 CBC HGB 16.4 g/dL 11.2-1 5.7 high Not Available [address], [address], 02/14/2016 11:09:23 02/13/20 16 02/14/2016 CBC HCT 51.8 % 34.1-4 4.9 high Not Available [address], [address], 02/14/2016 11:09:23 02/13/20 16 02/14/2016 CBC MCV 92.5 ? ? ?L 79.4-9 4.8 Not Available [address], [address], 02/14/2016 11:09:23 02/13/20 16 02/14/2016 CBC MCH 29.3 pg 25.6-3 2.2 Not Available [address], [address], 02/14/2016 11:09:23 02/13/20 16 02/14/2016 CBC MCHC 31.7 g/dL 32.2-3 5.5 low Not Available [address], [address], 02/14/2016 11:09:23 02/13/20 16 02/14/2016 CBC plt 278.0 K/? ? ?L 182.0- 369.0 Not Available [address], [address], 02/14/2016 11:09:23 02/13/20 16 02/14/2016 CBC MPV 12.3 9.4-12 .3 Not Available [address], [address], 02/14/2016 11:09:23 02/13/20 16 02/14/2016 CBC neut% 68.1 % 34.0-7 1.1 Not Available [address], [address], 02/14/2016 11:09:23 02/13/20 16 02/14/2016 CBC neut# 7.2 1.6-6. 1 high Not Available [address], [address], 02/14/2016 11:09:23 02/13/20 16 02/14/2016 CBC lymph % 26.3 % 19.3-5 1.7 Not Available [address], [address], 02/14/2016 11:09:23 02/13/20 16 02/14/2016 CBC lymph # 2.8 K/? ? ?L 1.2-3. 7 Not Available [address], [address], 02/14/2016 11:09:23 02/13/20 16 02/14/2016 CBC mono% 3.9 % 4.7-12 .5 low Not Available [address], [address], 02/14/2016 11:09:23 02/13/20 16 02/14/2016 CBC mono# 0.4 0.2-0. 6 Not Available [address], [address], 02/14/2016 11:09:23 02/13/20 16 02/14/2016 CBC eo% 1.5 % 0.7-5. 8 Not Available [address], [address], 02/14/2016 11:09:23 02/13/20 16 02/14/2016 CBC eo# 0.2 0.0-0. 4 Not Available [address], [address], 02/14/2016 11:09:23 02/13/20 16 02/14/2016 CBC baso% 0.2 % 0.1-1. 2 Not Available [address], [address], 02/14/2016 11:09:23 02/13/20 16 02/14/2016 CBC baso# 0.0 0.0-0. 1 Not Available [address], [address], 02/14/2016 11:09:23 02/13/20 16 02/14/2016 CBC RDW-CV 14.2 % 11.7-1 4.4 Not Available [address], [address], 02/14/2016 11:09:23 02/13/20 16 02/14/2016 TSH, serum or plasm a TSH 0.90 uIU/m L 0.50-6 .00 The [employer] can [employer] [facility] r[facility] o[facility] and [facility]ad can Thyro id Assoc iatio n recom mend goal TSH value s betwe en 0.4-4 .0 mIU/m L. Not Available [address], [address], 02/14/2016 12:04:35 02/13/20 16 02/14/2016 CMP, serum or plasm a glucose 89 mg/dL 70-100 Not Available [address], [address], 02/14/2016 12:16:36 02/13/20 16 02/14/2016 CMP, serum or plasm a BUN 12 mg/dL 7-18 Not Available [address], [address], 02/14/2016 12:16:36 02/13/20 16 02/14/2016 CMP, serum or plasm a creatinine 0.7 mg/dL 0.8-1. 3 low Not Available [address], [address], 02/14/2016 12:16:36 02/13/20 16 02/14/2016 CMP, serum or plasm a B/C 17.1 ratio Not Available [address], [address], 02/14/2016 12:16:36 02/13/20 16 02/14/2016 CMP, serum or plasm a GFR -non 100.5 mL/mi n Recom eusebio d GFR by the Natio nal Kidne y Found ation >60 mL/mi n/1.7 3m2 - Milagros l <60 mL/mi n/1.7 3m2 - Chron ic Kidne y Disea se <15 mL/mi n/1.7 3m2 - Kidne y Failu re Not Available [address], [address], 02/14/2016 12:16:36 02/13/20 16 02/14/2016 CMP, serum or plasm a GFR - if 115.5 mL/mi n For Afric an Suad can patie nts: Resul ts Multi plied by 1.21 Not Available [address], [address], 02/14/2016 12:16:36 02/13/20 16 02/14/2016 CMP, serum or plasm a sodium 142 mmol/ L 136-14 5 Not Available [address], [address], 02/14/2016 12:16:36 02/13/20 16 02/14/2016 CMP, serum or plasm a potassium 4.6 mmol/ L 3.5-5. 1 Not Available [address], [address], 02/14/2016 12:16:36 02/13/20 16 02/14/2016 CMP, serum or plasm a chloride 106 mmol/ L 96-107 Not Available [address], [address], 02/14/2016 12:16:36 02/13/20 16 02/14/2016 CMP, serum or plasm a anion gap 12.5 5.0-15 .0 Not Available [address], [address], 02/14/2016 12:16:36 02/13/20 16 02/14/2016 CMP, serum or plasm a CO2 24 mmol/ L 21-32 Not Available [address], [address], 02/14/2016 12:16:36 02/13/20 16 02/14/2016 CMP, serum or plasm a calcium 8.7 mg/dL 8.5-10 .3 Not Available [address], [address], 02/14/2016 12:16:36 02/13/20 16 02/14/2016 CMP, serum or plasm a total protein 6.6 g/dL 6.4-8. 2 Not Available [address], [address], 02/14/2016 12:16:36 02/13/20 16 02/14/2016 CMP, serum or plasm a albumin 3.6 g/dL 3.4-5. 0 Not Available [address], [address], 02/14/2016 12:16:36 02/13/20 16 02/14/2016 CMP, serum or plasm a globulin 3.0 g/dL Not Available [address], [address], 02/14/2016 12:16:36 02/13/20 16 02/14/2016 CMP, serum or plasm a A/G 1.2 ratio 0.8-2. 0 Not Available [address], [address], 02/14/2016 12:16:36 02/13/20 16 02/14/2016 CMP, serum or plasm a total bilirubin 0.40 mg/dL 0.00-1 .00 Not Available [address], [address], 02/14/2016 12:16:36 02/13/20 16 02/14/2016 CMP, serum or plasm a AST 22 U/L 15-37 Not Available [address], [address], 02/14/2016 12:16:36 02/13/20 16 02/14/2016 CMP, serum or plasm a ALT 34 U/L 30-65 Not Available [address], [address], 02/14/2016 12:16:36 02/13/20 16 02/14/2016 CMP, serum or plasm a alk. phos. 59 U/L 50-136 Not Available [address], [address], 02/14/2016 12:16:36 10/21/19 17 10/20/2016 CBC w/ auto diff WBC 8.8 K/uL 3.4-11 .2 Not Available [address], [address], 10/20/2016 14:25:51 10/21/19 17 10/20/2016 CBC w/ auto diff RBC 5.49 M/uL 3.80-4 .80 high Not Available [address], [address], 10/20/2016 14:25:51 10/21/19 17 10/20/2016 CBC w/ auto diff hemoglobin 16.6 g/dL 12.0-1 5.0 high Not Available [address], [address], 10/20/2016 14:25:51 10/21/19 17 10/20/2016 CBC w/ auto diff hematocrit 47.8 % 36.0-4 6.0 high Not Available [address], [address], 10/20/2016 14:25:51 10/21/19 17 10/20/2016 CBC w/ auto diff MCV 87.1 fL 79.0-9 8.0 Not Available [address], [address], 10/20/2016 14:25:51 10/21/19 17 10/20/2016 CBC w/ auto diff MCH 30.2 pg 27.0-3 4.8 Not Available [address], [address], 10/20/2016 14:25:51 10/21/19 17 10/20/2016 CBC w/ auto diff MCHC 34.7 g/dL 31.5-3 6.0 Not Available [address], [address], 10/20/2016 14:25:51 10/21/19 17 10/20/2016 CBC w/ auto diff RDW 13.0 % 10.8-1 4.6 Not Available [address], [address], 10/20/2016 14:25:51 10/21/19 17 10/20/2016 CBC w/ auto diff MPV 10.3 fL 9.4-12 .4 Not Available [address], [address], 10/20/2016 14:25:51 10/21/19 17 10/20/2016 CBC w/ auto diff platelet count 244 K/uL 130-40 0 Not Available [address], [address], 10/20/2016 14:25:51 10/21/19 17 10/20/2016 CBC w/ auto diff neutrophils 73.8 % 45.3-7 7.7 Not Available [address], [address], 10/20/2016 14:25:51 10/21/19 17 10/20/2016 CBC w/ auto diff lymphocytes 17.9 % 12.3-3 9.7 Not Available [address], [address], 10/20/2016 14:25:51 10/21/19 17 10/20/2016 CBC w/ auto diff monocytes 6.1 % 4.1-12 .8 Not Available [address], [address], 10/20/2016 14:25:51 10/21/19 17 10/20/2016 CBC w/ auto diff eosinophils 1.90 % 0.00-7 .20 Not Available [address], [address], 10/20/2016 14:25:51 10/21/19 17 10/20/2016 CBC w/ auto diff basophils 0.10 % 0.00-2 .80 Not Available [address], [address], 10/20/2016 14:25:51 10/21/19 17 10/20/2016 CBC w/ auto diff absolute neutrophil 6.5 K/uL 1.4-7. 7 Not Available [address], [address], 10/20/2016 14:25:51 10/21/19 17 10/20/2016 CBC w/ auto diff absolute lymphocyte 1.6 K/uL 0.6-3. 2 Not Available [address], [address], 10/20/2016 14:25:51 10/21/19 17 10/20/2016 CBC w/ auto diff absolute monocytes 0.5 K/uL 0.1-0. 6 Not Available [address], [address], 10/20/2016 14:25:51 10/21/19 17 10/20/2016 CBC w/ auto diff absolute eosinophil 0.17 K/uL 0.01-0 .50 Not Available [address], [address], 10/20/2016 14:25:51 10/21/19 17 10/20/2016 CBC w/ auto diff absolute basophils 0.01 K/uL Not Available [address], [address], 10/20/2016 14:25:51 10/21/19 17 10/20/2016 CBC w/ auto diff immature granulocyte 0.20 % 0.00-0 .50 Not Available [address], [address], 10/20/2016 14:25:51 10/21/19 17 10/20/2016 CBC w/ auto diff absolute immature granulocyte 0.02 K/uL 0.00-0 .03 Not Available [address], [address], 10/20/2016 14:25:51 10/21/19 17 10/20/2016 tropo ruthann T, serum troponin T <0.010 NG/mL 0.000- 0.030 Not Available [address], [address], 10/20/2016 15:00:11 10/21/19 17 10/20/2016 CMP, serum or plasm a glucose 105 mg/dL 70-99 high Not Available [address], [address], 10/20/2016 15:01:11 10/21/19 17 10/20/2016 CMP, serum or plasm a BUN 11 mg/dL 6-19 Not Available [address], [address], 10/20/2016 15:01:11 10/21/19 17 10/20/2016 CMP, serum or plasm a creatinine 0.7 mg/dL 0.5-1. 5 Not Available [address], [address], 10/20/2016 15:01:11 10/21/19 17 10/20/2016 CMP, serum [...] ages of 16 and 68. Not Available [address], [address], 10/20/2016 15:01:11 10/21/19 17 10/20/2016 CMP, serum or plasm a sodium 138 mEq/L 133-14 6 Not Available [address], [address], 10/20/2016 15:01:11 10/21/19 17 10/20/2016 CMP, serum or plasm a potassium 4.1 mEq/L 3.3-5. 2 Not Available [address], [address], 10/20/2016 15:01:11 10/21/19 17 10/20/2016 CMP, serum or plasm a chloride 102 mEq/L 96-108 Not Available [address], [address], 10/20/2016 15:01:11 10/21/19 17 10/20/2016 CMP, serum or plasm a CO2 23 mEq/L 21-35 Not Available [address], [address], 10/20/2016 15:01:11 10/21/19 17 10/20/2016 CMP, serum or plasm a calcium 8.8 mg/dL 8.4-10 .3 Not Available [address], [address], 10/20/2016 15:01:11 10/21/19 17 10/20/2016 CMP, serum or plasm a total bilirubin 0.5 mg/dL 0.0-1. 2 Not Available [address], [address], 10/20/2016 15:01:11 10/21/19 17 10/20/2016 CMP, serum or plasm a alkaline phosphatase 56 U/L 39-117 Not Available [address], [address], 10/20/2016 15:01:11 10/21/19 17 10/20/2016 CMP, serum or plasm a AST (SGOT) 20 U/L 0-37 Not Available [address], [address], 10/20/2016 15:01:11 10/21/19 17 10/20/2016 CMP, serum or plasm a ALT (SGPT) 18 U/L 0-40 Not Available [address], [address], 10/20/2016 15:01:11 10/21/19 17 10/20/2016 CMP, serum or plasm a total protein 6.3 g/dL 6.5-8. 0 low Not Available [address], [address], 10/20/2016 15:01:11 10/21/19 17 10/20/2016 CMP, serum or plasm a albumin 3.6 g/dL 3.9-4. 8 low Not Available [address], [address], 10/20/2016 15:01:11 10/21/19 17 10/20/2016 CMP, serum or plasm a globulin 2.7 gm/dL 1.0-4. 8 Not Available [address], [address], 10/20/2016 15:01:11 10/21/19 17 10/20/2016 CMP, serum or plasm a A/G ratio 1.3 gm/dL 1.0-4. 8 Not Available [address], [address], 10/20/2016 15:01:11 10/21/19 17 10/20/2016 CMP, serum or plasm a anion gap 17 mEq/L 10-20 Not Available [address], [address], 10/20/2016 15:01:11 10/21/19 17 10/20/2016 C react ish prote in, QN, serum or plasm a C-reactive protein 1.25 mg/dL 0.00-0 .50 high Not Available [address], [address], 10/20/2016 15:01:12 10/21/19 17 10/20/2016 BNP (B-ty pe natri ureti c pepti de), serum or plasm a pro-BNP 80 pg/mL 0-125 Not Available [address], [address], 10/20/2016 15:01:13 10/21/19 17 10/20/2016 wet mount yeast cells None Seen none seen Not Available [address], [address], 10/20/2016 17:47:20 10/21/19 17 10/20/2016 wet mount trichomonas None Seen none seen Not Available [address], [address], 10/20/2016 17:47:20 10/21/19 17 10/20/2016 wet mount clue cells None Seen none seen Not Available [address], [address], 10/20/2016 17:47:20 10/21/19 17 10/20/2016 chlam ydia + gonor blaise DNA panel , unspe cifie d speci men chlamydial/g onorrhoeal detection by PCR Not Available [address], [address], 10/22/2016 14:33:43 10/21/19 17 10/20/2016 chlam ydia + gonor blaise DNA panel , unspe cifie d speci men chlamydia trachomatis detection by PCR Not Detect ed Not Available [address], [address], 10/22/2016 14:33:43 10/21/19 17 10/20/2016 chlam ydia + gonor blaise DNA panel , unspe cifie d speci men neisseria gonorrhoeae detection by PCR Not Detect ed Not Available [address], [address], 10/22/2016 14:33:43 11/21/19 17 11/20/2016 pregn stephen test, urine test, urine Negati ve negati ve Not Available [address], [address], 11/20/2016 19:43:38 11/21/19 17 11/20/2016 urina lysis , dipst ick, refle x micro color Yellow Not Available [address], [address], 11/20/2016 19:43:39 11/21/19 17 11/20/2016 urina lysis , dipst ick, refle x micro appearance Clear Not Available [address], [address], 11/20/2016 19:43:39 11/21/19 17 11/20/2016 urina lysis , dipst ick, refle x micro specific gravity >=1.03 0 1.005- 1.030 Not Available [address], [address], 11/20/2016 19:43:39 11/21/19 17 11/20/2016 urina lysis , dipst ick, refle x micro pH 5.0 5.0-7. 0 Not Available [address], [address], 11/20/2016 19:43:39 11/21/19 17 11/20/2016 urina lysis , dipst ick, refle x micro protein Negati ve negati ve Not Available [address], [address], 11/20/2016 19:43:39 11/21/19 17 11/20/2016 urina lysis , dipst ick, refle x micro glucose Negati ve negati ve Not Available [address], [address], 11/20/2016 19:43:39 11/21/19 17 11/20/2016 urina lysis , dipst ick, refle x micro ketones Negati ve negati ve Not Available [address], [address], 11/20/2016 19:43:39 11/21/19 17 11/20/2016 urina lysis , dipst ick, refle x micro bilirubin Negati ve negati ve Not Available [address], [address], 11/20/2016 19:43:39 11/21/19 17 11/20/2016 urina lysis , dipst ick, refle x micro blood Negati ve negati ve Not Available [address], [address], 11/20/2016 19:43:39 11/21/19 17 11/20/2016 urina lysis , dipst ick, refle x micro nitrite Negati ve negati ve Not Available [address], [address], 11/20/2016 19:43:39 11/21/19 17 11/20/2016 urina lysis , dipst ick, refle x micro leukocyte esterase Negati ve negati ve Not Available [address], [address], 11/20/2016 19:43:39 11/21/19 17 11/20/2016 drug scree n, urine canna., urine scr Positi ve abnormal Resul ts check ed by repea t jadon sis. Cutof f: 50 ng/mL Not Available [address], [address], 11/20/2016 20:16:56 11/21/19 17 11/20/2016 drug scree n, urine cocaine,urin escreen None Detect ed Cutof f: 300 ng/mL Not Available [address], [address], 11/20/2016 20:16:56 11/21/19 17 11/20/2016 drug scree n, urine grupo,urine Positi ve abnormal Resul ts check ed by repea t jadon sis. Cutof f: 200 ng/mL Not Available [address], [address], 11/20/2016 20:16:56 11/21/19 17 11/20/2016 drug scree n, urine M-amphetamin es, urine screen None Detect ed Cutof f: 1000 ng/mL Not Available [address], [address], 11/20/2016 20:16:56 11/21/19 17 11/20/2016 drug scree n, urine methadone, urine screen None Detect ed Cutof f: 300 ng/mL Not Available [address], [address], 11/20/2016 20:16:56 11/21/19 17 11/20/2016 drug scree n, urine opiates, urine screen None Detect ed Cutof f: 300 ng/mL Not Available [address], [address], 11/20/2016 20:16:56 11/21/19 17 11/20/2016 drug scree n, urine phencyclidin e, urine SC None Detect ed Cutof f: 25 ng/mL Not Available [address], [address], 11/20/2016 20:16:56 11/21/19 17 11/20/2016 drug scree n, urine barbiturates , urine None Detect ed Cutof f: 200 ng/mL INTER PRETA TION FOR TOXIC OLOGY PANEL : Thes e resul ts are uncon firme d and shoul d be used for Medic al Treat ment purpo ses only. Not Available [address], [place], [address], 11/20/2016 20:16:56 11/21/19 17 11/20/2016 drug scree n, urine oxycodone, urine qualitative None Detect ed Cutof f: 300 ng/ml Not Available [address], [address], 11/20/2016 20:16:56 10/23/19 15 10/21/2014 x-ray , foot No observ ation record ed. [address], [address], 10/22/2014 16:05:33 05/29/20 15 05/29/2015 x-ray , chest No observ ation record ed. [facility] [address] [place] [address], [address], 05/30/2015 09:00:12 10/21/19 17 10/20/2016 XR, chest [...] logist : JAMES SOLER Transc ribed by: Janina adams, PS360 Result s 2016 02:53 PM Interp reted By: MIGUEL RAMIREZ MD Electr onical ly Signed By: Electr onical ly Signed by: MIGUEL BANDA on 10/21/19 17 3:01 PM Techno logist : JAMES SOLER Transc ribed by: Janina adams, PS360 Result s 2016 02:53 PM Electr onical ly Signed By: MIGUEL RAMIREZ MD 2016 03:01 PM [facility] [address] [place], [address], 10/21/2016 11:57:51 Result Notes None recorded. Problems Name Problem SNOMED Code Status Onset Date Resolution Date Notes Provider Name and Address Organization Details Recorded Time Tinea pedis 1445693 Active Not Available [facility] 3 03:15:01 Obesity 658936469 Active Not Available [facility] 3 03:15:01 Dental caries 93533954 Active Tamar Reese MD [address] [place] [address], [address] , [facility] 4 16:31:21 Tobacco user 930738271 Active Tamar Reese MD [address] [place] [address], [address] , [facility] 4 16:31:21 Adjustment disorder 68591578 Active Not Available [facility] 3 03:15:01 Disorder of teeth AND/OR supporting structures 750216493 Completed 12/23/2013 Tamar Reese MD [address] [place] [address], [address] , [facility] 4 15:53:16 Glucose level outside reference range 747491854 Active Not Available [facility] 3 03:15:01 Migraine 46769949 Completed 12/23/2013 gone Tamar Reese MD [address] [place] [address], [address] , [facility] 4 15:53:39 Lipoma 88578427 Active Olivia Martini NP [address] [place] [address], [address] , [facility] 5 17:52:00 Mass of body structure 729869867 Active Olivia Martini NP [address] [place] [address], [address] , [facility] 4 17:47:20 Pain in lower limb 81604478 Active Kevin Hayes DPM [address] [place] [address], [address] , [facility] 5 15:31:19 Opioid dependence in remission 614122843 Active 2016 Olivia Martini NP [address] [place] [address], [phone] , [facility] 7 17:43:47 Problem Notes None recorded. Procedures Surgical History Date Name Laterality Status Provider Name and Address Organization Details Recorded Time 7 Smoking cessation counseling completed Paulette Gillis MA [facility] 02/18/2017 15:52:36 7 Carbon Monoxide Testing completed Paulette Gillis MA [facility] 02/18/2017 15:52:37 6 POC Urinalysis Testing completed JAKI Macrano [facility] 02/13/2016 15:57:25 4 Smoking cessation counseling completed Izabel Weeks [facility] 12/23/2013 15:34:15 4 Smoking cessation counseling completed Izabel Weeks [facility] 10/21/2013 15:32:52 3 Smoking cessation counseling completed Andreina Issa MA [facility] 08/20/2012 15:37:12 1 Wound Care completed Yu Zarate RN [facility] 09/15/2010 16:31:01 Imaging Results Imaging Date Name Status LastModified by Organiz ation Details LastModified Time 10/21/2014 x-ray, foot completed [address], [address], 10/22/2014 16:05:33 05/29/2015 x-ray, chest completed [facility] [address] [place] [address], [address], 05/30/2015 09:00:12 10/20/2016 XR, chest, 2 view completed [facility] [address] [place] [address], [address], 10/21/2016 11:57:51 Procedure Notes None recorded. Medical [...] 4 in am and pm; rx'd by Dr Footit, psychiat rist Not Available Not Available Not Available pramipexo [...] Address Organization Details Last Updated DateTime 7 40505.0 7 g 36.5 kg/m2 158.12 cm 98.4 [degF] 112 mm[Hg] 68 mm[Hg] Paulette Gillis [facility] 7 15:54:04 Date Recorded Body height Body mass index (BMI) Body weight Systolic blood pressure Diastolic blood pressure Provider Name and Address Organization Details Last Updated DateTime 11/22/2014 159.385 cm 35.8 kg/m2 41343.27 0185 g 120 mm[Hg] 70 mm[Hg] Ernestina aldrich MA [facility] 5 16:49:57 Date Recorded Body height Body weight Body mass index (BMI) Heart rate Systolic blood pressure Diastolic blood pressure Provider Name and Address Organization Details Last Updated DateTime 5 158.115 cm 58910.4 74 g 36.3 kg/m2 80 /min 120 mm[Hg] 80 mm[Hg] Elisabeth Jerez [facility] 5 14:22:22 Date Recorded Body height Heart rate Systolic blood pressure Diastolic blood pressure Provider Name and Address Organization Details Last Updated DateTime 10/03/2015 158.115 cm 60 /min 120 mm[Hg] 84 mm[Hg] Ernestina mitchell [facility] 10/03/2015 16:45:49 Date Recorded Body height Heart rate Body temperature Systolic blood pressure Diastolic blood pressure Provider Name and Address Organization Details Last Updated DateTime 02/13/2016 158.115 cm 60 /min 98.2 [degF] 110 mm[Hg] 82 mm[Hg] Corinnaabhishek House [facility] 6 15:30:44 Social History Question Answer Notes LastModified by Organizat ion Details LastModified Time Tobacco Smoking Status Current Every Day Smoker 1/2pack per day KO Boucher, [facility] 11/29/2011 14:40:04 Do You Have An Advance Directive? No Declines Form [email or web address] Information not available 08/25/2010 What Is Your Level Of Alcohol Consumption? Occasional BF Is Alcoholic, [email or web address] Information not available 12/23/2013 Do You Wear [...] Marital Status Has BF Living With Her [email or web address] Information not available 08/25/2010 Mosquito Repellent Used [...] not available 01/08/2014 General Stress Level High Information not available 07/05/2011 Do You Use [...] Td(adult) unspecified formulation 0 completed Not Available [facility] 07/04/2011 05:22:52 Past Encounters Encounter ID Performer Location Encounter Start Date Encounter Closed Date Diagnosis/Indication Diagnosis SNOMED-CT Code Diagnosis ICD10 Code Diagnosis Note [id number] , [facility], [address]ICE [address] [place] [address] 08/25/2010 11:09:53 08/29/2010 11:09:48 [id number] [facility], [address] [place] [address] 09/15/2010 15:30:06 09/18/2010 14:25:45 [id number] [facility], [address] [place] [address] 11/29/2011 14:30:15 12/03/2011 10:36:02 [id number] Radiology , [facility] [address] [place] [address] 11/29/2011 15:08:55 11/29/2011 15:51:18 [id number] Radiology , [facility] [address] [place] [address] 11/29/2011 15:09:25 11/29/2011 15:51:24 [id number] [facility], [address] [place] [address] 12/17/2011 13:32:40 12/19/2011 08:29:09 [id number] Marisabel Carson [facility], [address] [place] [address] 08/20/2012 15:27:44 08/20/2012 16:20:17 [id number] Tamar Reese MD [facility], [address] [place] [address] 12/31/2012 14:28:53 12/31/2012 15:24:05 [id number] [facility], [address] [place] [address] 01/30/2013 14:40:09 02/02/2013 13:31:13 [id number] Izabel Weeks [facility], [address] [place] [address] 02/18/2013 16:35:29 02/20/2013 14:55:07 [id number] Izabel Weeks [facility], [address] [place] [address] 03/26/2013 14:54:46 03/26/2013 16:23:36 Dental caries 48244895 Severe dental pain for about 20 years, [...] s without letting us know. Muscular headache 369023527 Sig tension noted in neck and paraspinal muscles; gentle massage in clinic helped relieve pain slightly. Recommend massage - low cost options provided. [id number] Tamar Reese MD , [facility], [address] [place] [address] 10/21/2013 14:54:11 10/22/2013 15:08:23 Tobacco user [id number] Interested in quitting, but inadequate time to devise a plan at this encounter - return for this. Migraine 85853064 discus sed trial of imitrex, full PARQ held and patient wishes to try this. Return to see me in 3 weeks to follow up on this. Patient requested opiates for this but discussed that there are better medication s for migraines and I would prefer a trial of triptans. Lipoma 76909176 Discusse d likely lipoma on R lateral thigh; no sign of infection or abscess. Start with u/s for eval (she will call [facility] to set up) and referred to consult with general surgery re: risks and benefits of biopsy and/or full removal. Dental caries 22732728 S tates only friend who could take her to have teeth extracted lost his license, so she did not go through with extraction . States tooth pain has resolved. [id number] Elisabeth Nicholas , [facility], [address] [place] [address] 12/23/2013 15:01:25 12/24/2013 09:28:17 Adult health examination [id number] see Risk Assessment and Lifestyle Change Counseling section above UTD TDAP, Pap Mammogram, fbs ordred Add vitamin D, consider the med diet Counseling [id number] Screening mammography 05792319 Mass of keaton dy structure 989025626 present x 14 years but getting larger over the last few weeks, painful. Did not go to see general surgery . Discussed MRI next step in workup to ensure no sarcoma. F/u with me next week. Dental caries 67485765 p lans to have extraction at [place] Muscular headache 331715793 resolved Tobacco user [id number] n ot interested in quitting at the present [id number] KO Deleon, [facility], [address] [place] [address] 01/08/2014 11:44:23 01/08/2014 12:27:08 Pain in lower limb 35951432 Reviewed previous notes and results from u/s. [...] is not a medication to be used alf. If MRI is unrevealin g, could consider surgical consult (looks like was referred in past but no appt every made) but would stop the narcotics if not real cause can be found for her sx. Lipoma [id number] Periapical abscess without sinus tract [id number] very poor dentition with broken stubs of teeth noted - states found dentist who will pull these for her and enc. to f/u with that in the near future Fatigue [id number] Pt c/o fatigue, wt gain. Will return for some labs prior to f/u visit in 1 week. [id number] KO Deleon, [facility], [address] [place] [address] 01/26/2014 15:49:01 01/26/2014 16:11:47 Hip pain [id number] Will get hip X-ray - ? if [...] do not want to refill this again. [id number] , [facility], [address] [place] [address] 07/28/2014 16:43:12 07/28/2014 17:17:11 Pain in thumb [id number] pain at base of left thumb. pt requesting pain medication for this. distributi on of pain consistent with radial nerve. will image as focal tenderness is noted. advised brace at night, and follow up to consider physical therapy or gabapentin or amitryptil ine for pain. Migraine [id number] pt not es severe migraines every three - 4 months. pt has tried percocet. but last time percocet did not help. percocet did not help. pt states she has pounding pain. pt does note aura. will trial sumatripta n. [id number] , [facility], [address] [place] [address] 11/22/2014 16:39:11 11/22/2014 17:10:30 Migraine 88320879 states sumatripta n works very well - uses the Zofran prn for nausea as well - refilled as below Foot pain 21690754 Pt wi th pain top of foot - ? cause. Xray in ER was neg. Referred to podiatry. Pt to schedule. Small amt vicodin given as below to use sparingly. Continue the naproxen, comf. footwear. F/U if not gradually improving or sx worsen. Lipoma 70800216 Pt concerned about fat deposition right lat. hip - had seen surgeon for this in the past but feels this has gotten larger, more painful. Dr. Bettencourt felt surgery would not be beneficial for her sx. Wants another opinion. Referred to Dr. Zavaleta . Pt to schedule. [id number] Lat[facility], [facility] [address] [place] [address] 01/13/2015 14:10:28 01/26/2015 14:19:09 Acquired hallux valgus [id number] Disorder of nail 61198072 Pain in lower limb [id number] Olivia Martini NP , [facility], [address] [place] [address] 10/03/2015 16:28:44 10/03/2015 17:06:09 Migraine 06458506 G43.909 states sumatripta n works very well - uses the Zofran prn for nausea as well - refilled as below Foot pain 60973674 M79.6 73 referred back to podiatry - enc. wide comf. footwear - reassured - no need for narcotics which should be used only for more severe pain sx (i.e. fractures, surgery). Continue the ibuprofen - can take it with tylenol prn if not effective. Breast lump 02807351 N63 I don't feel any discrete mass but she is tender on the right at 9:00 position - will get mammo with u/s as below and f/u with results when available. Enc. to schedule PHA on her way out today [id number] KEARA De Anda, [facility], [address] [place] [address] 02/13/2016 15:21:20 02/13/2016 16:19:11 Migraine 55044186 G43.909 Uses zofran sparingly for her migraines - refilled as below Fatigue 16143504 R53.83 Will check some labs today and f/u with results when available Increased frequency of urination 362354337 R35.0 Feels having increased frequency, no burning/ur gency but some change in stream. Urine dip obtained and wnl. Discussed no s/s infection. F/U prn worsening sx. Substance abuse 73814440 F19.10 was buying oxycodone on the streets and had been seen here numerous times with drug seeking behaviors. + cocaine as well noted during ER visit in past. 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 Enc. cont. f/u with suboxone clinic. F/u for pHA in the near future Major depr ession, melancholic type 107229227 F32.9 cont. f/u with therapist and med prescriber as planned - denies any suicidal ideation. States feeling much better now that is on suboxone Tobacco de pendence syndrome 05779811 F17.290 Doesn't want nicotine replacemen t products - scare her. Interested in chantix. Discussed potential adverse effects including vivid dreams/sle ep disturbanc e. She will discuss this with her psych. prescriber and f/u if desires a rx. [id number] KEARA De Anda, [facility], [address] [place] [address] 02/18/2017 15:41:42 02/18/2017 16:23:40 Cigarette smoker 47025095 F17.210 Discussed and enc smoking cessation. Willing to try chantix again but might just stick with lower dose (1 mg/day, not BID). F/u when needing refills or if needing additional help with smoking cessation. Tobacco user 184920430 Z 72.0 Migraine 93191277 G43.90 9 Has imitrex to use but having alot more h/a's recently - daily. Will try nortriptyl ine for migraine prevention . Give this a few weeks. If not helping, f/u here. Enc to schedule PHA for the near future Common cold 19772517 J00 Reassured. QS neg. Sx c/w viral URI. Enc. adequate fluids/res t and otc analgesics prn. F/u for worsening sx (i.e. fever, chest pain, dyspnea). Opioid dep endence in remission [id number] F11.21 Enc cont. f/u with suboxone clinic. Health Concerns Section Related Observation LastModified by Organization Detai ls LastModified Time None Recorded Concern Status LastModified by Organization Details LastModified Time None Recorded Advance Directives Directive N: declines form Payers Encounter Date Sequence Insurance Name Policy Number Policy Blevins Covered Member ID Blevins Member ID Guarantor Name 11/22/2014 1 [facility] Property Partner [facility] PLAN (MEDICAID HMO) [id number] Marielos A Stefanowich [id number] Marielos Keenfanowich 01/13/2015 1 [facility] PLAN (MEDICAID HMO) [id number] Marielos A Stefanowich [id number] Marielos A Stefanowich 10/03/2015 1 [facility] Property Partner CRITICAL ACCESS HOSPITAL PLAN (MEDICAID HMO) [id number] Marielos A Stefanowich [id number] Marielos A Stefanowich 02/13/2016 1 [facility] PLAN (MEDICAID HMO) [id number] Marielos A Stefanowich [id number] Marielos A Stefanowich 02/18/2017 1 [facility] Property Partner CRITICAL [facility]ESS [facility]OSP[facility] PLAN (MEDICAID HMO) [id number] Marielos A Stefanowich [id number] Marielos Baezaowanselmo Notes Date Note Type Note Provider Name and Address Organization Details Recorded Time 11/22/2014 text/html Seen in ER 1 mon th ago for left foot pain/swelling. Xray was neg. Given naproxen which she is still taking, vicodin which is gone now. Asking for more vicodin. Has tried ice/heat. Nothing helps. Only able to wear slippers. Olivia Martini NP [address] [place], [address], [facility] [place] 11/22/2014 17:52:12 01/13/2015 text/html HPI Patient presents [...] swelling or drainage.? Kevin Hayes DPM [address] [place], [address], [facility] [place] 01/13/2015 15:31:30 10/03/2015 text/html Has bruise right [...] 800 mg for the pain without effect Olivia Martini NP [address] [place], [address], [facility] [place] 10/03/2015 17:40:38 02/13/2016 text/html Here for f/u. No w on suboxone - gets at [facility]. Was buying drugs on the street - oxycodone. Feels so much better. Has transportation now to get to app. Seeing therapist for talk therapy. Right ankle [...] menopause. Sweating profusely. Menses stopped years ago. Olivia Martini NP [address] [place], [address], [facility] [place] 02/13/2016 16:37:27 02/18/2017 text/html a/vmg-smoking [id number] bypatient.Notes:smok ing more since dad got sick [...] iced coffee (2/week). Lots stress. Dad in [place] with multiple strokes - not eating/drinking. H/a's so severe had to take an ambulance to the ER recently. ST started this a.m. Sees Dr. Richter for her psych meds. Drinking well. Throat hurts when coughing. [place] feverish 2 nights ago - 99..9 Olivia Martini NP [address] [place], [address], [facility] [place] 02/18/2017 17:44:33 OBGyn Episode No OBEpisode recorded.
== END 2024-11-25 15:33 | disposition home or self-care (01) ==
LOC: HO.HID 14:37
PROVIDERS: Visit Provider Internal Medicine
DX: F11.20 Opioid dependence, uncomplicated (principal)
CPT/HCPCS: 99213

== ENCOUNTER → 2024-11-25 14:37 | Outpatient (BNVA) | payer MEDICAID, SELFPAY | PROVIDERS: Visit Provider Internal Medicine | DX: F11.20 Opioid dependence, uncomplicated (principal); Z51.81 Encounter for therapeutic drug level monitoring | CPT/HCPCS: 99212 ==

== ENCOUNTER 2024-12-28 14:06 | Outpatient (AMB) | payer MEDICAID, SELFPAY ==
--- OUTSIDE RECORDS SUMMARY | 2024-12-28 14:21 | XMS_ITS | Clinical Summary ---
Author Organization [employer] Address [address] [place] [address] Care Team Providers Care Printing Plate Clerk Name Role Phone Unavailable Primary Care Provider Unavailabl e Encounters Date Type Department Care Team Description 10/30/2024 Population Health Risk Score [facility] ([facility]) Department [address] [address] Provider, Population Health Generic from Last 3 Months Social History Tobacco Use Types Packs/Day Years [...] Vaccines (1 of 2) 2018 COVID-19 Vaccine (2023-2 5 season) 2024 Influenza Vaccine (#1) 2024 [...]
--- OUTSIDE RECORDS SUMMARY | 2024-12-28 14:22 | XMS_ITS | Clinical Summary ---
Author Organization [facility] Address [address] [place] [address] Phone Care Team Providers Care Breakfast Host Name Role Phone Physician, No Pcp Primary Care Provider Unavaila ble Allergies No known active allergies Medications No known medications Encounters Date Type Department Care Team Description 10/12/2024 1:59 PM EST - 10/12/2024 6:22 PM EST Emergency [facility] Emergency [address] [place] [address] Discharge Disposition: Left Against Medical [...] Done Comments Breast Cancer Screening 1970 Hepatitis A Vaccines (1 of 2 - Risk 2-dose series) 1987 Hepatitis B Vaccines (1 of 3 [...] Influencers of Health Screening 07/22/2022 COVID-19 Vaccine (3 - 2023-2 5 season) 2024 04/13/2021, 03/23/2021 Influenza Vaccine (Season Ended) 2025 HIB Vaccines Aged Out No longer eligi [...] K/mcL LAB HEMETOLOGY METHOD 10/12/2024 2:47 PM [facility] RBC 5.80(H) 3.80 - 4.80 M/mcL LAB HEMETOLOGY METHOD 10/12/2024 2:47 PM [facility] Hemoglobin 16.6(H) 11.5 - 16.0 g/dL LAB HEMETOLOGY METHOD 10/12/2024 2:47 PM [facility] Hematocrit 50.7(H) 35.0 - 47.0 % LAB HEMETOLOGY METHOD 10/12/2024 2:47 PM [facility] MCV 86.8 79.0 - 98.0 FL LAB HEMETOLOGY METHOD 10/12/2024 2:47 PM [facility] MCH 28.4 27.0 - 32.0 pcg LAB HEMETOLOGY METHOD 10/12/2024 2:47 PM [facility] MCHC 32.7 32.0 - 37.0 g/dL LAB HEMETOLOGY METHOD 10/12/2024 2:47 PM [facility] RDW 13.2 11.0 - 15.0 % LAB HEMETOLOGY METHOD 10/12/2024 2:47 PM [facility] Platelets 311 130 - 400 K/mcL LAB HEMETOLOGY METHOD 10/12/2024 2:47 PM [facility] MPV 9.9 7.0 - 11.0 FL LAB HEMETOLOGY METHOD 10/12/2024 2:47 PM [facility] NRBC 0.0 <1.0 % LAB HEMETOLOGY METHOD 10/12/2024 2:47 PM [facility] NRBC Absolute 0.00 <0.10 K/mcL LAB HEMETOLOGY METHOD 10/12/2024 2:47 PM [facility] Neutrophils Relative 81.5 % LAB HEMETOLOGY METHOD 10/12/2024 2:47 PM [facility] Lymphocytes Relative 14.8 % LAB HEMETOLOGY METHOD 10/12/2024 2:47 PM [facility] Monocytes Relative 3.0 % LAB HEMETOLOGY METHOD 10/12/2024 2:47 PM [facility] Eosinophils Relative 0.1 % LAB HEMETOLOGY METHOD 10/12/2024 2:47 PM [facility] Basophils Relative 0.2 % LAB HEMETOLOGY METHOD 10/12/2024 2:47 PM [facility] Immature Granulocytes Relative 0.4 % LAB HEMETOLOGY METHOD 10/12/2024 2:47 PM [facility] Neutrophils Absolute 6.95 1.50 - 7.00 K/mcL LAB HEMETOLOGY METHOD 10/12/2024 2:47 PM [facility] Lymphocytes Absolute 1.26 1.00 - 5.00 K/mcL LAB HEMETOLOGY METHOD 10/12/2024 2:47 PM [facility] Monocytes Absolute 0.26 0.20 - 1.00 K/[facility] LAB HEMETOLOGY METHOD 10/12/2024 2:47 PM EST [facility] Eosinophils Absolute 0.01 0.00 - 0.50 K/[facility] LAB HEMETOLOGY METHOD 10/12/2024 2:47 PM EST [facility] Basophils Absolute 0.02 0.00 - 0.20 K/[facility] LAB HEMETOLOGY METHOD 10/12/2024 2:47 PM EST [facility] Immature Granulocytes Absolute 0.03 0.00 - 0.03 K/[facility] LAB HEMETOLOGY METHOD 10/12/2024 2:47 PM EST [facility] Blood Venous blood specimen / Unknown Venipuncture / Unknown 10/12/2024 2:39 PM EST 10/12/2024 2:44 PM EST us James Mcmillan MD LAB BLOOD ORDERABLES Final Res ult Performing Organization Address City/[facility]/ZIP Co de Phone Number [facility] [address] [place] [address], [place] [phone] * Magnesium (10/12/2024 2:39 PM EST) [facility] Magnesium 1.9 1.9 - 2.6 mg/dL LAB CHEMISTRY METHOD 10/12/2024 3:09 PM EST [facility] Blood Venous blood specimen / Unknown Venipuncture / Unknown 10/12/2024 2:39 PM EST 10/12/2024 2:44 PM EST us James Mcmillan MD LAB BLOOD ORDERABLES Final Res ult [facility] [address] [place] [address], [place] [phone] * Lipase (10/12/2024 2:39 PM EST) Lipase 19 13 - 75 unit/L LAB CHEMISTRY METHOD 10/12/2024 3:09 PM EST [facility] Blood Venous blood specimen / Unknown Venipuncture / Unknown 10/12/2024 2:39 PM EST 10/12/2024 2:44 PM EST us James Mcmillan MD LAB BLOOD ORDERABLES Final Res ult Performing Organization Address City/[facility]/ZIP Co de Phone Number [facility] [address] [place] [address], [place] [phone] * Ethanol (10/12/2024 2:39 PM EST) Pathologist [facility] Ethanol Level <3 0 - 10 mg/dL LAB CHEMISTRY METHOD 10/12/2024 3:09 PM EST [facility] Blood Venous blood specimen / Unknown Venipuncture / Unknown 10/12/2024 2:39 PM EST 10/12/2024 2:44 PM EST us James Mcmillan MD LAB BLOOD ORDERABLES Final Res ult Performing Organization Address [facility]/ZIP Co de Phone Number [facility] [address] [place] [address], [place] [phone] * (ABNORMAL) Comprehensive metabolic panel (10/12/2024 2:39 PM EST) Pathologist [facility] Sodium 141 133 - 145 mmol/L LAB CHEMISTRY METHOD 10/12/2024 3:09 PM [facility] Potassium 4.1 3.5 - 5.5 mmol/L LAB CHEMISTRY METHOD 10/12/2024 3:09 PM [facility] Chloride 112(H) 96 - 110 mmol/L LAB CHEMISTRY METHOD 10/12/2024 3:09 PM [facility] CO2 22 21 - 32 mmol/L LAB CHEMISTRY METHOD 10/12/2024 3:09 PM [facility] Anion Gap 7 3 - 11 LAB CHEMISTRY METHOD 10/12/2024 3:09 PM [facility] Glucose 123(H) 70 - 100 mg/dL LAB CHEMISTRY METHOD 10/12/2024 3:09 PM [facility] BUN 11 5 - 25 mg/dL LAB CHEMISTRY METHOD 10/12/2024 3:09 PM [facility] Creatinine 0.74 0.50 - 1.10 mg/dL LAB CHEMISTRY METHOD 10/12/2024 3:09 PM [facility] eGFR 95 >=60 mL/min/1. 73m2 LAB CHEMISTRY METHOD 10/12/2024 3:09 PM [facility] Comment:Calculation based on the??Chronic Kidney Disease Epidemiology Collaboration (CKD-EPI) equation refit??without adjustment for race. BUN/Creatinine Ratio 14.9 LAB CHEMISTRY METHOD 10/12/2024 3:09 PM [facility] Calcium 9.0 8.5 - 10.5 mg/dL LAB CHEMISTRY METHOD 10/12/2024 3:09 PM [facility] AST (SGOT) 24 10 - 42 unit/L LAB CHEMISTRY METHOD 10/12/2024 3:09 PM [facility] ALT (SGPT) 27 10 - 60 unit/L LAB CHEMISTRY METHOD 10/12/2024 3:09 PM [facility] Alkaline Phosphatase 74 42 - 121 unit/L LAB CHEMISTRY METHOD 10/12/2024 3:09 PM [facility] Total Protein 7.0 6.0 - 8.0 g/dL LAB CHEMISTRY METHOD 10/12/2024 3:09 PM [facility] Albumin 3.5 3.2 - 5.0 g/dL LAB CHEMISTRY METHOD 10/12/2024 3:09 PM [facility] Total Bilirubin 0.7 0.0 - 1.4 mg/dL LAB CHEMISTRY METHOD 10/12/2024 3:09 PM [facility] Blood Venous blood specimen / Unknown Venipuncture / Unknown 10/12/2024 2:39 PM EST 10/12/2024 2:44 PM EST us James Mcmillan MD LAB BLOOD ORDERABLES Final Res ult [facility] [address] [place] [address], * (ABNORMAL) Drug abuse screen 8a panel, urine (10/12/2024 2:34 PM EST) [facility] Amphetamine Screen, Ur Negative Negative LAB CHEMISTRY METHOD 5 3:54 PM [facility] Comment:Certain OTC medicati ons containing ephedrine, phenylephrine, pseudoephedrine and phenylpropanolamine can cause false positive results. Barbiturate Screen, Ur Negative Negative LAB CHEMISTRY METHOD 5 3:54 PM [facility] Benzodiazepine Screen, Ur Negative Negative LAB CHEMISTRY METHOD 5 3:54 PM [facility] Cocaine Screen, Ur Negative Negative LAB CHEMISTRY METHOD 5 3:54 PM [facility] Opiate Screen, Ur Positive(A ) Negative LAB CHEMISTRY METHOD 5 3:54 PM [facility] Cannabinoid (THC) Screen, Ur Positive(A ) Negative LAB CHEMISTRY METHOD 5 3:54 PM [facility] Comment:Specimens from patie nts taking pantoprazole sodium (Protonix) have been shown to produce false positive results. Oxycodone Screen, Ur Negative Negative LAB CHEMISTRY METHOD 5 3:54 PM [facility] Fentanyl, Ur Positive(A ) Negative LAB CHEMISTRY METHOD 5 3:54 PM [facility] Urine Urine specimen obtained by clean catch procedure / Unknown Non-blood Collection / Unknown 10/12/2024 2:34 PM EST 10/12/2024 2:43 PM EST Narrative [facility] - 10/12/2024 3:54 PM [...] Res ult Performing Organization Address [facility] de Phone Number [facility] [address] [place] [address], [place] [phone] * Buprenorphine screen, urine (10/12/2024 2:34 PM EST) [facility] Buprenorphine Screen Urine Negative Negative LAB CHEMISTRY METHOD 10/12/2024 3:34 PM EST [facility] Urine Urine specimen obtained by clean catch procedure / Unknown Non-blood Collection / Unknown 10/12/2024 2:34 PM EST 10/12/2024 2:43 PM EST Narrative [facility] - 10/12/2024 3:34 PM EST Assay cutoff 5 ng/mL Semi-quantitative assay for screening purposes only. Unconfirmed screening result should not be used for non-medical purposes. *ALTERNATE METHOD CONFIRMATION DONE UPON REQUEST ONLY* James Mcmillan MD LAB URINE ORDERABLES Final Res ult Performing Organization Address [facility] de Phone Number [facility] [address] [place] [address], * Methadone, urine (10/12/2024 2:34 PM EST) Methadone Screen, Urine Negative Negative LAB CHEMISTRY METHOD 10/12/2024 3:34 PM EST [facility] Comment: Assay cutoff 300 ng/mL [...] ORDERABLES Final Res ult Performing Organization Address [facility]/ZIP Co de Phone Number [facility] [address] [place] [address], [place] [phone] * Phencyclidine, urine (10/12/2024 2:34 PM EST) PCP Scrn, Ur Negative Negative LAB CHEMISTRY METHOD 10/12/2024 3:34 PM EST [facility] Comment: Assay cutoff 25 ng/mL Semi-quantitative assay for screening purposes only. Unconfirmed screening result should not be used for non-medical purposes. *ALTERNATE METHOD CONFIRMATION DONE UPON REQUEST ONLY* Urine Urine specimen obtained by clean catch procedure / Unknown Non-blood Collection / Unknown 10/12/2024 2:34 PM EST 10/12/2024 2:43 PM EST us James Mcmillan MD LAB URINE ORDERABLES Final Res ult [facility] [address] [place] [address], [place] [phone] from Last 3 Months Insurance MEDICAID - [place] Care Teams Breakfast Host Relationship Specialty Start Date End Date Physician, No Pcp PCP - General 10/12/24
--- OUTSIDE RECORDS SUMMARY | 2024-12-28 14:22 | XMS_ITS | Data Portability ---
Author Organization [facility], , [facility] Address [address] [place] [address] Care Team Providers Care Belt Sander Name Role Phone IRENE REIS Primary Care Provider HUMZA Wei OTHER BENJAMIN BETTENCOURT OTHER Assessment Encounter Date Assessment Date Assessment LastModified [...] TSH, serum or plasma 2015 016 [facility], [address] [place] [address], [address], 6 04:02:36 CBC 2015 016 [facility], [address] [place] [address], [address], 6 04:02:36 CMP, serum or plasma 2015 016 [facility], [address] [place] [address], [address], 6 04:02:23 Referral general surgeon referral - [...] would be beneficial to her. 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 Surgeries None recorded. Imaging MAMMO, diagnostic, digital, bilateral - right breast pain at 9:00 position - pt has never had a mammo. Note: patient had seen pcp because she thought she felt a lump. Please palpate area with patient direction * 2015 016 [facility] [address], [place], [address], 6 09:58:50 ultrasound, breast - pain right breast at 9:00 position - ? cyst 2015 016 [facility] [address], [place], [address], 6 09:59:18 Medication Orders nortriptyli ne 25 mg capsule 2016 017 [facility] 55602 (APS 827), [address], [place], [id number], 7 16:14:54 Chantix Starting Month Box 0.5 mg (11)-1 mg (42) tablets in dose pack 2016 017 [facility] 12646 (APS 827), [address], [place], [id number], 7 16:14:54 ondansetron HCl 4 mg tablet 2015 016 [facility] #01800, [address], [place], [id number], 6 04:03:27 ondansetron HCl 4 mg tablet 2015 016 [facility] #67636, [address] [place], [id number], 6 17:40:37 hydrocodone 5 mg-acetamin ophen 325 mg tablet 2014 015 [facility] #44920, [address] [place], [id number], 6 16:49:28 ondansetron HCl 4 mg tablet 2014 015 [facility] #39561, [address], [place], [id number], 5 17:52:00 Patient TargetsNo targets recorded. Patient Instructions Encounter Date Encounter Id Patient Instructions Last Modified By Organization Details Last Modified Time 01/13/2015 [id number] Reviewed previou s x-ray findings.? ? ? Dispensed prescription for custom orthotics.? ? ? Patient to return if symptoms persist. [email or web address] Not available 01/13/2015 15:31:19 10/03/2015 [id number] After a discussi on of treatment options, which included consideration of best practices, patient preferences, and the patient? s individual lifestyle and treatment goals, as well as consideration and attempted mitigation of any barriers to meeting the patient? s goals, the? ? ?above treatment plan and objectives were adopted: [email or web address] Not available 10/03/2015 17:40:37 02/13/2016 [id number] After a discussi on of treatment options, which included consideration of best practices, patient preferences, and the patient? s individual lifestyle and treatment goals, as well as consideration and attempted mitigation of any barriers to meeting the patient? s goals, the? ? 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 [...] WBC 9.8 K/uL 3.4-11 .2 Not Available [facility] ([facility] [address] [place] [address], [id number], 05/29/2015 12:24:11 05/29/20 15 05/29/2015 CBC w/ auto diff RBC 5.70 M/uL 3.80-4 .80 high Not Available [facility] ([facility]patient) [address] [place] [address], [address], 05/29/2015 12:24:11 05/29/20 15 05/29/2015 CBC w/ auto diff hemoglobin 17.3 g/dL 12.0-1 5.0 high Not Available [facility] (Outpatient) [address] [place] [address], [address], 05/29/2015 12:24:11 05/29/20 15 05/29/2015 CBC w/ auto diff hematocrit 48.8 % 36.0-4 6.0 high Not Available [facility] (Outpatient) [address] [place] [address], [address], 05/29/2015 12:24:11 05/29/20 15 05/29/2015 CBC w/ auto diff MCV 85.6 fL 79.0-9 8.0 Not Available [facility] (Outpatient) [address] [place] [address], [address], 05/29/2015 12:24:11 05/29/20 15 05/29/2015 CBC w/ auto diff MCH 30.4 pg 27.0-3 4.8 Not Available [facility] (Outpatient) [address] [place] [address], [address], 05/29/2015 12:24:11 05/29/20 15 05/29/2015 CBC w/ auto diff MCHC 35.5 g/dL 31.5-3 6.0 Not Available [facility] (Outpatient) [address] [place] [address], [address], 05/29/2015 12:24:11 05/29/20 15 05/29/2015 CBC w/ auto diff RDW 13.4 % 10.8-1 4.6 Not Available [facility] (Outpatient) [address] [place] [address], [address], 05/29/2015 12:24:11 05/29/20 15 05/29/2015 CBC w/ auto diff MPV 10.8 fL 9.4-12 .4 Not Available [facility] ([facility]) [address] [place] [address], [address], 05/29/2015 12:24:11 05/29/20 15 05/29/2015 CBC w/ auto diff platelet count 253 K/uL 130-40 0 Not Available [facility] ([facility]patient) [address] [place] [address], [address], 05/29/2015 12:24:11 05/29/20 15 05/29/2015 CBC w/ auto diff neutrophils 72.4 % 45.3-7 7.7 Not Available [facility] ([facility]) [address] [place] [address], 24[address], 05/29/2015 12:24:11 05/29/20 15 05/29/2015 CBC w/ auto diff lymphocytes 21.5 % 12.3-3 9.7 Not Available [facility] ([facility]) [address] [place] [address], [address], 05/29/2015 12:24:11 05/29/20 15 05/29/2015 CBC w/ auto diff monocytes 5.2 % 4.1-12 .8 Not Available [facility]) [address] [place], [address], 05/29/2015 12:24:11 05/29/20 15 05/29/2015 CBC w/ auto diff eosinophils 0.70 % 0.00-7 .20 Not Available [facility] ([facility]) [address] [place], [address], 05/29/2015 12:24:11 05/29/20 15 05/29/2015 CBC w/ auto diff basophils 0.10 % 0.00-2 .80 Not Available [facility] ([facility]) [address] [place], [address], 05/29/2015 12:24:11 05/29/20 15 05/29/2015 CBC w/ auto diff absolute neutrophil 7.1 K/uL 1.4-7. 7 Not Available [facility] (Outpatient) [address] [place], [address], 05/29/2015 12:24:11 05/29/20 15 05/29/2015 CBC w/ auto diff absolute lymphocyte 2.1 K/uL 0.6-3. 2 Not Available [facility] ([facility]patient) [address] [place], [address], 05/29/2015 12:24:11 05/29/20 15 05/29/2015 CBC w/ auto diff absolute monocytes 0.5 K/uL 0.1-0. 6 Not Available [facility] (Outpatient) [address] [place] [address], [address], 05/29/2015 12:24:11 05/29/20 15 05/29/2015 CBC w/ auto diff absolute eosinophil 0.07 K/uL 0.01-0 .50 Not Available [facility] (Outpatient) [address] [place] [address], [address], 05/29/2015 12:24:11 05/29/20 15 05/29/2015 CBC w/ auto diff absolute basophils 0.01 K/uL Not Available [facility] ([facility]) [address] [place], [address], 05/29/2015 12:24:11 05/29/20 15 05/29/2015 CBC w/ auto diff immature granulocyte 0.10 % 0.00-0 .50 Not Available [facility] ([facility]patient) [address] [place], [address], 05/29/2015 12:24:11 05/29/20 15 05/29/2015 CBC w/ auto diff absolute immature granulocyte 0.01 K/uL 0.00-0 .03 Not Available [facility] ([facility]) [address] [place] [address], [address], 05/29/2015 12:24:11 05/29/20 15 05/29/2015 tropo ruthann T, serum troponin T <0.010 NG/mL 0.000- 0.030 Not Available [facility] ([facility]) [address] [place], [address], 05/29/2015 12:47:11 05/29/20 15 05/29/2015 CMP, serum or plasm a glucose 92 mg/dL 70-99 Not Available [facility] ([facility]) [address] [place] [address], [address], 05/29/2015 12:48:11 05/29/20 15 05/29/2015 CMP, serum or plasm a BUN 12 mg/dL 6-19 Not Available [facility] ([facility]) [address] [place] [address], [address], 05/29/2015 12:48:11 05/29/20 15 05/29/2015 CMP, serum or plasm a creatinine 0.6 mg/dL 0.5-1. 5 Not Available [facility] (Out[facility]) [address] [place] [address], [address], 05/29/2015 12:48:11 05/29/20 15 05/29/2015 CMP, serum [...] ages of 16 and 68. Not Available [facility] ([facility]patient) [address] [place], [address], 05/29/2015 12:48:11 05/29/20 15 05/29/2015 CMP, serum or plasm a sodium 138 mEq/L 133-14 5 Not Available [facility] ([facility]) [address] [place] [address], [address], 05/29/2015 12:48:11 05/29/20 15 05/29/2015 CMP, serum or plasm a potassium 4.0 mEq/L 3.3-5. 1 Not Available [facility] ([facility]) [address] [place], [address], 05/29/2015 12:48:11 05/29/20 15 05/29/2015 CMP, serum or plasm a chloride 106 mEq/L 96-108 Not Available [facility] ([facility]) [address] [place], [address], 05/29/2015 12:48:11 05/29/20 15 05/29/2015 CMP, serum or plasm a CO2 21 mEq/L 21-35 Not Available [facility] ([facility]) [address] [place], [address], 05/29/2015 12:48:11 05/29/20 15 05/29/2015 CMP, serum or plasm a calcium 9.4 mg/dL 8.4-10 .3 Not Available [facility] ([facility]) [address] [place], [address], 05/29/2015 12:48:11 05/29/20 15 05/29/2015 CMP, serum or plasm a total bilirubin 0.8 mg/dL 0.0-1. 2 Not Available [facility] ([facility]patient) [address] [place], [address], 05/29/2015 12:48:11 05/29/20 15 05/29/2015 CMP, serum or plasm a alkaline phosphatase 57 U/L 39-117 Not Available [facility] ([facility]) [address] [place], [address], 05/29/2015 12:48:11 05/29/20 15 05/29/2015 CMP, serum or plasm a AST (SGOT) 12 U/L 0-37 Not Available [facility] ([facility]) [address] [place] [address], [address], 05/29/2015 12:48:11 05/29/20 15 05/29/2015 CMP, serum or plasm a ALT (SGPT) 12 U/L 0-40 Not Available [facility] ([facility]) [address] [place], [address], 05/29/2015 12:48:11 05/29/20 15 05/29/2015 CMP, serum or plasm a total protein 7.2 g/dL 6.5-8. 0 Not Available [facility] ([facility]) [address] [place], [address], 05/29/2015 12:48:11 05/29/20 15 05/29/2015 CMP, serum or plasm a albumin 3.8 g/dL 3.9-4. 8 low Not Available [facility] ([facility]) [address] [place] [address], [address], 05/29/2015 12:48:11 05/29/20 15 05/29/2015 CMP, serum or plasm a globulin 3.4 gm/dL 1.0-4. 8 Not Available [facility] ([facility]) [address] [place], [address], 05/29/2015 12:48:11 05/29/20 15 05/29/2015 CMP, serum or plasm a A/G ratio 1.1 gm/dL 1.0-4. 8 Not Available [facility] ([facility]) [address] [place] [address], [address], 05/29/2015 12:48:11 05/29/20 15 05/29/2015 CMP, serum or plasm a anion gap 15 mEq/L 06-07 Not Available [facility] ([facility]) [address] [place] [address], [address], 05/29/2015 12:48:11 06/25/20 15 06/25/2015 pregn stephen test, urine test, urine Negati ve negati ve Not Available [facility] (Outpatient) [address] [place] [address], [address], 06/25/2015 23:30:14 06/26/20 15 06/26/2015 CBC w/ auto diff WBC 8.0 K/uL 3.4-11 .2 Not Available [facility] ([facility]) [address] [place] [address], [address], 06/26/2015 00:36:16 06/26/20 15 06/26/2015 CBC w/ auto diff RBC 5.06 M/uL 3.80-4 .80 high Not Available [facility] ([facility]) [address] [place] [address], [address]61, 06/26/2015 00:36:16 06/26/20 15 06/26/2015 CBC w/ auto diff hemoglobin 15.3 g/dL 12.0-1 5.0 high Not Available [facility] (Outpatient) [address] [place] [address], 884[address], 06/26/2015 00:36:16 06/26/20 15 06/26/2015 CBC w/ auto diff hematocrit 43.8 % 36.0-4 6.0 Not Available [facility] ([facility]) [address] [place], [address], 06/26/2015 00:36:16 06/26/20 15 06/26/2015 CBC w/ auto diff MCV 86.6 fL 79.0-9 8.0 Not Available [facility] ([facility]patient) [address] [place], [address], 06/26/2015 00:36:16 06/26/20 15 06/26/2015 CBC w/ auto diff MCH 30.2 pg 27.0-3 4.8 Not Available [facility] ([facility]patient) [address] [place] [address], 46[address], 06/26/2015 00:36:16 06/26/20 15 06/26/2015 CBC w/ auto diff MCHC 34.9 g/dL 31.5-3 6.0 Not Available [facility] ([facility]) [address] [place] [address], 67448, 06/26/2015 00:36:16 06/26/20 15 06/26/2015 CBC w/ auto diff RDW 13.6 % 10.8-1 4.6 Not Available [facility] ([facility]) [address] [place] [address], 5[address], 06/26/2015 00:36:16 06/26/20 15 06/26/2015 CBC w/ auto diff MPV 10.2 fL 9.4-12 .4 Not Available [facility] ([facility]) [address] [place] [address], [address], 06/26/2015 00:36:16 06/26/20 15 06/26/2015 CBC w/ auto diff platelet count 268 K/uL 130-40 0 Not Available [facility] ([facility]) [address] [place] [address], 25[address], 06/26/2015 00:36:16 06/26/20 15 06/26/2015 CBC w/ auto diff neutrophils 54.0 % 45.3-7 7.7 Not Available [facility] ([facility]) [address] [place], [address], 06/26/2015 00:36:16 06/26/20 15 06/26/2015 CBC w/ auto diff lymphocytes 36.5 % 12.3-3 9.7 Not Available [facility] ([facility]patient) [address] [place], [address], 06/26/2015 00:36:16 06/26/20 15 06/26/2015 CBC w/ auto diff monocytes 5.6 % 4.1-12 .8 Not Available [facility] ([facility]) [address] [place] [address], [address], 06/26/2015 00:36:16 06/26/20 15 06/26/2015 CBC w/ auto diff eosinophils 3.60 % 0.00-7 .20 Not Available [facility] ([facility]patient) [address] [place], [address], 06/26/2015 00:36:16 06/26/20 15 06/26/2015 CBC w/ auto diff basophils 0.20 % 0.00-2 .80 Not Available [facility] ([facility]) [address] [place], [address], 06/26/2015 00:36:16 06/26/20 15 06/26/2015 CBC w/ auto diff absolute neutrophil 4.3 K/uL 1.4-7. 7 Not Available [facility] ([facility]) [address] [place], [address], 06/26/2015 00:36:16 06/26/20 15 06/26/2015 CBC w/ auto diff absolute lymphocyte 2.9 K/uL 0.6-3. 2 Not Available [facility] (Outpatient) [address] [place] [address], [address], 06/26/2015 00:36:16 11/08/20 15 06/26/2015 CBC w/ auto diff absolute monocytes 0.4 K/uL 0.1-0. 6 Not Available [facility] ([facility]patient) [address] [place] [address], 318[address], 06/26/2015 00:36:16 06/26/20 15 06/26/2015 CBC w/ auto diff absolute eosinophil 0.29 K/uL 0.01-0 .50 Not Available [facility] ([facility]patient) [address] [place], [address], 06/26/2015 00:36:16 06/26/20 15 06/26/2015 CBC w/ auto diff absolute basophils 0.02 K/uL Not Available [facility] ([facility]) [address] [place] [address], [address], 06/26/2015 00:36:16 06/26/20 15 06/26/2015 CBC w/ auto diff immature granulocyte 0.10 % 0.00-0 .50 Not Available [facility] ([facility]) [address] [place], [address], 06/26/2015 00:36:16 06/26/20 15 06/26/2015 CBC w/ auto diff absolute immature granulocyte 0.01 K/uL 0.00-0 .03 Not Available [facility] ([facility]patient) [address] [place] [address], 77337, 06/26/2015 00:36:16 06/26/20 15 06/26/2015 CMP, serum or plasm a glucose 98 mg/dL 70-99 Not Available [facility] ([facility]) [address] [place] [address], 557[address], 06/26/2015 04:06:16 06/26/20 15 06/26/2015 CMP, serum or plasm a BUN 8 mg/dL 6-19 Not Available [facility] ([facility]) [address] [place] [address], 393[address], 06/26/2015 04:06:16 06/26/20 15 06/26/2015 CMP, serum or plasm a creatinine 0.6 mg/dL 0.5-1. 5 Not Available [facility] ([facility]) [address] [place], [address], 06/26/2015 04:06:16 06/26/20 15 06/26/2015 CMP, serum [...] ages of 16 and 68. Not Available [facility] (Outpatient) [address] [place], [address], 06/26/2015 04:06:16 06/26/20 15 06/26/2015 CMP, serum or plasm a sodium 143 mEq/L 133-14 5 Not Available [facility] ([facility]) [address] [place], [address], 06/26/2015 04:06:16 06/26/20 15 06/26/2015 CMP, serum or plasm a potassium 3.3 mEq/L 3.3-5. 1 Not Available [facility] ([facility]) [address] [place], [address], 06/26/2015 04:06:16 06/26/20 15 06/26/2015 CMP, serum or plasm a chloride 103 mEq/L 96-108 Not Available [facility] ([facility]) [address] [place], [address], 06/26/2015 04:06:16 06/26/20 15 06/26/2015 CMP, serum or plasm a CO2 24 mEq/L 21-35 Not Available [facility] ([facility]) [address] [place], [address], 06/26/2015 04:06:16 06/26/20 15 06/26/2015 CMP, serum or plasm a calcium 8.6 mg/dL 8.4-10 .3 Not Available [facility] ([facility]) [address] [place], [address], 06/26/2015 04:06:16 06/26/20 15 06/26/2015 CMP, serum or plasm a total bilirubin 0.3 mg/dL 0.0-1. 2 Not Available [facility] ([facility]) [address] [place], [address], 06/26/2015 04:06:16 06/26/20 15 06/26/2015 CMP, serum or plasm a alkaline phosphatase 52 U/L 39-117 Not Available [facility] ([facility]) [address] [place] [address], [address], 06/26/2015 04:06:16 06/26/20 15 06/26/2015 CMP, serum or plasm a AST (SGOT) 27 U/L 0-37 Not Available [facility] ([facility]patient) [address] [place] [address], 94[address], 06/26/2015 04:06:16 06/26/20 15 06/26/2015 CMP, serum or plasm a ALT (SGPT) 22 U/L 0-40 Not Available [facility] ([facility]) [address] [place] [address], [address], 06/26/2015 04:06:16 06/26/20 15 06/26/2015 CMP, serum or plasm a total protein 6.7 g/dL 6.5-8. 0 Not Available [facility] ([facility]patient) [address] [place] [address], 778[address], 06/26/2015 04:06:16 06/26/20 15 06/26/2015 CMP, serum or plasm a albumin 4.0 g/dL 3.9-4. 8 Not Available [facility] ([facility]) [address] [place], [address], 06/26/2015 04:06:16 06/26/20 15 06/26/2015 CMP, serum or plasm a globulin 2.7 gm/dL 1.0-4. 8 Not Available [facility] ([facility]) [address] [place] [address], 616[address], 06/26/2015 04:06:16 06/26/20 15 06/26/2015 CMP, serum or plasm a A/G ratio 1.5 gm/dL 1.0-4. 8 Not Available [facility] ([facility]patient) [address] [place] [address], 16457, 06/26/2015 04:06:16 06/26/20 15 06/26/2015 CMP, serum or plasm a anion gap 19 mEq/L 10-20 Not Available [facility] ([facility]) [address] [place] [address], 94746, 06/26/2015 04:06:16 06/26/20 15 06/26/2015 jeannine ol, quant itati ve, serum or plasm a alcohol,ser/ plas. 111 mg/dL <10 Not Available [facility] ([facility]) [address] [place] [address], 32[address], 06/26/2015 04:06:19 06/26/20 15 06/26/2015 salic ylate , quant itati ve, serum salicylate <0.3 mg/dL 2.8-20 .0 low Note: Resul ts less than 2.8 mg/dL are consi dered negat ish. Toxic : Great er than 30.0 mg/dL . Not Available [facility] (Outpatient) [address] [place] [address], 70905, 06/26/2015 04:06:19 06/26/20 15 06/26/2015 aceta minop hen, serum acetaminophe n <15.0 ug/mL 15.0-3 0.0 Not Available [facility] (Outpatient) [address] [place] [address], 06238, 06/26/2015 04:06:20 02/13/20 16 02/13/2016 POC UA glu UA NEGATI VE Not Available [address], [address], 02/13/2016 15:58:37 02/13/20 16 02/13/2016 POC UA clarity UA CLEAR Not Available [address], [address], 02/13/2016 15:58:37 02/13/20 16 02/13/2016 POC UA uro UA 0.2000 Not Available [address], [address], 02/13/2016 15:58:37 02/13/20 16 02/13/2016 POC UA ket UA NEGATI VE Not Available [address], [address], 02/13/2016 15:58:37 02/13/20 16 02/13/2016 POC UA pro UA NEGATI VE Not Available [address], 806[address], 02/13/2016 15:58:37 02/13/20 16 02/13/2016 POC UA nit UA NEGATI VE Not Available [address], 13232, 02/13/2016 15:58:37 02/13/20 16 02/13/2016 POC UA gustavo UA NEGATI VE Not Available [address], [address], 02/13/2016 15:58:37 02/13/20 16 02/13/2016 POC UA pH UA 7.0000 Not Available [address], [address], 02/13/2016 15:58:37 02/13/20 16 02/13/2016 POC UA SG UA 1.0250 Not Available [address], [address], 02/13/2016 15:58:37 02/13/20 16 02/13/2016 POC UA color UA YELLOW Not Available [address], 39942, 02/13/2016 15:58:37 02/13/20 16 02/13/2016 POC UA blo UA NEGATI VE Not Available [address], 20969, 02/13/2016 15:58:37 02/13/20 16 02/13/2016 POC UA roseline UA NEGATI VE Not Available [address], [address]121, 02/13/2016 15:58:37 02/13/20 16 02/14/2016 CBC WBC 10.6 K/? ? ?L 4.0-10 .0 high Not Available [address], [address]26, 02/14/2016 11:09:23 02/13/20 16 02/14/2016 CBC RBC 5.60 M/? ? ?L 3.93-5 .22 high Not Available [address], [address], 02/14/2016 11:09:23 02/13/20 16 02/14/2016 CBC HGB 16.4 g/dL 11.2-1 5.7 high Not Available [address], [address]60, 02/14/2016 11:09:23 02/13/20 16 02/14/2016 CBC HCT 51.8 % 34.1-4 4.9 high Not Available [address], [address], 02/14/2016 11:09:23 02/13/20 16 02/14/2016 CBC MCV 92.5 ? ? ?L 79.4-9 4.8 Not Available [address], [address], 02/14/2016 11:09:23 02/13/20 16 02/14/2016 CBC MCH 29.3 pg 25.6-3 2.2 Not Available [address], [address], 02/14/2016 11:09:23 02/13/20 16 02/14/2016 CBC MCHC 31.7 g/dL 32.2-3 5.5 low Not Available [address], [address], 02/14/2016 11:09:23 02/13/20 16 02/14/2016 CBC plt 278.0 K/? ? ?L 182.0- 369.0 Not Available [address], [address], 02/14/2016 11:09:23 02/13/20 16 02/14/2016 CBC MPV 12.3 9.4-12 .3 Not Available [address], [address], 02/14/2016 11:09:23 02/13/20 16 02/14/2016 CBC neut% 68.1 % 34.0-7 1.1 Not Available [address], [address], 02/14/2016 11:09:23 02/13/20 16 02/14/2016 CBC neut# 7.2 1.6-6. 1 high Not Available [address], [address], 02/14/2016 11:09:23 02/13/20 16 02/14/2016 CBC lymph % 26.3 % 19.3-5 1.7 Not Available [address], 16827, 02/14/2016 11:09:23 02/13/20 16 02/14/2016 CBC lymph # 2.8 K/? ? ?L 1.2-3. 7 Not Available [address], [address]265, 02/14/2016 11:09:23 02/13/20 16 02/14/2016 CBC mono% 3.9 % 4.7-12 .5 low Not Available [address], [address]17, 02/14/2016 11:09:23 02/13/20 16 02/14/2016 CBC mono# 0.4 0.2-0. 6 Not Available [address], [address], 02/14/2016 11:09:23 02/13/20 16 02/14/2016 CBC eo% 1.5 % 0.7-5. 8 Not Available [address], 42921, 02/14/2016 11:09:23 02/13/20 16 02/14/2016 CBC eo# 0.2 0.0-0. 4 Not Available [address], 65[address], 02/14/2016 11:09:23 02/13/20 16 02/14/2016 CBC baso% 0.2 % 0.1-1. 2 Not Available [address], [address], 02/14/2016 11:09:23 02/13/20 16 02/14/2016 CBC baso# 0.0 0.0-0. 1 Not Available [address], [address], 02/14/2016 11:09:23 02/13/20 16 02/14/2016 CBC RDW-CV 14.2 % 11.7-1 4.4 Not Available [address], [address]654, 02/14/2016 11:09:23 02/13/20 16 02/14/2016 TSH, serum or plasm a TSH 0.90 uIU/m L 0.50-6 .00 The [employer] can [employer] [facility] Endoc rinol ogy and Suad can Thyro id Assoc iatio n recom mend goal TSH value s betwe en 0.4-4 .0 mIU/m L. Not Available [address], [address], 02/14/2016 12:04:35 02/13/20 16 02/14/2016 CMP, serum or plasm a glucose 89 mg/dL 70-100 Not Available [address], [address], 02/14/2016 12:16:36 02/13/20 16 02/14/2016 CMP, serum or plasm a BUN 12 mg/dL 7-18 Not Available [address], [address], 02/14/2016 12:16:36 02/13/20 16 02/14/2016 CMP, serum or plasm a creatinine 0.7 mg/dL 0.8-1. 3 low Not Available [address], [address], 02/14/2016 12:16:36 02/13/20 16 02/14/2016 CMP, serum or plasm a B/C 17.1 ratio Not Available [address], [address], 02/14/2016 12:16:36 02/13/20 16 02/14/2016 CMP, serum or plasm a GFR -non 100.5 mL/mi n Recom eusebio d GFR by the Natio nal Kidne y Found ation >60 mL/mi n/1.7 3m2 - Milagros l <60 mL/mi n/1.7 3m2 - Chron ic Kidne y Disea se <15 mL/mi n/1.7 3m2 - Kidne y Failu re Not Available [address], [address], 02/14/2016 12:16:36 02/13/20 16 02/14/2016 CMP, serum or plasm a GFR - if 115.5 mL/mi n For Afric an Suad can patie nts: Resul ts Multi plied by 1.21 Not Available [address], [address], 02/14/2016 12:16:36 02/13/20 16 02/14/2016 CMP, serum or plasm a sodium 142 mmol/ L 136-14 5 Not Available [address], [address], 02/14/2016 12:16:36 02/13/20 16 02/14/2016 CMP, serum or plasm a potassium 4.6 mmol/ L 3.5-5. 1 Not Available [address], [address], 02/14/2016 12:16:36 02/13/20 16 02/14/2016 CMP, serum or plasm a chloride 106 mmol/ L 96-107 Not Available [address], [address], 02/14/2016 12:16:36 02/13/20 16 02/14/2016 CMP, serum or plasm a anion gap 12.5 5.0-15 .0 Not Available [address], [address], 02/14/2016 12:16:36 02/13/20 16 02/14/2016 CMP, serum or plasm a CO2 24 mmol/ L 21-32 Not Available [address], [address], 02/14/2016 12:16:36 02/13/20 16 02/14/2016 CMP, serum or plasm a calcium 8.7 mg/dL 8.5-10 .3 Not Available [address], [address], 02/14/2016 12:16:36 02/13/20 16 02/14/2016 CMP, serum or plasm a total protein 6.6 g/dL 6.4-8. 2 Not Available [address], [address], 02/14/2016 12:16:36 02/13/20 16 02/14/2016 CMP, serum or plasm a albumin 3.6 g/dL 3.4-5. 0 Not Available [address], [address], 02/14/2016 12:16:36 02/13/20 16 02/14/2016 CMP, serum or plasm a globulin 3.0 g/dL Not Available [address], [address], 02/14/2016 12:16:36 02/13/20 16 02/14/2016 CMP, serum or plasm a A/G 1.2 ratio 0.8-2. 0 Not Available [address], [address], 02/14/2016 12:16:36 02/13/20 16 02/14/2016 CMP, serum or plasm a total bilirubin 0.40 mg/dL 0.00-1 .00 Not Available [address], [address], 02/14/2016 12:16:36 02/13/20 16 02/14/2016 CMP, serum or plasm a AST 22 U/L 15-37 Not Available [address], [address], 02/14/2016 12:16:36 02/13/20 16 02/14/2016 CMP, serum or plasm a ALT 34 U/L 30-65 Not Available [address], [address], 02/14/2016 12:16:36 02/13/20 16 02/14/2016 CMP, serum or plasm a alk. phos. 59 U/L 50-136 Not Available [address], [address], 02/14/2016 12:16:36 10/21/19 17 10/20/2016 CBC w/ auto diff WBC 8.8 K/uL 3.4-11 .2 Not Available [address], [address], 10/20/2016 14:25:51 10/21/19 17 10/20/2016 CBC w/ auto diff RBC 5.49 M/uL 3.80-4 .80 high Not Available [address], [address], 10/20/2016 14:25:51 10/21/19 17 10/20/2016 CBC w/ auto diff hemoglobin 16.6 g/dL 12.0-1 5.0 high Not Available [address], [address], 10/20/2016 14:25:51 10/21/19 17 10/20/2016 CBC w/ auto diff hematocrit 47.8 % 36.0-4 6.0 high Not Available [address], [address], 10/20/2016 14:25:51 10/21/19 17 10/20/2016 CBC w/ auto diff MCV 87.1 fL 79.0-9 8.0 Not Available [address], [address], 10/20/2016 14:25:51 10/21/19 17 10/20/2016 CBC w/ auto diff MCH 30.2 pg 27.0-3 4.8 Not Available [address], [address], 10/20/2016 14:25:51 10/21/19 17 10/20/2016 CBC w/ auto diff MCHC 34.7 g/dL 31.5-3 6.0 Not Available [address], [address], 10/20/2016 14:25:51 10/21/19 17 10/20/2016 CBC w/ auto diff RDW 13.0 % 10.8-1 4.6 Not Available [address], [address], 10/20/2016 14:25:51 10/21/19 17 10/20/2016 CBC w/ auto diff MPV 10.3 fL 9.4-12 .4 Not Available [address], [address], 10/20/2016 14:25:51 10/21/19 17 10/20/2016 CBC w/ auto diff platelet count 244 K/uL 130-40 0 Not Available [address], [address], 10/20/2016 14:25:51 10/21/19 17 10/20/2016 CBC w/ auto diff neutrophils 73.8 % 45.3-7 7.7 Not Available [address], [address], 10/20/2016 14:25:51 10/21/19 17 10/20/2016 CBC w/ auto diff lymphocytes 17.9 % 12.3-3 9.7 Not Available [address], [address], 10/20/2016 14:25:51 10/21/19 17 10/20/2016 CBC w/ auto diff monocytes 6.1 % 4.1-12 .8 Not Available [address], [address], 10/20/2016 14:25:51 10/21/19 17 10/20/2016 CBC w/ auto diff eosinophils 1.90 % 0.00-7 .20 Not Available [address], [address], 10/20/2016 14:25:51 10/21/19 17 10/20/2016 CBC w/ auto diff basophils 0.10 % 0.00-2 .80 Not Available [address], [address], 10/20/2016 14:25:51 10/21/19 17 10/20/2016 CBC w/ auto diff absolute neutrophil 6.5 K/uL 1.4-7. 7 Not Available [address], [address], 10/20/2016 14:25:51 10/21/19 17 10/20/2016 CBC w/ auto diff absolute lymphocyte 1.6 K/uL 0.6-3. 2 Not Available [address], [address], 10/20/2016 14:25:51 10/21/19 17 10/20/2016 CBC w/ auto diff absolute monocytes 0.5 K/uL 0.1-0. 6 Not Available [address], [address], 10/20/2016 14:25:51 10/21/19 17 10/20/2016 CBC w/ auto diff absolute eosinophil 0.17 K/uL 0.01-0 .50 Not Available [address], [address], 10/20/2016 14:25:51 10/21/19 17 10/20/2016 CBC w/ auto diff absolute basophils 0.01 K/uL Not Available [address], [address], 10/20/2016 14:25:51 10/21/19 17 10/20/2016 CBC w/ auto diff immature granulocyte 0.20 % 0.00-0 .50 Not Available [address], [address], 10/20/2016 14:25:51 10/21/19 17 10/20/2016 CBC w/ auto diff absolute immature granulocyte 0.02 K/uL 0.00-0 .03 Not Available [address], [address], 10/20/2016 14:25:51 10/21/19 17 10/20/2016 tropo ruthann T, serum troponin T <0.010 NG/mL 0.000- 0.030 Not Available [address], [address], 10/20/2016 15:00:11 10/21/19 17 10/20/2016 CMP, serum or plasm a glucose 105 mg/dL 70-99 high Not Available [address], [address], 10/20/2016 15:01:11 10/21/19 17 10/20/2016 CMP, serum or plasm a BUN 11 mg/dL 6-19 Not Available [address], [address], 10/20/2016 15:01:11 10/21/19 17 10/20/2016 CMP, serum or plasm a creatinine 0.7 mg/dL 0.5-1. 5 Not Available [address], [address], 10/20/2016 15:01:11 10/21/19 17 10/20/2016 CMP, serum [...] ages of 16 and 68. Not Available [address], [address], 10/20/2016 15:01:11 10/21/19 17 10/20/2016 CMP, serum or plasm a sodium 138 mEq/L 133-14 6 Not Available [address], [address], 10/20/2016 15:01:11 10/21/19 17 10/20/2016 CMP, serum or plasm a potassium 4.1 mEq/L 3.3-5. 2 Not Available [address], [address], 10/20/2016 15:01:11 10/21/19 17 10/20/2016 CMP, serum or plasm a chloride 102 mEq/L 96-108 Not Available [address], [address], 10/20/2016 15:01:11 10/21/19 17 10/20/2016 CMP, serum or plasm a CO2 23 mEq/L 21-35 Not Available [address], [address], 10/20/2016 15:01:11 10/21/19 17 10/20/2016 CMP, serum or plasm a calcium 8.8 mg/dL 8.4-10 .3 Not Available [address], [address], 10/20/2016 15:01:11 10/21/19 17 10/20/2016 CMP, serum or plasm a total bilirubin 0.5 mg/dL 0.0-1. 2 Not Available [address], [address], 10/20/2016 15:01:11 10/21/19 17 10/20/2016 CMP, serum or plasm a alkaline phosphatase 56 U/L 39-117 Not Available [address], [address], 10/20/2016 15:01:11 10/21/19 17 10/20/2016 CMP, serum or plasm a AST (SGOT) 20 U/L 0-37 Not Available [address], [address], 10/20/2016 15:01:11 10/21/19 17 10/20/2016 CMP, serum or plasm a ALT (SGPT) 18 U/L 0-40 Not Available [address], [address], 10/20/2016 15:01:11 10/21/19 17 10/20/2016 CMP, serum or plasm a total protein 6.3 g/dL 6.5-8. 0 low Not Available [address], [address], 10/20/2016 15:01:11 10/21/19 17 10/20/2016 CMP, serum or plasm a albumin 3.6 g/dL 3.9-4. 8 low Not Available [address], [address], 10/20/2016 15:01:11 10/21/19 17 10/20/2016 CMP, serum or plasm a globulin 2.7 gm/dL 1.0-4. 8 Not Available [address], [address], 10/20/2016 15:01:11 10/21/19 17 10/20/2016 CMP, serum or plasm a A/G ratio 1.3 gm/dL 1.0-4. 8 Not Available [address], [address], 10/20/2016 15:01:11 10/21/19 17 10/20/2016 CMP, serum or plasm a anion gap 17 mEq/L 10-20 Not Available [address], [address], 10/20/2016 15:01:11 10/21/19 17 10/20/2016 C react ish prote in, QN, serum or plasm a C-reactive protein 1.25 mg/dL 0.00-0 .50 high Not Available [address], [address], 10/20/2016 15:01:12 10/21/19 17 10/20/2016 BNP (B-ty pe natri ureti c pepti de), serum or plasm a pro-BNP 80 pg/mL 0-125 Not Available [address], [address], 10/20/2016 15:01:13 10/21/19 17 10/20/2016 wet mount yeast cells None Seen none seen Not Available [address], [address], 10/20/2016 17:47:20 10/21/19 17 10/20/2016 wet mount trichomonas None Seen none seen Not Available [address], [address], 10/20/2016 17:47:20 10/21/19 17 10/20/2016 wet mount clue cells None Seen none seen Not Available [address], [address], 10/20/2016 17:47:20 10/21/19 17 10/20/2016 chlam ydia + gonor blaise DNA panel , unspe cifie d speci men chlamydial/g onorrhoeal detection by PCR Not Available [address], [address], 10/22/2016 14:33:43 10/21/19 17 10/20/2016 chlam ydia + gonor blaise DNA panel , unspe cifie d speci men chlamydia trachomatis detection by PCR Not Detect ed Not Available [address], [address], 10/22/2016 14:33:43 10/21/19 17 10/20/2016 chlam ydia + gonor blaise DNA panel , unspe cifie d speci men neisseria gonorrhoeae detection by PCR Not Detect ed Not Available [address], [address], 10/22/2016 14:33:43 11/21/19 17 11/20/2016 pregn stephen test, urine test, urine Negati ve negati ve Not Available [address], [address], 11/20/2016 19:43:38 11/21/19 17 11/20/2016 urina lysis , dipst ick, refle x micro color Yellow Not Available [address], [address], 11/20/2016 19:43:39 11/21/19 17 11/20/2016 urina lysis , dipst ick, refle x micro appearance Clear Not Available [address], [address], 11/20/2016 19:43:39 11/21/19 17 11/20/2016 urina lysis , dipst ick, refle x micro specific gravity >=1.03 0 1.005- 1.030 Not Available [address], [address], 11/20/2016 19:43:39 11/21/19 17 11/20/2016 urina lysis , dipst ick, refle x micro pH 5.0 5.0-7. 0 Not Available [address], [address], 11/20/2016 19:43:39 11/21/19 17 11/20/2016 urina lysis , dipst ick, refle x micro protein Negati ve negati ve Not Available [address], [address], 11/20/2016 19:43:39 11/21/19 17 11/20/2016 urina lysis , dipst ick, refle x micro glucose Negati ve negati ve Not Available [address], [address], 11/20/2016 19:43:39 11/21/19 17 11/20/2016 urina lysis , dipst ick, refle x micro ketones Negati ve negati ve Not Available [address], [address], 11/20/2016 19:43:39 11/21/19 17 11/20/2016 urina lysis , dipst ick, refle x micro bilirubin Negati ve negati ve Not Available [address], [address], 11/20/2016 19:43:39 11/21/19 17 11/20/2016 urina lysis , dipst ick, refle x micro blood Negati ve negati ve Not Available [address], [address], 11/20/2016 19:43:39 11/21/19 17 11/20/2016 urina lysis , dipst ick, refle x micro nitrite Negati ve negati ve Not Available [address], [address], 11/20/2016 19:43:39 11/21/19 17 11/20/2016 urina lysis , dipst ick, refle x micro leukocyte esterase Negati ve negati ve Not Available [address], [address], 11/20/2016 19:43:39 11/21/19 17 11/20/2016 drug scree n, urine canna., urine scr Positi ve abnormal Resul ts check ed by repea t jadon sis. Cutof f: 50 ng/mL Not Available [address], [address], 11/20/2016 20:16:56 11/21/19 17 11/20/2016 drug scree n, urine cocaine,urin escreen None Detect ed Cutof f: 300 ng/mL Not Available [address], [address], 11/20/2016 20:16:56 11/21/19 17 11/20/2016 drug scree n, urine grupo,urine Positi ve abnormal Resul ts check ed by repea t jadon sis. Cutof f: 200 ng/mL Not Available [address], [address], 11/20/2016 20:16:56 11/21/19 17 11/20/2016 drug scree n, urine M-amphetamin es, urine screen None Detect ed Cutof f: 1000 ng/mL Not Available [address], [address], 11/20/2016 20:16:56 11/21/19 17 11/20/2016 drug scree n, urine methadone, urine screen None Detect ed Cutof f: 300 ng/mL Not Available [address], [address], 11/20/2016 20:16:56 11/21/19 17 11/20/2016 drug scree n, urine opiates, urine screen None Detect ed Cutof f: 300 ng/mL Not Available [address], [address], 11/20/2016 20:16:56 11/21/19 17 11/20/2016 drug scree n, urine phencyclidin e, urine SC None Detect ed Cutof f: 25 ng/mL Not Available [address], [address], 11/20/2016 20:16:56 11/21/19 17 11/20/2016 drug scree n, urine barbiturates , urine None Detect ed Cutof f: 200 ng/mL INTER PRETA TION FOR TOXIC OLOGY PANEL : Thes e resul ts are uncon firme d and shoul d be used for Medic al Treat ment purpo ses only. Not Available [address], [place], [address], 11/20/2016 20:16:56 11/21/19 17 11/20/2016 drug scree n, urine oxycodone, urine qualitative None Detect ed Cutof f: 300 ng/ml Not Available [address], [address], 11/20/2016 20:16:56 10/23/19 15 10/21/2014 x-ray , foot No observ ation record ed. [address], [address], 10/22/2014 16:05:33 05/29/20 15 05/29/2015 x-ray , chest No observ ation record ed. [facility] [address] [place] [address], [address], 05/30/2015 09:00:12 10/21/19 17 10/20/2016 XR, chest [...] By: MIGUEL RAMIREZ MD 2016 03:01 PM [facility] [address] [place], [address], 10/21/2016 11:57:51 Result Notes None recorded. Problems Name Problem SNOMED Code Status Onset Date Resolution Date Notes Provider Name and Address Organization Details Recorded Time Tinea pedis 2206654 Active Not Available [facility] 3 03:15:01 Obesity 184075605 Active Not Available [facility] 3 03:15:01 Dental caries 50773926 Active Tamar Reese MD [address] [place] [address], [address] , [facility] 4 16:31:21 Tobacco user 355115434 Active Tamar Reese MD [address] [place] [address], [address] , [facility] 4 16:31:21 Adjustment disorder 91681974 Active Not Available [facility] 3 03:15:01 Disorder of teeth AND/OR supporting structures 638016023 Completed 12/23/2013 Tamar Reese MD [address] [place] [address], [address] , [facility] 4 15:53:16 Glucose level outside reference range 057726050 Active Not Available [facility] 3 03:15:01 Migraine 88954242 Completed 12/23/2013 gone Tamar Reese MD [address] [place] [address], [phone] , [facility] 4 15:53:39 Lipoma 83438166 Active Olivia Martini NP [address] [place] [address], [address] , [facility] 5 17:52:00 Mass of body structure 102729409 Active Olivia Martini NP [address] [place] [address], [address] , [facility] 4 17:47:20 Pain in lower limb 26371535 Active Kevin Hayes DPM [address] [place] [address], [address] , [facility] 5 15:31:19 Opioid dependence in remission 555125146 Active 2016 Olivia Martini NP [address] [place] [address], [address] , [facility] 7 17:43:47 Problem Notes None recorded. Procedures Surgical History Date Name Laterality Status Provider Name and Address Organization Details Recorded Time 7 Smoking cessation counseling completed Paulette Gillis MA [facility] 02/18/2017 15:52:36 7 Carbon Monoxide Testing completed Paulette Gillis MA [facility] 02/18/2017 15:52:37 6 POC Urinalysis Testing completed JAKI Marcano [facility] 02/13/2016 15:57:25 4 Smoking cessation counseling completed Izabel Weeks [facility] 12/23/2013 15:34:15 4 Smoking cessation counseling completed Izabel Weeks [facility] 10/21/2013 15:32:52 3 Smoking cessation counseling completed Andreina Issa MA [facility] 08/20/2012 15:37:12 1 Wound Care completed Yu Zarate RN [facility] 09/15/2010 16:31:01 Imaging Results Imaging Date Name Status LastModified by Organiz ation Details LastModified Time 10/21/2014 x-ray, foot completed [address], [address], 10/22/2014 16:05:33 05/29/2015 x-ray, chest completed [facility] [address] [place] [address], [address], 05/30/2015 09:00:12 10/20/2016 XR, chest, 2 view completed [facility] [address] [place] [address], [address], 10/21/2016 11:57:51 Procedure Notes None recorded. Medical [...] Address Organization Details Last Updated DateTime 7 84491.0 7 g 36.5 kg/m2 158.12 cm 98.4 [degF] 112 mm[Hg] 68 mm[Hg] Paulette Gillis [facility] 7 15:54:04 Date Recorded Body height Body mass index (BMI) Body weight Systolic blood pressure Diastolic blood pressure Provider Name and Address Organization Details Last Updated DateTime 11/22/2014 159.385 cm 35.8 kg/m2 46950.27 0185 g 120 mm[Hg] 70 mm[Hg] Ernestina aldrich MA [facility] 5 16:49:57 Date Recorded Body height Body weight Body mass index (BMI) Heart rate Systolic blood pressure Diastolic blood pressure Provider Name and Address Organization Details Last Updated DateTime 5 158.115 cm 13954.4 74 g 36.3 kg/m2 80 /min 120 mm[Hg] 80 mm[Hg] Elisabeth Jerez [facility] 5 14:22:22 Date Recorded Body height Heart rate Systolic blood pressure Diastolic blood pressure Provider Name and Address Organization Details Last Updated DateTime 10/03/2015 158.115 cm 60 /min 120 mm[Hg] 84 mm[Hg] Ernestina mitchell [facility] 10/03/2015 16:45:49 Date Recorded Body height Heart rate Body temperature Systolic blood pressure Diastolic blood pressure Provider Name and Address Organization Details Last Updated DateTime 02/13/2016 158.115 cm 60 /min 98.2 [degF] 110 mm[Hg] 82 mm[Hg] Corinnaabhishek House [facility] 6 15:30:44 Social History Question Answer Notes LastModified by Organizat ion Details LastModified Time Tobacco Smoking Status Current Every Day Smoker 1/2pack per day KO Boucher, [facility] 11/29/2011 14:40:04 Do You Have An Advance Directive? No Declines Form [email or web address] Information not available 08/25/2010 Do You Wear A Helmet When Biking? [...] Education 9 Information no t available 12/23/2013 How Many Days In The [...] not available 08/20/2012 Sex: Unknown Functional Status Question Answer Note LastModified by Organizat ion Details LastModified Time What is your level of alcohol consumption? 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 Family History Relationship [...] Td(adult) unspecified formulation 0 completed Not Available [facility] 07/04/2011 05:22:52 Past Encounters Encounter ID Performer Location Encounter Start Date Encounter Closed Date Diagnosis/Indication Diagnosis SNOMED-CT Code Diagnosis ICD10 Code Diagnosis Note [id number] Dottie Nuñez NP FP, [facility], [address] [place] [address] 08/25/2010 11:09:53 08/29/2010 11:09:48 [id number] Dottie Nuñez NP , [facility], [address] [place] [address] 09/15/2010 15:30:06 09/18/2010 14:25:45 [id number] JED Pascual, [facility], [address] [place] [address] 11/29/2011 14:30:15 12/03/2011 10:36:02 [id number] [facility] , [facility] [address] [place] [address] 11/29/2011 15:08:55 11/29/2011 15:51:18 [id number] [facility] , [facility] [address] [place] [address] 11/29/2011 15:09:25 11/29/2011 15:51:24 [id number] JED Pascual, [facility], [address] [place] [address] 12/17/2011 13:32:40 12/19/2011 08:29:09 [id number] ONUR Sinha-TRISTEN , [facility], [address] [place] [address] 08/20/2012 15:27:44 08/20/2012 16:20:17 [id number] MD MARCO A Jaeger, [facility], [address] [place] [address] 12/31/2012 14:28:53 12/31/2012 15:24:05 [id number] MD MARCO A Jaeger, [facility], [address] [place] [address] 01/30/2013 14:40:09 02/02/2013 13:31:13 [id number] MD MARCO A Jaeger, [facility], [address] [place] [address] 02/18/2013 16:35:29 02/20/2013 14:55:07 [id number] MD MARCO A Jaeger, [facility], [address] [place] [address] 03/26/2013 14:54:46 03/26/2013 16:23:36 Dental caries 56377144 Severe dental pain for about 20 years, [...] s without letting us know. Muscular headache 229875630 Sig tension noted in neck and paraspinal muscles; gentle massage in clinic helped relieve pain slightly. Recommend massage - low cost options provided. [id number] Tamar Reese MD , [facility], [address] [place] [address] 10/21/2013 14:54:11 10/22/2013 15:08:23 Tobacco user 200056576 Interested in quitting, but inadequate time to devise a plan at this encounter - return for this. Migraine 52676756 discus sed trial of imitrex, full PARQ held and patient wishes to try this. Return to see me in 3 weeks to follow up on this. Patient requested opiates for this but discussed that there are better medication s for migraines and I would prefer a trial of triptans. Lipoma 24356323 Discusse d likely lipoma on R lateral thigh; no sign of infection or abscess. Start with u/s for eval (she will call [facility] to set up) and referred to consult with general surgery re: risks and benefits of biopsy and/or full removal. Dental caries 95721215 S tates only friend who could take her to have teeth extracted lost his license, so she did not go through with extraction . States tooth pain has resolved. [id number] Tamar Reese MD , [facility], [address] [place] [address] 12/23/2013 15:01:25 12/24/2013 09:28:17 Adult health examination 291791630 see Risk Assessment and Lifestyle Change Counseling section above UTD TDAP, Pap Mammogram, fbs ordred Add vitamin D, consider the med diet Counseling 274904205 Screening mammography 88870824 Mass of keaton dy structure 102633316 present x 14 years but getting larger over the last few weeks, painful. Did not go to see general surgery . Discussed MRI next step in workup to ensure no sarcoma. F/u with me next week. Dental caries 12359125 p lans to have extraction at [place] Muscular headache 088807874 resolved Tobacco user [id number] n ot interested in quitting at the present [id number] KEARA De Anda, [facility], [address] [place] [address] 01/08/2014 11:44:23 01/08/2014 12:27:08 Pain in lower limb 58015897 Reviewed previous notes and results from u/s. [...] is not a medication to be used manager intermediate. If MRI is unrevealin g, could consider surgical consult (looks like was referred in past but no appt every made) but would stop the narcotics if not real cause can be found for her sx. Lipoma 56904123 Periapical abscess without sinus tract 981893245 very poor dentition with broken stubs of teeth noted - states found dentist who will pull these for her and enc. to f/u with that in the near future Fatigue 76687035 Pt c/o fatigue, wt gain. Will return for some labs prior to f/u visit in 1 week. [id number] KEARA De Anda, [facility], [address] [place] [address] 01/26/2014 15:49:01 01/26/2014 16:11:47 Pain of hip region 67004717 Will get hip X-ray - ? if [...] do not want to refill this again. [id number] Irene Per Reis, PUBLIC POLICY COORDINATOR-BC , [facility], [address] [place] [address] 07/28/2014 16:43:12 07/28/2014 17:17:11 Pain in thumb 821392365 pain at base of left thumb. pt requesting pain medication for this. distributi on of pain consistent with radial nerve. will image as focal tenderness is noted. advised brace at night, and follow up to consider physical therapy or gabapentin or amitryptil ine for pain. Migraine [id number] pt not es severe migraines every three - 4 months. pt has tried percocet. but last time percocet did not help. percocet did not help. pt states she has pounding pain. pt does note aura. will trial sumatripta n. [id number] Joni Scott MD , [facility], [address] [place] [address] 11/22/2014 16:39:11 11/22/2014 17:10:30 Migraine [id number] states sumatripta n works very well - uses the Zofran prn for nausea as well - refilled as below Foot pain 61136261 Pt wi th pain top of foot - ? cause. Xray in ER was neg. Referred to podiatry. Pt to schedule. Small amt vicodin given as below to use sparingly. Continue the naproxen, comf. footwear. F/U if not gradually improving or sx worsen. Lipoma [id number] Pt concerned about fat deposition right lat. hip - had seen surgeon for this in the past but feels this has gotten larger, more painful. Dr. Bettencourt felt surgery would not be beneficial for her sx. Wants another opinion. Referred to Dr. Zavaleta . Pt to schedule. [id number] Kevin Hayes DPM Podiatry, [facility] [address] [place] [address] 01/13/2015 14:10:28 01/26/2015 14:19:09 Acquired hallux valgus [id number] Disorder of nail 23986069 Pain in lower limb [id number] Joni Scott MD , [facility], [address] [place] [address] 10/03/2015 16:28:44 10/03/2015 17:06:09 Migraine 13289710 G43.909 states sumatripta n works very well - uses the Zofran prn for nausea as well - refilled as below Foot pain 63959195 M79.6 71 referred back to podiatry - enc. wide comf. footwear - reassured - no need for narcotics which should be used only for more severe pain sx (i.e. fractures, surgery). Continue the ibuprofen - can take it with tylenol prn if not effective. Breast lump [id number] N63 I don't feel any discrete mass but she is tender on the right at 9:00 position - will get mammo with u/s as below and f/u with results when available. Enc. to schedule PHA on her way out today [id number] Olivia Martini NP , [facility], [address] [place] [address] 02/13/2016 15:21:20 02/13/2016 16:19:11 Migraine [id number] G43.909 Uses zofran sparingly for her migraines - refilled as below Fatigue 61124509 R53.83 Will check some labs today and f/u with results when available Increased frequency of urination 300642017 R35.0 Feels having increased frequency, no burning/ur gency but some change in stream. Urine dip obtained and wnl. Discussed no s/s infection. F/U prn worsening sx. Substance abuse [id number] F19.10 was buying oxycodone on the streets and had been seen here numerous times with drug seeking behaviors. + cocaine as well noted during ER visit in past. 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 Enc. cont. f/u with suboxone clinic. 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 f/u with therapist and med prescriber as planned - denies any suicidal ideation. States feeling much better now that is on suboxone Tobacco de pendence syndrome 21846543 F17.290 Doesn't want nicotine replacemen t products - scare her. Interested in chantix. Discussed potential adverse effects including vivid dreams/sle ep disturbanc e. She will discuss this with her psych. prescriber and f/u if desires a rx. [id number] Joni Scott MD , [facility], [address] [place] [address] 02/18/2017 15:41:42 02/18/2017 16:23:40 Cigarette smoker 83276177 F17.210 Discussed and enc smoking cessation. Willing to try chantix again but might just stick with lower dose (1 mg/day, not BID). F/u when needing refills or if needing additional help with smoking cessation. Tobacco user [id number] Z 72.0 Migraine 57658749 G43.90 9 Has imitrex to use but having alot more h/a's recently - daily. Will try nortriptyl ine for migraine prevention . Give this a few weeks. If not helping, f/u here. Enc to schedule PHA for the near future Common cold 73355949 J00 Reassured. QS neg. Sx c/w viral URI. Enc. adequate fluids/res t and otc analgesics prn. F/u for worsening sx (i.e. fever, chest pain, dyspnea). Opioid dep endence in remission [id number] F11.21 Enc cont. f/u with suboxone clinic. Health Concerns Section Related Observation LastModified by Organization Detai ls LastModified Time None Recorded Concern Status LastModified by Organization Details LastModified Time None Recorded Advance Directives Directive N: declines form Payers Encounter Date Sequence Insurance Name Policy Number Policy Blevins Covered Member ID Blevins Member ID Guarantor Name 11/22/2014 1 [facility] [employer] HEALTH NET PLAN (MEDICAID HMO) [id number] Marielos Rodriguez Stefanowich [id number] Marielos Keenfanowich 01/13/2015 1 [facility] - HEALTH NET PLAN (MEDICAID HMO) [id number] Marielos A Stefanowich [id number] Marielos Keenfanowich 10/03/2015 1 [facility] HEALTH NET PLAN (MEDICAID HMO) [id number] Marielos A Stefanowich [id number] Marielos Rodriguez Stefanowich 02/13/2016 1 [facility] Dials NET PLAN (MEDICAID HMO) [id number] Marielos Rodriguez Stefanowich [id number] Marielos Rodriguez Stefanowich 02/18/2017 1 [facility] [place] - HEALTH NET PLAN (MEDICAID HMO) [id number] Marielos Peralta [id number] Marielos Peralta Notes Date Note Type Note Provider Name and Address Organization Details Recorded Time 11/22/2014 text/html Seen in ER 1 mon th ago for left foot pain/swelling. Xray was neg. Given naproxen which she is still taking, vicodin which is gone now. Asking for more vicodin. Has tried ice/heat. Nothing helps. Only able to wear slippers. Olivia Martini NP [address] [place], [address], [facility] 11/22/2014 17:52:12 01/13/2015 text/html HPI Patient presents [...] swelling or drainage.? Kevin Hayes DPM [address] [place], [address], [facility] 01/13/2015 15:31:30 10/03/2015 text/html Has bruise right [...] pain without effect Olivia Martini NP [address] [place], [address], [facility] 10/03/2015 17:40:38 02/13/2016 text/html Here for f/u. No w on suboxone - gets at [employer]. Was buying drugs on the street - oxycodone. Feels so much better. Has transportation now to get to [facility]. Seeing therapist for talk therapy. Right ankle [...] stopped years ago. Olivia Martini NP [address] [place], [address], [facility] 02/13/2016 16:37:27 02/18/2017 text/html a/vmg-smoking [id number] bypatient.Notes:smok ing more since dad got sick [...] iced coffee (2/week). Lots stress. Dad in [place] with multiple strokes - not eating/drinking. H/a's so severe had to take an ambulance to the ER recently. ST started this a.m. Sees Dr. Richter for her psych meds. Drinking well. Throat hurts when coughing. [place] feverish 2 nights ago - 99..9 Olivia Martini NP [address] [place], [address], [facility] 02/18/2017 17:44:33 OBGyn Episode No OBEpisode recorded.
--- NOTE | 2025-02-08 14:00 | MHC.OFFVIS ---
Intake Visit Reasons: MAT Allergies dexamethasone (From DECADRON) Adverse Reaction (Severe, Verified 11/25/24 14:55) NAUSEA & VOMITING HPI HPI MAT: Details: She is doing well with no complaints PFS Medical History Fibroid of cervix Opioid use disorder Substance abuse No known health problems No known health problems Social History Alcohol intake: never Patient Tobacco Use Status: Current everyday Tobacco user Substance Use Type: Marijuana Gender identity: Female Female Reproductive History Menstrual Age of Menarche: 11 Review of Systems Const All systems reviewed & are unremarkable except as noted in HPI and below Physical Exam Const General: cooperative Assessment & Plan Assessment & Plan (1) Opioid use disorder, severe, dependence: Comment: She is doing better on Suboxone Code(s): F11.20 - Opioid dependence, uncomplicated Category: Medical Plan: Continue current dose Suboxone See as scheduled Medications: New buprenorphine-naloxone 8-2 mg (Suboxone) place 1 film on inside of (each) cheek 3 film sublingual DAILY 90 ea 0RF 30 days Discontinued buprenorphine-naloxone 8-[address] 1 film on inside of (each) cheek Discontinued Reason: Doctor's Order 3 film sublingual DAILY 10 days 30 ea 0RF Coding Level of Care Code Est Pt Level 3 (77334) Diagnoses Opioid use disorder, severe, dependence F11.20
== END 2024-12-28 14:56 | disposition home or self-care (01) ==
LOC: HO.HCC 14:06
PROVIDERS: Visit Provider Internal Medicine
DX: F11.20 Opioid dependence, uncomplicated (principal)
CPT/HCPCS: 99213

== ENCOUNTER → 2024-12-28 14:06 | Outpatient (BNVA) | payer MEDICAID, SELFPAY | PROVIDERS: Visit Provider Internal Medicine | DX: F11.20 Opioid dependence, uncomplicated (principal); Z51.81 Encounter for therapeutic drug level monitoring | CPT/HCPCS: 99212 ==

== ENCOUNTER 2025-02-12 11:28 | Outpatient (AMB) | payer MEDICAID, SELFPAY ==
--- NOTE | 2025-02-12 11:34 | A.OFFVIS_ITS ---
Vital Signs 02/12/25 11:42 Height 5 ft 2 in Weight 203 lb BMI 37.1 Pulse 65 Pulse Source Pulse Oximeter Pulse Oximetry (%) 98 Oxygen Delivery Method Room Air Intake Visit Reasons: MAT Allergies dexamethasone (From DECADRON) Adverse Reaction (Severe, Verified 02/12/25 11:43) NAUSEA & VOMITING HPI HPI MAT: Details: She has no complaints [facility] Medical History Fibroid of cervix Opioid use disorder Substance abuse No known health problems No known health problems Social History Alcohol intake: never Patient Tobacco Use Status: Current everyday Tobacco user Substance Use Type: Marijuana Gender identity: Female Female Reproductive History Menstrual Age of Menarche: 11 Review of Systems Const All systems reviewed & are unremarkable except as noted in HPI and below Physical Exam Vital Signs: Last Vital Signs Pulse 65 02/12/25 11:42 Pulse Ox 98 02/12/25 11:42 Oxygen Delivery Method Room Air 02/12/25 11:42 BMI result Body Mass Index 37.1 Const General: cooperative Assessment & Plan Assessment & Plan (1) Opioid use disorder, severe, dependence: Comment: She is doing better on Suboxone Code(s): F11.20 - Opioid dependence, uncomplicated Category: Medical Plan: Continue current Suboxone. See as scheduled. Medications: New buprenorphine-naloxone 8-2 mg (Suboxone) 1 film sublingual TID 90 ea 0RF 30 days Coding Level of Care Code Est Pt Level 3 (03657) Diagnoses Opioid use disorder, severe, dependence F11.20
[2025-02-12 11:42] VITALS: PULSE 65; O2SAT 98; BMI 37.1
--- OUTSIDE RECORDS SUMMARY | 2025-02-12 12:44 | XMS_ITS | Clinical Summary ---
Author Organization [employer] Address [address] [place] [address] [address] [place] [address] Care Team Providers Care Cathead Operator Name Role Phone Unavailable Primary Care Provider [...] FOBT 1968 HIV Screening 1968 Sigmoidoscopy 1968 Disability Screening 1968 Alcohol/Substance Use Screening 1980 Tobacco Screening [...] - 2023-2 5 season) 2024 Influenza Vaccine (Season Ended) 2025 RSV Patients and Pa tients Aged 60 [...]
== END 2025-02-12 11:57 | disposition home or self-care (01) ==
LOC: HO.HCC 11:28
PROVIDERS: Visit Provider Internal Medicine
DX: F11.20 Opioid dependence, uncomplicated (principal)
CPT/HCPCS: 99213

== ENCOUNTER → 2025-02-12 11:28 | Outpatient (BNVA) | payer MEDICAID, SELFPAY | PROVIDERS: Visit Provider Internal Medicine | DX: F11.20 Opioid dependence, uncomplicated (principal) | CPT/HCPCS: 99212 ==

== ENCOUNTER 2025-03-15 11:08 | Emergency (ER) | payer MEDICAID, SELFPAY ==
--- NOTE | 2025-03-15 | ECG_ITS ---
Test Reason : heroin use Blood Pressure : */* mmHG Vent. Rate : 49 BPM Atrial Rate : 49 BPM P-R Int : 110 ms QRS Dur : 98 ms QT Int : 454 ms P-R-T Axes : -12 13 24 degrees QTcB Int : 410 ms Sinus bradycardia with short TX Low voltage QRS Borderline ECG When compared with ECG of 02-Feb-2023 12:11, Premature atrial complexes are no longer Present TX interval has decreased Referred By: Generic ED Physician Electronically Signed By: MEERA KIRK MD
[2025-03-15 11:20] VITALS: BP 153/98; PULSE 63; RESP 14; TEMP 35.9; O2SAT 97; BMI 38.4
[2025-03-15 12:00] LABS: MANUAL DIFF FLAG NO
[2025-03-15 12:01] LABS: Hematocrit 51.0 % (37.0-47.0); Hemoglobin 16.9 g/dl (12.0-16.0); Imm Gran Abs Auto 0.02 X10*3/uL (0.00-0.03); Imm Gran Pct Auto 0.3 % (0.0-0.4); Lymphocytes Absolute Auto 1.6 X10*3/uL (1.2-4.9); Mean Corpuscular HGB Conc 33.1 g/dl (31.0-35.0); Mean Corpuscular Hemoglobin 28.6 pg (27.0-33.0); Mean Corpuscular Volume 86.3 fL (80.0-98.0); NRBC Abs Auto 0.000 X10*3/uL (0.0-0.012); NRBC Pct Auto 0.0 /100WBC (0.0-0.2); Platelet Count 286 X10*3/uL (160-400); Red Blood Count 5.91 X10*6/uL (4.20-5.50); White Blood Count 7.1 X10*3/uL (4.8-10.8)
[2025-03-15 12:19] LABS: Cannabinoid Screen Urine POSITIVE (Not Detect)
[2025-03-15 12:25] LABS: Anion Gap 11 (12-20); Blood Urea Nitrogen 10 mg/dL (9-16); Calcium 9.0 mg/dL (8.4-10.2); Carbon Dioxide 27 mmol/L (22-29); Chloride 108 mmol/L (96-108); Creatinine Clr Calc Pharmacy 85.5; Estimated Glomerular Filt Rate > 60; Potassium 4.3 mmol/L (3.3-5.1); Sodium 142 mmol/L (135-145)
--- NOTE | 2025-03-15 13:24 | ED_ITS ---
HPI - General Adult General Chief complaint: Psychiatric Symptoms Stated complaint: DIZZY/WEAK S/P 2 8MG SUBOXONE PER EMS Time Seen by Provider: 03/15/25 12:36 Source: patient, RN notes reviewed and old records reviewed Mode of arrival: EMS Limitations: no limitations History of Present Illness ED Provider: Corazon MCRAE narrative: 54-year-old female presents for evaluation of multiple complaints. The patient initially presented due to nausea, dizziness which she felt to be related to opiate withdrawal. She reports that she used heroin yesterday and then doubled her dose of the Suboxone today. She is supposed to take Suboxone 8/2 TID. This morning she took 16/ She reports that after doing this she initially had worsening symptoms with increased dizziness, weakness but then ultimately feels much better She currently denies any pain including headache, chest pain, abdominal pain. She reports that she is not nauseous or dizzy. She does report depression and grief related to the recent passing of her mother. The patient admits to me that she told nursing she had some passive suicidal comments. However she adamantly denies any suicidal thoughts. She admits to feeling somewhat depressed regarding her mother's Related Data Previous Rx's ?Medication ?Instructions ?Recorded trazodone 50 mg tablet 50 mg PO BEDTIME sleep 30 da ys #30 12/02/24 tabs buprenorphine 8 mg-naloxone 2 mg 3 film sublingual DIPIKA LY 30 days 12/28/24 sublingual film (Suboxone) #90 ea buprenorphine 8 mg-naloxone 2 mg 1 film sublingual TID 30 days #90 02/12/25 sublingual film (Suboxone) ea Allergies Allergy/AdvReac Type Severity Reaction Status Date / Time dexamethasone (From DECADRON) AdvReac Severe NAUSEA & Verified 03/15/25 11:26 VOMITING Review of Systems 2 Constitutional: Constitutional: Denies body ache(s), Denies chills, Denies fever(s) and Denies headache(s) ENT: Denies vertigo, Reports dizziness (dizziness), Denies dry mouth and Denies headache(s) Cardiovascular: Cardiovascular: Denies chest pain, Denies chest pain at rest and Denies dyspnea on exertion Respiratory: Respiratory: Denies cough and Denies dyspnea on exertion Gastrointestinal: Gastrointestinal: Denies abdominal pain, Reports nausea (resolved) and Denies vomiting Musculoskeletal: Musculoskeletal: Denies back pain and Denies tingling Integumentary/Breasts: Skin/Breast: Denies rash Neurologic: Denies vertigo, Reports dizziness (dizziness), Denies headache(s) and Denies tingling Psychiatric: Psychiatric: Reports anxiety and Reports depression PMFSH Past Medical History Medical History Fibroid of cervix Opioid use disorder Substance abuse No known health problems No known health problems Social History Social History Alcohol intake: never Patient Tobacco Use Status: Current everyday Tobacco user Smoked in Last 30 Days: Yes Substance Use Type: Heroin Substance Use Frequency: Occasionally Last Used Substance: Days (ago) Any prior treatment program specific to substance use: Yes (currently in suboxone program) Advance Directives: Yes Advance Directives Information Provided: Yes Advance Directives on File: No Do you have a plan to hurt others: No Plan Gender identity: Female Physical Exam ED Vital Signs: Vital Signs - 24 hr 03/15/25 11:20 03/15/25 14:00 Temperature 96.7 F L 97.9 F Pulse Rate 63 48 L Respiratory Rate 14 10 L Blood Pressure 153/98 H 108/77 Pulse Oximetry 97 96 Oxygen Delivery Method Room Air Room Air BMI result Body Mass Index 38.4 Const General: healthy appearing, comfortable, no acute distress, alert and awake Nutritional Appearance: well nourished Orientation/consciousness: patient oriented x3 HENMT Head: Yes normocephalic and Yes atraumatic Eyes Eyelids: Yes eyelids normal Conjunctivae: conjunctivae normal Sclerae: sclerae normal Corneas: corneas normal Pupils: Equal, round and reactive pupils present EOM: EOMs intact bilaterally Neck Neck: Yes full ROM Resp Effort & Inspection: normal respiratory effort, able to speak in complete sentences and not labored Cardio Rate: regular rate Rhythm: regular rhythm GI Inspection: No distended Palpation (GI): Soft to palpation, not firm, nontender, no guarding and not rigid Skin General skin exam: elasticity normal Neuro General: patient oriented x3 Cranial nerves: Yes Equal, round and reactive pupils present and Yes Bilaterally intact EOM present Cognition (Neuro): normal cognition Extrem Other: Moving all extremities well without any obvious deformities Course Reevaluation(s) Reevaluation #1: The patient was seen by the care team and maintains that she does not have any suicidal thoughts. She will be discharged with outpatient resources for her depression Time: 14:16 Medications Administered Discontinued Medications Generic Name Dose Route Start Last Admin Trade Name Tatyana PRN Reason Stop Dose Admin Acetaminophen 975 mg 03/15/25 12:46 03/15/25 13:00 Acetaminophen 325 Mg Tablet PO 03/15/25 12:47 975 mg ONCE ONE Administration Medical Decision Making Medical Decision Making [facility] Narrative: 54-year-old female presents for evaluation of dizziness, nausea and depression. The patient reports started her dizziness and nausea has resolved. This was likely attributed to increasing her Suboxone dose after recently using heroin. The patient made some passive suicidal comments. The patient's labs did not show any leukocytosis or signs of infectious process, no left shift. She had a slightly elevated hemoglobin and hematocrit which is consistent with a baseline. No significant chemistry abnormalities warranting intervention. Regarding the patient's depression, we will have her meet with the care team Differential Diagnosis Differential Diagnoses: The differential diagnosis associated with the presentation includes Depression Substance abuse Opiate withdrawal Opiate abuse Suicidal ideation Lab Data [facility] Lab Attestation statement: I reviewed the patient's lab results. As above 03/15/25 11:52 03/15/25 11:52 Labs: Lab Results 03/15/25 03/15/25 Range/Units 11:49 11:52 WBC 7.1 (4.8-10.8) X10*3/uL RBC 5.91 H (4.20-5.50) X10*6/uL Hgb 16.9 H (12.0-16.0) g/dl Hct 51.0 H (37.0-47.0) % MCV 86.3 (80.0-98.0) fL MCH 28.6 (27.0-33.0) pg MCHC 33.1 (31.0-35.0) g/dl RDW 13.8 (11.0-16.0) % Plt Count 286 (160-400) X10*3/uL MPV 10.3 (9.4-12.3) fL Immature Gran % (Auto) 0.3 (0.0-0.4) % Neut % (Auto) 70.9 (45-73) % Lymph % (Auto) 22.7 (20-40) % Mclennan % (Auto) 4.6 (2-11) % Eos % (Auto) 1.1 (0-4) % Baso % (Auto) 0.4 (0-2) % Lymph # (Auto) 1.6 (1.2-4.9) X10*3/uL Mclennan # (Auto) 0.3 (0.1-1.2) X10*3/uL Eos # (Auto) 0.1 (0.0-0.4) X10*3/uL Baso # (Auto) 0.0 (0.0-0.2) X10*3/uL Abs Immat Gran (auto) 0.02 (0.00-0.03) X10*3/uL Absolute Neuts (auto) 5.1 (2.0-8.3) x10*3/uL Absolute Nucleated RBC 0.000 (0.0-0.012) X10*3/uL Nucleated RBC % (auto) 0.0 (0.0-0.2) /100WBC Sodium 142 (135-145) mmol/L Potassium 4.3 (3.3-5.1) mmol/L Chloride 108 (96-108) mmol/L Carbon Dioxide 27 (22-29) mmol/L Anion Gap 11 L (12-20) BUN 10 (9-16) mg/dL Creatinine 0.79 (0.5-1.4) mg/dL Estim Creat Clear Calc 85.5 Estimated GFR > 60 Random Glucose 114 (60-115) mg/dL Calcium 9.0 (8.4-10.2) mg/dL Urine Opiates Screen POSITIVE H (Not Detect) Ur Buprenorphine Scrn Positive H (Not Detect) ng/mL Ur Oxycodone Screen Not Detected (Not Detect) ng/mL Urine Methadone Screen Not Detected (Not Detect) ng/mL Urine Fentanyl Screen POSITIVE H (Not Detect) Ur Barbiturates Screen Not Detected (Not Detect) Ur Phencyclidine Scrn Not Detected (Not Detect) Ur Amphetamines Screen Not Detected (Not Detect) U Benzodiazepines Scrn Not Detected (Not Detect) Urine Cocaine Screen Not Detected (Not Detect) U Marijuana (THC) Screen POSITIVE H (Not Detect) External Record Review External record reviewed: Outpatient record and Prior outpatient labs Social Determinants Patient?s care significantly limited by Social Determinants of Health including: Alcoholism and drug addiction in family Discharge Plan Discharge Clinical Impression: Depression, Substance abuse Patient Disposition: Home, Self-Care Instructions: Depression (ED) Additional Instructions: Opiate use disorder You were seen in our Emergency Department today for treatment of opiate use disorder. You may have been dosed with medication for opiate use disorder (MOUD) in the form of suboxone or methadone. You may experience feeling some withdrawal symptoms and this is normal. The? dose in the Emergency Department is a starting dose and meant to be titrated up once you follow up with a clinic. Please do not feel discouraged, it is a process. The nurse has reviewed with you where to follow up and what information to bring with you, to continue treatment. You also may have been given naloxone (narcan) to take home with you. This medication is used to potentially treat opiate overdose. If you decide you want to stop or cut down on how much you?re using, you can call or walk into our outpatient Addiction Treatment office: [facility] (M-F 9am-5p) [address], [address] [phone] You may have been provided with safer injection?items, please take time to take care of YOU and your health. Use new supplies whenever possible to lessen the chances of infections and other illnesses.? ?If you need more supplies, please go [facility],? [address] [place] [address] [place] you can call or text to coordinate delivery of safer supplies. You were also provided a list of several treatment providers in the area.? If you experience any worsening symptoms you cannot control please return to the ED or call 911. Please follow up at your next appointment. Things to look out for are fevers, chest pain, shortness of breath, severe pain, dizziness, fainting or any other concerns. You were seen in our Emergency Department today for treatment of a behavioral health issue. It is important after your visit that you follow up with either your behavioral health provider or a primary care doctor within 7 days.? If you have trouble finding a therapist you can reach out to [address] [phone] The National Suicide and Crisis Lifeline can be reached 7 days a week 24 hours a day.? Call [phone] to speak with someone.? Return for any worsening symptoms or concerns such as thoughts of self harm or harm to others. Please call 911 if you feel your mental health is worsening.? Prescriptions: No Action trazodone 50 mg tablet 50 mg PO BEDTIME 30 Days Qty: 30 5RF buprenorphine-naloxone [Suboxone] 8-2 mg film 1 film sublingual TID 30 Days Qty: 90 0RF buprenorphine-naloxone [Suboxone] 8-2 mg film 3 film sublingual DAILY 30 Days Qty: 90 0RF Rx Instructions: place 1 film on inside of (each) cheek Interventions: [place]-Suicide Risk Severity Scale Last Done: 03/15/25 11:27 Print Language: Turkish
--- OUTSIDE RECORDS SUMMARY | 2025-03-15 13:24 | XMS_ITS | Clinical Summary ---
Author Organization [facility] Address [address] [place] [address] Phone Care Team Providers Care Sander Operator Name Role Phone Physician, No Pcp Primary Care Provider Unavaila ble Allergies No known active allergies Medications No known medications Medical History Medical History Date Comments Adhd [...] 61 10/12/2024 2:25 PM EST Temperature 36.6 C (97.9 F) 10/12/2024 2:25 PM EST Respiratory Rate 16 10/12/2024 2:25 PM EST [...] Years (1 of 2 - PCV) 1987 Cervical Cancer Screening: P ap Smear 1989 Zoster Vaccines (1 of 2) 2018 DTaP,Tdap,and Td Vaccines (2 - Td or Tdap) 08/19/2019 08/19/2009 Cholesterol Screening (Lipid Panel) 07/22/2022 Colorectal Cancer Screening: Colonoscopy 07/22/2022 HIV Screening 07/22/2022 Hepatitis C Screening 07/22/2022 Social Influencers of Health Screening 07/22/2022 COVID-19 Vaccine (3 - 2023-2 5 season) 2024 04/13/2021, 03/23/2021 Depression Screening 08/19/2024 Influenza Vaccine (#1) 2025 HIB Vaccines Aged Out No longer [...] on patient's age to complete this topic Insurance MEDICAID - [place] Care Teams Sander Operator Relationship Specialty Start Date End Date Physician, No Pcp PCP - General 10/12/24
--- OUTSIDE RECORDS SUMMARY | 2025-03-15 13:24 | XMS_ITS | Encounter Summary ---
Author Organization [employer] Address [address] [place] [address] Care Team Providers Care Hog Handler Name Role Phone Unavailable Primary Care Provider Unavailabl e Encounter Details Date Type Department Care Team (Late st Contact Info) Description 03/15/2025 Orders Only GENERIC EXTERNAL DATA DEPARTMENT Provider, Generic External Data Social History Tobacco Use Types Packs/Day Years Used Date Smoking Tobacco: Never Assessed Comments Unknown Sex and Gender Information Value Date Recorded Sex Assigned at Female 06/18/2022 10:35 AM EDT Legal Sex Female 10:35 AM EDT Gender Identity Female 06/18/2022 10:35 AM EDT Sexual Orientation Straight 06/18/2022 10 :35 AM EDT documented as of this encounter Plan of Treatment Not on file documented as of this encounter Procedures Procedure Name Priority Date/Time Associated Diagnosis Comments CBC WITH AUTO DIFFERENTIAL Routine 03/15/2025 11:52 AM EDT BASIC METABOLIC PANEL Routine 03/15/2025 11:52 AM EDT DRUG MONITOR, PANEL 1, SCREEN, URINE Routine 03/15/2025 11:49 AM EDT documented in this encounter Results * (ABNORMAL) Basic Metabolic Panel (03/15/2025 11:52 AM EDT) Sodium 142 135 - 145 mmol/L [facility] Potassium 4.3 3.3 - 5.1 mmol/L [facility] Chloride 108 96 - 108 mmol/L [facility] Carbon Dioxide 27 22 - 29 mmol/L [facility] Anion Gap 11(L) 12 - 20 [facility] Urea Nitrogen (BUN) 10 9 - 16 mg/dL [facility] Creatinine, Serum 0.79 0.5 - 1.4 mg/dL [facility] Creatinine Clr Calc Pharmacy 85.5 [facility] Comment:Provided height and weight: 157.48 cm,95.254 kg.eGFR (calculated from the MDRD study equation) and eCrCl(calculated from the Cockcroft-Gault equation) are based ondifferent parameters and may not yield comparable results.If eCrCl result is absurd, please check patient'sheight/weight. Estimated Glomerular Filt Rate >60 [facility] Comment:Chronic Kidney Disea se: Estimated GFR < 60 mL/min/[id number] Kidney Disease: Estimated GFR < 15 mL/min/1.73m2 Glucose 114 60 - 115 mg/dL [facility] Calcium 9.0 8.4 - 10.2 mg/dL [facility] 03/15/2025 11:5 2 AM EDT 03/15/2025 11:58 AM EDT us Generic External Data Provider LAB BLOOD ORDERAB LES Final Result [facility] [address] [place] [phone] * (ABNORMAL) CBC auto differential (03/15/2025 11:52 AM EDT) White Blood Count 7.1 4.8 - 10.8 X10*3/uL [facility] Red Blood Count 5.91(H) 4.20 - 5.50 X10*6/uL [facility] Hemoglobin 16.9(H) 12.0 - 16.0 g/dl [facility] Hematocrit 51.0(H) 37.0 - 47.0 % [facility] Mean Corpuscular Volume 86.3 80.0 - 98.0 fL [facility] Mean Corpuscular Hemoglobin 28.6 27.0 - 33.0 pg [facility] Mean Corpuscular HGB Conc 33.1 31.0 - 35.0 g/dl [facility] Red Cell Distribution Width 13.8 11.0 - 16.0 % [facility] Platelet Count 286 160 - 400 X10*3/uL [facility] Mean Platelet Volume 10.3 9.4 - 12.3 fL [facility] Neutrophils Percent Auto 70.9 45 - 73 % [facility] Imm Gran Pct Auto 0.3 0.0 - 0.4 % [facility] Lymphocytes Percent Auto 22.7 20 - 40 % [facility] Monocytes Percent Auto 4.6 2 - 11 % [facility] Eosinophils Percent Auto 1.1 0 - 4 % [facility] Basophils Percent Auto 0.4 0 - 2 % [facility] NRBC Pct Auto 0.0 0.0 - 0.2 /100WBC [facility] Neutrophils Absolute Auto 5.1 2.0 - 8.3 x10*3/uL [facility] Imm Gran Abs Auto 0.02 0.00 - 0.03 X10*3/uL [facility] Lymphocytes Absolute Auto 1.6 1.2 - 4.9 X10*3/uL [facility] Monocytes Absolute Auto 0.3 0.1 - 1.2 X10*3/uL [facility] Eosinophils Absolute Auto 0.1 0.0 - 0.4 X10*3/uL [facility] Basophils Absolute Auto 0.0 0.0 - 0.2 X10*3/uL [facility] NRBC Abs Auto 0.000 0.0 - 0.012 X10*3/uL [facility] 03/15/2025 11:5 2 AM EDT 03/15/2025 11:58 AM EDT us Generic External Data Provider LAB BLOOD ORDERAB LES Final Result [facility] [address] [place] [phone] * (ABNORMAL) Drug Monitoring, Panel 1, Screen, Urine (03/15/2025 11:49 AM EDT) Opiate Screen Urine POSITIVE(A) Not Detect [facility] Comment:Opiate cut-off is 30 0 ng/mL.Positive results are unconfirmed and should not be used fornon-medical purposes. Barbiturates, Urine Not Detected Not Detect [facility] Comment:Barbiturate cut-off is 200 ng/mL.Positive results are unconfirmed and should not be used fornon-medical purposes. Phencyclidine Screen Urine Not Detected Not Detect [facility] Comment:Phencyclidine cut-of f is 25 ng/mL.Positive results are unconfirmed and should not be used fornon-medical purposes. Amphetamine Screen Urine Not Detected Not Detect [facility] Comment:Amphetamine cut-off is 1000 ng/mL.Positive results are unconfirmed and should not be used fornon-medical purposes. Benzodiazepines Screen Urine Not Detected Not Detect [facility] Comment:Benzodiazepine cut-o ff is 200 ng/mL.Positive results are unconfirmed and should not be used fornon-medical purposes. Cocaine Screen Urine Not Detected Not Detect [facility] Comment:Cocaine cut-off is 3 00 ng/mL.Positive results are unconfirmed and should not be used fornon-medical purposes. Cannabinoid Screen Urine POSITIVE(A) Not Detect [facility] Comment:Cannabinoid cut-off is 50 ng/mL.Positive results are unconfirmed and should not be used fornon-medical purposes. Methadone Screen, Urine Not Detected Not Detect ng/mL [facility] Comment:Methadone cut-off is 300 ng/mL.Positive results are unconfirmed and should not be used fornon-medical purposes. FENTANYL URINE POSITIVE(A) Not Detect [facility] Comment:Fentanyl cut-off is 1 ng/mL.Positive results are unconfirmed and should not be used fornon-medical purposes. Oxycodone Urine Screen Not Detected Not Detect ng/mL [facility] Comment:Oxycodone cut-off is 100 ng/mL.Positive results are unconfirmed and should not be used fornon-medical purposes. Buprenorphine Screen Positive(A) Not Detect ng/mL [facility] Comment:Buprenorphine cut-of f is 5 ng/mL.Positive results are unconfirmed and should not be used fornon-medical purposes. 03/15/2025 11:4 9 AM EDT 03/15/2025 11:58 AM EDT us Generic External Data Provider LAB URINE ORDERAB LES Final Result Performing Organization Address City/State/[facility] Co de Phone Number [facility] [address] [place] [phone] documented in this encounter Visit Diagnoses Not on filedocumented in this encounter
--- OUTSIDE RECORDS SUMMARY | 2025-03-15 13:25 | XMS_ITS | Data Portability ---
Author Organization [facility], , [facility] Address [address] [place] [address] Care Team Providers Care Extension Educator Name Role Phone CHATO IRENE Primary Care Provider HUMZA Wei OTHER BENJAMIN [...] Lab TSH, serum or plasma 2015 016 [facility], [address] [place] [address], [address], 6 04:02:36 CBC 2015 016 [facility], [address] [place] [address], [address], 6 04:02:36 CMP, serum or plasma 2015 016 [facility], [address] [place] [address], [address], 6 04:02:23 Referral general surgeon referral - [...] would be beneficial to her. 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 Surgeries None recorded. Imaging MAMMO, diagnostic, digital, bilateral - right breast pain at 9:00 position - pt has never had a mammo. Note: patient had seen pcp because she thought she felt a lump. Please palpate area with patient direction * 2015 016 [facility] (Imaging), [address], [place], [address], 6 09:58:50 ultrasound, breast - pain right breast at 9:00 position - ? cyst 2015 016 [facility] (Im[facility]), [address], [place], [address], 6 09:59:18 Medication Orders nortriptyli ne 25 mg capsule 2016 017 [employer] [id number] ([employer]), [address] [place], [place], [id number], 7 16:14:54 Chantix Starting Month Box 0.5 mg (11)-1 mg (42) tablets in dose pack 2016 017 [employer] [address] ([employer]), [address] [place], [place], [id number], 7 16:14:54 ondansetron HCl 4 mg tablet 2015 016 [facility][id number], [address] [place], [id number], 6 04:03:27 ondansetron HCl 4 mg tablet 2015 016 [facility] #04397, [address] [place], [id number], 6 17:40:37 hydrocodone 5 mg-acetamin ophen 325 mg tablet 2014 015 [facility] #70496, [address] [place], [id number], 6 16:49:28 ondansetron HCl 4 mg tablet 2014 015 [facility]99001, [address] [place], [id number], 5 17:52:00 Patient TargetsNo targets recorded. Patient Instructions Encounter Date Encounter Id Patient Instructions Last Modified By Organization Details Last Modified Time 01/13/2015 [id number] Reviewed previou s x-ray findings. Dispensed prescription for custom orthotics. Patient to return if symptoms persist. [email or web address] Not available 01/13/2015 15:31:19 10/03/2015 [id number] After a discussi on of treatment options, which included consideration of best practices, patient preferences, and the patient s individual lifestyle and treatment goals, as well as consideration and attempted mitigation of any barriers to meeting the patient s goals, the above treatment plan and objectives were adopted: [email or web address] Not available 10/03/2015 17:40:37 02/13/2016 [id number] After a discussi on of treatment options, which included consideration of best practices, patient preferences, and the patient s individual lifestyle and treatment goals, as well as consideration and attempted mitigation of any barriers to meeting the patient s goals, the above treatment plan and objectives were adopted: [email or web address] Not available 02/13/2016 16:36:04 02/18/2017 [id number] deciding about using medicines to quit smoking [email or web address] Not available 02/18/2017 16:14:54 Quitting Tobacco : Care Instructions [email or web address] Not available 02/18/2017 16:14:54 Counseling done Tapering Cigarettes prescription for stop smoking medication given Goal for follow up visit After a discussion of treatment options, which included consideration of best practices, patient preferences, and the patient s individual lifestyle and treatment goals, as well as consideration and attempted mitigation of any barriers to meeting the patient s goals, the above treatment plan and objectives were adopted: My Health To Do List [email or web address] Not available 02/18/2017 17:44:15 Reason for Referral [employer] 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 Referring Physician: Olivia Martini [facility], Encounter Date: 11/22/2014 Results Created Date Observation Date Name Description Value Unit Range Abnormal Flag Note LastModifiedBy Organization Detail LastModifiedTime 05/29/2005/29/2015 CBC w/ auto diff WBC 9.8 K/uL 3.4-11 .2 Not Available [facility] ([facility] [address] [place], [address], 05/29/2015 12:24:11 05/29/20 15 05/29/2015 CBC w/ auto diff RBC 5.70 M/uL 3.80-4 .80 high Not Available [facility] (Outpatient) [address] [place], [address], 05/29/2015 12:24:11 05/29/20 15 05/29/2015 CBC w/ auto diff hemoglobin 17.3 g/dL 12.0-1 5.0 high Not Available [facility] (Outpatient) [address] [place], [address], 05/29/2015 12:24:11 05/29/20 15 05/29/2015 CBC w/ auto diff hematocrit 48.8 % 36.0-4 6.0 high Not Available [facility] (Outpatient) [address] [place], [address], 05/29/2015 12:24:11 05/29/20 15 05/29/2015 CBC w/ auto diff MCV 85.6 fL 79.0-9 8.0 Not Available [facility] (Outpatient) [address] [place], [address], 05/29/2015 12:24:11 05/29/20 15 05/29/2015 CBC w/ auto diff MCH 30.4 pg 27.0-3 4.8 Not Available [facility] ([facility]) [address] [place], [address], 05/29/2015 12:24:11 05/29/20 15 05/29/2015 CBC w/ auto diff MCHC 35.5 g/dL 31.5-3 6.0 Not Available [facility] (Outpatient) [address] [place], [address], 05/29/2015 12:24:11 05/29/20 15 05/29/2015 CBC w/ auto diff RDW 13.4 % 10.8-1 4.6 Not Available [facility] (Outpatient) [address] [place], [address], 05/29/2015 12:24:11 05/29/20 15 05/29/2015 CBC w/ auto diff MPV 10.8 fL 9.4-12 .4 Not Available [facility] ([facility]) [address] [place], [address], 05/29/2015 12:24:11 10/11/20 15 05/29/2015 CBC w/ auto diff platelet count 253 K/uL 130-40 0 Not Available [facility] (Out[facility]) [address] [place] [address], [address], 05/29/2015 12:24:11 05/29/20 15 05/29/2015 CBC w/ auto diff neutrophils 72.4 % 45.3-7 7.7 Not Available [facility] ([facility]) [address] [place], [address], 05/29/2015 12:24:11 05/29/20 15 05/29/2015 CBC w/ auto diff lymphocytes 21.5 % 12.3-3 9.7 Not Available [facility] (Outpatient) [address] [place] [address], [address], 05/29/2015 12:24:11 05/29/20 15 05/29/2015 CBC w/ auto diff monocytes 5.2 % 4.1-12 .8 Not Available [facility] (Out[facility]) [address] [place] [address], [address], 05/29/2015 12:24:11 05/29/20 15 05/29/2015 CBC w/ auto diff eosinophils 0.70 % 0.00-7 .20 Not Available [facility] (Outpatient) [address] [place] [address], [address], 05/29/2015 12:24:11 05/29/20 15 05/29/2015 CBC w/ auto diff basophils 0.10 % 0.00-2 .80 Not Available [facility] (Out[facility]) [address] [place] [address], [address], 05/29/2015 12:24:11 05/29/20 15 05/29/2015 CBC w/ auto diff absolute neutrophil 7.1 K/uL 1.4-7. 7 Not Available [facility] ([facility]) [address] [place] [address], [address], 05/29/2015 12:24:11 05/29/20 15 05/29/2015 CBC w/ auto diff absolute lymphocyte 2.1 K/uL 0.6-3. 2 Not Available [facility] ([facility]) [address] [place], [address], 05/29/2015 12:24:11 05/29/20 15 05/29/2015 CBC w/ auto diff absolute monocytes 0.5 K/uL 0.1-0. 6 Not Available [facility] (Outpatient) [address] [place], [address], 05/29/2015 12:24:11 05/29/20 15 05/29/2015 CBC w/ auto diff absolute eosinophil 0.07 K/uL 0.01-0 .50 Not Available [facility] (Out[facility]) [address] [place] [address], [address], 05/29/2015 12:24:11 05/29/20 15 05/29/2015 CBC w/ auto diff absolute basophils 0.01 K/uL Not Available [facility] ([facility]) [address] [place], [address], 05/29/2015 12:24:11 05/29/20 15 05/29/2015 CBC w/ auto diff immature granulocyte 0.10 % 0.00-0 .50 Not Available [facility] (Out[facility]) [address] [place] [address], [address], 05/29/2015 12:24:11 05/29/20 15 05/29/2015 CBC w/ auto diff absolute immature granulocyte 0.01 K/uL 0.00-0 .03 Not Available [facility] ([facility]) [address] [place] [address], [address], 05/29/2015 12:24:11 05/29/20 15 05/29/2015 tropo ruthann T, serum troponin T <0.010 NG/mL 0.000- 0.030 Not Available [facility] ([facility]) [address] [place], [address], 05/29/2015 12:47:11 05/29/20 15 05/29/2015 CMP, serum or plasm a glucose 92 mg/dL 70-99 Not Available [facility] ([facility]) [address] [place], [address], 05/29/2015 12:48:11 05/29/20 15 05/29/2015 CMP, serum or plasm a BUN 12 mg/dL 6-19 Not Available [facility] ([facility]) [address] [place] [address], [address], 05/29/2015 12:48:11 05/29/20 15 05/29/2015 CMP, serum or plasm a creatinine 0.6 mg/dL 0.5-1. 5 Not Available [facility] (Out[facility]) [address] [place] [address], [address], 05/29/2015 12:48:11 05/29/20 15 05/29/2015 CMP, serum [...] ages of 16 and 68. Not Available [facility] (Outpatient) [address] [place] [address], [address], 05/29/2015 12:48:11 05/29/20 15 05/29/2015 CMP, serum or plasm a sodium 138 mEq/L 133-14 5 Not Available [facility] (Out[facility]) [address] [place] [address], [address], 05/29/2015 12:48:11 05/29/20 15 05/29/2015 CMP, serum or plasm a potassium 4.0 mEq/L 3.3-5. 1 Not Available [facility] (Out[facility]) [address] [place], [address], 05/29/2015 12:48:11 05/29/20 15 05/29/2015 CMP, serum or plasm a chloride 106 mEq/L 96-108 Not Available [facility] ([facility]) [address] [place] [address], [address], 05/29/2015 12:48:11 05/29/20 15 05/29/2015 CMP, serum or plasm a CO2 21 mEq/L 21-35 Not Available [facility] ([facility]) [address] [place] [address], [address], 05/29/2015 12:48:11 05/29/20 15 05/29/2015 CMP, serum or plasm a calcium 9.4 mg/dL 8.4-10 .3 Not Available [facility] ([facility]) [address] [place] [address], [address], 05/29/2015 12:48:11 05/29/20 15 05/29/2015 CMP, serum or plasm a total bilirubin 0.8 mg/dL 0.0-1. 2 Not Available [facility] ([facility]) [address] [place] [address], [address], 05/29/2015 12:48:11 05/29/20 15 05/29/2015 CMP, serum or plasm a alkaline phosphatase 57 U/L 39-117 Not Available [facility] (Outpatient) [address] [place] [address], [address], 05/29/2015 12:48:11 05/29/20 15 05/29/2015 CMP, serum or plasm a AST (SGOT) 12 U/L 0-37 Not Available [facility] ([facility]) [address] [place] [address], [address], 05/29/2015 12:48:11 05/29/20 15 05/29/2015 CMP, serum or plasm a ALT (SGPT) 12 U/L 0-40 Not Available [facility] ([facility]) [address] [place] [address], [address], 05/29/2015 12:48:11 05/29/20 15 05/29/2015 CMP, serum or plasm a total protein 7.2 g/dL 6.5-8. 0 Not Available [facility] ([facility]) [address] [place] [address], [address], 05/29/2015 12:48:11 05/29/20 15 05/29/2015 CMP, serum or plasm a albumin 3.8 g/dL 3.9-4. 8 low Not Available [facility] ([facility]) [address] [place] [address], [address], 05/29/2015 12:48:11 05/29/20 15 05/29/2015 CMP, serum or plasm a globulin 3.4 gm/dL 1.0-4. 8 Not Available [facility] ([facility]) [address] [place] [address], [address], 05/29/2015 12:48:11 05/29/20 15 05/29/2015 CMP, serum or plasm a A/G ratio 1.1 gm/dL 1.0-4. 8 Not Available [facility] ([facility]) [address] [place] [address], [address], 05/29/2015 12:48:11 05/29/20 15 05/29/2015 CMP, serum or plasm a anion gap 15 mEq/L 10- Not Available [facility] ([facility]) [address] [place] [address], [address], 05/29/2015 12:48:11 06/25/20 15 06/25/2015 pregn stephen test, urine test, urine Negati ve negati ve Not Available [facility] ([facility]) [address] [place] [address], [address], 06/25/2015 23:30:14 06/26/20 15 06/26/2015 CBC w/ auto diff WBC 8.0 K/uL 3.4-11 .2 Not Available [facility]) [address] [place], [address], 06/26/2015 00:36:16 06/26/20 15 06/26/2015 CBC w/ auto diff RBC 5.06 M/uL 3.80-4 .80 high Not Available [facility] ([facility]) [address] [place], [address], 06/26/2015 00:36:16 06/26/20 15 06/26/2015 CBC w/ auto diff hemoglobin 15.3 g/dL 12.0-1 5.0 high Not Available [facility] ([facility]) [address] [place], [address], 06/26/2015 00:36:16 06/26/20 15 06/26/2015 CBC w/ auto diff hematocrit 43.8 % 36.0-4 6.0 Not Available [facility]) [address] [place], [address], 06/26/2015 00:36:16 06/26/20 15 06/26/2015 CBC w/ auto diff MCV 86.6 fL 79.0-9 8.0 Not Available [facility]) [address] [place], [address], 06/26/2015 00:36:16 06/26/20 15 06/26/2015 CBC w/ auto diff MCH 30.2 pg 27.0-3 4.8 Not Available [facility]) [address] [place], [address], 06/26/2015 00:36:16 06/26/20 15 06/26/2015 CBC w/ auto diff MCHC 34.9 g/dL 31.5-3 6.0 Not Available [facility]) [address] [place] [address], [address], 06/26/2015 00:36:16 06/26/20 15 06/26/2015 CBC w/ auto diff RDW 13.6 % 10.8-1 4.6 Not Available [facility] ([facility]) [address] [place] [address], [address], 06/26/2015 00:36:16 06/26/20 15 06/26/2015 CBC w/ auto diff MPV 10.2 fL 9.4-12 .4 Not Available [facility] ([facility]) [address] [place] [address], [address], 06/26/2015 00:36:16 06/26/20 15 06/26/2015 CBC w/ auto diff platelet count 268 K/uL 130-40 0 Not Available [facility] ([facility]) [address] [place] [address], [address], 06/26/2015 00:36:16 06/26/20 15 06/26/2015 CBC w/ auto diff neutrophils 54.0 % 45.3-7 7.7 Not Available [facility] ([facility]) [address] [place] [address], [address], 06/26/2015 00:36:16 06/26/20 15 06/26/2015 CBC w/ auto diff lymphocytes 36.5 % 12.3-3 9.7 Not Available [facility] ([facility]) [address] [place] [address], [address], 06/26/2015 00:36:16 06/26/20 15 06/26/2015 CBC w/ auto diff monocytes 5.6 % 4.1-12 .8 Not Available [facility] ([facility]) [address] [place] [address], [address], 06/26/2015 00:36:16 06/26/20 15 06/26/2015 CBC w/ auto diff eosinophils 3.60 % 0.00-7 .20 Not Available [facility] ([facility]) [address] [place] [address], [address], 06/26/2015 00:36:16 06/26/20 15 06/26/2015 CBC w/ auto diff basophils 0.20 % 0.00-2 .80 Not Available [facility]) [address] [place], [address], 06/26/2015 00:36:16 06/26/20 15 06/26/2015 CBC w/ auto diff absolute neutrophil 4.3 K/uL 1.4-7. 7 Not Available [facility] ([facility]) [address] [place], [address], 06/26/2015 00:36:16 06/26/20 15 06/26/2015 CBC w/ auto diff absolute lymphocyte 2.9 K/uL 0.6-3. 2 Not Available [facility] ([facility]) [address] [place], [address], 06/26/2015 00:36:16 06/26/20 15 06/26/2015 CBC w/ auto diff absolute monocytes 0.4 K/uL 0.1-0. 6 Not Available [facility] ([facility]) [address] [place], [address], 06/26/2015 00:36:16 06/26/20 15 06/26/2015 CBC w/ auto diff absolute eosinophil 0.29 K/uL 0.01-0 .50 Not Available [facility] ([facility]) [address] [place], [address], 06/26/2015 00:36:16 06/26/20 15 06/26/2015 CBC w/ auto diff absolute basophils 0.02 K/uL Not Available [facility] ([facility]) [address] [place] [address], [address], 06/26/2015 00:36:16 06/26/20 15 06/26/2015 CBC w/ auto diff immature granulocyte 0.10 % 0.00-0 .50 Not Available [facility] ([facility]) [address] [place], [address], 06/26/2015 00:36:16 06/26/20 15 06/26/2015 CBC w/ auto diff absolute immature granulocyte 0.01 K/uL 0.00-0 .03 Not Available [facility] ([facility]) [address] [place], [address], 06/26/2015 00:36:16 06/26/20 15 06/26/2015 CMP, serum or plasm a glucose 98 mg/dL 70-99 Not Available [facility]) [address] [place] [address], [address], 06/26/2015 04:06:16 06/26/20 15 06/26/2015 CMP, serum or plasm a BUN 8 mg/dL 6-19 Not Available [facility]) [address] [place] [address], [address], 06/26/2015 04:06:16 06/26/20 15 06/26/2015 CMP, serum or plasm a creatinine 0.6 mg/dL 0.5-1. 5 Not Available [facility]) [address] [place] [address], [address], 06/26/2015 04:06:16 06/26/20 15 06/26/2015 CMP, serum [...] ages of 16 and 68. Not Available [facility] ([facility]) [address] [place] [address], [address], 06/26/2015 04:06:16 06/26/20 15 06/26/2015 CMP, serum or plasm a sodium 143 mEq/L 133-14 5 Not Available [facility]) [address] [place] [address], [address], 06/26/2015 04:06:16 06/26/20 15 06/26/2015 CMP, serum or plasm a potassium 3.3 mEq/L 3.3-5. 1 Not Available [facility] ([facility]) [address] [place] [address], [address], 06/26/2015 04:06:16 06/26/20 15 06/26/2015 CMP, serum or plasm a chloride 103 mEq/L 96-108 Not Available [facility]) [address] [place], [address], 06/26/2015 04:06:16 06/26/20 15 06/26/2015 CMP, serum or plasm a CO2 24 mEq/L 21-35 Not Available [facility] ([facility]) [address] [place] [address], [address], 06/26/2015 04:06:16 06/26/20 15 06/26/2015 CMP, serum or plasm a calcium 8.6 mg/dL 8.4-10 .3 Not Available [facility] ([facility]) [address] [place] [address], [address], 06/26/2015 04:06:16 06/26/20 15 06/26/2015 CMP, serum or plasm a total bilirubin 0.3 mg/dL 0.0-1. 2 Not Available [facility] ([facility]) [address] [place] [address], [address], 06/26/2015 04:06:16 06/26/20 15 06/26/2015 CMP, serum or plasm a alkaline phosphatase 52 U/L 39-117 Not Available [facility] ([facility]) [address] [place] [address], [address], 06/26/2015 04:06:16 06/26/20 15 06/26/2015 CMP, serum or plasm a AST (SGOT) 27 U/L 0-37 Not Available [facility] ([facility]) [address] [place] [address], [address], 06/26/2015 04:06:16 06/26/20 15 06/26/2015 CMP, serum or plasm a ALT (SGPT) 22 U/L 0-40 Not Available [facility] ([facility]) [address] [place] [address], [address], 06/26/2015 04:06:16 06/26/20 15 06/26/2015 CMP, serum or plasm a total protein 6.7 g/dL 6.5-8. 0 Not Available [facility] ([facility]) [address] [place] [address], 10[address], 06/26/2015 04:06:16 06/26/20 15 06/26/2015 CMP, serum or plasm a albumin 4.0 g/dL 3.9-4. 8 Not Available [facility] ([facility]) [address] [place] [address], 93258, 06/26/2015 04:06:16 06/26/20 15 06/26/2015 CMP, serum or plasm a globulin 2.7 gm/dL 1.0-4. 8 Not Available [facility] ([facility]) [address] [place] [address], [address], 06/26/2015 04:06:16 06/26/20 15 06/26/2015 CMP, serum or plasm a A/G ratio 1.5 gm/dL 1.0-4. 8 Not Available [facility] ([facility]) [address] [place] [address], [address]14[address], 06/26/2015 04:06:16 06/26/20 15 06/26/2015 CMP, serum or plasm a anion gap 19 mEq/L 10-20 Not Available [facility]) [address] [place] [address], 86[address], 06/26/2015 04:06:16 06/26/20 15 06/26/2015 jeannine ol, quant itati ve, serum or plasm a alcohol,ser/ plas. 111 mg/dL <10 Not Available [facility] [address] [place], [address], 06/26/2015 04:06:19 06/26/20 15 06/26/2015 salic ylate , quant itati ve, serum salicylate <0.3 mg/dL 2.8-20 .0 low Note: Resul ts less than 2.8 mg/dL are consi dered negat ish. Toxic : Great er than 30.0 mg/dL . Not Available [facility] [address] [place], [address], 06/26/2015 04:06:19 06/26/20 15 06/26/2015 aceta minop hen, serum acetaminophe n <15.0 ug/mL 15.0-3 0.0 Not Available [facility] ([facility]) [address] [place] [address], [address], 06/26/2015 04:06:20 02/13/20 16 02/13/2016 POC UA glu UA NEGATI VE Not Available [address], [address], 02/13/2016 15:58:37 02/13/20 16 02/13/2016 POC UA clarity UA CLEAR Not Available [address], [address], 02/13/2016 15:58:37 02/13/20 16 02/13/2016 POC UA uro UA 0.2000 Not Available [address], [address], 02/13/2016 15:58:37 02/13/20 16 02/13/2016 POC UA ket UA NEGATI VE Not Available [address], [address], 02/13/2016 15:58:37 02/13/20 16 02/13/2016 POC UA pro UA NEGATI VE Not Available [address], [address], 02/13/2016 15:58:37 02/13/20 16 02/13/2016 POC UA nit UA NEGATI VE Not Available [address], [address], 02/13/2016 15:58:37 02/13/20 16 02/13/2016 POC UA gustavo UA NEGATI VE Not Available [address], [address], 02/13/2016 15:58:37 02/13/20 16 02/13/2016 POC UA pH UA 7.0000 Not Available [address], [address], 02/13/2016 15:58:37 02/13/20 16 02/13/2016 POC UA SG UA 1.0250 Not Available [address], [address], 02/13/2016 15:58:37 02/13/20 16 02/13/2016 POC UA color UA YELLOW Not Available [address], [address], 02/13/2016 15:58:37 02/13/20 16 02/13/2016 POC UA blo UA NEGATI VE Not Available [address], [address], 02/13/2016 15:58:37 02/13/20 16 02/13/2016 POC UA roseline UA NEGATI VE Not Available [address], [address], 02/13/2016 15:58:37 02/13/20 16 02/14/2016 CBC WBC 10.6 K/ L 4.0-10 .0 high Not Available [address], [address], 02/14/2016 11:09:23 02/13/20 16 02/14/2016 CBC RBC 5.60 M/ L 3.93-5 .22 high Not Available [address], [address], 02/14/2016 11:09:23 02/13/20 16 02/14/2016 CBC HGB 16.4 g/dL 11.2-1 5.7 high Not Available [address], [address], 02/14/2016 11:09:23 02/13/20 16 02/14/2016 CBC HCT 51.8 % 34.1-4 4.9 high Not Available [address], [address], 02/14/2016 11:09:23 02/13/20 16 02/14/2016 CBC MCV 92.5 L 79.4-9 4.8 Not Available [address], [address], 02/14/2016 11:09:23 02/13/20 16 02/14/2016 CBC MCH 29.3 pg 25.6-3 2.2 Not Available [address], [address], 02/14/2016 11:09:23 02/13/20 16 02/14/2016 CBC MCHC 31.7 g/dL 32.2-3 5.5 low Not Available [address], [address], 02/14/2016 11:09:23 02/13/20 16 02/14/2016 CBC plt 278.0 K/ L 182.0- 369.0 Not Available [address], [address], 02/14/2016 11:09:23 02/13/20 16 02/14/2016 CBC MPV 12.3 9.4-12 .3 Not Available [address], [address], 02/14/2016 11:09:23 02/13/20 16 02/14/2016 CBC neut% 68.1 % 34.0-7 1.1 Not Available [address], [address], 02/14/2016 11:09:23 02/13/20 16 02/14/2016 CBC neut# 7.2 1.6-6. 1 high Not Available [address], [address], 02/14/2016 11:09:23 02/13/20 16 02/14/2016 CBC lymph % 26.3 % 19.3-5 1.7 Not Available [address], [address], 02/14/2016 11:09:23 02/13/20 16 02/14/2016 CBC lymph # 2.8 K/ L 1.2-3. 7 Not Available [address], [address], 02/14/2016 11:09:23 02/13/20 16 02/14/2016 CBC mono% 3.9 % 4.7-12 .5 low Not Available [address], [address], 02/14/2016 11:09:23 02/13/20 16 02/14/2016 CBC mono# 0.4 0.2-0. 6 Not Available [address], [address], 02/14/2016 11:09:23 02/13/20 16 02/14/2016 CBC eo% 1.5 % 0.7-5. 8 Not Available [address], [address], 02/14/2016 11:09:23 02/13/20 16 02/14/2016 CBC eo# 0.2 0.0-0. 4 Not Available [address], [address], 02/14/2016 11:09:23 02/13/20 16 02/14/2016 CBC baso% 0.2 % 0.1-1. 2 Not Available [address], [address], 02/14/2016 11:09:23 02/13/20 16 02/14/2016 CBC baso# 0.0 0.0-0. 1 Not Available [address], [address], 02/14/2016 11:09:23 02/13/20 16 02/14/2016 CBC RDW-CV 14.2 % 11.7-1 4.4 Not Available [address], [address], 02/14/2016 11:09:23 02/13/20 16 02/14/2016 TSH, serum or plasm a TSH 0.90 uIU/m L 0.50-6 .00 The Amer[employer] can [employer] ge [employer] Endoc rinol ogy and Ameri can Thyro id Assoc iatio n recom mend goal TSH value s betwe en 0.4-4 .0 mIU/m L. Not Available [address], [address], 02/14/2016 12:04:35 02/13/20 16 02/14/2016 CMP, serum or plasm a glucose 89 mg/dL 70-100 Not Available [address], [address], 02/14/2016 12:16:36 02/13/20 16 02/14/2016 CMP, serum or plasm a BUN 12 mg/dL 7-18 Not Available [address], [address], 02/14/2016 12:16:36 02/13/20 16 02/14/2016 CMP, serum or plasm a creatinine 0.7 mg/dL 0.8-1. 3 low Not Available [address], [address], 02/14/2016 12:16:36 02/13/20 16 02/14/2016 CMP, serum or plasm a B/C 17.1 ratio Not Available [address], [address], 02/14/2016 12:16:36 02/13/20 16 02/14/2016 CMP, serum or plasm a GFR -non 100.5 mL/mi n Recom eusebio d GFR by the Natio nal Kidne y Found ation >60 mL/mi n/1.7 3m2 - Milagros l <60 mL/mi n/1.7 3m2 - Chron ic Kidne y Disea se <15 mL/mi n/1.7 3m2 - Kidne y Failu re Not Available [address], [address], 02/14/2016 12:16:36 02/13/20 16 02/14/2016 CMP, serum or plasm a GFR - if 115.5 mL/mi n For Afric an Ameri can patie nts: Resul ts Multi plied by 1.21 Not Available [address], [address], 02/14/2016 12:16:36 02/13/20 16 02/14/2016 CMP, serum or plasm a sodium 142 mmol/ L 136-14 5 Not Available [address], [address], 02/14/2016 12:16:36 02/13/20 16 02/14/2016 CMP, serum or plasm a potassium 4.6 mmol/ L 3.5-5. 1 Not Available [address], [address], 02/14/2016 12:16:36 02/13/20 16 02/14/2016 CMP, serum or plasm a chloride 106 mmol/ L 96-107 Not Available [address], [address], 02/14/2016 12:16:36 02/13/20 16 02/14/2016 CMP, serum or plasm a anion gap 12.5 5.0-15 .0 Not Available [address], [address], 02/14/2016 12:16:36 02/13/20 16 02/14/2016 CMP, serum or plasm a CO2 24 mmol/ L 21-32 Not Available [address], [address], 02/14/2016 12:16:36 02/13/20 16 02/14/2016 CMP, serum or plasm a calcium 8.7 mg/dL 8.5-10 .3 Not Available [address], [address], 02/14/2016 12:16:36 02/13/20 16 02/14/2016 CMP, serum or plasm a total protein 6.6 g/dL 6.4-8. 2 Not Available [address], [address], 02/14/2016 12:16:36 02/13/20 16 02/14/2016 CMP, serum or plasm a albumin 3.6 g/dL 3.4-5. 0 Not Available [address], [address], 02/14/2016 12:16:36 02/13/20 16 02/14/2016 CMP, serum or plasm a globulin 3.0 g/dL Not Available [address], [address], 02/14/2016 12:16:36 02/13/20 16 02/14/2016 CMP, serum or plasm a A/G 1.2 ratio 0.8-2. 0 Not Available [address], [address], 02/14/2016 12:16:36 02/13/20 16 02/14/2016 CMP, serum or plasm a total bilirubin 0.40 mg/dL 0.00-1 .00 Not Available [address], [address], 02/14/2016 12:16:36 02/13/20 16 02/14/2016 CMP, serum or plasm a AST 22 U/L 15-37 Not Available [address], [address], 02/14/2016 12:16:36 02/13/20 16 02/14/2016 CMP, serum or plasm a ALT 34 U/L 30-65 Not Available [address], [address], 02/14/2016 12:16:36 02/13/20 16 02/14/2016 CMP, serum or plasm a alk. phos. 59 U/L 50-136 Not Available [address], [address], 02/14/2016 12:16:36 10/21/19 17 10/20/2016 CBC w/ auto diff WBC 8.8 K/uL 3.4-11 .2 Not Available [address], [address], 10/20/2016 14:25:51 10/21/19 17 10/20/2016 CBC w/ auto diff RBC 5.49 M/uL 3.80-4 .80 high Not Available [address], [address], 10/20/2016 14:25:51 10/21/19 17 10/20/2016 CBC w/ auto diff hemoglobin 16.6 g/dL 12.0-1 5.0 high Not Available [address], [address], 10/20/2016 14:25:51 10/21/19 17 10/20/2016 CBC w/ auto diff hematocrit 47.8 % 36.0-4 6.0 high Not Available [address], [address], 10/20/2016 14:25:51 10/21/19 17 10/20/2016 CBC w/ auto diff MCV 87.1 fL 79.0-9 8.0 Not Available [address], [address], 10/20/2016 14:25:51 10/21/19 17 10/20/2016 CBC w/ auto diff MCH 30.2 pg 27.0-3 4.8 Not Available [address], [address], 10/20/2016 14:25:51 10/21/19 17 10/20/2016 CBC w/ auto diff MCHC 34.7 g/dL 31.5-3 6.0 Not Available [address], [address], 10/20/2016 14:25:51 10/21/19 17 10/20/2016 CBC w/ auto diff RDW 13.0 % 10.8-1 4.6 Not Available [address], [address], 10/20/2016 14:25:51 10/21/19 17 10/20/2016 CBC w/ auto diff MPV 10.3 fL 9.4-12 .4 Not Available [address], [address], 10/20/2016 14:25:51 10/21/19 17 10/20/2016 CBC w/ auto diff platelet count 244 K/uL 130-40 0 Not Available [address], [address], 10/20/2016 14:25:51 10/21/19 17 10/20/2016 CBC w/ auto diff neutrophils 73.8 % 45.3-7 7.7 Not Available [address], [address], 10/20/2016 14:25:51 10/21/19 17 10/20/2016 CBC w/ auto diff lymphocytes 17.9 % 12.3-3 9.7 Not Available [address], [address], 10/20/2016 14:25:51 10/21/19 17 10/20/2016 CBC w/ auto diff monocytes 6.1 % 4.1-12 .8 Not Available [address], [address], 10/20/2016 14:25:51 10/21/19 17 10/20/2016 CBC w/ auto diff eosinophils 1.90 % 0.00-7 .20 Not Available [address], [address], 10/20/2016 14:25:51 10/21/19 17 10/20/2016 CBC w/ auto diff basophils 0.10 % 0.00-2 .80 Not Available [address], [address], 10/20/2016 14:25:51 10/21/19 17 10/20/2016 CBC w/ auto diff absolute neutrophil 6.5 K/uL 1.4-7. 7 Not Available [address], [address], 10/20/2016 14:25:51 10/21/19 17 10/20/2016 CBC w/ auto diff absolute lymphocyte 1.6 K/uL 0.6-3. 2 Not Available [address], [address], 10/20/2016 14:25:51 10/21/19 17 10/20/2016 CBC w/ auto diff absolute monocytes 0.5 K/uL 0.1-0. 6 Not Available [address], [address], 10/20/2016 14:25:51 10/21/19 17 10/20/2016 CBC w/ auto diff absolute eosinophil 0.17 K/uL 0.01-0 .50 Not Available [address], [address], 10/20/2016 14:25:51 10/21/19 17 10/20/2016 CBC w/ auto diff absolute basophils 0.01 K/uL Not Available [address], [address], 10/20/2016 14:25:51 10/21/19 17 10/20/2016 CBC w/ auto diff immature granulocyte 0.20 % 0.00-0 .50 Not Available [address], [address], 10/20/2016 14:25:51 10/21/19 17 10/20/2016 CBC w/ auto diff absolute immature granulocyte 0.02 K/uL 0.00-0 .03 Not Available [address], [address], 10/20/2016 14:25:51 10/21/19 17 10/20/2016 tropo ruthann T, serum troponin T <0.010 NG/mL 0.000- 0.030 Not Available [address], [address], 10/20/2016 15:00:11 10/21/19 17 10/20/2016 CMP, serum or plasm a glucose 105 mg/dL 70-99 high Not Available [address], [address], 10/20/2016 15:01:11 10/21/19 17 10/20/2016 CMP, serum or plasm a BUN 11 mg/dL 6-19 Not Available [address], [address], 10/20/2016 15:01:11 10/21/19 17 10/20/2016 CMP, serum or plasm a creatinine 0.7 mg/dL 0.5-1. 5 Not Available [address], [address], 10/20/2016 15:01:11 10/21/19 17 10/20/2016 CMP, serum [...] of 18 and 70. Not Available [address], [address], 10/20/2016 15:01:11 10/21/19 17 10/20/2016 CMP, serum or plasm a sodium 138 mEq/L 133-14 6 Not Available [address], [address], 10/20/2016 15:01:11 10/21/19 17 10/20/2016 CMP, serum or plasm a potassium 4.1 mEq/L 3.3-5. 2 Not Available [address], [address], 10/20/2016 15:01:11 10/21/19 17 10/20/2016 CMP, serum or plasm a chloride 102 mEq/L 96-108 Not Available [address], [address], 10/20/2016 15:01:11 10/21/19 17 10/20/2016 CMP, serum or plasm a CO2 23 mEq/L 21-35 Not Available [address], [address], 10/20/2016 15:01:11 10/21/19 17 10/20/2016 CMP, serum or plasm a calcium 8.8 mg/dL 8.4-10 .3 Not Available [address], [address], 10/20/2016 15:01:11 10/21/19 17 10/20/2016 CMP, serum or plasm a total bilirubin 0.5 mg/dL 0.0-1. 2 Not Available [address], [address], 10/20/2016 15:01:11 10/21/19 17 10/20/2016 CMP, serum or plasm a alkaline phosphatase 56 U/L 39-117 Not Available [address], [address], 10/20/2016 15:01:11 10/21/19 17 10/20/2016 CMP, serum or plasm a AST (SGOT) 20 U/L 0-37 Not Available [address], [address], 10/20/2016 15:01:11 10/21/19 17 10/20/2016 CMP, serum or plasm a ALT (SGPT) 18 U/L 0-40 Not Available [address], [address], 10/20/2016 15:01:11 10/21/19 17 10/20/2016 CMP, serum or plasm a total protein 6.3 g/dL 6.5-8. 0 low Not Available [address], [address], 10/20/2016 15:01:11 10/21/19 17 10/20/2016 CMP, serum or plasm a albumin 3.6 g/dL 3.9-4. 8 low Not Available [address], [address], 10/20/2016 15:01:11 10/21/19 17 10/20/2016 CMP, serum or plasm a globulin 2.7 gm/dL 1.0-4. 8 Not Available [address], [address], 10/20/2016 15:01:11 10/21/19 17 10/20/2016 CMP, serum or plasm a A/G ratio 1.3 gm/dL 1.0-4. 8 Not Available [address], [address], 10/20/2016 15:01:11 10/21/19 17 10/20/2016 CMP, serum or plasm a anion gap 17 mEq/L 10-20 Not Available [address], [address], 10/20/2016 15:01:11 10/21/19 17 10/20/2016 C react ish prote in, QN, serum or plasm a C-reactive protein 1.25 mg/dL 0.00-0 .50 high Not Available [address], [address], 10/20/2016 15:01:12 10/21/19 17 10/20/2016 BNP (B-ty pe natri ureti c pepti de), serum or plasm a pro-BNP 80 pg/mL 0-125 Not Available [address], [address], 10/20/2016 15:01:13 10/21/19 17 10/20/2016 wet mount yeast cells None Seen none seen Not Available [address], [address], 10/20/2016 17:47:20 10/21/19 17 10/20/2016 wet mount trichomonas None Seen none seen Not Available [address], [address], 10/20/2016 17:47:20 10/21/19 17 10/20/2016 wet mount clue cells None Seen none seen Not Available [address], [address], 10/20/2016 17:47:20 10/21/19 17 10/20/2016 chlam ydia + gonor blaise DNA panel , unspe cifie d speci men chlamydial/g onorrhoeal detection by PCR Not Available [address], [address], 10/22/2016 14:33:43 10/21/19 17 10/20/2016 chlam ydia + gonor blaise DNA panel , unspe cifie d speci men chlamydia trachomatis detection by PCR Not Detect ed Not Available [address], [address], 10/22/2016 14:33:43 10/21/19 17 10/20/2016 chlam ydia + gonor blaise DNA panel , unspe cifie d speci men neisseria gonorrhoeae detection by PCR Not Detect ed Not Available [address], [address], 10/22/2016 14:33:43 11/21/19 17 11/20/2016 pregn stephen test, urine test, urine Negati ve negati ve Not Available [address], [address], 11/20/2016 19:43:38 11/21/19 17 11/20/2016 urina lysis , dipst ick, refle x micro color Yellow Not Available [address], [address], 11/20/2016 19:43:39 11/21/19 17 11/20/2016 urina lysis , dipst ick, refle x micro appearance Clear Not Available [address], [address], 11/20/2016 19:43:39 11/21/19 17 11/20/2016 urina lysis , dipst ick, refle x micro specific gravity >=1.03 0 1.005- 1.030 Not Available [address], [address], 11/20/2016 19:43:39 11/21/19 17 11/20/2016 urina lysis , dipst ick, refle x micro pH 5.0 5.0-7. 0 Not Available [address], [address], 11/20/2016 19:43:39 11/21/19 17 11/20/2016 urina lysis , dipst ick, refle x micro protein Negati ve negati ve Not Available [address], [address], 11/20/2016 19:43:39 11/21/19 17 11/20/2016 urina lysis , dipst ick, refle x micro glucose Negati ve negati ve Not Available [address], [address], 11/20/2016 19:43:39 11/21/19 17 11/20/2016 urina lysis , dipst ick, refle x micro ketones Negati ve negati ve Not Available [address], [address], 11/20/2016 19:43:39 11/21/19 17 11/20/2016 urina lysis , dipst ick, refle x micro bilirubin Negati ve negati ve Not Available [address], [address], 11/20/2016 19:43:39 11/21/19 17 11/20/2016 urina lysis , dipst ick, refle x micro blood Negati ve negati ve Not Available [address], [address], 11/20/2016 19:43:39 11/21/19 17 11/20/2016 urina lysis , dipst ick, refle x micro nitrite Negati ve negati ve Not Available [address], [address], 11/20/2016 19:43:39 11/21/19 17 11/20/2016 urina lysis , dipst ick, refle x micro leukocyte esterase Negati ve negati ve Not Available [address], [address], 11/20/2016 19:43:39 11/21/19 17 11/20/2016 drug scree n, urine canna., urine scr Positi ve abnormal Resul ts check ed by jovanni vidal jadon sis. Cutof f: 50 ng/mL Not Available [address], [address], 11/20/2016 20:16:56 11/21/19 17 11/20/2016 drug scree n, urine cocaine,urin escreen None Detect ed Cutof f: 300 ng/mL Not Available [address], [address], 11/20/2016 20:16:56 11/21/19 17 11/20/2016 drug scree n, urine grupo,urine Positi ve abnormal Resul ts check ed by repea t jadon sis. Cutof f: 200 ng/mL Not Available [address], [address], 11/20/2016 20:16:56 11/21/19 17 11/20/2016 drug scree n, urine M-amphetamin es, urine screen None Detect ed Cutof f: 1000 ng/mL Not Available [address], [address], 11/20/2016 20:16:56 11/21/19 17 11/20/2016 drug scree n, urine methadone, urine screen None Detect ed Cutof f: 300 ng/mL Not Available [address], [place], [address], 11/20/2016 20:16:56 11/21/19 17 11/20/2016 drug scree n, urine opiates, urine screen None Detect ed Cutof f: 300 ng/mL Not Available [address], [address], 11/20/2016 20:16:56 11/21/19 17 11/20/2016 drug scree n, urine phencyclidin e, urine SC None Detect ed Cutof f: 25 ng/mL Not Available [address], [address], 11/20/2016 20:16:56 11/21/19 17 11/20/2016 drug scree n, urine barbiturates , urine None Detect ed Cutof f: 200 ng/mL INTER PRETA TION FOR TOXIC OLOGY PANEL : Thes e resul ts are uncon firme d and shoul d be used for Medic al Treat ment purpo ses only. Not Available [facility] [address], [place], [address], 11/20/2016 20:16:56 11/21/19 17 11/20/2016 drug scree n, urine oxycodone, urine qualitative None Detect ed Cutof f: 300 ng/ml Not Available [address], [address], 11/20/2016 20:16:56 10/23/19 15 10/21/2014 x-ray , foot No observ ation record ed. [address], [address], 10/22/2014 16:05:33 05/29/20 15 05/29/2015 x-ray , chest No observ ation record ed. [facility] [address] [place] [address], [address], 05/30/2015 09:00:12 10/21/19 17 10/20/2016 XR, chest [...] PM Interp reted By: MIGUEL RAMIREZ MD onical ly Signed By: Cherry onical ly Signed by: MIGUEL BANDA on 10/21/19 17 3:01 PM Techno logist : JAMES SOLER Transc ribed by: Janina adams, PS360 Result s 2016 02:53 PM Electr onical ly Signed By: MIGUEL RAMIREZ MD 2016 03:01 PM [facility] [address], [place], [address], 10/21/2016 11:57:51 Result Notes Documentation Provider Name and Address Organization Details Recorded Time Xr, Chest, 2 View : PA and lateral views of the chest obtained. Multiple prior, most recent May 29, 2015. Heart, lung, and mediastinal contours appear within normal limits. No infiltrates or effusions identified. No free air or pneumothorax. Patient rotated mildly to the left. IMPRESSION: No acute cardiopulmonary abnormality is detected. POS - [id number] Edited by: Rose Marie Mansfield on 10/20/2016 2:56 PM Technologist: JAMES SOLER Transcribed by: [email or web address] Results 10/20/2016 02:53 PM Interpreted By: MIGUEL OCHOA MD Technologist: JAMES SOLER Transcribed by: Clif [email or web address] Results 10/20/2016 02:53 PM Electronically Signed By: MIGUEL OCHOA MD 10/20/2016 03:01 PM Olivia Martini NP [address] [place] [address], [phone], [facility] 10/21/2016 11:57:51 Problems Name Problem SNOMED Code Status Onset Date Resolution Date Notes Provider Name and Address Organization Details Recorded Time Tinkvng pedis 4594555 Active Not Available [facility] 3 03:15:01 Obesity 304626088 Active Not Available [facility] 3 03:15:01 Dental caries 83137024 Active Tamar Reese MD [address] [place] [address], [phone] , [facility] 4 16:31:21 Tobacco user 175749169 Active Tamar Reese MD [address] [place] [address], [address] , [facility] 4 16:31:21 Adjustment disorder 01880284 Active Not Available [facility] 3 03:15:01 Disorder of teeth AND/OR supporting structures 352901840 Completed 12/23/2013 Tamar Reese MD [address] [place] [address], [phone] , [facility] 4 15:53:16 Glucose level outside reference range 923894881 Active Not Available [facility] 3 03:15:01 Migraine 93408449 Completed 12/23/2013 hanna Reese MD [address] [place] [address], , [facility] 4 15:53:39 Lipoma 80079732 Active Olivia Martini NP [address] [place] [address], , [facility] 5 17:52:00 Mass of body structure 663282785 Active Olivia Martini NP [address] [place] [address], , [facility] 4 17:47:20 Pain in lower limb 87065670 Active Kevin Hayes DPM [address] [place] [address], , [facility] 5 15:31:19 Opioid dependence in remission 770615490 Active 2016 Olivia Martini NP [address] [place] [address], , [facility] 7 17:43:47 Problem Notes None recorded. Procedures Surgical History Date Name Laterality Status Provider Name and Address Organization Details Recorded Time 7 Smoking cessation counseling completed Paulette Gillis MA [facility] 02/18/2017 15:52:36 7 Carbon Monoxide Testing completed Paulette Gillis MA [facility] 02/18/2017 15:52:37 6 POC Urinalysis Testing completed JAKI Marcano [facility] 02/13/2016 15:57:25 4 Smoking cessation counseling completed Izabel Weeks [facility] 12/23/2013 15:34:15 4 Smoking cessation counseling completed Izabel Weeks [facility] 10/21/2013 15:32:52 3 Smoking cessation counseling completed Andreina Issa MA [facility] 08/20/2012 15:37:12 01/28/201 1 Wound Care completed Yu Zarate RN DC - [facility] 09/15/2010 16:31:01 Imaging Results None recorded. Procedure Notes None recorded. Medical Equipment None [...] am and pm; rx'd by haim Guido Not Available Not Available Not Available pramipexo [...] active Not Available Not Available Not Avai labjuliette Suboxone 4 mg-1 mg sublingua l film TAKE 3 EA SUBLINGU ALLY ONCE A DAY active Not Available Not Available No t Available Narcan 4 mg/actuat ion nasal spray active Not Available Not Available Not Available Trintelli x 10 mg tablet 02/18 completed 02/18/17 pt states she is not taking/j d Not Available Not Available Not Available Vitals Date Recorded Body height Heart rate Systolic And Diastolic Provider Name and Address Organization Details Last Updated DateTime 10/03/2015 158.115 cm 60 /min 120/84 mm[Hg] Ernestina James MA [facility] 10/03/2015 16:45:49 Date Recorded Body height Body mass index (BMI) Body weight Systolic And Diastolic Provider Name and Address Organization Details Last Updated DateTime 11/22/2014 159.385 cm 35.8 kg/m2 62753.270 185 g 120/70 mm[Hg] Ernestina leon MA [facility] 11/22/2014 16:49:57 Date Recorded Body height Body weight Body mass index (BMI) Heart rate Systolic And Diastolic Provider Name and Address Organization Details Last Updated DateTime 01/13/2015 158.115 cm 27354.47 4 g 36.3 kg/m2 80 /min 120/80 mm[Hg] Elisabeth Jerez MA [facility] 01/13/2015 14:22:22 Date Recorded Body height Heart rate Body temperature Systolic And Diastolic Provider Name and Address Organization Details Last Updated DateTime 02/13/2016 158.115 cm 60 /min 98.2 [degF] 110/82 mm[Hg] JAKI Marcano [facility] 02/13/2016 15:30:44 Date Recorded Body weight Body mass index (BMI) Body height Body temperature Systolic And Diastolic Provider Name and Address Organization Details Last Updated DateTime 02/18/2017 02910.07 g 36.5 kg/m2 158.12 cm 98.4 [degF] 112/68 mm[Hg] Paulette Gillis MA [facility] 15:54:04 Social History Question Answer Notes LastModified by Organizat ion Details LastModified Time Tobacco Smoking Status Current Every Day Smoker 1/2pack per day KO Boucher [facility] 11/29/2011 14:40:04 Do You Have An [...] Live Alone Or With Others? With Others [email or web address] Information not available 12/23/2013 Patient Has Health [...] Td(adult) unspecified formulation 0 completed Not Available [facility] 07/04/2011 05:22:52 Past Encounters Encounter ID Performer Location Encounter Start Date Encounter Closed Date Diagnosis/Indication Diagnosis SNOMED-CT Code Diagnosis ICD10 Code Diagnosis Note [id number] KEARA Nichols, [facility], [address] [place] [address] 08/25/2010 11:09:53 08/29/2010 11:09:48 [id number] KEARA Nichols, [facility], [address] [place] [address] 09/15/2010 15:30:06 09/18/2010 14:25:45 [id number] JED Pascual, [facility], [address] [place] [address] 11/29/2011 14:30:15 12/03/2011 10:36:02 [id number] [facility] [employer] [address] [address] 11/29/2011 15:08:55 11/29/2011 15:51:18 [id number] [facility] [employer] [address] [address] 11/29/2011 15:09:25 11/29/2011 15:51:24 [id number] JED Pascual, [facility], [address] [place] [address] 12/17/2011 13:32:40 12/19/2011 08:29:09 [id number] Irene Albarado Chato, MEDICAL ASSISTANT CARDIOLOGY-[facility] , [facility], [address] [place] [address] 08/20/2012 15:27:44 08/20/2012 16:20:17 [id number] Tamar Reese MD , [facility], [address] [place] [address] 12/31/2012 14:28:53 12/31/2012 15:24:05 [id number] Tamar Reese MD , [facility], [address] [place] [address] 01/30/2013 14:40:09 02/02/2013 13:31:13 [id number] Tamar Reese MD [facility], [address] [place] [address] 02/18/2013 16:35:29 02/20/2013 14:55:07 [id number] Tamar Reese MD [facility], [address] [place] [address] 03/26/2013 14:54:46 03/26/2013 16:23:36 Dental caries 91633531 Severe dental pain for about 20 years, [...] s without letting us know. Muscular headache 296713430 Sig tension noted in neck and paraspinal muscles; gentle massage in clinic helped relieve pain slightly. Recommend massage - low cost options provided. [id number] Tamar Reese MD , [facility], [address] [place] [address] 10/21/2013 14:54:11 10/22/2013 15:08:23 Tobacco user [id number] Interested in quitting, but inadequate time to devise a plan at this encounter - return for this. Migraine [id number] discus sed trial of imitrex, full PARQ held and patient wishes to try this. Return to see me in 3 weeks to follow up on this. Patient requested opiates for this but discussed that there are better medication s for migraines and I would prefer a trial of triptans. Lipoma [id number] Discusse d likely lipoma on R lateral thigh; no sign of infection or abscess. Start with u/s for eval (she will call [facility] to set up) and referred to consult with general surgery re: risks and benefits of biopsy and/or full removal. Dental caries [id number] S tates only friend who could take her to have teeth extracted lost his license, so she did not go through with extraction . States tooth pain has resolved. [id number] Tamar Reese MD , [facility], [address] [place] [address] 12/23/2013 15:01:25 12/24/2013 09:28:17 Adult health examination [id number] see Risk Assessment and Lifestyle Change Counseling section above UTD TDAP, Pap Mammogram, fbs ordred Add vitamin D, consider the med diet Counseling [id number] Screening mammography 08532973 Mass of keaton dy structure 103472607 present x 14 years but getting larger over the last few weeks, painful. Did not go to see general surgery . Discussed MRI next step in workup to ensure no sarcoma. F/u with me next week. Dental caries 56201666 p lans to have extraction at [facility] Muscular headache 887090739 resolved Tobacco user [id number] n ot interested in quitting at the present [id number] Olivia Martini NP , [facility], [address] [place] [address] 01/08/2014 11:44:23 01/08/2014 12:27:08 Pain in lower limb 77803522 Reviewed previous notes and results from u/s. [...] is not a medication to be used nursing home. If MRI is unrevealin g, could consider surgical consult (looks like was referred in past but no appt every made) but would stop the narcotics if not real cause can be found for her sx. Lipoma 70458966 Periapical abscess without sinus tract 231927559 very poor dentition with broken stubs of teeth noted - states found dentist who will pull these for her and enc. to f/u with that in the near future Fatigue 16633022 Pt c/o fatigue, wt gain. Will return for some labs prior to f/u visit in 1 week. [id number] Olivia Martini NP , [facility], [address] [place] [address] 01/26/2014 15:49:01 01/26/2014 16:11:47 Pain of hip region 59689918 Will get hip X-ray - ? if [...] do not want to refill this again. [id number] Irene Reis, MEDICAL ASSISTANT CARDIOLOGY-BC , [facility], [address] [place] [address] 07/28/2014 16:43:12 07/28/2014 17:17:11 Pain in thumb 720107369 pain at base of left thumb. pt requesting pain medication for this. distributi on of pain consistent with radial nerve. will image as focal tenderness is noted. advised brace at night, and follow up to consider physical therapy or gabapentin or amitryptil ine for pain. Migraine 27691618 pt not es severe migraines every three - 4 months. pt has tried percocet. but last time percocet did not help. percocet did not help. pt states she has pounding pain. pt does note aura. will trial sumatripta n. [id number] Joni Scott MD , [facility], [address] [place] [address] 11/22/2014 16:39:11 11/22/2014 17:10:30 Migraine 59395526 states sumatripta n works very well - uses the Zofran prn for nausea as well - refilled as below Foot pain 03547022 Pt wi th pain top of foot - ? cause. Xray in ER was neg. Referred to podiatry. Pt to schedule. Small amt vicodin given as below to use sparingly. Continue the naproxen, comf. footwear. F/U if not gradually improving or sx worsen. Lipoma 96364203 Pt concerned about fat deposition right lat. hip - had seen surgeon for this in the past but feels this has gotten larger, more painful. Dr. Bettencourt felt surgery would not be beneficial for her sx. Wants another opinion. Referred to Dr. Zavaleta . Pt to schedule. [id number] Kevin Hayes DPM Podiatry, [facility] [address] [place] [address] 01/13/2015 14:10:28 01/26/2015 14:19:09 Acquired hallux valgus 36320249 Disorder of nail 60093824 Pain in lower limb 15791709 [id number] Joni Scott MD , [facility], [address] [place] [address] 10/03/2015 16:28:44 10/03/2015 17:06:09 Migraine 82172704 G43.909 states sumatripta n works very well - uses the Zofran prn for nausea as well - refilled as below Foot pain 60148078 M79.6 73 referred back to podiatry - enc. wide comf. footwear - reassured - no need for narcotics which should be used only for more severe pain sx (i.e. fractures, surgery). Continue the ibuprofen - can take it with tylenol prn if not effective. Breast lump 61260353 N63 I don't feel any discrete mass but she is tender on the right at 9:00 position - will get mammo with u/s as below and f/u with results when available. Enc. to schedule PHA on her way out today [id number] Olivia Martini NP , [facility], [address] [place] [address] 02/13/2016 15:21:20 02/13/2016 16:19:11 Migraine 73568764 G43.909 Uses zofran sparingly for her migraines - refilled as below Fatigue 72188708 R53.83 Will check some labs today and f/u with results when available Increased frequency of urination 545479575 R35.0 Feels having increased frequency, no burning/ur gency but some change in stream. Urine dip obtained and wnl. Discussed no s/s infection. F/U prn worsening sx. Substance abuse 56901353 F19.10 was buying oxycodone on the streets and had been seen here numerous times with drug seeking behaviors. + cocaine as well noted during ER visit in past. 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 Enc. cont. f/u with suboxone clinic. 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 f/u with therapist and med prescriber as planned - denies any suicidal ideation. States feeling much better now that is on suboxone Tobacco de pendence syndrome 03038378 F17.290 Doesn't want nicotine replacemen t products - scare her. Interested in chantix. Discussed potential adverse effects including vivid dreams/sle ep disturbanc e. She will discuss this with her psych. prescriber and f/u if desires a rx. [id number] Joni Scott MD , [facility], [address] [place] [address] 02/18/2017 15:41:42 02/18/2017 16:23:40 Cigarette smoker 32313997 F17.210 Discussed and enc smoking cessation. Willing to try chantix again but might just stick with lower dose (1 mg/day, not BID). F/u when needing refills or if needing additional help with smoking cessation. Tobacco user 054863332 Z 72.0 Migraine 55686937 G43.90 9 Has imitrex to use but having alot more h/a's recently - daily. Will try nortriptyl ine for migraine prevention . Give this a few weeks. If not helping, f/u here. Enc to schedule PHA for the near future Common cold 23857652 J00 Reassured. QS neg. Sx c/w viral URI. Enc. adequate fluids/res t and otc analgesics prn. F/u for worsening sx (i.e. fever, chest pain, dyspnea). Opioid dep endence in remission 046981724 F11.21 Enc cont. f/u with suboxone clinic. Health Concerns Section Related Observation LastModified by Organization Detai ls LastModified Time None Recorded Concern Status LastModified by Organization Details LastModified Time None Recorded Advance Directives Directive N: declines form Payers Insurance Date Sequence Insurance Name Policy Number Policy Blevins Covered Member ID Blevins Member ID Guarantor Name 11/03/2014 [facility] Marielos Peralta 01/08/2014 2 [place] [facility] Marielos Peralta [id number] Marielos Peralta 11/30/2019 1 [facility] (MEDICAID HMO) [id number] Marielos Peralta [id number] Marielos Peralta OBGyn Episode No OBEpisode recorded.
--- NOTE | 2025-03-15 13:49 | MHC.CARE ---
Pt does not meet the criteria for IPLOC. Pt will be referred to [facility] for OP therapy and med management.
[2025-03-15 14:00] VITALS: BP 108/77; PULSE 48; RESP 10; TEMP 36.6; O2SAT 96
[2025-03-15 15:23] VITALS: BP 108/77; PULSE 48; RESP 10; TEMP 36.6; O2SAT 96
== END 2025-03-15 15:23 | disposition home or self-care (01) ==
PROVIDERS: Emergency Provider Emergency Medicine
DX: F32.A Depression, unspecified (principal); F19.10 Other psychoactive substance abuse, uncomplicated; R42 Dizziness and giddiness; F11.20 Opioid dependence, uncomplicated
CPT/HCPCS: 36415; 80048; 80307; 85025; 93005; 99285; S9485

== ENCOUNTER → 2025-03-15 13:08 | Outpatient (BNV) | payer MEDICAID, SELFPAY | PROVIDERS: Emergency Provider Emergency Medicine; Visit Provider Internal Medicine Cardiovascular Disease | DX: R00.1 Bradycardia, unspecified (principal) | CPT/HCPCS: 93010 ==

== ENCOUNTER 2025-03-17 13:42 | Outpatient (AMB) | payer MEDICAID, SELFPAY ==
--- NOTE | 2025-03-17 13:50 | MHC.OFFVIS ---
Intake Visit Reasons: MAT Allergies dexamethasone (From DECADRON) Adverse Reaction (Severe, Verified 03/17/25 13:50) NAUSEA & VOMITING HPI Comments Details: Her mother on February 26. She stopped Suboxone and took two bags of heroin. She has some withdrawal feelings with leg jitteriness at night and sleeplessness not responsive to Trazodone, Ambien or melatonin. She had Klonipin 2 mg with sleeplessness resolution in past. She is back on Suboxone tid and still has trouble with sleep impairing quality of life. She has a PCP now with [facility] and is working on getting Psychiatrist. She reports did not OD and did not have somnolence and no SI or HI. She wants to get back on Sublocade and wants to start next month. [facility] Medical History Fibroid of cervix Opioid use disorder Substance abuse No known health problems No known health problems Social History Alcohol intake: never Patient Tobacco Use Status: Current everyday Tobacco user Substance Use Type: Heroin Gender identity: Female Female Reproductive History Menstrual Age of Menarche: 11 Review of Systems Const All systems reviewed & are unremarkable except as noted in HPI and below Physical Exam Const General: cooperative Assessment & Plan Assessment & Plan (1) Opioid use disorder, severe, dependence: Comment: She is interested in Sublocade again. She has had before with good results Code(s): F11.20 - Opioid dependence, uncomplicated Category: Medical Plan: Suboxone,8/2 tid,90 and no refills as did order Sublocade 300 Only 5 days of Klonipin prn sleep,use weekly and no further refills (I discussed and clarified with patient and she understood). See next month. Medications: New buprenorphine-naloxone 8-2 mg (Suboxone) 1 film sublingual TID 90 ea 0RF 30 days clonazepam (Klonopin) administer 30 minutes before bedtime 2 mg PO BEDTIME 5 tabs 0RF 5 days buprenorphine ER (Sublocade) 300 mg (1.5 mL) subcut QMONTH 30 days 1.5 mL 1RF buprenorphine ER (Sublocade) 300 mg (1.5 mL) subcut QMONTH 1.5 mL 1RF 30 days Coding Level of Care Code Est Pt Level 3 (92083) Diagnoses Opioid use disorder, severe, dependence F11.20
--- OUTSIDE RECORDS SUMMARY | 2025-03-17 14:21 | XMS_ITS | Encounter Summary ---
Author Organization [employer] Address [address] [facility] [address] [place] [address] Care Team Providers Care Band Cutter Name Role Phone Unavailable Primary Care Provider [...] EDT) Sodium 142 135 - 145 mmol/L [facility] Potassium 4.3 3.3 - 5.1 mmol/L [facility] Chloride 108 96 - 108 mmol/L [facility] Carbon Dioxide 27 22 - 29 mmol/L [facility] Anion Gap 11(L) 12 - 20 [facility] Urea Nitrogen (BUN) 10 9 - 16 mg/dL [facility] Creatinine, Serum 0.79 0.5 - 1.4 mg/dL [facility] Creatinine Clr Calc Pharmacy 85.5 [facility] Comment:Provided height and weight: 157.48 cm,95.254 kg.eGFR (calculated from the MDRD study equation) and eCrCl(calculated from the Cockcroft-Gault equation) are based ondifferent parameters and may not yield comparable results.If eCrCl result is absurd, please check patient'sheight/weight. Estimated Glomerular Filt Rate >60 [facility] Comment:Chronic Kidney Disea se: Estimated GFR < 60 mL/min/1.44s8Vrrcnf Kidney Disease: Estimated GFR < 15 mL/min/1.73m2 Glucose 114 60 - 115 mg/dL [facility] Calcium 9.0 8.4 - 10.2 mg/dL [facility] 03/15/2025 11:5 2 AM EDT 03/15/2025 11:58 AM EDT us Generic External Data Provider LAB BLOOD ORDERAB LES Final Result [facility] [address] [place] [phone] * (ABNORMAL) CBC auto differential (03/15/2025 11:52 AM EDT) White Blood Count 7.1 4.8 - 10.8 X10*3/uL [facility] Red Blood Count 5.91(H) 4.20 - 5.50 X10*6/uL [facility] Hemoglobin 16.9(H) 12.0 - 16.0 g/dl [facility] Hematocrit 51.0(H) 37.0 - 47.0 % [facility] Mean Corpuscular Volume 86.3 80.0 - 98.0 fL [facility] Mean Corpuscular Hemoglobin 28.6 27.0 - 33.0 pg [facility] Mean Corpuscular HGB Conc 33.1 31.0 - 35.0 g/dl [facility] Red Cell Distribution Width 13.8 11.0 - 16.0 % [facility] Platelet Count 286 160 - 400 X10*3/uL [facility] Mean Platelet Volume 10.3 9.4 - 12.3 fL [facility] Neutrophils Percent Auto 70.9 45 - 73 % [facility] Imm Gran Pct Auto 0.3 0.0 - 0.4 % [facility] Lymphocytes Percent Auto 22.7 20 - 40 % [facility] Monocytes Percent Auto 4.6 2 - 11 % [facility] Eosinophils Percent Auto 1.1 0 - 4 % [facility] Basophils Percent Auto 0.4 0 - 2 % [facility] NRBC Pct Auto 0.0 0.0 - 0.2 /100WBC [facility] Neutrophils Absolute Auto 5.1 2.0 - 8.3 x10*3/uL [facility] Imm Gran Abs Auto 0.02 0.00 - 0.03 X10*3/uL [facility] Lymphocytes Absolute Auto 1.6 1.2 - 4.9 X10*3/uL [facility] Monocytes Absolute Auto 0.3 0.1 - 1.2 X10*3/uL [facility] Eosinophils Absolute Auto 0.1 0.0 - 0.4 X10*3/uL [facility] Basophils Absolute Auto 0.0 0.0 - 0.2 X10*3/uL [facility] NRBC Abs Auto 0.000 0.0 - 0.012 X10*3/uL [facility] 03/15/2025 11:5 2 AM EDT 03/15/2025 11:58 AM EDT us Generic External Data Provider LAB BLOOD ORDERAB LES Final Result [facility] [address] [place] [phone] * (ABNORMAL) Drug Monitoring, Panel 1, Screen, Urine (03/15/2025 11:49 AM EDT) Opiate Screen Urine POSITIVE(A) Not Detect [facility] Comment:Opiate cut-off is 30 0 ng/mL.Positive results are unconfirmed and should not be used fornon-medical purposes. Barbiturates, Urine Not Detected Not Detect [facility] Comment:Barbiturate cut-off is 200 ng/mL.Positive results are unconfirmed and should not be used fornon-medical purposes. Phencyclidine Screen Urine Not Detected Not Detect [facility] Comment:Phencyclidine cut-of f is 25 ng/mL.Positive results are unconfirmed and should not be used fornon-medical purposes. Amphetamine Screen Urine Not Detected Not Detect [facility] Comment:Amphetamine cut-off is 1000 ng/mL.Positive results are unconfirmed and should not be used fornon-medical purposes. Benzodiazepines Screen Urine Not Detected Not Detect [facility] Comment:Benzodiazepine cut-o ff is 200 ng/mL.Positive results are unconfirmed and should not be used fornon-medical purposes. Cocaine Screen Urine Not Detected Not Detect [facility] Comment:Cocaine cut-off is 3 00 ng/mL.Positive results are unconfirmed and should not be used fornon-medical purposes. Cannabinoid Screen Urine POSITIVE(A) Not Detect [facility] Comment:Cannabinoid cut-off is 50 ng/mL.Positive results are unconfirmed and should not be used fornon-medical purposes. Methadone Screen, Urine Not Detected Not Detect ng/mL [facility] Comment:Methadone cut-off is 300 ng/mL.Positive results are unconfirmed and should not be used fornon-medical purposes. FENTANYL URINE POSITIVE(A) Not Detect [facility] Comment:Fentanyl cut-off is 1 ng/mL.Positive results are unconfirmed and should not be used fornon-medical purposes. Oxycodone Urine Screen Not Detected Not Detect ng/mL [facility] Comment:Oxycodone cut-off is 100 ng/mL.Positive results are unconfirmed and should not be used fornon-medical purposes. Buprenorphine Screen Positive(A) Not Detect ng/mL [facility] Comment:Buprenorphine cut-of f is 5 ng/mL.Positive results are unconfirmed and should not be used fornon-medical purposes. 03/15/2025 11:4 9 AM EDT 03/15/2025 11:58 AM EDT us Generic External Data Provider LAB URINE ORDERAB LES Final Result Performing Organization Address City/State/[facility] Co de Phone Number [facility] [address] [place] [phone] documented in this encounter Visit Diagnoses Not on filedocumented in this encounter
--- OUTSIDE RECORDS SUMMARY | 2025-03-17 14:21 | XMS_ITS | Clinical Summary ---
Author Organization [facility] Address [address] [place] [address] Phone Care Team Providers Care Inspector Of Weights And Measures Name Role Phone Physician, No Pcp Primary [...] topic Insurance MEDICAID - [place] Care Teams Inspector Of Weights And Measures Relationship Specialty Start Date End Date Physician, No Pcp PCP - General 10/12/24
== END 2025-03-17 14:16 | disposition home or self-care (01) ==
LOC: HO.HCC 13:43
PROVIDERS: Visit Provider Internal Medicine
DX: F11.20 Opioid dependence, uncomplicated (principal)
CPT/HCPCS: 99213

== ENCOUNTER → 2025-03-17 13:42 | Outpatient (BNVA) | payer MEDICAID, SELFPAY | PROVIDERS: Visit Provider Internal Medicine | DX: F11.20 Opioid dependence, uncomplicated (principal) | CPT/HCPCS: 99212 ==

== ENCOUNTER 2025-04-07 11:35 | Outpatient (AMB) | payer MEDICAID, SELFPAY ==
--- NOTE | 2025-04-07 11:45 | AM.OFFVISNUR ---
Vital Signs 04/07/25 11:49 Height 5 ft 2 in Weight 88.451 kg BMI 35.7 BP 152/100 H Pulse 61 Pulse Source Pulse Oximeter Pulse Oximetry (%) 98 Oxygen Delivery Method Room Air Intake Visit Reasons: Injection Allergies dexamethasone (From [facility]) Adverse Reaction (Severe, Verified 04/07/25 11:50) NAUSEA & VOMITING Nursing Note Marielos presented today for her first Sublocade injection in around 4 years. Marielos was alert, oriented and a bit nervous to resume the injection. Marielos shared that she had lost her Mom recently and was waiting for her sister to arrive to join her for the visit before the injection was to be given. Outside resources were discussed to help her for the times that her sister is not available including [facility], [facility], she will folow up if needing more information. Follow up scheduled for 4 weeks. Office Meds Sublocade 300 mg/1.5 mL solution,extended release subcutaneous syringe Performing Provider: Latrice Reich MD Performing Location: [facility] Administered by: Alis Sanches RN on 04/07/25 12:19 Dose Route Admin Location Dispensed Lot Number Expiration Date [facility] Tool Room Supervisor 300 mg subcut LUQ 1.5 mL [id number] 12/16/25 [address]-6 [employer] Total Dispensed Waste 1.5 mL 0 % Comments: Pt is present for Sublocade 300 mg injection. Pt denies any concern with past injections 4 years ago and tolerated injection well. Educated on signs and symptoms of infection and encouraged to call [facility] with any related questions or concerns, pt verbalized understanding. Follow-up scheduled in 4 weeks for next injection. Assessment & Plan Assessment & Plan Orders: Orders AMB Buprenorphine Injection - Patient Supplied Today F11.20 - Opioid dependence, uncomplicated Coding
[2025-04-07 11:49] VITALS: BP 152/100; PULSE 61; O2SAT 98; BMI 35.7
--- OUTSIDE RECORDS SUMMARY | 2025-04-07 12:52 | XMS_ITS | Clinical Summary ---
Author Organization [employer] Address [address] [facility] [address] [place] [address] Care Team Providers Care Emergency Response Technician Name Role Phone Unavailable Primary Care Provider Unavailabl e Encounters Date Type Department Care Team Description 03/15/2025 Orders Only GENERIC EXTERNAL DATA DEPARTMENT Provider, Generic External Data from Last 3 Months Social History Tobacco [...] 2023-2 5 season) 2024 Influenza Vaccine (#1) 2025 RSV Patients and Pa tients Aged [...] Procedure Name Priority Date/Time Associated Diagnosis Comments BASIC METABOLIC PANEL Routine 03/15/2025 11:52 AM EDT CBC WITH AUTO DIFFERENTIAL Routine 03/15/2025 11:52 AM EDT DRUG MONITOR, PANEL 1, SCREEN, URINE Routine 03/15/2025 11:49 AM EDT from Last 3 Months Results * (ABNORMAL) CBC auto differential (03/15/2025 11:52 AM EDT) White Blood Count 7.1 4.8 - 10.8 X10*3/uL [facility] Red Blood Count 5.91(H) 4.20 - 5.50 X10*6/uL [facility] Hemoglobin 16.9(H) 12.0 - 16.0 g/dl [facility] Hematocrit 51.0(H) 37.0 - 47.0 % [facility] Mean Corpuscular Volume 86.3 80.0 - 98.0 fL [facility] Mean Corpuscular Hemoglobin 28.6 27.0 - 33.0 pg [facility] Mean Corpuscular HGB Conc 33.1 31.0 - 35.0 g/dl [facility] Red Cell Distribution Width 13.8 11.0 - 16.0 % [facility] Platelet Count 286 160 - 400 X10*3/uL [facility] Mean Platelet Volume 10.3 9.4 - 12.3 fL [facility] Neutrophils Percent Auto 70.9 45 - 73 % [facility] Imm Gran Pct Auto 0.3 0.0 - 0.4 % [facility] Lymphocytes Percent Auto 22.7 20 - 40 % [facility] Monocytes Percent Auto 4.6 2 - 11 % [facility] Eosinophils Percent Auto 1.1 0 - 4 % [facility] Basophils Percent Auto 0.4 0 - 2 % [facility] NRBC Pct Auto 0.0 0.0 - 0.2 /100WBC [facility] Neutrophils Absolute Auto 5.1 2.0 - 8.3 x10*3/uL [facility] Imm Gran Abs Auto 0.02 0.00 - 0.03 X10*3/uL [facility] Lymphocytes Absolute Auto 1.6 1.2 - 4.9 X10*3/uL [facility] Monocytes Absolute Auto 0.3 0.1 - 1.2 X10*3/uL [facility] Eosinophils Absolute Auto 0.1 0.0 - 0.4 X10*3/uL [facility] Basophils Absolute Auto 0.0 0.0 - 0.2 X10*3/uL [facility] NRBC Abs Auto 0.000 0.0 - 0.012 X10*3/uL [facility] 03/15/2025 11:5 2 AM EDT 03/15/2025 11:58 AM EDT us Generic External Data Provider LAB BLOOD ORDERAB LES Final Result [facility] [address] [place] [phone] * (ABNORMAL) Basic Metabolic Panel (03/15/2025 11:52 AM EDT) Sodium 142 135 - 145 mmol/L [facility] Potassium 4.3 3.3 - 5.1 mmol/L [facility] Chloride 108 96 - 108 mmol/L [facility] Carbon Dioxide 27 22 - 29 mmol/L [facility] Anion Gap 11(L) 12 - 20 [facility] Urea Nitrogen (BUN) 10 9 - 16 mg/dL [facility] Creatinine, Serum 0.79 0.5 - 1.4 mg/dL [facility] Creatinine Clr Calc Pharmacy 85.5 [facility] Comment:Provided height and weight: 157.48 cm,95.254 kg.eGFR (calculated from the MDRD study equation) and eCrCl(calculated from the Cockcroft-Gault equation) are based ondifferent parameters and may not yield comparable results.If eCrCl result is absurd, please check patient'sheight/weight. Estimated Glomerular Filt Rate >60 [facility] Comment:Chronic Kidney Disea se: Estimated GFR < 60 mL/min/1.67l6Ieldgg Kidney Disease: Estimated GFR < 15 mL/min/1.73m2 Glucose 114 60 - 115 mg/dL [facility] Calcium 9.0 8.4 - 10.2 mg/dL [facility] 03/15/2025 11:5 2 AM EDT 03/15/2025 11:58 AM EDT us Generic External Data Provider LAB BLOOD ORDERAB LES Final Result [facility] [address] [place] [phone] * (ABNORMAL) Drug Monitoring, Panel 1, Screen, Urine (03/15/2025 11:49 AM EDT) Opiate Screen Urine POSITIVE(A) Not Detect [facility] Comment:Opiate cut-off is 30 0 ng/mL.Positive results are unconfirmed and should not be used fornon-medical purposes. Barbiturates, Urine Not Detected Not Detect [facility] Comment:Barbiturate cut-off is 200 ng/mL.Positive results are unconfirmed and should not be used fornon-medical purposes. Phencyclidine Screen Urine Not Detected Not Detect [facility] Comment:Phencyclidine cut-of f is 25 ng/mL.Positive results are unconfirmed and should not be used fornon-medical purposes. Amphetamine Screen Urine Not Detected Not Detect [facility] Comment:Amphetamine cut-off is 1000 ng/mL.Positive results are unconfirmed and should not be used fornon-medical purposes. Benzodiazepines Screen Urine Not Detected Not Detect [facility] Comment:Benzodiazepine cut-o ff is 200 ng/mL.Positive results are unconfirmed and should not be used fornon-medical purposes. Cocaine Screen Urine Not Detected Not Detect [facility] Comment:Cocaine cut-off is 3 00 ng/mL.Positive results are unconfirmed and should not be used fornon-medical purposes. Cannabinoid Screen Urine POSITIVE(A) Not Detect [facility] Comment:Cannabinoid cut-off is 50 ng/mL.Positive results are unconfirmed and should not be used fornon-medical purposes. Methadone Screen, Urine Not Detected Not Detect ng/mL [facility] Comment:Methadone cut-off is 300 ng/mL.Positive results are unconfirmed and should not be used fornon-medical purposes. FENTANYL URINE POSITIVE(A) Not Detect [facility] Comment:Fentanyl cut-off is 1 ng/mL.Positive results are unconfirmed and should not be used fornon-medical purposes. Oxycodone Urine Screen Not Detected Not Detect ng/mL [facility] Comment:Oxycodone cut-off is 100 ng/mL.Positive results are unconfirmed and should not be used fornon-medical purposes. Buprenorphine Screen Positive(A) Not Detect ng/mL [facility] Comment:Buprenorphine cut-of f is 5 ng/mL.Positive results are unconfirmed and should not be used fornon-medical purposes. 03/15/2025 11:4 9 AM EDT 03/15/2025 11:58 AM EDT us Generic External Data Provider LAB URINE ORDERAB LES Final Result [facility] [address] [place] [phone] [phone] from Last 3 Months
--- OUTSIDE RECORDS SUMMARY | 2025-04-07 12:52 | XMS_ITS | Clinical Summary ---
Author Organization [facility] Address [address] [place] [address] Phone Care Team Providers Care Knitter Machine Name Role Phone Physician, No Pcp Primary [...] topic Insurance MEDICAID - [place] Care Teams Knitter Machine Relationship Specialty Start Date End Date Physician, No Pcp PCP - General 10/12/24
== END 2025-04-07 12:50 | disposition home or self-care (01) ==
LOC: HO.HCC 11:35
DX: F11.20 Opioid dependence, uncomplicated (principal)

== ENCOUNTER → 2025-04-07 11:35 | Outpatient (BNVA) | payer MEDICAID, SELFPAY | DX: F11.20 Opioid dependence, uncomplicated (principal) | CPT/HCPCS: 96372; Q9992 ==

== ENCOUNTER 2025-05-06 13:44 | Outpatient (AMB) | payer MEDICAID, SELFPAY ==
--- NOTE | 2025-05-06 13:39 | AM.OFFVISNUR ---
Vital Signs 05/06/25 14:00 Height 5 ft 2 in Weight 90.718 kg BMI 36.6 BP 128/78 Pulse 68 Pulse Oximetry (%) 98 Intake Visit Reasons: injection Allergies dexamethasone (From [facility]) Adverse Reaction (Severe, Verified 05/06/25 14:08) NAUSEA & VOMITING Nursing Note Marielos is present today for her second 300 mg Sublocade in this series. She will drop to a 100 mg dose for her next injection. Marielos is alert, oriented, cooperative and presents with appropriate affect. Education given regarding therapeutic range and reduction in next dose. SL 8mg was utilized this morning because she thought she was not coming in. Next appointment in 4 weeks. Office Meds Sublocade 300 mg/1.5 mL solution,extended release subcutaneous syringe Performing Provider: Latrice Reich MD Performing Location: [facility] Administered by: Alis Sanches RN on 05/06/25 14:43 Dose Route Admin Location Dispensed Lot Number Expiration Date [facility] [employer] Service Director 300 mg subcut RLQ 1.5 mL [id number] [employer] Total Dispensed Waste 1.5 mL 0 % Comments: Pt is present for Sublocade 300 mg injection. Pt denies any concern with previous injection and tolerated injection well. Educated on signs and symptoms of infection and encouraged to call [facility] with any related questions or concerns, pt verbalized understanding. Follow-up scheduled in 4 weeks for next injection. Assessment & Plan Assessment & Plan Orders: Orders AMB Buprenorphine Injection - Patient Supplied Today F11.21 - Opioid dependence, in remission Coding
[2025-05-06 14:00] VITALS: BP 128/78; PULSE 68; O2SAT 98; BMI 36.6
--- OUTSIDE RECORDS SUMMARY | 2025-05-06 15:42 | XMS_ITS | Clinical Summary ---
Author Organization [employer] Address [address] [facility] [address] [place] [address] Care Team Providers Care Dean Of [employer] Name Role Phone Unavailable Primary Care Provider [...] COVID-19 Vaccine ( - 2023-2 5 season) 2025 Influenza Vaccine (#1) 2025 RSV Patients and [...] Blood Count 7.1 4.8 - 10.8 X10*3/uL [facility] Red Blood Count 5.91(H) 4.20 - 5.50 X10*6/uL [facility] Hemoglobin 16.9(H) 12.0 - 16.0 g/dl [facility] Hematocrit 51.0(H) 37.0 - 47.0 % [facility] Mean Corpuscular Volume 86.3 80.0 - 98.0 fL [facility] Mean Corpuscular Hemoglobin 28.6 27.0 - 33.0 pg [facility] Mean Corpuscular HGB Conc 33.1 31.0 - 35.0 g/dl [facility] Red Cell Distribution Width 13.8 11.0 - 16.0 % [facility] Platelet Count 286 160 - 400 X10*3/uL [facility] Mean Platelet Volume 10.3 9.4 - 12.3 fL [facility] Neutrophils Percent Auto 70.9 45 - 73 % [facility] Imm Gran Pct Auto 0.3 0.0 - 0.4 % [facility] Lymphocytes Percent Auto 22.7 20 - 40 % [facility] Monocytes Percent Auto 4.6 2 - 11 % [facility] Eosinophils Percent Auto 1.1 0 - 4 % [facility] Basophils Percent Auto 0.4 0 - 2 % [facility] NRBC Pct Auto 0.0 0.0 - 0.2 /100WBC [facility] Neutrophils Absolute Auto 5.1 2.0 - 8.3 x10*3/uL [facility] Imm Gran Abs Auto 0.02 0.00 - 0.03 X10*3/uL [facility] Lymphocytes Absolute Auto 1.6 1.2 - 4.9 X10*3/uL [facility] Monocytes Absolute Auto 0.3 0.1 - 1.2 X10*3/uL [facility] Eosinophils Absolute Auto 0.1 0.0 - 0.4 X10*3/uL [facility] Basophils Absolute Auto 0.0 0.0 - 0.2 X10*3/uL [facility] NRBC Abs Auto 0.000 0.0 - 0.012 X10*3/uL [facility] 03/15/2025 11:5 2 AM EDT 03/15/2025 11:58 AM EDT us Generic External Data Provider LAB BLOOD ORDERAB LES Final Result [facility] [address] [place] [phone] * (ABNORMAL) Basic Metabolic Panel (03/15/2025 11:52 AM EDT) Sodium 142 135 - 145 mmol/L [facility] Potassium 4.3 3.3 - 5.1 mmol/L [facility] Chloride 108 96 - 108 mmol/L [facility] Carbon Dioxide 27 22 - 29 mmol/L [facility] Anion Gap 11(L) 12 - 20 [facility] Urea Nitrogen (BUN) 10 9 - 16 mg/dL [facility] Creatinine, Serum 0.79 0.5 - 1.4 mg/dL [facility] Creatinine Clr Calc Pharmacy 85.5 [facility] Comment:Provided height and weight: 157.48 cm,95.254 kg.eGFR (calculated from the MDRD study equation) and eCrCl(calculated from the Cockcroft-Gault equation) are based ondifferent parameters and may not yield comparable results.If eCrCl result is absurd, please check patient'sheight/weight. Estimated Glomerular Filt Rate >60 [facility] Comment:Chronic Kidney Disea se: Estimated GFR < 60 mL/min/1.33t9Uhffhg Kidney Disease: Estimated GFR < 15 mL/min/1.73m2 Glucose 114 60 - 115 mg/dL [facility] Calcium 9.0 8.4 - 10.2 mg/dL [facility] 03/15/2025 11:5 2 AM EDT 03/15/2025 11:58 AM EDT us Generic External Data Provider LAB BLOOD ORDERAB LES Final Result [facility] [address] [place] [phone] * (ABNORMAL) Drug Monitoring, Panel 1, Screen, Urine (03/15/2025 11:49 AM EDT) Opiate Screen Urine POSITIVE(A) Not Detect [facility] Comment:Opiate cut-off is 30 0 ng/mL.Positive results are unconfirmed and should not be used fornon-medical purposes. Barbiturates, Urine Not Detected Not Detect [facility] Comment:Barbiturate cut-off is 200 ng/mL.Positive results are unconfirmed and should not be used fornon-medical purposes. Phencyclidine Screen Urine Not Detected Not Detect [facility] Comment:Phencyclidine cut-of f is 25 ng/mL.Positive results are unconfirmed and should not be used fornon-medical purposes. Amphetamine Screen Urine Not Detected Not Detect [facility] Comment:Amphetamine cut-off is 1000 ng/mL.Positive results are unconfirmed and should not be used fornon-medical purposes. Benzodiazepines Screen Urine Not Detected Not Detect [facility] Comment:Benzodiazepine cut-o ff is 200 ng/mL.Positive results are unconfirmed and should not be used fornon-medical purposes. Cocaine Screen Urine Not Detected Not Detect [facility] Comment:Cocaine cut-off is 3 00 ng/mL.Positive results are unconfirmed and should not be used fornon-medical purposes. Cannabinoid Screen Urine POSITIVE(A) Not Detect [facility] Comment:Cannabinoid cut-off is 50 ng/mL.Positive results are unconfirmed and should not be used fornon-medical purposes. Methadone Screen, Urine Not Detected Not Detect ng/mL [facility] Comment:Methadone cut-off is 300 ng/mL.Positive results are unconfirmed and should not be used fornon-medical purposes. FENTANYL URINE POSITIVE(A) Not Detect [facility] Comment:Fentanyl cut-off is 1 ng/mL.Positive results are unconfirmed and should not be used fornon-medical purposes. Oxycodone Urine Screen Not Detected Not Detect ng/mL [facility] Comment:Oxycodone cut-off is 100 ng/mL.Positive results are unconfirmed and should not be used fornon-medical purposes. Buprenorphine Screen Positive(A) Not Detect ng/mL [facility] Comment:Buprenorphine cut-of f is 5 ng/mL.Positive results are unconfirmed and should not be used fornon-medical purposes. 03/15/2025 11:4 9 AM EDT 03/15/2025 11:58 AM EDT us Generic External Data Provider LAB URINE ORDERAB LES Final Result [facility] [address] [place] [address] [phone] from Last 3 Months
--- OUTSIDE RECORDS SUMMARY | 2025-05-06 15:42 | XMS_ITS | Clinical Summary ---
Author Organization [facility] Address [address] [place] [address] Phone Care Team Providers Care Aviation Ordnance Officer Name Role Phone Physician, No Pcp Primary [...] 07/22/2022 Social Influencers of Health Screening 07/22/2022 Depression Screening 08/19/2024 COVID-19 Vaccine (3 - 2024-2 6 season) 2025 04/13/2021, 03/23/2021 Influenza Vaccine (#1) 2025 HIB Vaccines Aged [...] topic Insurance MEDICAID - [place] Care Teams Aviation Ordnance Officer Relationship Specialty Start Date End Date Physician, No Pcp PCP - General 10/12/24
== END 2025-05-06 14:31 | disposition home or self-care (01) ==
LOC: HO.HCC 13:44
PROVIDERS: Visit Provider Clinical Nurse Specialist Psychiatric/Mental Health
DX: F11.21 Opioid dependence, in remission (principal)

== ENCOUNTER → 2025-05-06 13:44 | Outpatient (BNVA) | payer MEDICAID, SELFPAY | PROVIDERS: Visit Provider Clinical Nurse Specialist Psychiatric/Mental Health | DX: F11.21 Opioid dependence, in remission (principal); Z79.899 Other long term (current) drug therapy | CPT/HCPCS: 96372; Q9992 ==

== ENCOUNTER 2025-05-17 14:45 | Emergency (ER) | payer MEDICAID, SELFPAY ==
--- NOTE | 2025-05-17 | ECG_ITS ---
Test Reason : dizzy/fall Blood Pressure : */* mmHG Vent. Rate : 48 BPM Atrial Rate : 48 BPM P-R Int : 150 ms QRS Dur : 106 ms QT Int : 466 ms P-R-T Axes : 60 23 37 degrees QTcB Int : 416 ms Sinus bradycardia with occasional Premature ventricular complexes Otherwise normal ECG When compared with ECG of 15-Mar-2025 13:08, Premature ventricular complexes are now Present Nonspecific T wave abnormality no longer evident in Anterior leads Referred By: Generic ED Physician Electronically Signed By: LAVON WEISS
--- NOTE | ~2025-05-17 | CT_ITS ---
CLINICAL HISTORY: fall, no HS but dizzy CT head without contrast Comparison: None provided Findings: No intra-axial mass, midline shift, hydrocephalus, or acute hemorrhage. No significant atrophy-like change or white matter disease. There is no sinus or mastoid fluid. The orbits are unremarkable. No skull fracture. IMPRESSION: 1. No acute intracranial findings. This document has been electronically signed by: Daron Milan MD on 05/17/2025 17:21:30
--- NOTE | ~2025-05-17 | XR_ITS ---
EXAMINATION: XR HIP, RIGHT CLINICAL INFORMATION: fall, landed on hip, pain COMPARISON: None available. TECHNIQUE: AP upright, AP supine, and frog-leg lateral views of the right hip. FINDINGS: SI joints demonstrate mild to moderate degenerative irregularity bilaterally. Small marginal ossified is noted to the left acetabular roof. Right hip is unremarkable. XR/XR hip RT w [id number] IMPRESSION: Unremarkable right hip. 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 Electronically signed by: Matthias Vu MD 05/17/2025 04:34 PM EDT
--- NOTE | ~2025-05-17 | XR_ITS ---
EXAMINATION: XR SHOULDER, RIGHT CLINICAL INFORMATION: fall, landed on shoulder COMPARISON: None available. TECHNIQUE: Three views of the right shoulder. FINDINGS: The bones and soft tissues are normal. No fracture. Glenohumeral and acromioclavicular alignment is anatomic with normal joint space. No abnormal soft tissue calcifications. XR/XR shoulder RT min 2V IMPRESSION: Unremarkable right shoulder. Electronically signed by: Matthias Vu MD 05/17/2025 04:36 PM EDT
[2025-05-17 14:51] VITALS: BP 149/92; BP 160/77; PULSE 47; PULSE 52; RESP 16; TEMP 36.6; O2SAT 97; O2SAT 99; BMI 36.8
[2025-05-17 14:59] VITALS: PULSE 46; RESP 17; O2SAT 95
[2025-05-17 16:05] LABS: MANUAL DIFF FLAG NO
[2025-05-17 16:09] LABS: Hematocrit 46.7 % (37.0-47.0); Hemoglobin 15.4 g/dl (12.0-16.0); Imm Gran Abs Auto 0.02 X10*3/uL (0.00-0.03); Imm Gran Pct Auto 0.3 % (0.0-0.4); Lymphocytes Absolute Auto 2.7 X10*3/uL (1.2-4.9); Mean Corpuscular HGB Conc 33.0 g/dl (31.0-35.0); Mean Corpuscular Hemoglobin 28.6 pg (27.0-33.0); Mean Corpuscular Volume 86.6 fL (80.0-98.0); NRBC Abs Auto 0.000 X10*3/uL (0.0-0.012); NRBC Pct Auto 0.0 /100WBC (0.0-0.2); Platelet Count 230 X10*3/uL (160-400); Red Blood Count 5.39 X10*6/uL (4.20-5.50); White Blood Count 7.2 X10*3/uL (4.8-10.8)
--- NOTE | 2025-05-17 16:10 | ED_ITS ---
HPI - General Adult General Chief complaint: Dizziness Stated complaint: fall, abd pain, rt shoulder pain Time Seen by Provider: 05/17/25 15:06 Source: patient, EMS, RN notes reviewed and old records reviewed Mode of arrival: EMS Limitations: no limitations History of Present Illness ED Provider: JED Bethea HPI narrative: 54-year-old female with medical history of opiate use disorder currently on Sublocade therapy presents to ED due to dizziness and nausea. Patient states she had a mechanical fall tripping over 2 steps and landing onto R shoulder and R hip onto the concrete of her home. She denies head strike or LOC. Patient states she has been dizzy with nausea with 3 episodes of vomiting since the fall yesterday prompting her to seek care. Patient states dizziness is worse when she moves her head from side to side. Patient states she has had soft bowel movements over the past 3 days and is passing flatus. Additionally, patient states she has had increased urinary frequency over the last 3 days. Denies Chest pain, SOB, black/tarry stools, fevers, chills, headache, visual changes. MD complaint: R shoulder, R hip pain, dizziness and nausea Related Data Home Medications ?Medication ?Instructions ?Recorded ?Confirmed dextroamphetamine-amphetamine 30 1 tab PO DAILY 05/17/25 mg tablet (Adderall) trazodone 50 mg tablet 50 mg PO BEDTIME PRN sleep 0 05/17/25 05/17/25 Previous Rx's ?Medication ?Instructions ?Recorded clonazepam 2 mg tablet (Klonopin) 2 mg PO BEDTIME 5 da ys #5 tabs 03/17/25 buprenorphine 100 mg/0.5 mL 100 mg (0.5 mL) subcut QMO NTH 30 05/07/25 solution,exten.rel.subcutaneous days #0.5 mL syringe (Sublocade) Allergies Allergy/AdvReac Type Severity Reaction Status Date / Time dexamethasone (From [facility]) AdvReac Severe NAUSEA & Verified 05/17/25 14:55 VOMITING Review of Systems 2 Review of Systems: CONST: Negative for fever, body aches and chills. HENT: Negative for neck pain/stiffness, headache, congestion, sore throat, swelling. EYES: Negative for discharge/pain or vision changes. RESP: Negative for cough/hemoptysis and shortness of breath. CV: Negative chest pain, difficulty breathing, palpitations. ABD: Negative abd pain, vomiting. POS nausea : Negative increase frequency, dysuria, blood in urine or stool. MUSC: Negative for muscle aches, edema. POS R shoulder and hip pain SKIN: Negative rash, lesions/sores. NEURO: Negative headache, weakness. POS Dizziness Yes all other systems are reviewed and are negative PMFSH Past Medical History Attestation statement: The following information was validated with the patient. Source: old records reviewed and nursing notes reviewed Medical History Fibroid of cervix Opioid use disorder Substance abuse No known health problems No known health problems Social History Social History Alcohol intake: never Patient Tobacco Use Status: Current everyday Tobacco user Smoked in Last 30 Days: Yes Substance Use Type: Former Substance User and Heroin Substance Use Frequency Other:: 3 months ago Advance Directives: Yes Advance Directives Information Provided: No Advance Directives on File: No Do you have a plan to hurt others: No Plan Gender identity: Female Physical Exam ED Vital Signs: Vital Signs - 24 hr 05/17/25 14:51 05/17/25 14:59 05/17/25 16:29 Temperature 97.9 F Pulse Rate 47 L 46 L 41 L Respiratory Rate 16 17 16 Blood Pressure 160/77 H Pulse Oximetry 99 95 99 Oxygen Delivery Method Room Air Room Air Room Air 05/17/25 16:37 Temperature 98.1 F Pulse Rate 45 L Respiratory Rate 14 Blood Pressure 143/93 H Pulse Oximetry 99 Oxygen Delivery Method Room Air BMI result Body Mass Index 36.8 GENERAL APPEARANCE: ?AxOx4, generally well-appearing, no acute distress. HEENT: ?NC, AT. MMM. EOMI, no nystagmus noted, pupils reactive to consensual light and accommodation, clear conjunctiva, oropharynx clear. NECK: ?Supple without lymphadenopathy.? No stiffness or restricted ROM. HEART:? bradycardic rate and regular rhythm, normal S1/S2, no m/r/g LUNGS:? CTAB, moving air well. No crackles or wheezes are heard. ABDOMEN: ?Soft, non distended, no guarding, negative Martinez's sign, no rebound tenderness, mild TTP over suprapubic region, however no pain to deep palpation over 4 quadrants. BACK: No CVAT, no obvious deformity. EXTREMITIES: ?Without cyanosis, clubbing or edema. Right shoulder with pain to palpation over the glenohumeral aspect, ROM intact but does have pain in flexion, strength 4/5 due to pain NEUROLOGICAL: ?Grossly nonfocal. Alert and oriented, moving all 4 extremities. Observed to ambulate with normal gait. Skin: ?Warm and dry without any rash. Course Course Course Narrative: Patient is clinically sober, has no significant distracting injury, and they appear to have intact judgement, insight and reason. In my clinical opinion they have medical decision making capacity. Signs and symptoms discussed with patient. They express understanding of signs/symptoms as explained to them and they repeated it back to me. Risks and benefits discussed with patient to include but not limited to , employment case manager disability or loss of significant bodily functions. Alternatives to treatment plan discussed and offered. Patient encouraged to return should they change their mind. Close followup strongly encouraged in case they choose not to return. The patient wants leave Against Medical Advise at this time Lara [place], DO 05/17/25 191 Medications Administered Discontinued Medications Generic Name Dose Route Start Last Admin Trade Name Freq PRN Reason Stop Dose Admin Diphenhydramine HCl 25 mg 05/17/25 17:30 05/17/25 18:54 Diphenhydramine Hcl 50 Mg/Ml Vial IVPUSH 05/17/25 17:31 25 mg ONCE ONE Administration Lactated Ringer's 1,000 mls @ 999 mls/hr 05/17/25 16:10 05/17/25 17:03 Lr IV 05/17/25 17:10 999 mls/hr .Q1H1M ONE Administration Acetaminophen 1,000 mg in 100 mls @ 400 mls/hr 05/17/25 17:30 05/17/25 18:54 Ofirmev IV 05/17/25 17:44 400 mls/hr ONCE ONE Administration Ketorolac Tromethamine 15 mg 05/17/25 17:30 05/17/25 18:53 Ketorolac Tromethamine 15 Mg/Ml Vial IVPUSH 05/17/25 17:31 15 mg ONCE ONE Administration Meclizine HCl 25 mg 05/17/25 16:14 05/17/25 16:47 Meclizine Hcl 25 Mg Tablet PO 05/17/25 16:15 25 mg ONCE ONE Administration Metoclopramide HCl 10 mg 05/17/25 17:30 05/17/25 18:54 Metoclopramide Hcl 10 Mg/2 Ml Vial IVPUSH 05/17/25 17:31 10 mg ONCE ONE Administration Medical Decision Making Medical Decision Making MDM Narrative: 54-year-old female with medical history of opiate use disorder currently on Sublocade therapy presents to ED due to dizziness and nausea. Patient states she had a mechanical fall tripping over 2 steps and landing onto R shoulder and R hip onto the concrete of her home. She denies head strike or LOC. Patient states she has been dizzy with nausea with 3 episodes of vomiting since the fall yesterday, with dizziness worse when moving head position. VS on initial observation-BP 160/77, pulse rate of 47, respiratory rate of 16, afebrile with oral temp of 97.9?, O2 saturation 99% on room air. On physical exam lungs clear to auscultation bilaterally Lab Data 05/17/25 15:59 05/17/25 15:59 Labs: Lab Results 05/17/25 05/17/25 Range/Units 15:59 18:02 WBC 7.2 (4.8-10.8) X10*3/uL RBC 5.39 (4.20-5.50) X10*6/uL Hgb 15.4 (12.0-16.0) g/dl Hct 46.7 (37.0-47.0) % MCV 86.6 (80.0-98.0) fL MCH 28.6 (27.0-33.0) pg MCHC 33.0 (31.0-35.0) g/dl RDW 13.6 (11.0-16.0) % Plt Count 230 (160-400) X10*3/uL MPV 10.0 (9.4-12.3) fL Immature Gran % (Auto) 0.3 (0.0-0.4) % Neut % (Auto) 54.6 (45-73) % Lymph % (Auto) 37.1 (20-40) % Lucas % (Auto) 5.9 (2-11) % Eos % (Auto) 1.7 (0-4) % Baso % (Auto) 0.4 (0-2) % Lymph # (Auto) 2.7 (1.2-4.9) X10*3/uL Lucas # (Auto) 0.4 (0.1-1.2) X10*3/uL Eos # (Auto) 0.1 (0.0-0.4) X10*3/uL Baso # (Auto) 0.0 (0.0-0.2) X10*3/uL Abs Immat Gran (auto) 0.02 (0.00-0.03) X10*3/uL Absolute Neuts (auto) 3.9 (2.0-8.3) x10*3/uL Absolute Nucleated RBC 0.000 (0.0-0.012) X10*3/uL Nucleated RBC % (auto) 0.0 (0.0-0.2) /100WBC Sodium 140 (135-145) mmol/L Potassium 4.3 (3.3-5.1) mmol/L Chloride 109 H (96-108) mmol/L Carbon Dioxide 26 (22-29) mmol/L Anion Gap 9 L (12-20) BUN 12 (9-16) mg/dL Creatinine 0.66 (0.5-1.4) mg/dL Estim Creat Clear Calc 100.0 Estimated GFR > 60 Random Glucose 88 (60-115) mg/dL Calcium 8.5 (8.4-10.2) mg/dL Magnesium 1.8 (1.6-2.6) mg/dL Total Bilirubin 0.7 (0.0-1.0) mg/dL Direct Bilirubin 0.2 (0.0-0.5) mg/dL AST 22 (5-31) U/L ALT 17 (0-31) U/L Alkaline Phosphatase 62 (39-117) U/L NT-Pro-B Natriuret Pep 399.6 H (<300) pg/mL Total Protein 6.2 L (6.5-8.0) g/dL Albumin 3.8 (3.5-5.0) g/dL Lipase 9 (8-78) U/L Urine Color Yellow Urine Appearance Cloudy Urine pH 7.0 (5.0-9.0) Ur Specific Gonzales 1.015 (1.005-1.025) Urine Protein Negative (Neg-Trace) mg/dL Urine Glucose (UA) Negative (Negative) mg/dL Urine Ketones Negative (Negative) mg/dL Urine Blood Negative (Negative) Urine Nitrite Negative (Negative) Ur Leukocyte Esterase Negative (Negative) Discharge Plan Discharge Clinical Impression: Bradycardia Patient Disposition: Left Against Medical Advice
[2025-05-17 16:23] LABS: Anion Gap 9 (12-20); Blood Urea Nitrogen 12 mg/dL (9-16); Calcium 8.5 mg/dL (8.4-10.2); Carbon Dioxide 26 mmol/L (22-29); Chloride 109 mmol/L (96-108); Creatinine Clr Calc Pharmacy 100.0; Estimated Glomerular Filt Rate > 60; Potassium 4.3 mmol/L (3.3-5.1); Sodium 140 mmol/L (135-145)
[2025-05-17 16:29] VITALS: PULSE 41; RESP 16; O2SAT 99
[2025-05-17 16:37] VITALS: BP 143/93; PULSE 45; RESP 14; TEMP 36.7; O2SAT 99
[2025-05-17] MEDS: Lactated Ringers 1,000 ML 999 ML IV (17:03)
[2025-05-17 17:57] LABS: Alanine Aminotransferase 17 U/L (0-31); Albumin Level 3.8 g/dL (3.5-5.0); Alkaline Phosphatase 62 U/L (39-117); Aspartate Amino Transferase 22 U/L (5-31); Lipase 9 U/L (8-78); Total Protein 6.2 g/dL (6.5-8.0)
--- OUTSIDE RECORDS SUMMARY | 2025-05-17 18:10 | XMS_ITS | Clinical Summary ---
Author Organization [email or web address] Address [address] [facility] 7[address] [place] [address] Care Team Providers Care Spinning Frame Changer Name Role Phone Unavailable Primary Care Provider Unavailabl e Encounters Date Type Department Care Team Description 05/17/2025 Orders Only [facility] External Provider, [facility] 03/15/2025 Orders Only GENERIC EXTERNAL DATA DEPARTMENT [...] 2) 2018 COVID-19 Vaccine (2023-2 5 season) 2025 Influenza Vaccine (#1) 2025 [...] Procedure Name Priority Date/Time Associated Diagnosis Comments CT HEAD WO CONTRAST Routine 05/17/2025 5 :21 PM EDT XR SHOULDER 2+ VIEWS RIGHT Routine 05/17/2025 4:30 PM EDT XR HIP RIGHT WITH PELVIS 1 VIEW Routine 05/17/2025 4:27 PM EDT LIPASE Routine 05/17/2025 3:59 PM EDT HEPATIC FUNCTION PANEL Routine 05/17/2025 3:59 PM EDT BASIC METABOLIC PANEL Routine 05/17/2025 3:59 PM EDT CBC WITH AUTO DIFFERENTIAL Routine 05/17/2025 3:59 PM EDT BASIC METABOLIC PANEL Routine 03/15/2025 11:52 AM EDT CBC WITH AUTO DIFFERENTIAL Routine 03/15/2025 11:52 AM EDT DRUG MONITOR, PANEL 1, SCREEN, URINE Routine 03/15/2025 11:49 AM EDT from Last 3 Months Results * CT Head w/o Contrast (05/17/2025 5:21 PM EDT) Anatomical Region Laterality Modality Head, Neck Computed Tomogra phy 05/17/2025 5:21 PM EDT Narrative 05/17/2025 5:23 PM EDT [address] [address] [address] Scan Report Signed Patient: Marielos Peralta MR#: [id number] : 1970 Acct:[id number] Age/Sex: 54 / F ADM Date: 05/17/25 Loc: HO.ED Attending Dr: Ordering Physician: Katerin Bethea PA-C Date of Service: 05/17/25 Procedure(s): CT head/brain wo IV con Accession Number(s): [id number] cc: Katerin Bethea PA-C; [facility] Report Number: [id number]: Total DLP = 692.00 mGy-cm Reason for Exam: fall, no HS but dizzy CLINICAL HISTORY: fall, no HS but dizzy CT head without contrast Comparison: None provided Findings: No intra-axial mass, midline shift, hydrocephalus, or acute hemorrhage. No significant atrophy-like change or white matter disease. There is no sinus or mastoid fluid. The orbits are unremarkable. No skull fracture. IMPRESSION: 1. No acute intracranial findings. This document has been electronically signed by: Daron Milan MD on 05/17/2025 17:21:30 Dictated By: Daron Milan MD Signed By: <Electronically signed by Daron Milan MD in OV> 05/17/25 1722 DD/ 172 TD/TT: 05/17/25 172 Asian Studies Professor: Procedure Note Donotuseinterpreter, Image - 05/17/[address] [address] [address] Scan Report Signed Patient: Marielos Peralta AMR#: [id number] : 1970Acct:[id number] Age/Sex: 54 / FADM Date: 05/17/25 Loc: HO.ED Attending Dr: Ordering Physician: Katerin Bethea PA-C Date of Service: 05/17/25 Procedure(s): CT head/brain wo IV con Accession Number(s): [id number] cc: Katerin Bethea PA-C; [facility] Report Number: [id number]: Total DLP = 692.00 mGy-cm Reason for Exam: fall, no HS but dizzy CLINICAL HISTORY: fall, no HS but dizzy CT head without contrast Comparison: None provided Findings: No intra-axial mass, midline shift, hydrocephalus, or acute hemorrhage. No significant atrophy-like change or white matter disease. There is no sinus or mastoid fluid. The orbits are unremarkable. No skull fracture. IMPRESSION: 1. No acute intracranial findings. This document has been electronically signed by: Daron iMlan MD on 05/17/2025 17:21:30 Dictated By: Daron Milan MD Signed By: <Electronically signed by Daron Milan MD in OV> 05/17/25 1722 DD/ 1721 TD/TT: 05/17/25 172 Asian Studies Professor: [facility] External Provider IMG CT PROCEDURES Final Result * XR Shoulder 2+ Views Right (05/17/2025 4:30 PM EDT) Anatomical Region Laterality Modality Upper Extremities, Shoulder Right Radi ographic Imaging 05/17/2025 4:30 PM EDT Narrative 05/17/2025 4:39 PM EDT [place] [address] XRay Report Signed Patient: Marielos Peralta MR#: [id number] : 1970 Acct:[id number] Age/Sex: 54 / F ADM Date: 05/17/25 Loc: HO.ED Attending Dr: Ordering Physician: Katerin Bethea PA-C Date of Service: 05/17/25 Procedure(s): XR shoulder RT min 2V Accession Number(s): [id number] cc: Katerin Bethea PA-C; [facility] Reason for Exam: fall, landed on shoulder EXAMINATION: XR SHOULDER, RIGHT CLINICAL INFORMATION: fall, landed on shoulder COMPARISON: None available. TECHNIQUE: Three views of the right shoulder. FINDINGS: The bones and soft tissues are normal. No fracture. Glenohumeral and acromioclavicular alignment is anatomic with normal joint space. No abnormal soft tissue calcifications. XR/XR shoulder RT min 2V IMPRESSION: Unremarkable right shoulder. Electronically signed by: Matthias Vu MD 05/17/2025 04:36 PM EDT Dictated By: Matthias Vu MD Signed By: <Electronically signed by Matthias Vu MD in OV> 05/17/25 1636 DD/ 1630 TD/TT: 05/17/25 1630 Asian Studies Professor: Procedure Note Donotuseinterpreter, Image - 05/17/2025 [place] [address] XRay Report Signed Patient: Marielos Peralta AMR#: [id number] : 1970Acct:[id number] Age/Sex: 54 / FADM Date: 05/17/25 Loc: HO.ED Attending Dr: Ordering Physician: Katerin Bethea PA-C Date of Service: 05/17/25 Procedure(s): XR shoulder RT min 2V Accession Number(s): [id number] cc: Katerin Bethea PA-C; [facility] Reason for Exam: fall, landed on shoulder EXAMINATION: XR SHOULDER, RIGHT CLINICAL INFORMATION: fall, landed on shoulder COMPARISON: None available. TECHNIQUE: Three views of the right shoulder. FINDINGS: The bones and soft tissues are normal. No fracture. Glenohumeral and acromioclavicular alignment is anatomic with normal joint space. No abnormal soft tissue calcifications. XR/XR shoulder RT min 2V IMPRESSION: Unremarkable right shoulder. Electronically signed by: Matthias Vu MD 05/17/2025 04:36 PM EDT RP Dictated By: Matthias Vu MD Signed By: <Electronically signed by Matthias Vu MD in OV> 05/17/25 1636 DD/ 1630 TD/TT: 05/17/25 1630 Asian Studies Professor: [facility] External Provider IMG XR PROCEDURES Final Result * XR Hip right with Pelvis 1 view (05/17/2025 4:27 PM EDT) Anatomical Region Laterality Modality Lower Extremities, Hip Bilateral Radiograp hic Imaging 05/17/2025 4:27 PM EDT Narrative 05/17/2025 4:37 PM EDT [place] [address] XRay Report Signed Patient: Marielos Peralta MR#: [id number] : 1970 Acct:[id number] Age/Sex: 54 / F ADM Date: 05/17/25 Loc: HO.ED Attending Dr: Ordering Physician: Katerin Bethea PA-C Date of Service: 05/17/25 Procedure(s): XR hip RT w PEL1V Accession Number(s): [id number] cc: Katerin Bethea PA-C; [facility] Reason for Exam: fall, landed on hip, pain EXAMINATION: XR HIP, RIGHT CLINICAL INFORMATION: fall, landed on hip, pain COMPARISON: None available. TECHNIQUE: AP upright, AP supine, and frog-leg lateral views of the right hip. FINDINGS: SI joints demonstrate mild to moderate degenerative irregularity bilaterally. Small marginal ossified is noted to the left acetabular roof. Right hip is unremarkable. XR/XR hip RT w [id number] IMPRESSION: Unremarkable right hip. 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 Electronically signed by: Matthias Vu MD 05/17/2025 04:34 PM EDT RP Dictated By: Matthias Vu MD Signed By: <Electronically signed by Matthias Vu MD in OV> 05/17/25 163 DD/ 162 TD/TT: 05/17/25 1630 Asian Studies Professor: Procedure Note Donotuseinterpreter, Image - 05/17/2025 [place] [address] XRay Report Signed Patient: Marielos Peralta AMR#: [id number] : 1970Acct:[id number] Age/Sex: 54 / FADM Date: 05/17/25 Loc: HO.ED Attending Dr: Ordering Physician: Katerin Bethea PA-C Date of Service: 05/17/25 Procedure(s): XR hip RT w PEL1V Accession Number(s): [id number] cc: Katerin Bethea PA-C; [facility] Reason for Exam: fall, landed on hip, pain EXAMINATION: XR HIP, RIGHT CLINICAL INFORMATION: fall, landed on hip, pain COMPARISON: None available. TECHNIQUE: AP upright, AP supine, and frog-leg lateral views of the right hip. FINDINGS: SI joints demonstrate mild to moderate degenerative irregularity bilaterally. Small marginal ossified is noted to the left acetabular roof. Right hip is unremarkable. XR/XR hip RT w [id number] IMPRESSION: Unremarkable right hip. 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 Electronically signed by: Matthias Vu MD 05/17/2025 04:34 PM EDT RP Dictated By: Matthias Vu MD Signed By: <Electronically signed by Matthias Vu MD in OV> 05/17/25 163 DD/ 1627 TD/TT: 05/17/25 1630 Asian Studies Professor: us [facility] External Provider IMG XR PROCEDURES Final Result * CBC auto differential (05/17/2025 3:59 PM EDT) Only the most recent of2 resultswithin the time period is included. White Blood Count 7.2 4.8 - 10.8 X10*3/uL [facility] Red Blood Count 5.39 4.20 - 5.50 X10*6/uL [facility] Hemoglobin 15.4 12.0 - 16.0 g/dl [facility] Hematocrit 46.7 37.0 - 47.0 % [facility] Mean Corpuscular Volume 86.6 80.0 - 98.0 fL [facility] Mean Corpuscular Hemoglobin 28.6 27.0 - 33.0 pg [facility] Mean Corpuscular HGB Conc 33.0 31.0 - 35.0 g/dl [facility] Red Cell Distribution Width 13.6 11.0 - 16.0 % [facility] Platelet Count 230 160 - 400 X10*3/uL [facility] Mean Platelet Volume 10.0 9.4 - 12.3 fL [facility] Neutrophils Percent Auto 54.6 45 - 73 % [facility] Imm Gran Pct Auto 0.3 0.0 - 0.4 % [facility] Lymphocytes Percent Auto 37.1 20 - 40 % [facility] Monocytes Percent Auto 5.9 2 - 11 % [facility] Eosinophils Percent Auto 1.7 0 - 4 % [facility] Basophils Percent Auto 0.4 0 - 2 % [facility] NRBC Pct Auto 0.0 0.0 - 0.2 /100WBC [facility] Neutrophils Absolute Auto 3.9 2.0 - 8.3 x10*3/uL [facility] Imm Gran Abs Auto 0.02 0.00 - 0.03 X10*3/uL [facility] Lymphocytes Absolute Auto 2.7 1.2 - 4.9 X10*3/uL [facility] Monocytes Absolute Auto 0.4 0.1 - 1.2 X10*3/uL [facility] Eosinophils Absolute Auto 0.1 0.0 - 0.4 X10*3/uL [facility] Basophils Absolute Auto 0.0 0.0 - 0.2 X10*3/uL [facility] NRBC Abs Auto 0.000 0.0 - 0.012 X10*3/uL [facility] 05/17/2025 3:59 PM EDT 05/17/2025 4:02 PM EDT us Generic External Data Provider LAB BLOOD ORDERAB LES Final Result Performing Organization Address City/[facility]/ZIP Co de Phone Number [facility] [address] [place] [phone] * Lipase (05/17/2025 3:59 PM EDT) Pathologist [facility] Lipase 9 8 - 78 U/L [facility] 05/17/2025 3:59 PM EDT 05/17/2025 4:02 PM EDT Generic External Data Provider LAB BLOOD ORDERAB LES Final Result Performing Organization Address City/[facility]/ZIP Co de Phone Number [facility] [address] [place] [phone] * (ABNORMAL) Hepatic Function Panel (05/17/2025 3:59 PM EDT) Bilirubin, Total 0.7 0.0 - 1.0 mg/dL [facility] Bilirubin, Direct 0.2 0.0 - 0.5 mg/dL [facility] Aspartate Amino Transferase 22 5 - 31 U/L [facility] Alanine Aminotransferase 17 0 - 31 U/L [facility] Total Protein 6.2(L) 6.5 - 8.0 g/dL [facility] Albumin Level 3.8 3.5 - 5.0 g/dL [facility] Alkaline Phosphatase 62 39 - 117 U/L [facility] 05/17/2025 3:59 PM EDT 05/17/2025 4:02 PM EDT Generic External Data Provider LAB BLOOD ORDERAB LES Final Result Performing Organization Address [facility] Co de Phone Number [facility] [address] [place] [address] [phone] * (ABNORMAL) Basic Metabolic Panel (05/17/2025 3:59 PM EDT) Only the most recent of2 resultswithin the time period is included. Sodium 140 135 - 145 mmol/L [facility] Potassium 4.3 3.3 - 5.1 mmol/L [facility] Chloride 109(H) 96 - 108 mmol/L [facility] Carbon Dioxide 26 22 - 29 mmol/L [facility] Anion Gap 9(L) 12 - 20 [facility] Urea Nitrogen (BUN) 12 9 - 16 mg/dL [facility] Creatinine, Serum 0.66 0.5 - 1.4 mg/dL [facility] Creatinine Clr Calc Pharmacy 100.0 [facility] Comment:Provided height and weight: 157.48 cm,91.172 kg.eGFR (calculated from the MDRD study equation) and eCrCl(calculated from the Cockcroft-Gault equation) are based ondifferent parameters and may not yield comparable results.If eCrCl result is absurd, please check patient'sheight/weight. Estimated Glomerular Filt Rate >60 [facility] Comment:Chronic Kidney Disea se: Estimated GFR < 60 mL/min/1.67j9Kcfrbz Kidney Disease: Estimated GFR < 15 mL/min/1.73m2 Glucose 88 60 - 115 mg/dL [facility] Calcium 8.5 8.4 - 10.2 mg/dL [facility] 05/17/2025 3:59 PM EDT 05/17/2025 4:02 PM EDT Generic External Data Provider LAB BLOOD ORDERAB LES Final Result Performing Organization Address City/[facility]/ZIP Co de Phone Number [facility] [address] [place] [address] [phone] * (ABNORMAL) Drug Monitoring, Panel 1, Screen, Urine (03/15/2025 11:49 AM EDT) Opiate Screen Urine POSITIVE(A) Not Detect [facility] Comment:Opiate cut-off is 30 0 ng/mL.Positive results are unconfirmed and should not be used fornon-medical purposes. Barbiturates, Urine Not Detected Not Detect [facility] Comment:Barbiturate cut-off is 200 ng/mL.Positive results are unconfirmed and should not be used fornon-medical purposes. Phencyclidine Screen Urine Not Detected Not Detect [facility] Comment:Phencyclidine cut-of f is 25 ng/mL.Positive results are unconfirmed and should not be used fornon-medical purposes. Amphetamine Screen Urine Not Detected Not Detect [facility] Comment:Amphetamine cut-off is 1000 ng/mL.Positive results are unconfirmed and should not be used fornon-medical purposes. Benzodiazepines Screen Urine Not Detected Not Detect [facility] Comment:Benzodiazepine cut-o ff is 200 ng/mL.Positive results are unconfirmed and should not be used fornon-medical purposes. Cocaine Screen Urine Not Detected Not Detect [facility] Comment:Cocaine cut-off is 3 00 ng/mL.Positive results are unconfirmed and should not be used fornon-medical purposes. Cannabinoid Screen Urine POSITIVE(A) Not Detect [facility] Comment:Cannabinoid cut-off is 50 ng/mL.Positive results are unconfirmed and should not be used fornon-medical purposes. Methadone Screen, Urine Not Detected Not Detect ng/mL [facility] Comment:Methadone cut-off is 300 ng/mL.Positive results are unconfirmed and should not be used fornon-medical purposes. FENTANYL URINE POSITIVE(A) Not Detect [facility] Comment:Fentanyl cut-off is 1 ng/mL.Positive results are unconfirmed and should not be used fornon-medical purposes. Oxycodone Urine Screen Not Detected Not Detect ng/mL [facility] Comment:Oxycodone cut-off is 100 ng/mL.Positive results are unconfirmed and should not be used fornon-medical purposes. Buprenorphine Screen Positive(A) Not Detect ng/mL [facility] Comment:Buprenorphine cut-of f is 5 ng/mL.Positive results are unconfirmed and should not be used fornon-medical purposes. 03/15/2025 11:4 9 AM EDT 03/15/2025 11:58 AM EDT us Generic External Data Provider LAB URINE ORDERAB LES Final Result [facility] [address] [place] [address] [phone] from Last 3 Months
--- OUTSIDE RECORDS SUMMARY | 2025-05-17 18:10 | XMS_ITS | Encounter Summary ---
Author Organization [employer] Address [address] [facility] [address] [place] [address] Care Team Providers Care Maintenance Leader Name Role Phone Unavailable Primary Care Provider Unavailabl e Encounter Details Date Type Department Care Team (Late st Contact Info) Description 05/17/2025 Orders Only [facility] External Provider, [facility] Social History Tobacco Use Types Packs/Day Years [...] FUNCTION PANEL Routine 05/17/2025 3:59 PM EDT documented in this encounter Results * CT Head w/o Contrast (05/17/2025 5:21 PM EDT) Anatomical Region Laterality Modality Head, Neck Computed Tomogra phy 05/17/2025 5:21 PM EDT Narrative 05/17/2025 5:23 PM EDT [address] [address] [address] Scan Report Signed Patient: Marielos Peralta MR#: [id number] : 1970 Acct:[id number] Age/Sex: 54 / F ADM Date: 05/17/25 Loc: HO.ED Attending Dr: Ordering Physician: Katerin Bethea PA-C Date of Service: 05/17/25 Procedure(s): CT head/brain wo IV con Accession Number(s): [id number] cc: Katerin Bethea PA-C; [facility] Report Number: [id number]: Total DLP = 692.00 mGy-cm Reason for [...] OV> 05/17/25 1722 DD/ 1721 TD/TT: 05/17/25 1721 Fund Raiser: Procedure Note Donotuseinterpreter, Image - 05/17/[address] [address] [address] Scan Report Signed Patient: Marielos Peralta AMR#: [id number] : 1970Acct:[id number] Age/Sex: 54 / FADM Date: 05/17/25 Loc: HO.ED Attending Dr: Ordering Physician: Katerin Bethea PA-C Date of Service: 05/17/25 Procedure(s): CT head/brain wo IV con Accession Number(s): [id number] cc: Katerin Bethea PA-C; [facility] Report Number: [id number]: Total DLP = 692.00 mGy-cm Reason for [...] signed by Daron Milan MD in OV> 05/17/251721 DD/ 20 TD/TT: 05/17/251720 Fund Raiser: [facility] External Provider IMG CT PROCEDURES Final Result * XR Shoulder 2+ Views Right (05/17/2025 4:30 PM EDT) Anatomical Region Laterality Modality Upper Extremities, Shoulder Right Radi ographic Imaging 05/17/2025 4:30 PM EDT Narrative 05/17/2025 4:39 PM EDT [place] [address] XRay Report Signed Patient: Marielos Peralta MR#: [id number] : 1970 Acct:[id number] Age/Sex: 54 / F ADM Date: 05/17/25 Loc: HO.ED Attending Dr: Ordering Physician: Katerin Bethea PA-C Date of Service: 05/17/25 Procedure(s): XR shoulder RT min 2V Accession Number(s): [id number] cc: Katerin Bethea PA-C; [facility] Reason for Exam: fall, landed on shoulder [...] 05/17/25 1636 DD/ 1630 TD/TT: 05/17/25 1630 Fund Raiser: Procedure Note Donotuseinterpreter, Image - 05/17/2025 [place] [address] XRay Report Signed Patient: Marielos Peralta AMR#: [id number] : 1970Acct:[id number] Age/Sex: 54 / FADM Date: 05/17/25 Loc: HO.ED Attending Dr: Ordering Physician: Katerin Bethea PA-C Date of Service: 05/17/25 Procedure(s): XR shoulder RT min 2V Accession Number(s): [id number] cc: Katerin Bethea PA-C; [facility] Reason for Exam: fall, landed on shoulder [...] 05/17/25 1636 DD/ 1630 TD/TT: 05/17/25 1630 Fund Raiser: us [facility] External Provider IMG XR PROCEDURES Final Result * XR Hip right with Pelvis 1 view (05/17/2025 4:27 PM EDT) Anatomical Region Laterality Modality Lower Extremities, Hip Bilateral Radiograp hic Imaging 05/17/2025 4:27 PM EDT Narrative 05/17/2025 4:37 PM EDT [address] [address] XRay Report Signed Patient: Marielos Peralta MR#: [id number] : 1970 Acct:[id number] Age/Sex: 54 / F ADM Date: 05/17/25 Loc: HO.ED Attending Dr: Ordering Physician: Katerin Bethea PA-C Date of Service: 05/17/25 Procedure(s): XR hip RT w PEL1V Accession Number(s): [id number] cc: Katerin Bethea PA-C; [facility] Reason for Exam: fall, landed on hip, [...] Matthias Vu MD 05/17/2025 04:34 PM EDT Dictated By: Matthias Vu MD Signed By: <Electronically signed by Matthias Vu MD in OV> 05/17/25 1634 DD/ 1627 TD/TT: 05/17/25 1630 Fund Raiser: Procedure Note Donotuseinterpreter, Image - 05/17/[address] [address] XRay Report Signed Patient: Marielos Peralta AMR#: [id number] : 1970Acct:[id number] Age/Sex: 54 / FADM Date: 05/17/25 Loc: HO.ED Attending Dr: Ordering Physician: Katerin Bethea PA-C Date of Service: 05/17/25 Procedure(s): XR hip RT w PEL1V Accession Number(s): [id number] cc: Katerin Bethea PA-C; [facility] Reason for Exam: fall, landed on hip, [...] Matthias Vu MD 05/17/2025 04:34 PM EDT Dictated By: Matthias Vu MD Signed By: <Electronically signed by Matthias Vu MD in OV> 05/17/25 1634 DD/ 1627 TD/TT: 05/17/25 1630 Fund Raiser: [facility] External Provider IMG XR PROCEDURES Final Result * Lipase (05/17/2025 3:59 PM EDT) Lipase 9 8 - 78 U/L [facility] 05/17/2025 3:59 PM EDT 05/17/2025 4:02 PM EDT Generic External Data Provider LAB BLOOD ORDERAB LES Final Result Performing Organization Address City/[facility]/ZIP Co de Phone Number [facility] [address] [place] [phone] * (ABNORMAL) Hepatic Function Panel (05/17/2025 3:59 PM EDT) Bilirubin, Total 0.7 0.0 - 1.0 mg/dL [facility] Bilirubin, Direct 0.2 0.0 - 0.5 mg/dL [facility] Aspartate Amino Transferase 22 5 - 31 U/L [facility] Alanine Aminotransferase 17 0 - 31 U/L [facility] Total Protein 6.2(L) 6.5 - 8.0 g/dL [facility] Albumin Level 3.8 3.5 - 5.0 g/dL [facility] Alkaline Phosphatase 62 39 - 117 U/L [facility] 05/17/2025 3:59 PM EDT 05/17/2025 4:02 PM EDT us Generic External Data Provider LAB BLOOD ORDERAB LES Final Result Performing Organization Address [facility]/ZIP Co de Phone Number [facility] [address] [place] [address] [phone] documented in this encounter Visit Diagnoses Not on filedocumented in this encounter
--- OUTSIDE RECORDS SUMMARY | 2025-05-17 18:10 | XMS_ITS | Clinical Summary ---
Author Organization [facility] Address [address] [place] [address] Phone Care Team Providers Care Utility Accounts Director Name Role Phone Physician, No Pcp Primary [...] topic Insurance MEDICAID - [place] Care Teams Utility Accounts Director Relationship Specialty Start Date End Date Physician, No Pcp PCP - General 10/12/24
[2025-05-17 18:20] LABS: Appearance Urine Cloudy; Glucose Urine UA Negative (Negative); PH 7.0 (5.0-9.0); Specific Gravity - Urine 1.015 (1.005-1.025)
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
[2025-05-17 18:59] VITALS: BP 177/96; PULSE 45; RESP 10; TEMP 36.7; O2SAT 99
--- NOTE | 2025-05-17 18:59 | PHA.MEDREC ---
Addendum entered by Bjorn De Guzman PharmD 05/17/25 19:13: reviewed Original Note: Pharmacy Consult ? Medication Reconciliation Pharmacy has completed the medication reconciliation. Patient states she may not be staying, however she was agreeable to go over her medications. Patient confirmed Buprenophine 100 mg/0.5ml every month, last dose was a week ago. Patient had all her morning medications today.
--- NOTE | 2025-05-17 19:08 | PM.IMHP ---
History of Present Illness Date of Service: 05/17/25 Attending physician on admission: Madiha Starr Chief Complaint: dizziness s/p fall Pt is a 54 y female with PMH DILLAN on sublocade, ADHD, anxiety, insomnia PMFSH Medical History Fibroid of cervix Opioid use disorder Substance abuse No known health problems No known health problems Social History Alcohol intake: never Patient Tobacco Use Status: Current everyday Tobacco user Smoked in Last 30 Days: Yes Substance Use Type: Former Substance User and Heroin Substance Use Frequency Other:: 3 months ago Advance Directives: Yes Advance Directives Information Provided: No Advance Directives on File: No Do you have a plan to hurt others: No Plan Gender identity: Female Meds Allergies Allergy/AdvReac Type Severity Reaction Status Date / Time dexamethasone (From DECADRON) AdvReac Severe NAUSEA & Verified 05/17/25 14:55 VOMITING Active Medications: Current Medications Acetaminophen (Acetaminophen 325 Mg Tablet) 650 mg PO Q6H PRN PRN Reason: Pain, Mild 1-3,fever,headache Albuterol/Ipratropium (Albuterol/Iprat 2.5/0.5mg 3 Ml Ampul.Neb) 3 ml INHALE Q4H PRN PRN Reason: Shortness of Breath/Wheezing Calcium Carbonate (Calcium Carbonate 750 Mg Tab.Chew) 750 mg PO Q4H PRN PRN Reason: Heartburn Enoxaparin Sodium (Enoxaparin Sodium 40 Mg/0.4 Ml Syringe) 40 mg SUBCUT Q24H HAZEL Magnesium Hydroxide (Milk Of Magnesia 30 Ml Oral.Susp) 30 ml PO DAILY PRN PRN Reason: Constipation Melatonin (Melatonin 3 Mg Tablet) 6 mg PO BEDTIME PRN PRN Reason: Insomnia Ondansetron HCl (Ondansetron Hcl 4 Mg/2 Ml Vial) 4 mg IVPUSH Q8H PRN PRN Reason: Nausea and Vomiting Polyethylene Glycol (Polyethylene Glycol 3350 17 Gm Powd.Pack) 17 gm PO DAILY PRN PRN Reason: Constipation Senna (Sennosides 8.6 Mg Tablet) 17.2 mg PO BEDTIME HAZEL Sodium Chloride (0.9 % Sodium Chloride Flush 3 Ml Syringe) 3 ml IVFLUSH QSHIFT [facility] Home Medications ?Medication ?Instructions ?Recorded ?Confirmed ?Last Taken ?Type dextroamphetamine-amphetamine 30 1 tab PO DAILY 05/17/25 05/17/25 05/17/25 History mg tablet (Adderall) trazodone 50 mg tablet 50 mg PO BEDTIME PRN sleep 05/17/25 05/17/25 Unknown History Physical Exam Vital Signs and Narrative: Vital Signs: Last Vital Signs Temp 98.1 F 05/17/25 18:59 Pulse 45 L 05/17/25 18:59 Resp 10 L 05/17/25 18:59 BP 177/96 H 05/17/25 18:59 Pulse Ox 99 05/17/25 18:59 O2 Del Method Room Air 05/17/25 18:59 BMI result Body Mass Index 36.8 Results Labs 05/17/25 15:59 05/17/25 15:59 Labs: Laboratory Results - last 24 hr 05/17/25 05/17/25 15:59 18:02 MCV 86.6 MCH 28.6 MCHC 33.0 RDW 13.6 Plt Count 230 MPV 10.0 Immature Gran % (Auto) 0.3 Neut % (Auto) 54.6 Lymph % (Auto) 37.1 Simpson % (Auto) 5.9 Eos % (Auto) 1.7 Baso % (Auto) 0.4 Lymph # (Auto) 2.7 Simpson # (Auto) 0.4 Eos # (Auto) 0.1 Baso # (Auto) 0.0 Abs Immat Gran (auto) 0.02 Absolute Neuts (auto) 3.9 Absolute Nucleated RBC 0.000 Nucleated RBC % (auto) 0.0 Anion Gap 9 L Estim Creat Clear Calc 100.0 Estimated GFR > 60 Random Glucose 88 Calcium 8.5 Total Bilirubin 0.7 Direct Bilirubin 0.2 AST 22 ALT 17 Alkaline Phosphatase 62 Total Protein 6.2 L Albumin 3.8 Lipase 9 Urine Color Yellow Urine Appearance Cloudy Urine pH 7.0 Ur Specific [place] 1.015 Urine Protein Negative Urine Glucose (UA) Negative Urine Ketones Negative Urine Blood Negative Urine Nitrite Negative Ur Leukocyte Esterase Negative Imaging Radiologist's Impressions: Impressions Hip/Pelvis X-Ray 05/17/25 16:27 IMPRESSION: Unremarkable right hip. 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 Electronically signed by: Matthias Vu MD 05/17/2025 04:34 PM EDT RP Shoulder X-Ray 05/17/25 16:30 IMPRESSION: Unremarkable right shoulder. Electronically signed by: Matthias Vu MD 05/17/2025 04:36 PM EDT RP Assessment and Plan (1) Bradycardia: Status: Acute (2) Status post fall: Status: Acute (3) Dizziness: Status: Acute Plan Bradycardia S/p fall Dizziness DILLAN on sublocade Quality Stroke Does the patient have a stroke diagnosis?: No Reason for No Anti-thrombotic by Day Two: N/A - Med Ordered VTE Prior VTE?: No VTE Risk Level:: Medical - moderate - high VTE Device Contraindication: N/A - Device Ordered VTE Drug Contraindication: N/A - Med Ordered
--- NOTE | 2025-05-17 19:23 | P.EN_ITS ---
Event Note Date of Service: 05/17/25 Event Note: Pt een to start admission and upon asking pt is she was aware that she was going to be admitted under observation, pt deferred and stated she could not stay due to issues at home and pt concerned about the care of her dogs. Pt states she does feel safe at home and her fall was accidental. Pt educated that she would be admitted under observation and would likely leave tomorrow and the indication was her low heart rate which could contribute to her fall. Pt contunued to defer with the understanding she would be leaving against medical advice and this teletypewriter installer updated Dr. De Dios as Ms. Bethea had already left for the day. This teletypewriter installer updated attending, Dr. Islas and she will discontinue the admit order for observation. Dr. De Dios will write the AMA. Time Spent With Patient Time: Total time managing care of this patient today ____ minutes.
[2025-05-17 19:28] LABS: Magnesium 1.8 mg/dL (1.6-2.6)
[2025-05-17 19:31] LABS: NT Pro B Type Natriuretic Pept 399.6 pg/mL (<300)
[2025-05-17 20:57] VITALS: BP 00/00; PULSE 51; RESP 16; TEMP 36.7; O2SAT 98
== END 2025-05-17 20:58 | disposition left against medical advice (07) ==
LOC: HO.ED 18:28 → HO.EDOVER 19:19
PROVIDERS: Nurse Practitioner Family; Emergency Provider Emergency Medicine; PCP Family Medicine; Visit Provider Internal Medicine
DX: R00.1 Bradycardia, unspecified (principal); R42 Dizziness and giddiness; R10.2 Pelvic and perineal pain; M25.511 Pain in right shoulder; R06.02 Shortness of breath; R11.0 Nausea; Z79.899 Other long term (current) drug therapy
CPT/HCPCS: 36415; 70450; 73030; 73502; 80048; 80076; 81003; 83690; 83735; 83880; 84443; 85025; 93005; 96361; 96374; 96375; 99285; J0131; J1200; J1885; J2765; J7120

== ENCOUNTER → 2025-05-17 15:09 | Outpatient (BNV) | payer MEDICAID, SELFPAY | PROVIDERS: Admitting Provider Internal Medicine; Emergency Provider Emergency Medicine; PCP Family Medicine; Visit Provider Internal Medicine | DX: I49.3 Ventricular premature depolarization (principal); R00.1 Bradycardia, unspecified | CPT/HCPCS: 93010 ==

== ENCOUNTER → 2025-05-17 16:13 | Outpatient (BNV) | payer MEDICAID, SELFPAY | PROVIDERS: Emergency Provider Emergency Medicine; Visit Provider Radiology Diagnostic Radiology | DX: R42 Dizziness and giddiness (principal); M25.551 Pain in right hip; M17.11 Unilateral primary osteoarthritis, right knee; M25.511 Pain in right shoulder; W01.0XXA Fall on same level from slipping, tripping and stumbling without subsequent striking against object, initial encounter | CPT/HCPCS: 70450; 73030; 73502 ==

== ENCOUNTER 2025-06-09 12:58 | Outpatient (AMB) | payer MEDICAID, SELFPAY ==
--- NOTE | 2025-06-02 07:59 | AM.OFFVISNUR ---
Intake Visit Reasons: injection Allergies dexamethasone (From DECADRON) Adverse Reaction (Severe, Verified 05/17/25 14:55) NAUSEA & VOMITING Assessment & Plan Assessment & Plan Orders: Orders AMB Buprenorphine Injection - Patient Supplied Today F11.21 - Opioid dependence, in remission Medications: New Sublocade ER (buprenorphine) 100 mg (0.5 mL) subcut ONCE 0.5 mL 0RF NS F11.21 - Opioid dependence, in remission Coding
--- NOTE | 2025-06-09 13:22 | A.OFFVIS_ITS ---
Vital Signs 06/09/25 13:23 BP 110/60 Pulse 58 Pulse Oximetry (%) 98 Intake Visit Reasons: MAT Allergies dexamethasone (From DECADRON) Adverse Reaction (Severe, Verified 06/09/25 13:23) NAUSEA & VOMITING HPI Comments Details: History of Present Illness The patient is a 54-year-old female presenting with management issues related to opioid use disorder and withdrawal symptoms. She reports an ongoing experience with withdrawal symptoms approximately two weeks following the administration of a 300 mg Sublocade (Buprenorphine) injection. The patient experiences cravings and anxiety during this period, which she attributes to insufficient medication efficacy. Marielos Rivas has expressed a preference to discontinue the injections stating they are inadequate in managing her symptoms and instead desires to return to the use of oral strips for better control. She has a history of depression which is reported to coincide with her opioid use disorder. She denies any acute changes in her depression status during this visit but correlates an increase in anxiety and cravings with her current treatment schedule. Review of Systems - Psychiatric: Reports anxiety and cravings - General: Reports withdrawal symptoms approximately 14 days after Sublocade injection Physical Exam - Vitals- Stable Results Plan Patient was informed and verbally consented to the use of an ambient scribe for clinic note documentation during this visit. 1. Opioid use, unspecified, uncomplicated F11.90 Marielos Rivas will discontinue Sublocade injections, as they have proven ineffective for her symptom management. Transitioning to oral buprenorphine strips at 8/2 mg thrice daily should assist with better control over her symptoms. Follow-up is planned monthly to assess efficacy and adherence. 2. Withdrawal Symptoms Due To Sublocade Buprenorphine Withdrawal symptoms occur roughly 14 days post-injection of Sublocade. The shift to oral strips aims to provide more stable drug levels and prevent withdrawal episodes. 3. Depression Depression related to opioid use disorder will continue to be observed, with potential benefit from improved management of opioid-related symptoms. No changes to the depression management plan were made today. Discussion Notes I discussed with Marielos Rivas her current treatment plan and her symptoms related to opioid withdrawal roughly two weeks after receiving a 300 mg Sublocade injection. We reviewed the option to switch from monthly injections to a daily oral buprenorphine strip regimen (8/2 mg three times daily), which she agreed to. We discussed the benefits of this change, including better control of withdrawal symptoms and improved compliance. Risks include potential difficulty with adherence and managing the delivery of doses. Follow-up is set for one month to evaluate the efficacy of the new treatment regimen. Her frequent cravings and anxiety are expected to decrease with this plan. We have also addressed her depression, acknowledging ongoing management parallel to her opioid treatment. Medical Decision Making Marielos Rivas presented with withdrawal symptoms occurring approximately two weeks after Sublocade injection, indicative of insufficient medication efficacy and triggering cravings and anxiety. Given these issues, we have transitioned her to an oral buprenorphine strip regimen as it allows for more consistent dosing to maintain therapeutic levels and manage withdrawal symptoms effectively. The goal is to stabilize her condition by providing consistent medication levels. This plan also considers her history of depression, which is likely to benefit from stabilized opioid management. The decision to switch to strips was influenced by reported symptomology and her personal request, which aims to improve her quality of life and treatment adherence. Patient Instructions - Take oral buprenorphine strips (8/2 mg) three times daily as prescribed. - Report any side effects or symptoms of withdrawal immediately. - Attend follow-up appointment in one month to assess treatment effectiveness. - Continue current management plan for depression. - Seek help if experiencing severe symptoms or concerns with medication adherence. [facility] Medical History Fibroid of cervix Opioid use disorder Substance abuse No known health problems No known health problems Social History Alcohol intake: never Patient Tobacco Use Status: Current everyday Tobacco user Substance Use Type: Former Substance User and Heroin Gender identity: Female Female Reproductive History Menstrual Age of Menarche: 11 Physical Exam Vital Signs: Last Vital Signs Pulse 58 06/09/25 13:23 BP 110/60 06/09/25 13:23 Pulse Ox 98 06/09/25 13:23 Assessment & Plan Assessment & Plan (1) Opioid use disorder, severe, dependence: Comment: She is interested in Sublocade again. She has had before with good results Code(s): F11.20 - Opioid dependence, uncomplicated Category: Medical Plan na Orders: Orders AMB Buprenorphine Injection - Patient Supplied 06/02/25 F11.21 - Opioid dependence, in remission Medications: New Sublocade ER (buprenorphine) 100 mg (0.5 mL) subcut ONCE 0.5 mL 0RF NS F11.21 - Opioid dependence, in remission ondansetron HCl 4 mg PO Q8H PRN 10 tabs 0RF nausea and vomiting 3 days buprenorphine-naloxone 8-2 mg (Suboxone) 1 film sublingual TID 90 ea 0RF 30 days Coding Level of Care Code Est Pt Level 3 (23266) Diagnoses Opioid use disorder, severe, dependence F11.20
[2025-06-09 13:23] VITALS: BP 110/60; PULSE 58; O2SAT 98
--- OUTSIDE RECORDS SUMMARY | 2025-06-09 18:07 | XMS_ITS | Clinical Summary ---
Author Organization [employer] Address [address] [facility] [address] [place] [address] Care Team Providers Care Data Visualization Developer Name Role Phone Unavailable Primary Care Provider Unavailabl e Allergies Active Allergy Reactions Criticality Noted Date Comments Dexamethasone Nausea,Vomiting 05/19/2025 Medications Misc. Devices (Pulse Oximeter For Finger) misc 1 each 2 times daily. 1 each 05/19/20 Active Blood Pressure kit 1 each 2 times daily. 1 kit 05/19/20 25 026 Active ondansetron (Zofran) 4 MG tablet Take 1 tablet (4 mg) by mouth every 8 (eight) hours if needed for nausea or vomiting. 10 tablet 05/19/20 Active ondansetron (Zofran) 4 MG tablet Take 1 tablet (4 mg) by mouth every 8 (eight) hours if needed for nausea or vomiting. 15 tablet 05/19/20 025 Discontinued(Re order (will not trigger notification to Pharmacy)) loperamide (Imodium A-D) 2 MG tablet Take 1-2 tablets (2-4 mg) by mouth if needed in the morning, at noon, in the evening, and at bedtime for diarrhea for up to 5 days. 15 tablet 05/19/20 25 025 Encounters Date Type Department Care Team Description 05/19/2025 2:40 PM EDT Office Visit [facility] [address] [place] [phone] Yousuf Coronado MD Vomiting and diarrhea (Primary Dx); Sinus bradycardia; Elevated blood pressure reading in office without diagnosis of hypertension 05/19/2025 Travel 05/18/2025 Telephone [facility] MED[facility] [address] [place] [phone] Mindy Cooper, RN NEEDS NEW PT APPT 05/17/2025 Orders Only [facility] External Provider, [facility] 03/15/2025 Orders Only GENERIC EXTERNAL DATA DEPARTMENT Provider, Generic External Data from Last 3 Months Social History Tobacco Use Types Packs/Day Years Used Date Smoking Tobacco: Every Day Cigarettes Smokeless Tobacco: Never Tobacco Cessation:Ready to Q uit: Not Asked; Counseling Given: Not Answered Alcohol Use Standard Drinks/Week Comments Not Currently 0 (1 standard drink = 0.6 oz pur e alcohol) Comments Unknown Sex and Gender Information Value Date Recorded Sex Assigned at Female 06/18/2022 10:35 AM EDT Legal Sex Female 10:35 AM EDT Gender Identity Female 06/18/2022 10:35 AM EDT Sexual Orientation Straight 06/18/2022 10 :35 AM EDT Last Filed Vital Signs Vital Sign Reading Time Taken Comments Blood Pressure 174/88 05/19/2025 2:52 PM EDT Pulse 52 05/19/2025 2:52 PM EDT Temperature 36.1 C (97 F) 05/19/2025 2:52 PM EDT Respiratory Rate 17 05/19/2025 2:52 PM EDT Oxygen Saturation 98% 05/19/2025 2:52 PM EDT Inhaled Oxygen Concentration - - Weight 88 kg (194 lb) 05/19/2025 2:52 PM EDT Height - - Body Mass Index - - Plan of Treatment Upcoming Encounters Date Type Department Care Team (Late st Contact Info) Description 07/27/2025 9:45 AM EST Office Visit [facility] MED[facility] [address] [place] [address] Salma Fontaine MD [address] [place] [address] Health Maintenance Due Date Last Done Comments CT Colonography 1968 Colonoscopy 1968 Colorectal Cancer Screening 1968 Depression Screening 1968 FIT DNA/Cologuard 1968 FIT 1968 FOBT 1968 HIV Screening 1968 Lipid Panel 1968 SDOH Screening 1968 Sigmoidoscopy 1968 Disability Screening 1968 Alcohol/Substance Use Screening 1980 Hepatitis C Screening 1986 Hepatitis B Vaccines (1 of 3 - 19+ 3-dose series) 1987 Pneumococcal Vaccine: 50+ Years (1 of 2 - PCV) 1987 Pap Smear 1989 Cervical Cancer Screening 1998 HPV/Cotest 1998 Mammogram 2008 DTaP/Tdap/Td Vaccines (1 - Tdap) 08/20/2009 08/19/2009 Zoster Vaccines (1 of 2) 2018 COVID-19 Vaccine (3 - 2024-2 6 season) 2025 04/13/2021, 03/23/2021 Influenza Vaccine (#1) 2025 Tobacco Screening 05/19/2026 05/19/2025 RSV Patients and Patients Aged 60 years or older (1 - [...] Procedure Name Priority Date/Time Associated Diagnosis Comments ECG 12-LEAD Routine 05/19/2025 4:17 PM EDT Sinus bradycardia URINALYSIS WITH REFLEX MICROSCOPIC Routine 05/17/2025 6:[address] HEAD WO CONTRAST Routine 05/17/2025 5 [...] EDT from Last 3 Months Results * ECG 12-LEAD (05/19/2025 4:17 PM EDT) Yousuf Marrero MD - 05/19/2025 4:17 PM EDT Yousuf Coronado MD 05/19/2025 5:56 PM ECG 12 lead Date/Time: 05/19/2025 4:17 PM Performed by: Yousuf Coronado MD Authorized by: Yousuf Coronado MD Previous ECG: Previous ECG: Unavailable Interpretation: Interpretation: abnormal Details: Sinus bradycardia, JOCELYN Rate: ECG rate: 48 ECG rate assessment: bradycardic Rhythm: Rhythm: sinus bradycardia Ectopy: Ectopy: none QRS: QRS axis: Normal QRS intervals: Normal QRS conduction: normal ST segments: ST segments: Normal T waves: T waves: normal Q waves: Abnormal Q-waves: not present Other findings: Other findings: LAE us Yousuf Coronado MD ECG ORDERABLES Final Result * Urinalysis w/reflex microscopic (05/17/2025 6:02 PM EDT) Color Urine Yellow [facility] Appearance Urine Cloudy [facility] PH 7.0 5.0 - 9.0 [facility] Glucose Urine UA Negative Negative mg/dL [facility] Urine Blood Negative Negative [facility] Specific [place] - Urine 1.015 1.005 - 1.025 [facility] Urine Protein Negative Neg-Trace mg/dL [facility] Urine Ketones Negative Negative mg/dL [facility] Nitrite Urine Negative Negative [facility] Leukocyte Esterase Urine Negative Negative [facility] 05/17/2025 6:02 PM EDT 05/17/2025 6:09 PM EDT Narrative [facility] - 05/17/2025 6:29 PM EDT [id number], [employer] C[employer] us Generic External Data Provider LAB URINE ORDERAB LES Final Result Performing Organization Address City/State/[facility] Co de Phone Number [facility] [address] [place] [phone] * CT Head w/o Contrast (05/17/2025 5:21 PM EDT) Anatomical Region Laterality Modality Head, Neck Computed Tomogra phy 05/17/2025 5:21 PM EDT Narrative 05/17/2025 5:23 PM EDT [address] [address] [address] Scan Report Signed Patient: Marielos Peralta MR#: [id number] : 1970 Acct:[id number] Age/Sex: 54 / F ADM Date: 05/17/25 Loc: HO.ED Attending Dr: Ordering Physician: Katerin Bethea PA-C Date of Service: 05/17/25 Procedure(s): CT head/brain wo IV con Accession Number(s): [id number] cc: Katerin Bethea PA-C; [facility] Report Number: [id number]: Total DLP = 692.00 mGy-cm Reason for [...] MD Signed By: <Electronically signed by Daron Mlian MD in OV> 05/17/25 172 DD/ 20 TD/TT: 05/17/251720 Fisher Lampara Net: Procedure Note Donotuseinterpreter, Image - 05/17/[address] [place] [address] [address] Scan Report Signed Patient: Marielos Peralta AMR#: [id number] : 1970Acct:[id number] Age/Sex: 54 / FADM Date: 05/17/25 Loc: HO.ED Attending Dr: Ordering Physician: Katerin Bethea PA-C Date of Service: 05/17/25 Procedure(s): CT head/brain wo IV con Accession Number(s): [id number] cc: Katerin Bethea PA-C; [facility] Report Number: [id number]: Total DLP = 692.00 mGy-cm Reason for [...] MD in OV> 05/17/251721 DD/ 20 TD/TT: 05/17/25 1721 Fisher Lampara Net: us [facility] External Provider IMG CT PROCEDURES Final Result * XR Shoulder 2+ Views Right (05/17/2025 4:30 PM EDT) Anatomical Region Laterality Modality Upper Extremities, Shoulder Right Radi ographic Imaging 05/17/2025 4:30 PM EDT Narrative 05/17/2025 4:39 PM EDT [address] [address] XRay Report Signed Patient: Marielos Peralta MR#: [id number] : 1970 Acct:[id number] Age/Sex: 54 / F ADM Date: 05/17/25 Loc: .ED Attending Dr: Ordering Physician: Katerin Bethea PA-C Date of Service: 05/17/25 Procedure(s): XR shoulder RT min 2V Accession Number(s): [id number] cc: Katerin Bethea PA-C; [facility] Reason for Exam: fall, landed on shoulder [...] 05/17/25 1636 DD/ 1630 TD/TT: 05/17/25 1630 Fisher Lampara Net: Procedure Note Donotuseinterpreter, Image - 05/17/[address] [address] XRay Report Signed Patient: Marielos Peralta AMR#: [id number] : 1970Acct:[id number] Age/Sex: 54 / FADM Date: 05/17/25 Loc: HO.ED Attending Dr: Ordering Physician: Katerin Bethea PA-C Date of Service: 05/17/25 Procedure(s): XR shoulder RT min 2V Accession Number(s): [id number] cc: Katerin Bethea PA-C; [facility] Reason for Exam: fall, landed on shoulder [...] 05/17/25 1636 DD/ 1630 TD/TT: 05/17/25 1630 Fisher Lampara Net: us [facility] External Provider IMG XR PROCEDURES Final Result * XR Hip right with Pelvis 1 view (05/17/2025 4:27 PM EDT) Anatomical Region Laterality Modality Lower Extremities, Hip Bilateral Radiograp hic Imaging 05/17/2025 4:27 PM EDT Narrative 05/17/2025 4:37 PM EDT [facility] [address] [place] [address] XRay Report Signed Patient: Marielso Peralta MR#: [id number] : 1970 Acct:[id number] Age/Sex: 54 / F ADM Date: 05/17/25 Loc: HO.ED Attending Dr: Ordering Physician: Katerin Bethea PA-C Date of Service: 05/17/25 Procedure(s): XR hip RT w PEL1V Accession Number(s): [id number] cc: Katerin Bethea PA-C; [facility] Reason for Exam: fall, landed on hip, [...] 05/17/25 1634 DD/ 1627 TD/TT: 05/17/25 1630 Fisher Lampara Net: Procedure Note Donotuseinterpreter, Image - 05/17/2025 [place] [address] XRay Report Signed Patient: Marielos Peralta [facility]#: [id number] : 1970Acct:[id number] Age/Sex: 54 / FADM Date: 05/17/25 Loc: HO.ED Attending Dr: Ordering Physician: Katerin Bethea PA-C Date of Service: 05/17/25 Procedure(s): XR hip RT w PEL1V Accession Number(s): [id number] cc: Katerin Bethea PA-C; [facility] Reason for Exam: fall, landed on hip, [...] 05/17/25 1634 DD/ 1627 TD/TT: 05/17/25 1630 Fisher Lampara Net: [facility] External Provider IMG XR PROCEDURES Final Result * CBC auto differential (05/17/2025 3:59 PM EDT) Only the most recent of2 resultswithin the time period is included. White Blood Count 7.2 4.8 - 10.8 X10*3/uL [facility] Red Blood Count 5.39 4.20 - 5.50 X10*6/uL [facility] Hemoglobin 15.4 12.0 - 16.0 g/dl [facility] Hematocrit 46.7 37.0 - 47.0 % [facility] Mean Corpuscular Volume 86.6 80.0 - 98.0 fL [facility] Mean Corpuscular Hemoglobin 28.6 27.0 - 33.0 pg [facility] Mean Corpuscular HGB Conc 33.0 31.0 - 35.0 g/dl [facility] Red Cell Distribution Width 13.6 11.0 - 16.0 % [facility] Platelet Count 230 160 - 400 X10*3/uL [facility] Mean Platelet Volume 10.0 9.4 - 12.3 fL [facility] Neutrophils Percent Auto 54.6 45 - 73 % [facility] Imm Gran Pct Auto 0.3 0.0 - 0.4 % [facility] Lymphocytes Percent Auto 37.1 20 - 40 % [facility] Monocytes Percent Auto 5.9 2 - 11 % [facility] Eosinophils Percent Auto 1.7 0 - 4 % [facility] Basophils Percent Auto 0.4 0 - 2 % [facility] NRBC Pct Auto 0.0 0.0 - 0.2 /100WBC [facility] Neutrophils Absolute Auto 3.9 2.0 - 8.3 x10*3/uL [facility] Imm Gran Abs Auto 0.02 0.00 - 0.03 X10*3/uL [facility] Lymphocytes Absolute Auto 2.7 1.2 - 4.9 X10*3/uL [facility] Monocytes Absolute Auto 0.4 0.1 - 1.2 X10*3/uL [facility] Eosinophils Absolute Auto 0.1 0.0 - 0.4 X10*3/uL [facility] Basophils Absolute Auto 0.0 0.0 - 0.2 X10*3/uL [facility] NRBC Abs Auto 0.000 0.0 - 0.012 X10*3/uL [facility] 05/17/2025 3:59 PM EDT 05/17/2025 4:02 PM EDT us Generic External Data Provider LAB BLOOD ORDERAB LES Final Result Performing Organization Address City/[facility]/ZIP Co de Phone Number [facility] [address] [place] [phone] * Lipase (05/17/2025 3:59 PM EDT) Lipase 9 8 - 78 U/L [facility] 05/17/2025 3:59 PM EDT 05/17/2025 4:02 PM EDT us Generic External Data Provider LAB BLOOD ORDERAB LES Final Result Performing Organization Address City/[facility]/ZIP Co de Phone Number [facility] [address] [place] [phone] * (ABNORMAL) Hepatic Function Panel (05/17/2025 3:59 PM EDT) Pathologist [facility] Bilirubin, Total 0.7 0.0 - 1.0 mg/dL [facility] Bilirubin, Direct 0.2 0.0 - 0.5 mg/dL [facility] Aspartate Amino Transferase 22 5 - 31 U/L [facility] Alanine Aminotransferase 17 0 - 31 U/L [facility] Total Protein 6.2(L) 6.5 - 8.0 g/dL [facility] Albumin Level 3.8 3.5 - 5.0 g/dL [facility] Alkaline Phosphatase 62 39 - 117 U/L [facility] 05/17/2025 3:59 PM EDT 05/17/2025 4:02 PM EDT us Generic External Data Provider LAB BLOOD ORDERAB LES Final Result [facility] [address] [place] [phone] * (ABNORMAL) Basic Metabolic Panel (05/17/2025 3:59 PM EDT) Only the most recent of2 resultswithin the time period is included. [facility] Sodium 140 135 - 145 mmol/L [facility] Potassium 4.3 3.3 - 5.1 mmol/L [facility] Chloride 109(H) 96 - 108 mmol/L [facility] Carbon Dioxide 26 22 - 29 mmol/L [facility] Anion Gap 9(L) 12 - 20 [facility] Urea Nitrogen (BUN) 12 9 - 16 mg/dL [facility] Creatinine, Serum 0.66 0.5 - 1.4 mg/dL [facility] Creatinine Clr Calc Pharmacy 100.0 [facility] Comment:Provided height and weight: 157.48 cm,91.172 kg.eGFR (calculated from the MDRD study equation) and eCrCl(calculated from the Cockcroft-Gault equation) are based ondifferent parameters and may not yield comparable results.If eCrCl result is absurd, please check patient'sheight/weight. Estimated Glomerular Filt Rate >60 [facility] Comment:Chronic Kidney Disea se: Estimated GFR < 60 mL/min/1.96o7Cfqdld Kidney Disease: Estimated GFR < 15 mL/min/1.73m2 Glucose 88 60 - 115 mg/dL [facility] Calcium 8.5 8.4 - 10.2 mg/dL [facility] 05/17/2025 3:59 PM EDT 05/17/2025 4:02 PM EDT us Generic External Data Provider LAB BLOOD ORDERAB LES Final Result [facility] [address] [place] [phone] * (ABNORMAL) Drug Monitoring, Panel 1, Screen, Urine (03/15/2025 11:49 AM EDT) Opiate Screen Urine POSITIVE(A) Not Detect [facility] Comment:Opiate cut-off is 30 0 ng/mL.Positive results are unconfirmed and should not be used fornon-medical purposes. Barbiturates, Urine Not Detected Not Detect [facility] Comment:Barbiturate cut-off is 200 ng/mL.Positive results are unconfirmed and should not be used fornon-medical purposes. Phencyclidine Screen Urine Not Detected Not Detect [facility] Comment:Phencyclidine cut-of f is 25 ng/mL.Positive results are unconfirmed and should not be used fornon-medical purposes. Amphetamine Screen Urine Not Detected Not Detect [facility] Comment:Amphetamine cut-off is 1000 ng/mL.Positive results are unconfirmed and should not be used fornon-medical purposes. Benzodiazepines Screen Urine Not Detected Not Detect [facility] Comment:Benzodiazepine cut-o ff is 200 ng/mL.Positive results are unconfirmed and should not be used fornon-medical purposes. Cocaine Screen Urine Not Detected Not Detect [facility] Comment:Cocaine cut-off is 3 00 ng/mL.Positive results are unconfirmed and should not be used fornon-medical purposes. Cannabinoid Screen Urine POSITIVE(A) Not Detect [facility] Comment:Cannabinoid cut-off is 50 ng/mL.Positive results are unconfirmed and should not be used fornon-medical purposes. Methadone Screen, Urine Not Detected Not Detect ng/mL [facility] Comment:Methadone cut-off is 300 ng/mL.Positive results are unconfirmed and should not be used fornon-medical purposes. FENTANYL URINE POSITIVE(A) Not Detect [facility] Comment:Fentanyl cut-off is 1 ng/mL.Positive results are unconfirmed and should not be used fornon-medical purposes. Oxycodone Urine Screen Not Detected Not Detect ng/mL [facility] Comment:Oxycodone cut-off is 100 ng/mL.Positive results are unconfirmed and should not be used fornon-medical purposes. Buprenorphine Screen Positive(A) Not Detect ng/mL [facility] Comment:Buprenorphine cut-of f is 5 ng/mL.Positive results are unconfirmed and should not be used fornon-medical purposes. 03/15/2025 11:4 9 AM EDT 03/15/2025 11:58 AM EDT us Generic External Data Provider LAB URINE ORDERAB LES Final Result [facility] [address] [place] [phone] from Last 3 Months Insurance [facility]
--- OUTSIDE RECORDS SUMMARY | 2025-06-09 18:07 | XMS_ITS | Clinical Summary ---
Author Organization [facility] Address [address] [place] [address] Phone Care Team Providers Care [employer] Name Role Phone Physician, No Pcp Primary [...] Last Done Comments Breast Cancer Screening 1970 Colorectal Cancer Screening: Colonoscopy 1968 Hepatitis A Vaccines (1 of 2 - Risk 2-dose series) 1987 Hepatitis B Vaccines (1 of 3 - 19+ 3-dose series) 1987 Pneumococcal Vaccine: 50+ Years (1 of 2 - PCV) 1987 Cervical Cancer Screening: P ap Smear 1989 Zoster Vaccines (1 of 2) 2018 DTaP,Tdap,and Td Vaccines (2 - Td or Tdap) 08/19/2019 08/19/2009 Cholesterol Screening (Lipid Panel) 07/22/2022 HIV Screening 07/22/2022 Hepatitis C Screening 07/22/2022 Social Influencers of Health Screening 07/22/2022 Depression Screening 08/19/2024 COVID-19 Vaccine (3 - 2024-2 6 season) 2025 04/13/2021, 03/23/2021 Influenza Vaccine (#1) 2025 RSV Immunization Adult Patients (1 - 1-dose 75+ series) 2043 HIB [...] topic Insurance MEDICAID - [place] Care Teams [employer] Relationship Specialty Start Date End Date Physician, No Pcp PCP - General 10/12/24
== END 2025-06-09 13:36 | disposition home or self-care (01) ==
LOC: HO.HCC 12:58
PROVIDERS: PCP Family Medicine; Visit Provider Internal Medicine
DX: F11.20 Opioid dependence, uncomplicated (principal)
CPT/HCPCS: 99213

== ENCOUNTER → 2025-06-09 12:58 | Outpatient (BNVA) | payer MEDICAID, SELFPAY | PROVIDERS: PCP Family Medicine; Visit Provider Internal Medicine | DX: F11.21 Opioid dependence, in remission (principal) | CPT/HCPCS: 99212 ==

== ENCOUNTER 2025-06-23 14:39 | Outpatient (AMB) | payer MEDICAID, SELFPAY ==
--- NOTE | 2025-06-23 14:49 | MHC.OFFVIS ---
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 She states that she has noticed it heart rate being slow at times. On occasion, she was told that heart rate was around 30 beats admitted when she was sleeping but not clear how that was identified. She has had random episodes of feeling dizzy and nauseous but again not clear if there is any correlation with the bradycardia or if it is a totally independent finding. Of note, when I reviewed the EKGs going back several years she has had long-term bradycardia. Even in 2018, heart rate is 40/Min. Otherwise, blood pressure is high today but she denies any history of hypertension. Previous blood pressure was normal. Long-term smoker. History of substance abuse including heroin but she states she has been clean for a while. On Suboxone. Otherwise, no clear-cut exertional angina. [facility] Medical History Fibroid of cervix Opioid use disorder Substance abuse No known health problems No known health problems Family History (Updated 06/23/25 @ 14:55 by Crystal Junior) Mother Chronic a-fib Stented coronary artery Diabetes COPD (chronic obstructive pulmonary disease) Lung cancer Father Diabetes Social History Alcohol intake: never Patient Tobacco Use Status: Current everyday Tobacco user Substance Use Type: Former Substance User and Heroin Gender identity: Female Female Reproductive History Menstrual Age of Menarche: 11 Review of Systems Const Denies weakness ENT Reports dizziness Card Denies chest pain, Denies chest pain with activity, Denies syncope, Denies rapid heart rate, Denies pedal edema, Denies edema, Denies leg edema, Denies lightheadedness, Reports palpitations, Reports dyspnea, Denies dyspnea on exertion and Denies orthopnea Resp Denies cough, Reports dyspnea and Denies dyspnea on exertion GI Denies hematochezia and Denies change in stool character Musc Denies abnormal gait, Denies muscle cramps, Denies muscle weakness, Denies numbness, Denies radiating pain into limb and Denies tingling Neuro Denies abnormal gait, Reports dizziness, Denies syncope, Denies numbness, Denies tingling and Denies weakness Endo Reports palpitations Physical Exam Vital Signs: Last Vital Signs Pulse 56 06/23/25 14:51 BP 160/80 H 06/23/25 14:51 BMI result Body Mass Index 35.1 Const General: comfortable and no acute distress Orientation/consciousness: patient oriented x3 HEENT Other: Unremarkable Head: Yes normal to inspection Neck Neck: Yes normal visual inspection Chest Chest palpation & inspection: normal inspection of the chest Resp Auscultation: clear to auscultation bilaterally Cardio Palpation: normal PMI Heart sounds: S1 normal heart sound present, S2 normal heart sound present, no gallops, no murmurs and no rubs GI Palpation (GI): Soft to palpation Back/Spine/Pelvis Other: unremarkable Skin General skin exam: no rashes or lesions noted Neuro General: patient oriented x3 Extrem General: Yes normal to inspection Psych Mental Status: mental status grossly normal Assessment & Plan Assessment & Plan (1) Bradycardia: Code(s): R00.1 - Bradycardia, unspecified Category: Medical (2) Dizziness: Code(s): R42 - Dizziness and giddiness Category: Medical (3) Smoker: Code(s): F17.200 - Nicotine dependence, unspecified, uncomplicated Category: Social Hx (4) History of heroin use: Code(s): F11.91 - Opioid use, unspecified, in remission Category: Social Hx Plan In the most recent EKG from April, sinus bradycardia at 48/Min; occasional PVCs; normal DC and corrected QT. On review of previous EKGs going back several years, even in 2018, she had sinus bradycardia at a rate of 40/Min. Overall, suspect chronic sinus bradycardia but doubt if it is truly causing any symptoms. Suspect most likely an asymptomatic finding. Any case, we will work this up further with an echocardiogram for any cardiomyopathy. She can do an ETT for chronotropic response assessment. Holter monitor for any high-grade heart blocks or profound bradycardia. We will follow up after the above. Otherwise, main recommendation is to stop smoking completely. We discussed about this today. With regard to drugs, she states she has not used anything for awhile and currently on Suboxone. Follow-up after testing. Orders: Orders CA echo transthoracic complete Today R00.1 - Bradycardia, unspecified, R42 - Dizziness and giddiness ECG 3 day holter monitor Today R00.1 - Bradycardia, unspecified, R42 - Dizziness and giddiness CA stress test Today R00.1 - Bradycardia, unspecified Coding Level of Care Code New Pt Level 4 (26678) Complex EM visit Add On G2211 Diagnoses Bradycardia R00.1 Dizziness R42 Smoker F17.200 History of heroin use F11.91
[2025-06-23 14:51] VITALS: BP 160/80; PULSE 56; BMI 35.1
--- OUTSIDE RECORDS SUMMARY | 2025-06-23 17:49 | XMS_ITS | Clinical Summary ---
Author Organization [employer] Address [address] [facility] [address] [place] [address] Care Team Providers Care Try On Baster Name Role Phone Unavailable Primary Care Provider Unavailabl e Allergies Active Allergy Reactions Criticality Noted Date Comments Dexamethasone Nausea,Vomiting 05/19/2025 Medications Misc. Devices (Pulse Oximeter For Finger) misc 1 each 2 times daily. 1 each 5 Active Blood Pressure kit 1 each 2 times daily. 1 kit 5 05/19/20 26 Active ondansetron (Zofran) 4 MG tablet Take 1 tablet (4 mg) by mouth every 8 (eight) hours if needed for nausea or vomiting. 10 tablet 5 Active loperamide (Imodium A-D) 2 MG tablet Take 1-2 tablets (2-4 mg) by mouth if needed in the morning, at noon, in the evening, and at bedtime for diarrhea for up to 5 days. 15 tablet 5 05/24/20 25 Encounters Date Type Department Care Team Description 05/19/2025 2:40 PM EDT Office Visit [facility] [address] [place] [address] [phone] Yousuf Coronado MD Vomiting and diarrhea (Primary Dx); Sinus bradycardia; Elevated blood pressure reading in office without diagnosis of hypertension 05/19/2025 Travel 05/18/2025 Telephone [facility] [address] [place], [place] [phone] Mindy Cooper RN NEEDS NEW PT APPT 05/17/2025 Orders Only [facility] External Provider, [facility] from Last 3 Months Social History Tobacco [...] Description 07/27/2025 9:45 AM EST Office Visit [facility] [address] [place] [address] Salma Fontaine MD [address] [place] [address] Health Maintenance Due Date Last Done Comments [...] AUTO DIFFERENTIAL Routine 05/17/2025 3:59 PM EDT from Last 3 Months Results * [...] (05/17/2025 6:02 PM EDT) Color Urine Yellow [facility] Appearance Urine Cloudy [facility] PH 7.0 5.0 - 9.0 [facility] Glucose Urine UA Negative Negative mg/dL [facility] Urine Blood Negative Negative [facility] Specific [place] - Urine 1.015 1.005 - 1.025 [facility] Urine Protein Negative Neg-Trace mg/dL [facility] Urine Ketones Negative Negative mg/dL [facility] Nitrite Urine Negative Negative [facility] Leukocyte Esterase Urine Negative Negative [facility] 05/17/2025 6:02 PM EDT 05/17/2025 6:09 PM EDT Narrative [facility] - 05/17/2025 6:29 PM EDT [id number], Clean Catch us Generic External Data Provider LAB URINE ORDERAB LES Final Result [facility] [address] [place] [phone] * CT Head w/o Contrast (05/17/2025 5:21 PM EDT) Anatomical Region Laterality Modality Head, Neck Computed Tomogra phy 05/17/2025 5:21 PM EDT Narrative 05/17/2025 5:23 PM EDT [address] [address] [address] Scan Report Signed Patient: Marielos Peralta MR#: [id number] : 1970 Acct:[id number] Age/Sex: 54 / F ADM Date: 05/17/25 Loc: HO.ED Attending Dr: Ordering Physician: Katerin Bethea PA-C Date of Service: 05/17/25 Procedure(s): CT head/brain wo IV con Accession Number(s): [id number] cc: Katerin Bethea PA-C; [facility] Report Number: [id number]: Total DLP = 692.00 mGy-cm Reason for [...] 05/17/25 1722 DD/ 1721 TD/TT: 05/17/25 1721 Keller Machine Operator: Procedure Note Donotuseinterpreter, Image - 05/17/[address] [address] [address] Scan Report Signed Patient: Marielos Peralta AMR#: [id number] : 1970Acct:[id number] Age/Sex: 54 / FADM Date: 05/17/25 Loc: HO.ED Attending Dr: Ordering Physician: Katerin Bethea PA-C Date of Service: 05/17/25 Procedure(s): CT head/brain wo IV con Accession Number(s): [id number] cc: Katerin Bethea PA-C; [facility] Report Number: [id number]: Total DLP = 692.00 mGy-cm Reason for [...] 05/17/25 1722 DD/ 1721 TD/TT: 05/17/25 1721 Keller Machine Operator: us [facility] External Provider IMG CT PROCEDURES Final Result * XR Shoulder 2+ Views Right (05/17/2025 4:30 PM EDT) Anatomical Region Laterality Modality Upper Extremities, Shoulder Right Radi ographic Imaging 05/17/2025 4:30 PM EDT Narrative 05/17/2025 4:39 PM EDT [address] [address] XRay Report Signed Patient: Marielos Peralta MR#: [id number] : 1970 Acct:[id number] Age/Sex: 54 / F ADM Date: 05/17/25 Loc: HO.ED Attending Dr: Ordering Physician: Katerin Bethea PA-C Date of Service: 05/17/25 Procedure(s): XR shoulder RT min 2V Accession Number(s): [id number] cc: Katerin Bethea PA-C; [facility] Reason for Exam: fall, landed on shoulder [...] 05/17/25 1636 DD/ 1630 TD/TT: 05/17/25 1630 Keller Machine Operator: Procedure Note Donotuseinterpreter, Image - 05/17/2025 [place] [address] XRay Report Signed Patient: Marielos Peralta AMR#: [id number] : 1970Acct:[id number] Age/Sex: 54 / FADM Date: 05/17/25 Loc: HO.ED Attending Dr: Ordering Physician: Katerin Bethea PA-C Date of Service: 05/17/25 Procedure(s): XR shoulder RT min 2V Accession Number(s): [id number] cc: Katerin Bethea PA-C; [facility] Reason for Exam: fall, landed on shoulder [...] 05/17/25 1636 DD/ 1630 TD/TT: 05/17/25 1630 Keller Machine Operator: [facility] External Provider IMG XR PROCEDURES Final Result * XR Hip right with Pelvis 1 view (05/17/2025 4:27 PM EDT) Anatomical Region Laterality Modality Lower Extremities, Hip Bilateral Radiograp hic Imaging 05/17/2025 4:27 PM EDT Narrative 05/17/2025 4:37 PM EDT [place] [address] XRay Report Signed Patient: Marielos Peralta MR#: [id number] : 1970 Acct:[id number] Age/Sex: 54 / F ADM Date: 05/17/25 Loc: HO.ED Attending Dr: Ordering Physician: Katerin Bethea PA-C Date of Service: 05/17/25 Procedure(s): XR hip RT w PEL1V Accession Number(s): [id number] cc: Katerin Bethea PA-C; [facility] Reason for Exam: fall, landed on hip, [...] 05/17/25 1634 DD/ 1627 TD/TT: 05/17/25 1630 Keller Machine Operator: Procedure Note Donotuseinterpreter, Image - 05/17/[address] [address] XRay Report Signed Patient: Marielos Peralta AMR#: [id number] : 1970Acct:[id number] Age/Sex: 54 / FADM Date: 05/17/25 Loc: HO.ED Attending Dr: Ordering Physician: Katerin Bethea PA-C Date of Service: 05/17/25 Procedure(s): XR hip RT w PEL1V Accession Number(s): [id number] cc: Katerin Bethea PA-C; [facility] Reason for Exam: fall, landed on hip, [...] 05/17/25 1634 DD/ 1627 TD/TT: 05/17/25 1630 Keller Machine Operator: [facility] External Provider IMG XR PROCEDURES Final Result * CBC auto differential (05/17/2025 3:59 PM EDT) White Blood Count 7.2 4.8 - 10.8 X10*3/uL [facility] Red Blood Count 5.39 4.20 - 5.50 X10*6/uL [facility] Hemoglobin 15.4 12.0 - 16.0 g/dl [facility] Hematocrit 46.7 37.0 - 47.0 % [facility] Mean Corpuscular Volume 86.6 80.0 - 98.0 fL [facility] Mean Corpuscular Hemoglobin 28.6 27.0 - 33.0 pg [facility] Mean Corpuscular HGB Conc 33.0 31.0 - 35.0 g/dl [facility] Red Cell Distribution Width 13.6 11.0 - 16.0 % [facility] Platelet Count 230 160 - 400 X10*3/uL [facility] Mean Platelet Volume 10.0 9.4 - 12.3 fL [facility] Neutrophils Percent Auto 54.6 45 - 73 % [facility] Imm Gran Pct Auto 0.3 0.0 - 0.4 % [facility] Lymphocytes Percent Auto 37.1 20 - 40 % [facility] Monocytes Percent Auto 5.9 2 - 11 % [facility] Eosinophils Percent Auto 1.7 0 - 4 % [facility] Basophils Percent Auto 0.4 0 - 2 % [facility] NRBC Pct Auto 0.0 0.0 - 0.2 /100WBC [facility] Neutrophils Absolute Auto 3.9 2.0 - 8.3 x10*3/uL [facility] Imm Gran Abs Auto 0.02 0.00 - 0.03 X10*3/uL [facility] Lymphocytes Absolute Auto 2.7 1.2 - 4.9 X10*3/uL [facility] Monocytes Absolute Auto 0.4 0.1 - 1.2 X10*3/uL [facility] Eosinophils Absolute Auto 0.1 0.0 - 0.4 X10*3/uL [facility] Basophils Absolute Auto 0.0 0.0 - 0.2 X10*3/uL [facility] NRBC Abs Auto 0.000 0.0 - 0.012 X10*3/uL [facility] 05/17/2025 3:59 PM EDT 05/17/2025 4:02 PM EDT Generic External Data Provider LAB BLOOD ORDERAB LES Final Result Performing Organization Address City/[facility]/ZIP Co de Phone Number [facility] [address] [place] [phone] * Lipase (05/17/2025 3:59 PM EDT) Lipase 9 8 - 78 U/L [facility] 05/17/2025 3:59 PM EDT 05/17/2025 4:02 PM EDT Generic External Data Provider LAB BLOOD ORDERAB LES Final Result Performing Organization Address City/[facility]/ZIP Co de Phone Number [facility] [address] [place] [phone] * (ABNORMAL) Hepatic Function Panel (05/17/2025 3:59 PM EDT) Bilirubin, Total 0.7 0.0 - 1.0 mg/dL [facility] Bilirubin, Direct 0.2 0.0 - 0.5 mg/dL [facility] Aspartate Amino Transferase 22 5 - 31 U/L [facility] Alanine Aminotransferase 17 0 - 31 U/L [facility] Total Protein 6.2(L) 6.5 - 8.0 g/dL [facility] Albumin Level 3.8 3.5 - 5.0 g/dL [facility] Alkaline Phosphatase 62 39 - 117 U/L [facility] 05/17/2025 3:59 PM EDT 05/17/2025 4:02 PM EDT us Generic External Data Provider LAB BLOOD ORDERAB LES Final Result Performing Organization Address City/[facility]/ZIP Co de Phone Number [facility] [address] [place] [phone] * (ABNORMAL) Basic Metabolic Panel (05/17/2025 3:59 PM EDT) Sodium 140 135 - 145 mmol/L [facility] Potassium 4.3 3.3 - 5.1 mmol/L [facility] Chloride 109(H) 96 - 108 mmol/L [facility] Carbon Dioxide 26 22 - 29 mmol/L [facility] Anion Gap 9(L) 12 - 20 [facility] Urea Nitrogen (BUN) 12 9 - 16 mg/dL [facility] Creatinine, Serum 0.66 0.5 - 1.4 mg/dL [facility] Creatinine Clr Calc Pharmacy 100.0 [facility] Comment:Provided height and weight: 157.48 cm,91.172 kg.eGFR (calculated from the MDRD study equation) and eCrCl(calculated from the Cockcroft-Gault equation) are based ondifferent parameters and may not yield comparable results.If eCrCl result is absurd, please check patient'sheight/weight. Estimated Glomerular Filt Rate >60 [facility] Comment:Chronic Kidney Disea se: Estimated GFR < 60 mL/min/1.44r3Pqcfsp Kidney Disease: Estimated GFR < 15 mL/min/1.73m2 Glucose 88 60 - 115 mg/dL [facility] Calcium 8.5 8.4 - 10.2 mg/dL [facility] 05/17/2025 3:59 PM EDT 05/17/2025 4:02 PM EDT us Generic External Data Provider LAB BLOOD ORDERAB LES Final Result Performing Organization Address City/[facility]/ZIP Co de Phone Number [facility] [address] [place] [phone] from Last 3 Months Insurance [facility] C3
--- OUTSIDE RECORDS SUMMARY | 2025-06-23 17:49 | XMS_ITS | Clinical Summary ---
Author Organization [facility] Address [address] [place] [address] Phone Care Team Providers Care System Trainer Name Role Phone Physician, No Pcp Primary [...] topic Insurance MEDICAID - [place] Care Teams System Trainer Relationship Specialty Start Date End Date Physician, No Pcp PCP - General 10/12/24
== END 2025-06-23 15:18 | disposition home or self-care (01) ==
LOC: HO.HCS 14:40
PROVIDERS: PCP Family Medicine; Visit Provider Internal Medicine
DX: R00.1 Bradycardia, unspecified (principal); R42 Dizziness and giddiness; F17.200 Nicotine dependence, unspecified, uncomplicated; F11.91 Opioid use, unspecified, in remission
CPT/HCPCS: 99214

== ENCOUNTER → 2025-06-23 14:39 | Outpatient (BNVA) | payer MEDICAID, SELFPAY | PROVIDERS: PCP Family Medicine; Visit Provider Internal Medicine | DX: R42 Dizziness and giddiness (principal); R00.1 Bradycardia, unspecified; F17.200 Nicotine dependence, unspecified, uncomplicated; F11.91 Opioid use, unspecified, in remission | CPT/HCPCS: 99212 ==

== ENCOUNTER 2025-07-27 13:59 | Emergency (ER) | payer MEDICAID, SELFPAY ==
--- NOTE | 2025-07-27 | ECG_ITS ---
Test Reason : CP Blood Pressure : */* mmHG Vent. Rate : 53 BPM Atrial Rate : 53 BPM P-R Int : 144 ms QRS Dur : 102 ms QT Int : 438 ms P-R-T Axes : 47 10 34 degrees QTcB Int : 410 ms Sinus bradycardia with occasional Premature ventricular complexes Septal infarct , age undetermined Abnormal ECG When compared with ECG of 17-May-2025 15:09, Septal infarct is now Present Referred By: Generic ED Physician Electronically Signed By: MEERA KIRK MD
--- NOTE | ~2025-07-27 | XR_ITS ---
EXAMINATION: XR CHEST CLINICAL INFORMATION: cp COMPARISON: Previous chest x-ray March 2022 TECHNIQUE: 2 views of the chest were obtained. FINDINGS: No significant abnormality is noted involving the heart, lungs, mediastinum, bony thorax or soft tissues. Degenerative changes of the spine. XR/XR chest 2V IMPRESSION: No evidence for acute disease in the chest. Electronically signed by: Donna Faria MD 07/27/2025 03:01 PM BRIGID
--- NOTE | ~2025-07-27 | MR_ITS ---
CLINICAL HISTORY: epigastric RUQ pain. Rule out choledocholithias MR abdomen without contrast, MRCP Comparison: None available Findings: Linear signal abnormality in the right lower lobe could be atelectasis or scarring. No cholelithiasis, gallbladder wall thickening or pericholecystic fluid. Mild intrahepatic biliary ductal dilatation. The common bile duct measures up to 7 mm. Mild prominence of the sphincter of Oddi. No filling defect to indicate choledocholithiasis. Loss of signal in the liver on the out of phase images indicating hepatic steatosis. There is focal fatty sparing at the gallbladder fossa. Mild dilation of the main pancreatic duct, measuring up to 5 mm there is pancreatic divisum. Cystic lesions in the pancreatic head measuring up to 5 mm. No peripancreatic stranding or fluid collection. No hydronephrosis. Mild fullness of the right renal pelvis. Right renal subcentimeter cyst. Left renal subcentimeter parapelvic cysts. The other solid organs are unremarkable. No bowel wall thickening or dilation. No aneurysm. No lymphadenopathy. No ascites. Mild amount of endplate signal changes, degenerative. Impression: Mild intrahepatic and extrahepatic biliary ductal dilatation. No choledocholithiasis. Mild prominence of the sphincter of Oddi. This can be further evaluated with ERCP. Mild dilation of the main pancreatic duct with pancreas divisum and cystic lesions measuring up to 5 mm. No evidence of acute pancreatitis. This document has been electronically signed by: Pooja Lawton MD on 07/27/2025 19:32:16
--- NOTE | ~2025-07-27 | US_ITS ---
EXAMINATION: US ABDOMEN LIMITED CLINICAL INFORMATION: Epigastric pain. Right upper quadrant pain.. COMPARISON: None available. TECHNIQUE: Real-time ultrasound of the right upper quadrant abdomen using grayscale technique. FINDINGS: PANCREAS: No peripancreatic fluid collections. Main pancreatic duct measures 3 mm. LIVER: 16 cm. Increased echotexture. No gross nodular contour. No solid or cystic lesion. Probable focal sparing near the falciform ligament. GALLBLADDER: Fluid-filled without pericholecystic fluid collection or gallbladder wall thickening. No distention. Positive sonographic sign elicited by the technologist. COMMON BILE DUCT: 7 mm. RIGHT KIDNEY: 10 cm. Normal echotexture. Renal cortical thickness is normal. No hydronephrosis. Extrarenal pelvis. No gross solid or cystic lesion.. FREE FLUID: None. US/US abdomen limited IMPRESSION: No cholelithiasis. Common bile duct measures 7 mm. Choledocholithiasis cannot be excluded. Hepatomegaly and steatosis. Electronically signed by: Kolton Bland MD 07/27/2025 03:50 PM EST
[2025-07-27 14:06] VITALS: BP 150/80; BP 169/90; PULSE 65; PULSE 72; RESP 17; TEMP 36.4; O2SAT 95; O2SAT 99; BMI 36.6
--- NOTE | 2025-07-27 14:07 | ED.CHESTPAIN ---
HPI - Chest Pain General Chief Complaint: Nausea/Vomiting/Diarrhea Stated Complaint: Chest pain, n/v 4 weeks Time Seen by Provider: 07/27/25 14:06 Source: patient, EMS, RN notes reviewed and old records reviewed Mode of arrival: EMS History of Present Illness ED Provider: Pily Purcell PA-C HPI narrative: 54-year-old female with a past medical history of opiate use disorder currently on Suboxone, presenting to the ED via EMS complaining of nausea and vomiting x1 month with associated CP x today. also reports SOB. Denies fever, chills, cough, diarrhea/constipation, dysuria /hematuria Related Data Home Medications ?Medication ?Instructions ?Recorded ?Confirmed dextroamphetamine-amphetamine 30 1 tab PO DAILY 05/17/25 06/23/25 mg tablet (Adderall) trazodone 50 mg tablet 50 mg PO BEDTIME PRN sleep 05/17/25 06/23/25 Previous Rx's ?Medication ?Instructions ?Recorded clonazepam 2 mg tablet (Klonopin) 2 mg PO BEDTIME 5 days #5 tabs 03/17/25 buprenorphine 8 mg-naloxone 2 mg 1 film sublingual TID 30 days #90 06/09/25 sublingual film (Suboxone) ea ondansetron HCl 4 mg tablet 4 mg PO Q8H PRN nausea and 06/09/25 vomiting 3 days #10 tabs Allergies Allergy/AdvReac Type Severity Reaction Status Date / Time dexamethasone (From DECADRON) AdvReac Severe NAUSEA & Verified 07/27/25 14:15 VOMITING Review of Systems Review of Systems: Yes all other systems are reviewed and are negative Constitutional: Constitutional: Reports as per HPI [facility] Past Medical History Attestation statement: The following information was validated with the patient. Source: old records reviewed Medical History Fibroid of cervix Opioid use disorder Substance abuse No known health problems No known health problems Family History Family History Mother Chronic a-fib Stented coronary artery Diabetes COPD (chronic obstructive pulmonary disease) Lung cancer Father Diabetes Social History Social History Alcohol intake: never Patient Tobacco Use Status: Current everyday Tobacco user Substance Use Type: Former Substance User and Heroin Advance Directives: Yes Advance Directives Information Provided: Yes Advance Directives on File: No Do you have a plan to hurt others: No Plan Patient : No Gender identity: Female Physical Exam Vital Signs: Vital Signs: Last Vital Signs Temp 98 F 07/27/25 19:05 Pulse 52 07/27/25 19:05 Resp 19 07/27/25 19:05 BP 139/62 07/27/25 19:05 Pulse Ox 96 07/27/25 19:05 O2 Del Method Room Air 07/27/25 19:05 BMI result Body Mass Index 36.6 Const: General: cooperative, healthy appearing and no acute distress Orientation/consciousness: patient oriented x3 Limitations: no limitations HEENT: Head: Yes normal to inspection and Yes atraumatic Ears: hearing grossly normal bilaterally General nose exam: Normal external nose present Face and sinus: Yes normal facial exam Eyes: General: appearance normal, both eyes and all related structures EOM: EOMs intact bilaterally Neck: Neck: Yes normal visual inspection and Yes no meningeal signs Resp: Effort & Inspection: normal respiratory effort and no respiratory distress Auscultation: clear to auscultation bilaterally, no rales, no rhonchi and no wheezes Cardio: Rate: regular rate Heart sounds: S1 normal heart sound present and S2 normal heart sound present GI: Inspection: Yes normal to inspection Palpation (GI): Soft to palpation, Tenderness to palpation present (GI) in the epigastrum and in the RUQ; with no rebound tenderness, no guarding and not rigid : General: Yes no CVA tenderness Back/Spine/Pelvis: Back: no CVA tenderness Skin: Rashes: no rashes Wounds: no wounds Neuro: General: patient oriented x3, tone normal and no meningeal signs Cranial nerves: Yes CN's II-XII intact bilaterally Gait exam (Neuro): Normal gait present Extrem: General: Yes normal to inspection Course Course Course Narrative: - labs noted for lipase of 84, otherwise unremarkable XR chest 2V IMPRESSION: No evidence for acute disease in the chest. US abdomen limited IMPRESSION: No cholelithiasis. Common bile duct measures 7 mm. Choledocholithiasis cannot be excluded. Hepatomegaly and steatosis. > will consult GI Dr. Ko > agreeable patient should be evaluated with MRCP >1632-- Spoke with MRI. Patient will obtain MRCP tonight. -1700--ED care transferred to TOM Rivera pending MRCP and dispo per results 5:00 PM 07/27/2025 (Nicole Travis, KEARA): Patient signed out to me from previous provider, pending MRCP. 7:45 PM-- her MRCP has returned. It does show mild intrahepatic and extrahepatic biliary ductal dilation but no evidence of choledocholithiasis. Impression listed below. I discussed this with the GI provider , who was agreeable with outpatient ERCP and follow up in the office given the patient wants to eat and go home. We will p.o. trial in the ED and proceed with discharge plan. Patient is agreeable. Impression: Mild intrahepatic and extrahepatic biliary ductal dilatation. No choledocholithiasis. Mild prominence of the sphincter of Oddi. This can be further evaluated with ERCP. Mild dilation of the main pancreatic duct with pancreas divisum and cystic lesions measuring up to 5 mm. No evidence of acute pancreatitis. Medications Administered Discontinued Medications Generic Name Dose Route Start Last Admin Trade Name Freq PRN Reason Stop Dose Admin Al Hydroxide/Mg Hydroxide 15 ml 07/27/25 14:30 07/27/25 14:59 Magnesium Hydrox/Alum Hydrox 30 Ml Oral.Susp PO 07/27/25 14:31 15 ml ONCE ONE Administration Famotidine 20 mg 07/27/25 14:30 07/27/25 15:00 Famotidine/Pf 20 Mg/2 Ml Vial IVPUSH 07/27/25 14:31 20 mg ONCE ONE Administration Sodium Chloride 1,000 mls @ 999 mls/hr 07/27/25 14:30 07/27/25 17:31 Ns IV 07/27/25 15:30 Infused .Q1H1M HAZEL Infusion Ondansetron HCl 4 mg 07/27/25 14:30 07/27/25 14:59 Ondansetron Hcl 4 Mg/2 Ml Vial IVPUSH 07/27/25 14:31 4 mg ONCE ONE Administration Medical Decision Making Medical Decision Making [facility] Narrative: 54-year-old female with a past medical history of opiate use disorder currently on Suboxone, presenting to the ED via EMS complaining of nausea and vomiting x1 month with associated CP x today. on exam vital signs stable, NAD, nontoxic appearing, lungs CTA, abdomen is soft with epigastric /RUQ tenderness, no rebound or guarding. Concern for gastritis vs GERD vs pancreatitis vs cholecystitis /lithiasis. Lower suspicion for acute ACS, PE/DVT, dissection Plan: EKG, labs, UA, abdomen ultrasound, IVF, pain control, re-eval Please refer to course for remaining clinical decision making, interpretation of labs/imaging results, and discussions with consultants and/or family members. Differential Diagnosis Differential Diagnoses: The differential diagnosis associated with the presentation includes As above Admission/Observation Consideration of admission/observation: Escalation of care including admission/observation considered Lab Data MDM Lab Attestation statement: I reviewed the patient's lab results. 07/27/25 14:49 07/27/25 14:49 Labs: Lab Results 07/27/25 Range/Units 14:49 WBC 8.6 (4.8-10.8) X10*3/uL RBC 6.04 H (4.20-5.50) X10*6/uL Hgb 17.4 H (12.0-16.0) g/dl Hct 53.3 H (37.0-47.0) % MCV 88.2 (80.0-98.0) fL MCH 28.8 (27.0-33.0) pg MCHC 32.6 (31.0-35.0) g/dl RDW 13.1 (11.0-16.0) % Plt Count 258 (160-400) X10*3/uL MPV 10.1 (9.4-12.3) fL Immature Gran % (Auto) 0.2 (0.0-0.4) % Neut % (Auto) 65.0 (45-73) % Lymph % (Auto) 28.8 (20-40) % [place] % (Auto) 4.7 (2-11) % Eos % (Auto) 0.9 (0-4) % Baso % (Auto) 0.4 (0-2) % Lymph # (Auto) 2.5 (1.2-4.9) X10*3/uL [place] # (Auto) 0.4 (0.1-1.2) X10*3/uL Eos # (Auto) 0.1 (0.0-0.4) X10*3/uL Baso # (Auto) 0.0 (0.0-0.2) X10*3/uL Abs Immat Gran (auto) 0.02 (0.00-0.03) X10*3/uL Absolute Neuts (auto) 5.6 (2.0-8.3) x10*3/uL Absolute Nucleated RBC 0.000 (0.0-0.012) X10*3/uL Nucleated RBC % (auto) 0.0 (0.0-0.2) /100WBC Sodium 142 (135-145) mmol/L Potassium 4.2 (3.3-5.1) mmol/L Chloride 107 (96-108) mmol/L Carbon Dioxide 32 H (22-29) mmol/L Anion Gap 7 L (12-20) BUN 12 (9-16) mg/dL Creatinine 0.77 (0.5-1.4) mg/dL Estim Creat Clear Calc 85.4 Estimated GFR > 60 Random Glucose 86 (60-115) mg/dL Calcium 9.1 D (8.4-10.2) mg/dL Magnesium 2.0 (1.6-2.6) mg/dL Total Bilirubin 0.8 (0.0-1.0) mg/dL Direct Bilirubin 0.3 (0.0-0.5) mg/dL AST 27 (5-31) U/L ALT 24 (0-31) U/L Alkaline Phosphatase 73 (39-117) U/L Troponin I High Sens < 2.7 (<3.5-17.0) ng/L Total Protein 7.3 (6.5-8.0) g/dL Albumin 4.5 (3.5-5.0) g/dL Lipase 84 H (8-78) U/L Independent Interpretation I performed an independent interpretation of an: EKG ( my interpretation: EKG sinus bradycardia with occasional PVC rate of 53. MA interval 144. QTC 410. no STEMI), Plain X-Ray and Ultrasound Radiology Impression Discussion of test interpretation with radiology: I have reviewed the radiologist's reading. Independent Historian Clinical information obtained from an independent historian. History obtained from or confirmed by: EMS External Record Review External record reviewed: Inpatient record, Office record, Outpatient record, Prior outpatient labs, Prior outpatient radiology, Primary care record and Outside ED record Tests considered The following testing was considered but not selected: As above Prescription Management I considered prescription management with: Pain Medication Chronic Conditions Patient?s care impacted by: Other Social Determinants Patient?s care significantly limited by Social Determinants of Health including: Alcoholism and drug addiction in family, Problems related to primary support group and Other Social Determinant of Health Discharge Plan Discharge Clinical Impression: Abdominal pain, RUQ Patient Disposition: Home, Self-Care Instructions: ERCP (Endoscopic Retrograde Cholangiopancreatography) (DC) Additional Instructions: As we discussed, your workup today was overall reassuring. We found that you have a dilated common bile duct. However, there is no stone in your common bile duct, which is good. You had an MRCP here, I listed the results below for your convenience, for discussion with GI when you have your follow up appointment. Please contact the GI department as listed below and follow up with them within the next 1-2 weeks. If you develop any worsening abdominal pain, nausea or vomiting, please return to the ED for additional evaluation. Impression: Mild intrahepatic and extrahepatic biliary ductal dilatation. No choledocholithiasis. Mild prominence of the sphincter of Oddi. This can be further evaluated with ERCP. Mild dilation of the main pancreatic duct with pancreas divisum and cystic lesions measuring up to 5 mm. No evidence of acute pancreatitis. Prescriptions: No Action dextroamphetamine-amphetamine [Adderall] 30 mg tablet 1 tab PO DAILY trazodone 50 mg tablet 50 mg PO BEDTIME PRN (Reason: sleep) clonazepam [Klonopin] 2 mg tablet 2 mg PO BEDTIME 5 Days Qty: 5 0RF Rx Instructions: administer 30 minutes before bedtime Sublocade 100 mg/0.5 mL solution, extended rel syringe 100 mg subcut ONCE Qty: 0.5 0RF ondansetron HCl 4 mg tablet 4 mg PO Q8H PRN (Reason: nausea and vomiting) 3 Days Qty: 10 0RF buprenorphine-naloxone [Suboxone] 8-2 mg film 1 film sublingual TID 30 Days Qty: 90 0RF Referrals: Lisset Ko MD [Physician, Gastroenterology] Print Language: [place]
[2025-07-27 14:53] LABS: MANUAL DIFF FLAG NO
[2025-07-27 14:58] LABS: Hematocrit 53.3 % (37.0-47.0); Hemoglobin 17.4 g/dl (12.0-16.0); Imm Gran Abs Auto 0.02 X10*3/uL (0.00-0.03); Imm Gran Pct Auto 0.2 % (0.0-0.4); Lymphocytes Absolute Auto 2.5 X10*3/uL (1.2-4.9); Mean Corpuscular HGB Conc 32.6 g/dl (31.0-35.0); Mean Corpuscular Hemoglobin 28.8 pg (27.0-33.0); Mean Corpuscular Volume 88.2 fL (80.0-98.0); NRBC Abs Auto 0.000 X10*3/uL (0.0-0.012); NRBC Pct Auto 0.0 /100WBC (0.0-0.2); Platelet Count 258 X10*3/uL (160-400); Red Blood Count 6.04 X10*6/uL (4.20-5.50); White Blood Count 8.6 X10*3/uL (4.8-10.8)
[2025-07-27] MEDS: Magnesium Hydrox/Alum Hydrox 30 ML ORAL.SUSP 15 ML PO (14:59)
[2025-07-27 15:09] LABS: Alanine Aminotransferase 24 U/L (0-31); Albumin Level 4.5 g/dL (3.5-5.0); Alkaline Phosphatase 73 U/L (39-117); Anion Gap 7 (12-20); Aspartate Amino Transferase 27 U/L (5-31); Blood Urea Nitrogen 12 mg/dL (9-16); Calcium 9.1 mg/dL (8.4-10.2); Carbon Dioxide 32 mmol/L (22-29); Chloride 107 mmol/L (96-108); Creatinine Clr Calc Pharmacy 85.4; Estimated Glomerular Filt Rate > 60; Lipase 84 U/L (8-78); Magnesium 2.0 mg/dL (1.6-2.6); Potassium 4.2 mmol/L (3.3-5.1); Sodium 142 mmol/L (135-145); Total Protein 7.3 g/dL (6.5-8.0)
[2025-07-27 15:19] LABS: Troponin-I High Sensitivity < 2.7 ng/L (<3.5-17.0)
[2025-07-27 16:16] VITALS: BP 154/95; PULSE 54; RESP 18; TEMP 36.8; O2SAT 98
--- NOTE | 2025-07-27 16:41 | PC.NURSE ---
MRI screening form completed with Pt. Form faxed to MRI for review. Original form placed in Pt hard chart.
[2025-07-27 19:05] VITALS: BP 139/62; PULSE 52; RESP 19; TEMP 36.6; O2SAT 96
--- NOTE | 2025-07-27 19:18 | PC.NURSE ---
pt requesting to leave. provider at bedside
[2025-07-27 19:59] VITALS: BP 139/62; PULSE 52; RESP 19; TEMP 36.6; O2SAT 96
--- OUTSIDE RECORDS SUMMARY | 2025-07-27 20:31 | XMS_ITS | Clinical Summary ---
Author Organization [facility] Address [address] [place] [address] Phone Care Team Providers Care Salad Counter Attendant Name Role Phone Physician, No Pcp Primary [...] on file Sexual Orientation Not on file Last Filed Vital Signs Vital Sign Reading [...] topic Insurance MEDICAID - [place] Care Teams Salad Counter Attendant Relationship Specialty Start Date End Date Physician, No Pcp PCP - General 10/12/24
== END 2025-07-27 20:07 | disposition home or self-care (01) ==
PROVIDERS: Physician Assistant; Emergency Provider Emergency Medicine Emergency Medical Services
DX: R10.11 Right upper quadrant pain (principal); R07.9 Chest pain, unspecified; R11.2 Nausea with vomiting, unspecified; R06.02 Shortness of breath; R00.1 Bradycardia, unspecified
CPT/HCPCS: 36415; 71046; 74181; 76705; 80048; 80076; 83690; 83735; 84484; 85025; 93005; 96361; 96374; 96375; 99284; 99285; J1308; J2405

== ENCOUNTER → 2025-07-27 14:07 | Outpatient (BNV) | payer MEDICAID, SELFPAY | PROVIDERS: Emergency Provider Emergency Medicine Emergency Medical Services; Visit Provider Internal Medicine Cardiovascular Disease | DX: R00.1 Bradycardia, unspecified (principal) | CPT/HCPCS: 93010 ==

== ENCOUNTER → 2025-07-27 14:29 | Outpatient (BNV) | payer MEDICAID, SELFPAY | PROVIDERS: Emergency Provider Emergency Medicine Emergency Medical Services; Visit Provider Radiology Diagnostic Radiology | DX: K80.50 Calculus of bile duct without cholangitis or cholecystitis without obstruction (principal); K83.4 Spasm of sphincter of Oddi; K86.2 Cyst of pancreas; K76.0 Fatty (change of) liver, not elsewhere classified; R16.0 Hepatomegaly, not elsewhere classified; R07.9 Chest pain, unspecified | CPT/HCPCS: 71046; 74181; 76705 ==

== ENCOUNTER → 2025-07-29 08:47 | Outpatient (REF) | payer MEDICAID, SELFPAY ==
--- NOTE | 2025-07-29 08:52 | CA_ITS ---
Transthoracic Echocardiogram Patient (Last, First, Middle): Marielos Peralta A Gender: Female Date of : 1970 Age: 54 Procedure Date: 07/29/2025 Procedure Type: Transthoracic Echocardiogram Location: OP Height: 157.48 cm Weight: 86.64 kg BSA: 1.87 m2 Heart Rate: 46 bpm BP: 140 / 60 mmHg Educational Director: TO Referring MD: Jared Erickson MD Print Buyer: Baldemar Lopez MD Symptoms: R00.1 - Bradycardia, unspecified Study Quality: Technically Difficult/declined contrast ECG Rhythm: Bradycardia Conclusions: - Essentially normal study Findings Procedure Information The study quality is limited by the patients inability to tolerate the test and patients body habitus. The patient declines contrast. Left Ventricle Normal left ventricular size, thickness, and systolic function. The visually estimated ejection fraction is between 60-65%. Spectral Doppler is indicative of a normal filling pattern. Right Ventricle Normal right ventricular cavity size and systolic function. Atria Both atria are normal in size. There is no evidence of interatrial shunt. Aortic Valve Normal aortic valve structure and function. There is no aortic valve stenosis. There is no aortic valve regurgitation. Mitral Valve Normal mitral valve structure and function. There is trace mitral valve regurgitation. There is no mitral valve stenosis. Pulmonic Valve The pulmonic valve is likely normal. Tricuspid Valve Likely normal tricuspid valve structure and function. Tricuspid regurgitation envelope is inadequate for calculation of right ventricular systolic pressure. Great Vessels All visible segments of the aorta are normal in size. The pulmonary artery was not well visualized. Venous The inferior vena cava is normal in size and collapses greater than 50% with inspiration. Pericardium/Pleural There is no evidence of pericardial effusion. Prior Study Comparison No prior study available for comparison. Measurements 2D Linear Measurements IVSd: 1.17 0.6-0.9/0.6-1.0 cm LVIDd: 5.46 3.9-5.3/4.2-5.9 cm LVIDd Index: 2.92 2.4-3.2/2.2-3.1 cm/m2 LVIDs: 3.59 2.0-3.6 cm LVPWd: 0.97 0.7-1.1 cm LA Diam: 3.40 2.7-3.8/3.0-4.0 cm LAIDs Index: 1.82 1.5-2.3 cm/m2 LV Mass: 287.07 67-162/88-224 g LV Mass Index: 153.51 43-95/49-115 g/m2 LVOT Diam: 2.20 3.0+(-)1.3 cm 2D Systolic Function EF 4C: 60.50 >55% Mitral Valve MV Pk E: 0.76 MV PK A: 0.58 MV Decel Time: 184.00 E/A: 1.30 E'Lateral: 7.94 E'Medial: 7.29 E/E' Med: 10.50 E/E' Lat: 9.60 PHT: 54.00 MVA PHT: 4.07 Decel Russell: 4.16 Aortic Valve AoV Pk Andrés: 1.61 AoV Mn Andrés: 1.09 AoV VTI: 0.36 AoV Pk Grad: 10.00 Aov Mn Grad: 6.00 CAL Cont.VTI: 2.99 LVOT LVOT Pk Andrés: 1.18 LVOT Mn Andrés: 0.72 LVOT VTI: 0.29 LVOT Pk Grad: 6.00 LVOT Mn Grad: 2.00 LVOT Diam: 2.20 LVOT Area: 3.80 Diastolic Function MV Pk E: 0.76 MV Pk A: 0.58 E/A: 1.30 E'Medial: 7.29 E/E' Med: 10.50 E' Laterial: 7.94 E/E' Lat: 9.60 Right Ventricle TAPSE (mm): 24.90 TVS' Andrés: 11.70 Tricuspid Valve RA Press: 3.00 Great Vessels Aorta Sinus of Valsalva: 3.22 2.0-3.5 cm Ao Asc: 3.50 2.1-3.4 cm Updated in Other Vendor System with Status of Final Baldemar Lopez MD electronically signed on 07/30/2025 4:53:01 PM with status of Final
--- NOTE | 2025-07-29 08:52 | CA_ITS ---
Acquisition Time: 2025-07-29 10:16:10 Total Exercise Time: 00:05:51 Test Indications: BRADYCARDIA, PVCS Medications: SEE H&P Protocol: PARTH Max HR: 91 BPM 55% of Pred: 164 BPM Max BP: 150/60 mmHG Max Work Load: 7.0 METS Exercise stress test with exercise 5 mins 51 secs of Parth Protocol, achieving 54% MPHR, with reports of SOB and dizziness, with vent trigeminy at rest that resolved with exercise, with normotensive response to exercise. No EKG changes at achieved workload. Suboptimal HR with exercise. In recovery, breathing imprived and dizzines resolved. In late recovery, pt reported 10/10 sharp pain under her left breast lasing one sec.Test reviewed with Dr. Erickson. Referred By: Jared Erickson Electronically Signed By: Gold Otero
== END ==
LOC: HO.CARD 08:47
PROVIDERS: Visit Provider Internal Medicine
DX: R00.2 Palpitations (principal); R00.1 Bradycardia, unspecified; R42 Dizziness and giddiness
CPT/HCPCS: 93017; 93225; 93306

== ENCOUNTER → 2025-07-29 08:52 | Outpatient (BNV) | payer MEDICAID, SELFPAY | DX: R00.1 Bradycardia, unspecified (principal) | CPT/HCPCS: 93016; 93018; 93306 ==